=== PATIENT | female | born 1950 | race Caucasian/White ===

== ENCOUNTER → 2017-07-17 10:36 | Outpatient (CLI) | payer MEDICARE, OTHER, SELFPAY ==
[2017-07-17 12:32] LABS: Hematocrit 40.3 % (37-47); Hemoglobin 13.3 g/dl (12.0-15.0); Mean Corpuscular Hgb 28.3 pg (27.0-32.0); Mean Corpuscular Volume 85.7 fL (81-99); Mean Platelet Vol. 10.8 fl (6.2-12.0); Platelet Count 258 K/mm3 (150-450); RBC Distribution Width CV 14.6 % (11.6-14.6); RBC Distribution Width SD 44.7 fl (35.1-43.9); White Blood Count 7.2 K/mm3 (4.4-11.0)
[2017-07-17 12:33] LABS: Scan Indicated on CBC? Y/N NO
[2017-07-17 13:22] LABS: ALB/GLOB Ratio 1.1 RATIO (0.9-2.4); AST(SGOT) 23 U/L (15-37); Alanine Aminotransfer ALT/SGPT 37 U/L (13-56); Albumin, Serum 3.7 g/dL (3.2-5.0); Alkaline Phosphatase 104 U/L (45-117); Anion Gap 9 (5-15); BUN 13 mg/dL (7-18); Calcium,Total 8.6 mg/dL (8.5-10.1); Chloride 103 mmol/L (98-107); Cholesterol 263 mg/dL (200); Creatinine, Serum 0.72 mg/dL (0.55-1.02); EST Glomerular Filtration Rate 86 mL/min (>60); Est Glom Filt Rate - Afr Amer 104 mL/min (>60); Globulin 3.5 g/dL (2.2-4.2); Glucose 87 mg/dL (74-106); High Density Lipoprotein 52 mg/dL; Potassium 3.2 mmol/L (3.5-5.1); Protein, Total 7.2 g/dL (6.4-8.2); Sodium Level 138 mmol/L (136-145); Triglycerides 228 mg/dL; Very Low Density Lipoprotein 46 mg/dL (5-40)
== END ==
PROVIDERS: Family Provider Family Medicine; PCP Family Medicine; Visit Provider Family Medicine
DX: R60.0 Localized edema (principal); I10 Essential (primary) hypertension
CPT/HCPCS: 36415; 80053; 80061; 84443; 85027

== ENCOUNTER → 2017-11-26 15:26 | Outpatient (CLI) | payer MEDICARE, OTHER, SELFPAY ==
--- NOTE | 2017-11-26 15:29 | RAD_ITS ---
STUDY: X-RAY CHEST REASON FOR EXAM: Female, 67 years old. Chest pain TECHNIQUE: Frontal and lateral views of the chest COMPARISON: 10/10/2016 FINDINGS: The lungs are clear. There are no pleural effusions. There is no pneumothorax. The heart is normal in size. The visualized osseous structures are within normal limits. RAD/Chest PA and Lateral IMPRESSION: No acute thoracic pathology. Electronically Signed: Varun Moyer, at 17:49 EDT Tel , Service support ,
== END ==
PROVIDERS: Family Provider Family Medicine; PCP Family Medicine; Visit Provider Family Medicine
DX: R07.81 Pleurodynia (principal)
CPT/HCPCS: 71046

== ENCOUNTER 2017-12-31 11:45 | Inpatient (IN) | payer MEDICARE, OTHER, SELFPAY ==
[2017-12-31 11:47] VITALS: BP 137/87; PULSE 104; RESP 17; TEMP 37.4; O2SAT 94; BMI 32.8
--- NOTE | 2017-12-31 12:00 | US_ITS ---
STUDY: ABDOMINAL ULTRASOUND - RIGHT UPPER QUADRANT REASON FOR VISIT: Female, 67 years old. Abdominal pain, right upper quadrant. TECHNIQUE: Ultrasound evaluation of the right upper quadrant was performed with real-time and static magana-scale imaging. TECHNICAL QUALITY: Adequate. COMPARISON: 10/29/2015. FINDINGS: Liver: The liver measures 18.0 cm. Increased echogenicity of the liver parenchyma due to fatty infiltration. The bile ducts are within normal limits. There is hepatic color flow. The direction of portal flow is hepatopetal. There is no demonstrated mass lesion. Gallbladder: Normal distended gallbladder. The gallbladder wall measures 4 mm. There is a positive sonographic Nick's sign. There is no pericholecystic fluid. There are no gallstones. Common Bile Duct (C.B.D.): The common bile duct measures 7-8 mm. Pancreas: Normal size of the head, body and tail of the pancreas. There is normal echogenicity of the pancreas. There is no demonstrated pancreatic mass or cyst. Mild pancreatic ductal dilatation measuring 3 mm in diameter. Right Kidney: Normal size of the right kidney. The right kidney measures 10.2 x 4.9 x 4.4 cm. Normal renal cortex. The right cortex measures 1.5 cm. There is no demonstrated renal mass or cyst. There is no right hydronephrosis. US/Gallbladder IMPRESSION: 1. Abnormal thickening of the gallbladder wall with positive sonographic Nick's sign is but negative for gallstones, sludge or pericholecystic edema. This is worrisome for acalculous cholecystitis. Hepatobiliary scintigram with CCK will help clarify if desired. 2. Mild pancreatic ductal dilatation. 3. Mild hepatic steatosis was present previously. Electronically Signed: Dionisio Vigil MD at 13:57 EDT , Service support ,
[2017-12-31] MEDS: 0.9% Normal Saline 1,000 ML 125 ML IV ×2 (12:23→19:00)
[2017-12-31] MEDS: Ondansetron 4 MG/2 ML Vial IV (12:24)
[2017-12-31] MEDS: HYDROmorphone 1 MG/ML Syringe IV ×4 (12:24→22:55)
[2017-12-31 12:44] LABS: Absolute Lymphocyte Count 2.41 X10^3/ul (0.83-4.51); Basophil# 0.07 X10^3/uL; Basophil% 0.9 % (0-1); Eosinophil# 0.29 X10^3/uL; Eosinophils% 3.9 % (0-5); Hematocrit 41.7 % (37-47); Hemoglobin 14.2 g/dl (12.0-15.0); Lymphocyte # 2.41 X10^3/ul (4.0); Lymphocyte % 32.5 % (19-41); Mean Corp Hgb Conc 34.1 g/gl (32-36); Mean Corpuscular Hgb 28.5 pg (27.0-32.0); Mean Corpuscular Volume 83.6 fL (81-99); Mean Platelet Vol. 10.7 fl (6.2-12.0); Monocyte# 0.62 X10^3/uL; Monocyte% 8.4 % (0-10); Neutrophil # 3.99 X10^3/uL (2.7-7.7); Neutrophil % 53.9 % (47-70); Platelet Count 269 K/mm3 (150-450); RBC Distribution Width CV 14.3 % (11.6-14.6); RBC Distribution Width SD 43.3 fl (35.1-43.9); Red Blood Count 4.99 M/mm3 (4.2-5.4); White Blood Count 7.4 K/mm3 (4.4-11.0)
[2017-12-31 12:53] LABS: POSITIVE COUNT NO; POSITIVE DIFFERENTIAL NO; POSITIVE MORPHOLOGY NO
[2017-12-31 12:56] LABS: ALB/GLOB Ratio 1.1 RATIO (0.9-2.4); AST(SGOT) 22 U/L (15-37); Alanine Aminotransfer ALT/SGPT 31 U/L (13-56); Alkaline Phosphatase 106 U/L (45-117); Anion Gap 7 (5-15); BUN 16 mg/dL (7-18); BUN/Creat Ratio 19.2 RATIO (10-20); Calcium,Total 9.3 mg/dL (8.5-10.1); Chloride 107 mmol/L (98-107); Creatinine, Serum 0.83 mg/dL (0.55-1.02); EST Glomerular Filtration Rate 73 mL/min (>60); Est Glom Filt Rate - Afr Amer 88 mL/min (>60); Globulin 3.6 g/dL (2.2-4.2); Glucose 99 mg/dL (74-106); Lipase 200 U/L (73-393); Potassium 3.6 mmol/L (3.5-5.1); Protein, Total 7.6 g/dL (6.4-8.2); Sodium Level 140 mmol/L (136-145)
[2017-12-31 13:36] LABS: D-Dimer Quantitative (DVT/PE) 0.69 FEU/ug/m (0.27-0.49)
[2017-12-31 13:51] VITALS: RESP 14
--- NOTE | 2017-12-31 14:11 | CT_ITS ---
STUDY: CTA CHEST REASON FOR EXAM: Female, 67 years old. Chest pain. Abdominal pain. RADIATION DOSAGE (If Supplied By Facility): CTDIvol = ( 17.01 ) mGy, DLP = ( 1541.38 ) mGycm TECHNIQUE: The examination was performed with the intravenous administration of 100ML ml of Isovue 370 contrast material. Post-processing of the angiographic images was performed, with multiplanar reformation and 3D reconstruction. Individualized dose optimization techniques were used for this CT. COMPARISON: None. FINDINGS: Normal enhancement of the main pulmonary artery and right and left pulmonary arteries. Normal enhancement of the bilateral peripheral pulmonary arteries. There is no demonstrated pulmonary embolism. Normal thoracic aorta and visualized great vessels. There is no demonstrated aortic dissection. There are calcifications of the coronary arteries. There are visualized mediastinal lymph nodes, which are within normal size limits, and with normal morphology. Normal hilar regions. Normal visualized trachea and bronchi. Hyperinflation. Bullous changes in the upper lobes worse on the right side. Normal pleura. Normal chest wall structures. There are degenerative changes of thoracic spine. Diffuse fatty infiltration of the liver. CT/CTA Chest W/WO Contrast IMPRESSION: Emphysematous changes seen in the upper lobes with bullous changes in the right upper lobe. There is no evidence of pulmonary embolism. Electronically Signed: Binh Almaguer MD at 15:38 EDT Tel [phone], Service support ,
--- NOTE | 2017-12-31 14:12 | CT_ITS ---
STUDY: CT ABDOMEN AND PELVIS WITH CONTRAST REASON FOR EXAM: Female, 67 years old. Chest pain and abdominal pain. RADIATION DOSAGE (If Supplied By Facility): CTDIvol = ( 17.5 ) mGy, DLP = ( 1045 ) mGycm TECHNIQUE: Transaxial images were obtained from the dome of the diaphragm to the symphysis pubis without oral contrast. 100ML ml of Isovue 370 contrast was administered. Sagittal and coronal images were reconstructed. Individualized dose optimization techniques were used for this CT. COMPARISON: Comparison is made with prior study dated October 20, 2015. FINDINGS: The visualized lung bases are unremarkable. The visualized portions of the heart are within normal limits. There is decreased attenuation of the liver consistent with steatosis. Mild hepatomegaly. Mild degree of thickened gallbladder wall although the gallbladder is not adequately distended at the time of the examination. Normal spleen. Normal pancreas. Normal bilateral adrenal glands. Normal right kidney. Normal left kidney. There is a small hiatal hernia. Normal small intestine. There are multiple colonic diverticula consistent with diverticulosis. The appendix is visualized and appears normal. There is scattered atherosclerotic calcification of the abdominal aorta, without a demonstrated aneurysm. Normal inferior vena cava. Normal retroperitoneum. Normal urinary bladder. There is a small umbilical hernia containing fat. Mild disc space narrowing and disc herniation at the L5-S1 level. CT/Abdomen/Pelvis W IV Cont ONLY IMPRESSION: No acute abnormality is seen. Fatty infiltration of the liver and mild hepatomegaly. Electronically Signed: Binh Almaguer MD at 15:35 EDT Tel [phone], Service support ,
--- NOTE | 2017-12-31 15:40 | NURSING ---
DR VELASQUEZ PAGED
[2017-12-31 15:48] LABS: Bacteria 0 SEEN /hpf (None Seen); Mucous, Urine 0 SEEN /hpf (<or=2+); Red Blood Cells-Urine 0 SEEN /hpf (0-5)
--- NOTE | 2017-12-31 15:48 | ED.VISSUMM ---
- ER Visit Summary Date of Service: 12/31/17 Chief Complaint: [Abdominal pain] History of Present Illness: The patient is a 67 F [presents the emergency department complaint of abdominal pain for last 3 days. Patient rates her pain an 8 out of 10. Patient states that it is right upper quadrant radiating to her back. The pain is worse with movement and teething. Patient describes the pain as sharp. Patient denies blood in her stool or black tarry stool. There has been no hematemesis. Food does not seem to affect the pain.] Physical Examination: [HEENT-PERRLA, EOMI. Cranial nerves II through XII grossly intact. TMs clear. Mucous membranes moist. No adenopathy. Cardiovascular-regular rate and rhythm without murmur or ectopy Lungs-clear to auscultation, chest wall stable without crepitus or subcu emphysema Abdomen-normoactive bowel sounds, soft. Patient has tenderness over the right upper quadrant with guarding and a positive Nick sign. There is no rebound, rigidity, or perineal signs. Extremities-intact ?4, normal range of motion, normal pulses, atraumatic] Test Results: [CBC with differential is normal. Chemistries were normal. LFTs were normal. Lipase was 200. Urinalysis pending. Ultrasound gallbladder showed a thickened gallbladder wall measuring 4 mm without evidence of gallstones or sludge or pericholecystic fluid. There was concern for acalculous cholecystitis.] Patient also had a CT scan of the abdomen and pelvis that did not show any acute findings. Patient also had an elevated d-dimer on presentation of 0.69 therefore CTA of the chest was obtained to rule out PE this was negative for pulmonary embolism. Emergency Department Course and Treatment: [Patient was medicated with Dilaudid and Zofran. Patient's pain returned and had to be remedicated with Dilaudid and Zofran. I discussed case with Dr. Patrice Armstrong who will evaluate patient in consultation who also asked to admit patient to medicine.] Treatment Plan: [Admit for further workup and evaluation of her abdominal pain] Disposition: [Admit Impression: [Intractable abdominal pain-rule out acute acalculous cholecystitis] This note was generated with [employer] software. It may contain incorrect words, spelling, and punctuation that were not noted in review of the chart prior to signing ED Disposition - Plan for ED Patient: Chief Complaint: Other, Pain/Inj Referrals: Gerardo Catherine MD [Primary Care Provider] -
--- NOTE | 2017-12-31 15:51 | ED.DCSUM_ITS ---
- ER Visit Summary Date of Service: 12/31/17 Chief Complaint: [Abdominal pain] History of Present Illness: The patient is a 67 F [presents the emergency department complaint of abdominal pain for last 3 days. Patient rates her pain an 8 out of 10. Patient states that it is right upper quadrant radiating to her back. The pain is worse with movement and teething. Patient describes the pain as sharp. Patient denies blood in her stool or black tarry stool. There has been no hematemesis. Food does not seem to affect the pain.] Physical Examination: [HEENT-PERRLA, EOMI. Cranial nerves II through XII grossly intact. TMs clear. Mucous membranes moist. No adenopathy. Cardiovascular-regular rate and rhythm without murmur or ectopy Lungs-clear to auscultation, chest wall stable without crepitus or subcu emphysema Abdomen-normoactive bowel sounds, soft. Patient has tenderness over the right upper quadrant with guarding and a positive Nick sign. There is no rebound, rigidity, or perineal signs. Extremities-intact ?4, normal range of motion, normal pulses, atraumatic] Test Results: [CBC with differential is normal. Chemistries were normal. LFTs were normal. Lipase was 200. Urinalysis pending. Ultrasound gallbladder showed a thickened gallbladder wall measuring 4 mm without evidence of gallstones or sludge or pericholecystic fluid. There was concern for acalculous cholecystitis.] Patient also had a CT scan of the abdomen and pelvis that did not show any acute findings. Patient also had an elevated d- dimer on presentation of 0.69 therefore CTA of the chest was obtained to rule out PE this was negative for pulmonary embolism. Emergency Department Course and Treatment: [Patient was medicated with Dilaudid and Zofran. Patient's pain returned and had to be remedicated with Dilaudid and Zofran. I discussed case with Dr. Patrice Armstrong who will evaluate patient in consultation who also asked to admit patient to medicine.] Treatment Plan: [Admit for further workup and evaluation of her abdominal pain] Disposition: [Admit Impression: [Intractable abdominal pain-rule out acute acalculous cholecystitis] This note was generated with [employer] software. It may contain incorrect words, spelling, and punctuation that were not noted in review of the chart prior to signing ED Disposition - Plan for ED Patient: Chief Complaint: Other, Pain/Inj Referrals: Gerardo Catherine MD [Primary Care Provider] -
[2017-12-31 15:54] LABS: Color, Urine Yellow (Yellow); Glucose, Dipstick Normal (Normal); Ketone-Dipstick Negative (Negative); Leukocyte Esterase-Dipstick 25 /ul (Negative); Nitrite-Dipstick Negative (Negative); Occult Blood-Urine Negative /ul (Negative); Protein-Dipstick Negative (Negative); Specific Gravity, Urine 1.015 (1.002-1.030); Urine Bilirubin Dipstick Negative (Negative); Urine Clarity Sl. Cloudy (Clear); Urine Urobilinogen Normal (Normal)
[2017-12-31 16:06] VITALS: BP 115/68; PULSE 76; RESP 18; O2SAT 95
--- NOTE | 2017-12-31 16:11 | NURSING ---
DR VELASQUEZ HERE FOR PATIENT
--- NOTE | 2017-12-31 16:24 | PCM.CONS.GEN ---
Problem List (1) RUQ abdominal pain Status: Acute (2) Acute cholecystitis without calculus Status: Acute Reason for Consult Date of Consultation: 12/31/17 History of Present Illness: The patient is a 67 F presents the emergency department complaint of abdominal pain for last 3 days. Patient rates her pain an 8 out of 10. Patient states that it is right upper quadrant radiating to her back. The pain is worse with movement and teething. Patient describes the pain as sharp. Patient denies blood in her stool or black tarry stool. There has been no hematemesis. Food does not seem to affect the pain. Patient has been worked up for right upper quadrant abdominal pain approximately 2 years ago all imaging was negative at that time and no surgical consultation was obtained. This pain has been progressively getting worse over the last several months and over the last 3 days is been nearly unbearable. Patient has no prior history of peptic ulcer disease. Past Medical History Allergies levofloxacin [From Levaquin] Adverse Reaction (Verified 12/31/17 11:47) Other Home Medications: Ambulatory Orders Medication Instructions Recorded Amlodipine [Norvasc] 10 mg PO QHS 09/28/14 Citalopram [Celexa] 40 mg PO DAILY 09/28/14 Potassium Chloride [K-Dur] 20 meq PO TID 09/28/14 buPROPion SR [Wellbutrin SR (150mg 150 mg PO DAILY 09/28/14 tablets)] Escitalopram Oxalate [Lexapro] 20 mg PO DAILY 12/31/17 Lisinopril [Lisinopril] 20 mg PO DAILY 12/31/17 Omeprazole [Omeprazole] 40 mg PO DAILY 12/31/17 Triamterene/Hydrochlorothiazid 1 each PO DAILY 12/31/17 [Triamterene-Hctz 37.5-25 mg Tb] Surgical History: appendectomy - Patient has had tubal ligation. Patient is also had an exploratory laparotomy for abdominal pain and was noted to have a ruptured appendix many years ago. Smoking Status: Former smoker - *Family History Maternal History Items: No pertinent history Review of Systems Constitutional: Denies: Chills, Fever, Weight Change Eyes: Denies: Blurred vision, Pain, Redness, Vision Change HEENT: Denies: Dysphasia, Ear Pain, Eye Pain, Head Aches, Hearing Changes, Sore Throat Cardiovascular: Denies: Chest Pain, Chest Pressure, Chest Tightness, Palpitations Respiratory: Denies: Cough, Hemoptysis, Shortness of breath at rest, Shortness of breath upon exertion, Wheezing Gastrointestinal: Reports: Abdominal Pain. Denies: Nausea, Vomiting Genitourinary: Denies: Dysuria, Frequency, Hematuria, Urgency Musculoskeletal: Reports: - - Patient is noticing pain in the right back area radiating from the right upper quadrant area Skin: Denies: Lesions, Rash, Wounds Neurological: Denies: Change in Speech, Confusion, Numbness, Tingling, Seizures Patient Problems: Active and Suspected Problems RUQ abdominal pain (Acute) Acute cholecystitis without calculus (Acute) - Physical Exam General: Alert, Oriented x3 HEENT: Atraumatic, PERRLA, EOMI, Normocephalic Lungs: Clear to auscultation Cardiovascular: Regular rate, Regular Rhythm, No murmurs Abdomen: Tender - Patient has significant tenderness in the right upper quadrant with palpation. She has voluntary guarding throughout her abdomen. Her abdomen is obese. Hypoactive bowel sounds. Vital Signs Temp Pulse Resp BP Pulse Ox 99.3 F H 76 18 115/68 95 12/31/17 11:47 12/31/17 16:06 12/31/17 16:06 12/31/17 16:06 12/31/17 16:06 Oxygen Delivery Method Room Air Weight: 184 lb 15.485 oz Body Mass Index (BMI) 32.8 Laboratory Tests Past 24 Hrs 12/31/17 12/31/17 12/31/17 12:31 12:31 12:31 WBC 7.4 RBC 4.99 Hgb 14.2 Hct 41.7 MCV 83.6 MCH 28.5 MCHC 34.1 RDW 14.3 RDW Differential 43.3 Plt Count 269 MPV 10.7 Immature Gran % (Auto) 0.400 Neut % (Auto) 53.9 Lymph % (Auto) 32.5 Emmet % (Auto) 8.4 Eos % (Auto) 3.9 Baso % (Auto) 0.9 Absolute Neuts (auto) 4.0 Absolute Lymphs (auto) 2.41 Total Counted Not Reportable D-Dimer Quant (PE/DVT) 0.69 H* Sodium 140 Potassium 3.6 Chloride 107 Carbon Dioxide 26.0 Anion Gap 7 BUN 16 Creatinine 0.83 Estim Creat Clear Calc 55.90 Est GFR (MDRD) Af Amer 88 Est GFR (MDRD) Non-Af 73 BUN/Creatinine Ratio 19.2 Glucose 99 Calcium 9.3 Total Bilirubin 0.50 AST 22 ALT 31 Alkaline Phosphatase 106 Total Protein 7.6 Albumin 4.0 Globulin 3.6 Albumin/Globulin Ratio 1.1 Lipase 200 Urine Color Urine Clarity Urine pH Ur Specific [employer] Urine Protein Urine Glucose (UA) Urine Ketones Urine Occult Blood Urine Nitrite Urine Bilirubin Urine Urobilinogen Ur Leukocyte Esterase Urine RBC Urine WBC Ur Squamous Epith Cells Urine Bacteria Urine Mucus 12/31/17 15:42 WBC RBC Hgb Hct MCV MCH MCHC RDW RDW Differential Plt Count MPV Immature Gran % (Auto) Neut % (Auto) Lymph % (Auto) Emmet % (Auto) Eos % (Auto) Baso % (Auto) Absolute Neuts (auto) Absolute Lymphs (auto) Total Counted D-Dimer Quant (PE/DVT) Sodium Potassium Chloride Carbon Dioxide Anion Gap BUN Creatinine Estim Creat Clear Calc Est GFR (MDRD) Af Amer Est GFR (MDRD) Non-Af BUN/Creatinine Ratio Glucose Calcium Total Bilirubin AST ALT Alkaline Phosphatase Total Protein Albumin Globulin Albumin/Globulin Ratio Lipase Urine Color Yellow Urine Clarity Sl. Cloudy Urine pH 6.0 Ur Specific [employer] 1.015 Urine Protein Negative Urine Glucose (UA) Normal Urine Ketones Negative Urine Occult Blood Negative Urine Nitrite Negative Urine Bilirubin Negative Urine Urobilinogen Normal Ur Leukocyte Esterase 25 H Urine RBC Pending Urine WBC Pending Ur Squamous Epith Cells Pending Urine Bacteria Pending Urine Mucus Pending Assessment/Plan All Active Problems RUQ abdominal pain (Acute) Acute cholecystitis without calculus (Acute) I think her presentation as well as imaging is very worrisome for acute cholecystitis without cholelithiasis. I believe that she would benefit from an attempted laparoscopic cholecystectomy. I have instructed her given the midline incision and previous surgeries that this may be technically difficult secondary to possibly having significant adhesions. I have counseled her that she may end up having an open cholecystectomy. We have reviewed the pertinent risks majority being bleeding and infection possible need for a drainage tube. In addition to blood clots heart attacks pneumonias and strokes as well as injury to underlying structures. The patient understood these risks all of her questions asked were answered and she is willing to proceed. Medicine is going to see this patient and get her worked up for surgery sometime tomorrow.
--- NOTE | 2017-12-31 16:25 | NURSING ---
ACUTE CHOLECYSTITIS [facility] 212
[2017-12-31 16:26] LABS: Squamous Epithelial Cells - UA 0-5 SEEN /hpf (5-10); White Blood Cells 0-5 SEEN /hpf (0-5)
--- NOTE | 2017-12-31 16:26 | CM.ED ---
Social Work Note Into complete initial assessment as pt is to be admitted. Introduced self and role at [facility]. Pt reports to live with her spouse in a one-story home with 3 CEASAR and handrails. Denies access issues and reports to be independent with ADL's. Denies having DME. Confirms that her PCP is Dr. Ronak Catherine and denies seeing any specialists. [facility] Pt does not have advanced directives, but requests to be given the documents. Pt being transported to unit and will pass along to SW on assigned unit. Plan: Home with no anticipated needs. Rosa M Reilly, ADOPTION COUNSELOR, LIQUID NATURAL GAS PLANT OPERATOR
[2017-12-31 17:00] VITALS: BMI 32.8
[2017-12-31 17:02] VITALS: BMI 32.8
[2017-12-31 17:04] VITALS: BMI 33.3
[2017-12-31 17:12] VITALS: BP 135/61; PULSE 70; RESP 16; TEMP 37; O2SAT 95
[2017-12-31] MEDS: Lactated Ringers 1,000 ML 100 ML IV (17:31)
--- NOTE | 2017-12-31 17:58 | PCM.HP.STD ---
Problem List (1) Acute cholecystitis without calculus Status: Acute (2) HTN (hypertension) Status: Chronic (3) Depression Status: Chronic History of Present Illness Date of Admission: 12/31/17 Chief Complaint: RUQ pain The patient is a 67 year old F with a hx of htn, depression, smoking, gerd, who presents to the ER with RUQ pain. This is described as a sharp stabbing pain that has progressively worsened for 3 weeks. She denies associated nausea or vomiting. It is worse with bending over and taking a deep breath. She has had some associated chills and sweats at home. It is not associated with eating. In the ER she underwent an abdominal US with findings suggesting acute cholecystitis. Dr. Armstrong plans to take her to the OR tomorrow. She states that she has no personal or family hx of issues with sedation including malignant htn. She does have poor functional status, she cannot walk up one flight of stairs without becoming SOB, and cannot carry a bag of groceries without SOB. She had a positive stress 8-[address] Nathan but a follow up cath was negative. She has findings of bullous emphysema on CTA of her chest, however has no diagnosis of COPD and uses no inhalers. She smoked for about 20 years but quit in 1988. [] Past Medical History Past Medical History (Chronic Problems): Chronic Problems Depression (Chronic) HTN (hypertension) (Chronic) Allergies levofloxacin [From Levaquin] Adverse Reaction (Verified 12/31/17 17:07) MUSCLE WEAKNESS IN ARMS Home Medications: Ambulatory Orders Medication Instructions Recorded Amlodipine [Norvasc] 10 mg PO QHS 09/28/14 Potassium Chloride [K-Dur] 20 meq PO TID 09/28/14 Escitalopram Oxalate [Lexapro] 20 mg PO DAILY 12/31/17 Lisinopril [Lisinopril] 20 mg PO DAILY 12/31/17 Omeprazole [Omeprazole] 40 mg PO DAILY 12/31/17 Triamterene/Hydrochlorothiazid 1 each PO DAILY 12/31/17 [Triamterene-Hctz 37.5-25 mg Tb] buPROPion XL [Wellbutrin Xl] 300 mg PO DAILY 12/31/17 Surgical History: appendectomy - Patient has had tubal ligation. 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 Denies: Fever, Weight Change, Fatigue HEENT: Denies: Head Aches, Sinus Congestion, Sinus Drainage Cardiovascular: Denies: Chest Pain, Palpitations Respiratory: Reports: Shortness of breath upon exertion. Denies: Cough, Shortness of breath at rest, Sputum production Gastrointestinal: Reports: Abdominal Pain. Denies: Nausea, Vomiting Genitourinary: Denies: Dysuria Musculoskeletal: Denies: Joint Pain, Joint Tenderness Skin: Denies: Rash, Wounds Neurological: Denies: Numbness, Tingling, Focal weakness Psychiatric: Reports: Anxiety, Depression. Denies: Homicidal Ideations, Suicidal Ideations Hematologic/ Lymphatic: Denies: Easy Bruising, Easy Bleeding VTE Information - Inpt Only VTE Present on Admission: No VTE Mechan Device Prophylaxis: None VTE Pharm Prophylaxis ordered?: Yes Patient Problems: Active and Suspected Problems RUQ abdominal pain (Acute) Acute cholecystitis without calculus (Acute) - Physical Exam General: Alert, Oriented x3, Cooperative HEENT: Atraumatic, PERRLA, EOMI, Normocephalic Neck: Supple, No JVD, Negative Carotid Bruits Lungs: Clear to auscultation, Normal air movement Cardiovascular: Regular rate, No murmurs Abdomen: Bowel Sounds Present, Soft, Non Tender Extremities: No edema, Capillary Refill Less than 3 Seconds Skin: No rashes, No breakdown Musculoskeletal: No Tenderness to Palpation of Joints or Extremities Neurological: Cranial nerves II-XII grossly intact Psych/Mental Status: Normal Affect, Appropriate, Alert and oriented to time, place, person, mood and affect Vital Signs Temp Pulse Resp BP Pulse Ox 98.6 F 70 16 135/61 H 95 12/31/17 17:12 12/31/17 17:12 12/31/17 17:12 12/31/17 17:12 12/31/17 17:12 Oxygen Delivery Method Room Air Weight: 187 lb 13.341 oz Body Mass Index (BMI) 33.3 Assessment/Plan All Active Problems RUQ abdominal pain (Acute) Acute cholecystitis without calculus (Acute) 1. Acute cholecstitis - pt to go to OR tomorrow with Dr. Armstrong. Unasyn for now. IV pepcid. No signs of sepsis. + GB US. CT with fatty liver changes mild hepatomegaly. CMP is wnl. 2. COPD - CTA shows bullous emphysema. prn aerosols ordered. 3. HTN - stable. continue home meds 4. Anx/Dep - stable 5. GERD - iv pepcid. on ppi at home. DVT ppx: scd's This patient was seen by Jimbo Trent PA-C under the supervision of Doctor You.
[2017-12-31 21:41] VITALS: BP 119/63; PULSE 62; RESP 18; TEMP 36.6; O2SAT 94
--- NOTE | 2017-12-31 23:20 | NURSING ---
FINAL INSPECTOR AND TESTER came to this RN and stated pt was having a panic attack and he was unable to calm her down. This RN went to check on pt and pt up in room crying. States used to have panic attacks before at home. Emotional support provided. Pt denied the need for meds at this time, stated just wants to take a walk. Was up in halls independently & now up in chair in room. will continue to monitor.
[2018-01-01] VITALS (15 sets, daily range): BP systolic 106–146; BP diastolic 64–79; PULSE 64–92; RESP 16–18; TEMP 36.2–37; O2SAT 87–98; BMI 32.9; BMI 32.8
[2018-01-01 05:13] LABS: Absolute Lymphocyte Count 1.86 X10^3/ul (0.83-4.51); Basophil# 0.05 X10^3/uL; Basophil% 0.7 % (0-1); Eosinophil# 0.21 X10^3/uL; Eosinophils% 2.7 % (0-5); Hematocrit 37.5 % (37-47); Hemoglobin 12.5 g/dl (12.0-15.0); Lymphocyte # 1.86 X10^3/ul (4.0); Lymphocyte % 24.3 % (19-41); Mean Corp Hgb Conc 33.3 g/gl (32-36); Mean Corpuscular Hgb 28.6 pg (27.0-32.0); Mean Corpuscular Volume 85.8 fL (81-99); Mean Platelet Vol. 10.4 fl (6.2-12.0); Monocyte% 6.5 % (0-10); Neutrophil # 5.02 X10^3/uL (2.7-7.7); Neutrophil % 65.5 % (47-70); Platelet Count 209 K/mm3 (150-450); RBC Distribution Width CV 14.6 % (11.6-14.6); RBC Distribution Width SD 44.8 fl (35.1-43.9); Red Blood Count 4.37 M/mm3 (4.2-5.4); White Blood Count 7.7 K/mm3 (4.4-11.0)
[2018-01-01 05:15] LABS: POSITIVE COUNT NO; POSITIVE DIFFERENTIAL NO; POSITIVE MORPHOLOGY NO
[2018-01-01] MEDS: Lactated Ringers 1,000 ML 100 ML IV ×2 (06:04→21:25)
[2018-01-01] MEDS: 0.9% NaCl Peripheral Flush Adult/Peds IV ×7 (06:04→18:33)
--- NOTE | 2018-01-01 06:21 | NURSING ---
Report called to Lauryn in A/C. Will have INTERN PRODUCT MARKETING MANAGER take pt down.
--- NOTE | 2018-01-01 07:30 | GALL_PTH ---
PATIENT: ISHMAEL ZHU LOC: MS2 U#:[id number] AGE/SX: 67/F ROOM: [facility] RE12/31/[address]: Dr. Roe You DO : 1950 BED: 1 DIS: 01/02/2018 SPEC #: [id number] RECD: 01/01/18 09:14 STATUS: BENJI REQ #: [id number] LALA: 01/01/18 07:[address]: Patrice Armstrong DEPT: SURGICAL PATHOLOGY RECD BY: Luis Iglesias ENTERED: 01/01/18 11:55 SP TYPE: GALLBLADDE OTHR DR: MD Dr. Patrice Erickson MD Dr. Mark Tereletsky, DO Tissues: Gallbladder, NOS Procedures: Surgery Specimen Level III Comments: @ Ordering doctor for SUIII edited from to @ by JEANNE at 01/01/18 1441 @ Submitting doctor edited from to DR.DPEABO Lamar by JEANNE at 01/01/18 1441 HEADER OPERATION: Laparoscopic cholecystectomy PRE-OP DIAGNOSIS: Acute cholecystitis without calculus TISSUE SUBMITTED: Gallbladder MICROSCOPIC DIAGNOSIS Gallbladder: Chronic cholecystitis. No stone are identified in the container or in the gallbladder. NIDIA:[email or web address] 01/02/18 MICROSCOPIC DESCRIPTION Slides are reviewed. GROSS DESCRIPTION Received is one container labeled with the patient's name and designated gallbladder. The specimen consists of a gallbladder measuring 8 cm in length and up to 4 cm in diameter. The external surface is pink-hopson, smooth and glistening for the most part. Focally it is granular, hemorrhagic and contains cautery artifact. The gallbladder contains green-yellow mucoid bile. No stones are identified in the container or in the gallbladder. The mucosa is bile-stained and without any mass lesions. The gallbladder wall measures up to 0.3 cm in thickness. Haulage Boss sections from the gallbladder and the cystic duct are submitted in one cassette. / NIDIA:darion 01/01/18 TC:3 CPT: 55487
--- NOTE | 2018-01-01 07:42 | PCA ---
pt off floor
[2018-01-01] MEDS: Bupivacaine Mpf 0.5% 30 ML VIAL (08:01)
--- NOTE | 2018-01-01 08:01 | PCM.OPRPT ---
Problem List (1) RUQ abdominal pain Status: Acute (2) Acute cholecystitis without calculus Status: Acute Report of Operation Date of Procedure: 01/01/18 Pre-Operative Diagnosis: Acute acalculous cholecystitis. Right upper quadrant abdominal pain Post-Operative Diagnosis: Same Surgery/Procedure Performed:: Laparoscopic cholecystectomy Type of Anesthesia:: General Anesthesiologist: Maurilio Waters Specimen's removed: Gallbladder Estimated Blood Loss (mL): < 25 cc Description of Procedure: Patient was brought in the operating room placed in the supine position. Under excellent general trach intubation the abdomen was sterilely prepped and draped in usual fashion. Local was injected in the right upper quadrant. Incision was made. Visiport was used to gain access to the intra-abdominal cavity without injury to underlying structures. The abdomen was insufflated to 15 torr. The patient was placed in the head up and rotated to the left position. A subxiphoid #5 trocar was placed and inferior to this another #5 trocar was placed both of these under direct visualization without injury to underlying structures. Moderate amount of adhesions were taken down from the umbilical area. A 10/12 trocar was placed under direct visualization without injury to underlying structures. Fundus of the gallbladder was grasped and retracted in a cephalad direction. Significant amount of adhesions were taken down off of the gallbladder itself with use of electrocautery. Fundus of the gallbladder was then retracted in cephalad direction more superiorly I then dissected the cystic duct and cystic artery and posterior area towards the liver completely free. I placed 2 hemoclips proximally and distally on the artery and 2 hemoclips proximally distally on the duct I ligated them both. I deliver the gallbladder from the gallbladder bed with the use of electrocautery. I had excellent hemostasis. I had no spillage of bile. Specimen was brought through the umbilical area in a specimen bag. I reinflated the abdomen and inspected my liver bed I have excellent hemostasis. I removed all the trochars under direct visualization I had good hemostasis. I closed the fascia the umbilical port with 2 [id number] sutures of 0 Vicryl. Skin incisions were closed with subcu stitches of 4-0 Monocryl. Steri-Strips are applied. Sterile dressings were applied. The patient tolerated the procedure well. - Admit VTE Documentation VTE Present on Admission: No VTE Mechan Device Prophylaxis: SCD's VTE Pharm Prophylaxis ordered?: No Reason prophylaxis not ordered:: Treatment Not Indicated
--- NOTE | 2018-01-01 09:39 | PCA ---
pt off floor
[2018-01-01] MEDS: Ondansetron 4 MG/2 ML Vial IV (10:36)
--- NOTE | 2018-01-01 10:58 | PN_ITS ---
Patient Problems: Active and Suspected Problems RUQ abdominal pain (Acute) Acute cholecystitis without calculus (Acute) Subjective: Patient continues to have significant diffuse abdominal pain at rest. Still nauseous. No vomiting. - Physical Exam General: Alert, Oriented x3, Cooperative HEENT: Atraumatic, PERRLA, EOMI, Normocephalic Neck: Supple, No JVD, Negative Carotid Bruits Lungs: Clear to auscultation, Normal air movement Cardiovascular: Regular rate, No murmurs Abdomen: Bowel Sounds Not Present, Tender Extremities: No edema, Capillary Refill Less than 3 Seconds Skin: No rashes, No breakdown Musculoskeletal: No Tenderness to Palpation of Joints or Extremities Neurological: Cranial nerves II-XII grossly intact Psych/Mental Status: Normal Affect, Appropriate, Alert and oriented to time, place, person, mood and affect Vital Signs Temp Pulse Resp BP Pulse Ox 98.1 F 79 18 106/68 93 01/01/18 10:24 01/01/18 10:24 01/01/18 10:24 01/01/18 10:24 01/01/18 10:24 Oxygen Flow Rate (L/min) 3 Oxygen Delivery Method Room Air Weight: 185 lb 14.4 oz Body Mass Index (BMI) 32.9 Intake and Output for Last 24 Hours 12/30/17 12/31/17 01/01/18 23:59 23:59 23:59 Intake Total 480 / 480 2897 / 2897 Balance 480 / 480 2897 / 2897 Laboratory Tests Past 24 Hrs 01/01/18 05:04 WBC 7.7 RBC 4.37 Hgb 12.5 Hct 37.5 MCV 85.8 MCH 28.6 MCHC 33.3 RDW 14.6 RDW Differential 44.8 H Plt Count 209 MPV 10.4 Immature Gran % (Auto) 0.300 Neut % (Auto) 65.5 Lymph % (Auto) 24.3 Toombs % (Auto) 6.5 Eos % (Auto) 2.7 Baso % (Auto) 0.7 Absolute Neuts (auto) 5.0 Absolute Lymphs (auto) 1.86 Total Counted Not Reportable Medical Necessity - Tobacco Use Smoking Status: Former smoker Tobacco Use: Cigarettes Assessment/Plan All Active Problems RUQ abdominal pain (Acute) Acute cholecystitis without calculus (Acute) 1. Acute cholecystitis - POD#0 s/p lap shannen. Significant pain and nausea. Will monitor overnight. 2. COPD - CTA shows bullous emphysema. prn aerosols ordered. 3. HTN - stable. continue home meds 4. Anx/Dep - stable 5. GERD - PPI DVT ppx: scd's This patient was seen by Jimbo Trent PA-C under the supervision of Doctor You.
[2018-01-01] MEDS: HYDROmorphone 1 MG/ML Syringe IV ×2 (13:35→18:33)
--- NOTE | 2018-01-01 13:40 | NURSING ---
Addie GARCIA MADE AWARE OF PT NAUSEA/DRY HEEVES, ZOFRAN INEFFECTIVE. NEW ORDERS RECEIVED.
[2018-01-01] MEDS: proMETHazine 25 MG/ML Syringe 12.5 MG IV ×2 (13:44→18:33)
[2018-01-02 02:25] VITALS: BP 134/76; PULSE 86; RESP 18; TEMP 36.9; O2SAT 96
[2018-01-02] MEDS: HYDROmorphone 1 MG/ML Syringe IV (05:34)
--- NOTE | 2018-01-02 06:53 | PCM.PN.SRG ---
Patient Problems: Active and Suspected Problems RUQ abdominal pain (Acute) Acute cholecystitis without calculus (Acute) Subjective: Patient evaluated resting comfortably in bed. She denies nausea, vomiting, fever. She denies abdominal pain/discomfort. She noted flatus. She is tolerating clear liquids well. - Physical Exam General: Alert, Oriented x3, Cooperative Abdomen: Non Tender, Hypoactive Bowel Sounds, Distended, - - Incisions- c/d/i. No erythema or infection noted Vital Signs Temp Pulse Resp BP Pulse Ox 98.4 F 86 18 134/76 H 96 01/02/18 02:25 01/02/18 02:25 01/02/18 02:25 01/02/18 02:25 01/02/18 02:25 Oxygen Flow Rate (L/min) 3 Oxygen Delivery Method Nasal Cannula Weight: 185 lb 14.406 oz Body Mass Index (BMI) 32.9 Intake and Output for Last 24 Hours 12/31/17 01/01/18 01/02/18 23:59 23:59 23:59 Intake Total 480 / 480 4187 / 4187 936 / 936 Output Total 300 / 300 2700 / 2700 Balance 480 / 480 3887 / 3887 -1764 / -1764 Medical Necessity - Tobacco Use Smoking Status: Former smoker Tobacco Use: Cigarettes Assessment/Plan All Active Problems RUQ abdominal pain (Acute) Acute cholecystitis without calculus (Acute) I am following this patient in conjunction with Dr. Armstrong Impression: S/p laparoscopic cholecystectomy Ready for discharge Code Visit Inpatient E&M: 52857 Subs Hosp L1 - Post-op/No charge
--- NOTE | 2018-01-02 06:57 | DCINST_ITS ---
Discharge Diet: Light diet - advance as tolerated Discharge Activity: Return to Normal Activity, May Not Drive - for 2-3 days or while taking narcotic pain medicataions., - - Do not drive, work heavy equipment or sign legal documents for 24 hours. May shower in (days): 1 - with the bandage in place. Additional Activity Instructions:: Pain medication may cause nausea. You should typically eat light foods as you take your pain medications. Pain medication may also cause constipation. If this is a problem for you, please discuss with your doctor. Call your doctor if your incision/area has: Continuous Slow Oozing, Sudden Increased Bleeding, Increased Pain/ Swelling, Increased Redness, Foul Smelling Discharge, Fever of 101 or Higher Call your doctor if you observe: Fever of 101 or Higher Suture Line Care: Avoid Pulling/Pushing, Avoid Pinching/Bending Cleanse incision/area with: Soap & Water Additional Dressing/Incision Instructions:: Leave operative bandaids on for 2 days. When you remove dressing, leave Steri-Strips on until your follow-up appointment, or until the Steri-Strips fall off on their own. Allergies/Adverse Reactions: Allergies levofloxacin [From Levaquin] Adverse Reaction (Verified 12/31/17 17:07) MUSCLE WEAKNESS IN ARMS Medications to take at Discharge Amlodipine [Norvasc] 10 mg PO QHS 09/28/14 Potassium Chloride [K-Dur] 20 meq PO TID 09/28/14 Escitalopram Oxalate [Lexapro] 20 mg PO DAILY 12/31/17 Lisinopril 20 mg PO DAILY 12/31/17 Omeprazole 40 mg PO DAILY 12/31/17 Triamterene/Hydrochlorothiazid [Triamterene-Hctz 37.5-25 mg Tb] 1 each PO DAILY 12/31/17 buPROPion XL [Wellbutrin Xl] 300 mg PO DAILY 12/31/17 Oxycodone HCl/Acetaminophen [Percocet 5/325] 1 - 2 tab PO Q4H PRN PRN 4 Days # 30 tab 01/01/18 The following prescriptions were given: Oxycodone HCl/Acetaminophen [Percocet 5/325] 1 - 2 tab PO Q4H PRN PRN 4 Days # 30 tab PRN Reason: Pain Primary Care Physician: Gerardo Catherine MD [Primary Care Provider] - Test Results: Test results from this visit will be discussed in further detail at your follow- up appointment, if applicable. Please Follow Up With: Debra Mcgrath PA-C - [phone] When: 10 days Proposed Discharge Date: 01/02/18
[2018-01-02 08:00] VITALS: RESP 18
[2018-01-02 08:02] VITALS: BP 146/83; PULSE 75; RESP 18; TEMP 36.8; O2SAT 96
[2018-01-02 09:15] LABS: Absolute Lymphocyte Count 2.24 X10^3/ul (0.83-4.51); Absolute Neutrophil Count 4.6 X10^3/uL (2.0-7.7); Basophil# 0.03 X10^3/uL; Basophil% 0.4 % (0-1); Eosinophil# 0.12 X10^3/uL; Eosinophils% 1.6 % (0-5); Hematocrit 37.1 % (37-47); Hemoglobin 11.9 g/dl (12.0-15.0); Lymphocyte # 2.24 X10^3/ul (4.0); Lymphocyte % 29.9 % (19-41); Mean Corp Hgb Conc 32.1 g/gl (32-36); Mean Corpuscular Hgb 27.8 pg (27.0-32.0); Mean Corpuscular Volume 86.7 fL (81-99); Mean Platelet Vol. 10.1 fl (6.2-12.0); Monocyte% 6.7 % (0-10); Neutrophil % 61.3 % (47-70); Platelet Count 210 K/mm3 (150-450); RBC Distribution Width CV 14.7 % (11.6-14.6); RBC Distribution Width SD 46.5 fl (35.1-43.9); Red Blood Count 4.28 M/mm3 (4.2-5.4); White Blood Count 7.5 K/mm3 (4.4-11.0)
[2018-01-02 09:20] LABS: POSITIVE COUNT NO; POSITIVE DIFFERENTIAL NO; POSITIVE MORPHOLOGY NO
[2018-01-02 09:33] LABS: ALB/GLOB Ratio 0.9 RATIO (0.9-2.4); AST(SGOT) 61 U/L (15-37); Alanine Aminotransfer ALT/SGPT 80 U/L (13-56); Albumin, Serum 3.1 g/dL (3.2-5.0); Alkaline Phosphatase 111 U/L (45-117); Anion Gap 5 (5-15); BUN 4 mg/dL (7-18); Chloride 104 mmol/L (98-107); Creatinine, Serum 0.79 mg/dL (0.55-1.02); EST Glomerular Filtration Rate 77 mL/min (>60); Est Glom Filt Rate - Afr Amer 93 mL/min (>60); Estimated Creatinine Clearance 58.73 ml/min; Globulin 3.3 g/dL (2.2-4.2); Glucose 108 mg/dL (74-106); Protein, Total 6.4 g/dL (6.4-8.2); Sodium Level 141 mmol/L (136-145)
[2018-01-02] MEDS: 0.9% NaCl Peripheral Flush Adult/Peds IV (09:46)
[2018-01-02] MEDS: oxyCODONE 5 MG Tablet PO (11:38)
[2018-01-02] MEDS: Acetaminophen 325 MG Tablet PO (11:38)
--- NOTE | 2018-01-02 11:51 | DCINST_ITS ---
- Discharge Diagnoses Current Active Problems: Current Active and Chronic Problems RUQ abdominal pain (Acute) Acute cholecystitis without calculus (Acute) Depression (Chronic) HTN (hypertension) (Chronic) You will use the following diet at home:: Cardiac Your food should be the consistency of: Regular Your liquids should be the consistency of: Regular/Thin Discharge Activity: Return to Normal Activity, May Not Drive - for 2-3 days or while taking narcotic pain medicataions., - - Do not drive, work heavy equipment or sign legal documents for 24 hours. May shower in (days): 1 - with the bandage in place. Additional Activity Instructions:: Pain medication may cause nausea. You should typically eat light foods as you take your pain medications. Pain medication may also cause constipation. If this is a problem for you, please discuss with your doctor. Call your doctor if your incision/area has: Continuous Slow Oozing, Sudden Increased Bleeding, Increased Pain/ Swelling, Increased Redness, Foul Smelling Discharge, Fever of 101 or Higher Call your doctor if you observe: Fever of 101 or Higher Suture Line Care: Avoid Pulling/Pushing, Avoid Pinching/Bending Cleanse incision/area with: Soap & Water Additional Dressing/Incision Instructions:: Leave operative bandaids on for 2 days. When you remove dressing, leave Steri-Strips on until your follow-up appointment, or until the Steri-Strips fall off on their own. Allergies/Adverse Reactions: Allergies levofloxacin [From Levaquin] Adverse Reaction (Verified 12/31/17 17:07) MUSCLE WEAKNESS IN ARMS Medications to take at Discharge Amlodipine [Norvasc] 10 mg PO QHS 09/28/14 Potassium Chloride [K-Dur] 20 meq PO TID 09/28/14 Escitalopram Oxalate [Lexapro] 20 mg PO DAILY 12/31/17 Lisinopril 20 mg PO DAILY 12/31/17 Omeprazole 40 mg PO DAILY 12/31/17 Triamterene/Hydrochlorothiazid [Triamterene-Hctz 37.5-25 mg Tb] 1 each PO DAILY 12/31/17 buPROPion XL [Wellbutrin Xl] 300 mg PO DAILY 12/31/17 Oxycodone HCl/Acetaminophen [Percocet 5/325] 1 - 2 tab PO Q4H PRN PRN 4 Days # 30 tab 01/01/18 The following prescriptions were given: Oxycodone HCl/Acetaminophen [Percocet 5/325] 1 - 2 tab PO Q4H PRN PRN 4 Days # 30 tab PRN Reason: Pain Primary Care Physician: Gerardo Catherine MD [Primary Care Provider] - Please follow up with your Primary Care Physician in: 1-2 weeks Test Results: Test results from this visit will be discussed in further detail at your follow- up appointment, if applicable. Please Follow Up With: Debra Mcgrath PA-C - [phone] When: 10 days Proposed Discharge Date: 01/02/18
[2018-01-02 12:17] VITALS: O2SAT 92; O2SAT 94
[2018-01-02 13:06] VITALS: BP 128/66; PULSE 70; RESP 18; TEMP 37.1; O2SAT 96
--- NOTE | 2018-01-02 13:57 | PCM.DC.SUM ---
Discharge Date and Diagnosis Date of Admission: 12/31/17 Date of Discharge: 01/02/18 - Primary Discharge Diagnosis Acute acalculus choecystitis s/p lap shannen HTN Depression Nicotine abuse GERD - Secondary Discharge Diagnosis Chronic Problems Depression (Chronic) HTN (hypertension) (Chronic) Hospital Course and Treatment Imaging Results: US/Gallbladder IMPRESSION: 1. Abnormal thickening of the gallbladder wall with positive sonographic Nick's sign is but negative for gallstones, sludge or pericholecystic edema. This is worrisome for acalculous cholecystitis. Hepatobiliary scintigram with CCK will help clarify if desired. 2. Mild pancreatic ductal dilatation. 3. Mild hepatic steatosis was present previously. CT/CTA Chest W/WO Contrast IMPRESSION: Emphysematous changes seen in the upper lobes with bullous changes in the right upper lobe. There is no evidence of pulmonary embolism. CT/Abdomen/Pelvis W IV Cont ONLY IMPRESSION: No acute abnormality is seen. Fatty infiltration of the liver and mild hepatomegaly. Consults: Patti - Gen Surgery Operations: cholecystecomy Procedures: None Summary of Care Provided: Physical exam on day of discharge: General: Resting comfortably NAD Psych: A/Ox3 normal affect HEENT: PEARRLA AT NC Neck: Supple NT CV: RRR no m/t/r/g/h Resp: CTA Abd: [id number] Soft, mild tenderness right upper quadrant, no guarding or rigidity Ext: DP2+= no edema Skin: W/D normal turgor Lymph/Heme: No active bleeding or adenopathy Neuro: CN2-12 intact Hospital course: The patient is a 67 year old F with a hx of nicotine abuse, GERD, htn, deperssion who presented to the ER with 8/10 RUQ pain for 3 days radiating into her back. US showed cholecystitis. D dimer was elevated and CTA was checked - negative for PE although it did show bullous emphysema RUL. Lab work was otherwise unremarkable. CT abdomen was negative. Gen surgery was consulted and she was arranged to have lap shannen the following morning. The procedure went well without complications. She continued to have nausea and abdominal pain the rest of the day so was decided that she would stay in the hospital overnight for better symptom control. The next morning her pain was minimal, she was tolerating full diet. She was discharged home in stable condition. She will need to follow-up with Dr. Armstrong as directed and with her PCP in 1-2 weeks. This patient was seen by Jimbo Trent PA-C under the supervision of Doctor Kenyatta. [] Discharge Diet: Light diet - advance as tolerated Discharge Activity: Return to Normal Activity, May Not Drive - for 2-3 days or while taking narcotic pain medicataions., - - Do not drive, work heavy equipment or sign legal documents for 24 hours. May shower in (days): 1 - with the bandage in place. Additional Activity Instructions:: Pain medication may cause nausea. You should typically eat light foods as you take your pain medications. Pain medication may also cause constipation. If this is a problem for you, please discuss with your doctor. Call your doctor if your incision/area has: Continuous Slow Oozing, Sudden Increased Bleeding, Increased Pain/ Swelling, Increased Redness, Foul Smelling Discharge, Fever of 101 or Higher Call your doctor if you observe: Fever of 101 or Higher Suture Line Care: Avoid Pulling/Pushing, Avoid Pinching/Bending Cleanse incision/area with: Soap & Water Additional Dressing/Incision Instructions:: Leave operative bandaids on for 2 days. When you remove dressing, leave Steri-Strips on until your follow-up appointment, or until the Steri-Strips fall off on their own. Home Medications: Medications to take at Discharge Amlodipine [Norvasc] 10 mg PO QHS 09/28/14 Potassium Chloride [K-Dur] 20 meq PO TID 09/28/14 Escitalopram Oxalate [Lexapro] 20 mg PO DAILY 12/31/17 Lisinopril 20 mg PO DAILY 12/31/17 Omeprazole 40 mg PO DAILY 12/31/17 Triamterene/Hydrochlorothiazid [Triamterene-Hctz 37.5-25 mg Tb] 1 each PO DAILY 12/31/17 buPROPion XL [Wellbutrin Xl] 300 mg PO DAILY 12/31/17 Oxycodone HCl/Acetaminophen [Percocet 5/325] 1 - 2 tab PO Q4H PRN PRN 4 Days #30 tab 01/01/18 Following Prescrptions Were Given to Patient: Oxycodone HCl/Acetaminophen [Percocet 5/325] 1 - 2 tab PO Q4H PRN PRN 4 Days #30 tab PRN Reason: Pain Primary Care Physician: Gerardo Catherine MD [Primary Care Provider] - Please follow up with your Primary Care Physician in: 1-2 weeks Please Follow Up With: Debra Mcgrath PA-C - [phone] When: 10 days Disposition: Home Minutes spent on discharge:: 35 Patient Condition:: Stable Medical Necessity - Tobacco Use Smoking Status: Former smoker Tobacco Use: Cigarettes Meaningful Use Info Meaningful Use Diagnoses (Choose all that apply): None applicable
--- NOTE | 2018-01-02 14:03 | DS.PCM_ITS ---
Discharge Date and Diagnosis Date of Admission: 12/31/17 Date of Discharge: 01/02/18 - Primary Discharge Diagnosis Acute acalculus choecystitis s/p lap shannen HTN Depression Nicotine abuse GERD - Secondary Discharge Diagnosis Chronic Problems Depression (Chronic) HTN (hypertension) (Chronic) Hospital Course and Treatment Imaging Results: US/Gallbladder IMPRESSION: 1. Abnormal thickening of the gallbladder wall with positive sonographic Nick's sign is but negative for gallstones, sludge or pericholecystic edema. This is worrisome for acalculous cholecystitis. Hepatobiliary scintigram with CCK will help clarify if desired. 2. Mild pancreatic ductal dilatation. 3. Mild hepatic steatosis was present previously. CT/CTA Chest W/WO Contrast IMPRESSION: Emphysematous changes seen in the upper lobes with bullous changes in the right upper lobe. There is no evidence of pulmonary embolism. CT/Abdomen/Pelvis W IV Cont ONLY IMPRESSION: No acute abnormality is seen. Fatty infiltration of the liver and mild hepatomegaly. Consults: Patti - Gen Surgery Operations: cholecystecomy Procedures: None Summary of Care Provided: Physical exam on day of discharge: General: Resting comfortably NAD Psych: A/Ox3 normal affect HEENT: PEARRLA AT NC Neck: Supple NT CV: RRR no m/t/r/g/h Resp: CTA Abd: NABSX4 Soft, mild tenderness right upper quadrant, no guarding or rigidity Ext: DP2+= no edema Skin: W/D normal turgor Lymph/Heme: No active bleeding or adenopathy Neuro: CN2-12 intact Hospital course: The patient is a 67 year old F with a hx of nicotine abuse, GERD, htn, deperssion who presented to the ER with 8/10 RUQ pain for 3 days radiating into her back. US showed cholecystitis. D dimer was elevated and CTA was checked - negative for PE although it did show bullous emphysema RUL. Lab work was otherwise unremarkable. CT abdomen was negative. Gen surgery was consulted and she was arranged to have lap shannen the following morning. The procedure went well without complications. She continued to have nausea and abdominal pain the rest of the day so was decided that she would stay in the hospital overnight for better symptom control. The next morning her pain was minimal, she was tolerating full diet. She was discharged home in stable condition. She will need to follow-up with Dr. Armstrong as directed and with her PCP in 1-2 weeks. This patient was seen by Jimbo Trent PA-C under the supervision of Doctor Kenyatta. [] Discharge Diet: Light diet - advance as tolerated Discharge Activity: Return to Normal Activity, May Not Drive - for 2-3 days or while taking narcotic pain medicataions., - - Do not drive, work heavy equipment or sign legal documents for 24 hours. May shower in (days): 1 - with the bandage in place. Additional Activity Instructions:: Pain medication may cause nausea. You should typically eat light foods as you take your pain medications. Pain medication may also cause constipation. If this is a problem for you, please discuss with your doctor. Call your doctor if your incision/area has: Continuous Slow Oozing, Sudden Increased Bleeding, Increased Pain/ Swelling, Increased Redness, Foul Smelling Discharge, Fever of 101 or Higher Call your doctor if you observe: Fever of 101 or Higher Suture Line Care: Avoid Pulling/Pushing, Avoid Pinching/Bending Cleanse incision/area with: Soap & Water Additional Dressing/Incision Instructions:: Leave operative bandaids on for 2 days. When you remove dressing, leave Steri-Strips on until your follow-up appointment, or until the Steri-Strips fall off on their own. Home Medications: Medications to take at Discharge Amlodipine [Norvasc] 10 mg PO QHS 09/28/14 Potassium Chloride [K-Dur] 20 meq PO TID 09/28/14 Escitalopram Oxalate [Lexapro] 20 mg PO DAILY 12/31/17 Lisinopril 20 mg PO DAILY 12/31/17 Omeprazole 40 mg PO DAILY 12/31/17 Triamterene/Hydrochlorothiazid [Triamterene-Hctz 37.5-25 mg Tb] 1 each PO DAILY 12/31/17 buPROPion XL [Wellbutrin Xl] 300 mg PO DAILY 12/31/17 Oxycodone HCl/Acetaminophen [Percocet 5/325] 1 - 2 tab PO Q4H PRN PRN 4 Days # 30 tab 01/01/18 Following Prescrptions Were Given to Patient: Oxycodone HCl/Acetaminophen [Percocet 5/325] 1 - 2 tab PO Q4H PRN PRN 4 Days # 30 tab PRN Reason: Pain Primary Care Physician: Gerardo Catherine MD [Primary Care Provider] - Please follow up with your Primary Care Physician in: 1-2 weeks Please Follow Up With: Debra Mcgrath PA-C - [phone] When: 10 days Disposition: Home Minutes spent on discharge:: 35 Patient Condition:: Stable Medical Necessity - Tobacco Use Smoking Status: Former smoker Tobacco Use: Cigarettes Meaningful Use Info Meaningful Use Diagnoses (Choose all that apply): None applicable
== END 2018-01-02 13:05 | disposition home or self-care (01) | DRG 419 ==
LOC: ED 12:22 → MS2 16:26
PROVIDERS: Surgery; Admitting Provider Internal Medicine; Emergency Provider Emergency Medicine; Family Provider Family Medicine; PCP Family Medicine; Visit Provider Internal Medicine
PROC: 0FT44ZZ Resection of Gallbladder, Percutaneous Endoscopic Approach (ICD-10-PCS; principal; 2018-01-01 07:10)
DX: K81.0 Acute cholecystitis (principal); J44.9 Chronic obstructive pulmonary disease, unspecified; I10 Essential (primary) hypertension; E78.00 Pure hypercholesterolemia, unspecified; K21.9 Gastro-esophageal reflux disease without esophagitis; F32.9 Major depressive disorder, single episode, unspecified; F41.9 Anxiety disorder, unspecified; Z79.899 Other long term (current) drug therapy; Z78.0 Asymptomatic menopausal state; Z85.828 Personal history of other malignant neoplasm of skin; Z98.51 Tubal ligation status; Z87.891 Personal history of nicotine dependence
CPT/HCPCS: 36415; 71275; 74177; 76705; 80053; 81001; 83690; 85025; 85379; 88304; 93005; 97802; 99282; J7030; J7120; Q9967; A4216; J0295; J2405; J3490

== ENCOUNTER → 2018-06-20 11:52 | Outpatient (CLI) | payer MEDICARE, OTHER, SELFPAY ==
[2018-01-01 06:11] VITALS: BMI 32.9
[2018-06-20 14:26] LABS: ALB/GLOB Ratio 1.4 RATIO (0.9-2.4); AST(SGOT) 27 U/L (15-37); Alanine Aminotransfer ALT/SGPT 34 U/L (13-56); Alkaline Phosphatase 115 U/L (45-117); Anion Gap 10 (5-15); BUN 14 mg/dL (7-18); Calcium,Total 8.6 mg/dL (8.5-10.1); Chloride 108 mmol/L (98-107); Cholesterol 215 mg/dL (200); Creatinine, Serum 0.67 mg/dL (0.55-1.02); EST Glomerular Filtration Rate 94 mL/min (>60); Est Glom Filt Rate - Afr Amer 114 mL/min (>60); Globulin 2.9 g/dL (2.2-4.2); Glucose 93 mg/dL (74-106); High Density Lipoprotein 56 mg/dL; Potassium 3.8 mmol/L (3.5-5.1); Protein, Total 6.9 g/dL (6.4-8.2); Sodium Level 142 mmol/L (136-145); Triglycerides 148 mg/dL; Very Low Density Lipoprotein 30 mg/dL (5-40)
--- OUTSIDE RECORDS SUMMARY | 2018-08-25 03:34 | XMS RPT_ITS ---
:1950 Author Organization OHIP Support Name Relationship Address Phone R Unavailable Unavailable Unavailable MARKO, DAKSHA Unavailable [address] + [place] [address] PAT CATAN Unavailable [address] + [place] [address] MARKO, DAKSHA Unavailable [address] + [place] [address] PAT CATAN Unavailable [address] + [place] [address] MARKO, DAKSHA Unavailable [address] + [place] [address] PAT CATAN Unavailable [address] + [place] [address] MARKO, DAKSHA Unavailable [address] + [place] [address] PAT CATAN Unavailable [address] + [place] [address] MARKO, DAKSHA Unavailable [address] + [place] [address] PAT CATAN Unavailable [address] + [place] [address] MARKO, DAKSHA Unavailable [address] + [place] [address] PAT CATAN Unavailable [address] + [place] [address] MARKO, DAKSHA Unavailable [address] + [place] [address] PAT CATAN Unavailable [address] + [place] [address] MARKO, DAKSHA Unavailable [address] + [place] [address] PAT CATAN Unavailable [address] + [place] [address] MARKO, DAKSHA Unavailable [address] + [place] [address] PAT CATAN Unavailable [address] + [place] [address] MARKO, DAKSHA Unavailable [address] [phone] [place] [address] PAT CATAN Unavailable [address] + [place] [address] MARKO, DAKSHA Unavailable [address] [phone] [place] [address] Care Team Providers Name Role Phone Ronak Catherine Attending Unavailable [facility] Care Unavailable Ronak Catherine Attending Unavailable [facility] Primary Care Unavailable Danilo Ernst Attending Unavailable Danilo Ernst Referring Unavailable [facility] Unavailable [facility] Care Unavailable Kenyatta, Roe Admitting Unavailable Kenyatta, Roe Attending Unavailable Patrice Armstrong Consulting Unavailable Tereletsky, Roe Admitting Unavailable [facility] Care Unavailable Jayden Armstrongel Consulting Unavailable Roe You Attending Unavailable Tereletsky, Roe Consulting Unavailable Tereletsky, Roe Admitting Unavailable Jimbo Trent Attending Unavailable [facility] Care Unavailable Somerset, Patrice Consulting Unavailable Tereletsky, Roe Consulting Unavailable Tereletsky, Roe Admitting Unavailable Debra Mcgrath PA-C Attending Unavailable [facility] Care Unavailable Somerset, Patrice Consulting Unavailable Tereletsky, Roe Consulting Unavailable Tereletsky, Roe Admitting Unavailable Jimbo Trent Attending Unavailable [facility] Care Unavailable Patti, Patrice Consulting Unavailable Tereletsky, Roe Consulting Unavailable Debra Mcgrath PA-C Attending Unavailable [facility] Referring Unavailable Patrice Armstrong Attending Unavailable Jimbo Garcia Attending Unavailable Tereletsky, Roe Referring Unavailable PROBLEMS PROBLEMS DATE TYPE CONDITION / CODE ATTENDING STATUS SOURCE 02/12/2018 Unknown I10 - Essential Radha, Jimbo Active [place] (primary) Community hypertension / Hospital I10(ICD-10) Repository 01/10/2018 Unknown K80.00 - Calculus Jimbo Trent Active [place] of gallbladder with Community acute cholecystitis Hospital without obstruction Repository / K80.00(ICD-10) 01/18/2018 Unknown R10.11 - Right Patrice Armstrong Active [place] upper quadrant pain Community / R10.11(ICD-10) Hospital Repository 01/18/2018 Unknown K81.0 - Acute Patrice Armstrong Active [place] cholecystitis / Community K81.0(ICD-10) Hospital Repository 11/26/2017 Unknown R07.81 - Danilo Ernst Active [place] Pleurodynia / Community R07.81(ICD-10) Hospital Repository PROCEDURES PROCEDURES No Procedure Records FoundRESULTS RESULTS COMPREHENSIVE METABOLIC Collected: 06/20/2018 Status: F Source: [place] PROFIL 11:54 AM [facility] HOSPITAL REPOSITORY Order Comment: Order Date: 01/15/18 Order Info: 0786-1 - CMP Order Info: [id number] - LIPID TYPE CODE TESTS RESULT OUT OF RANGE REFERENCE UNITS LAB L501.0100 74-106 mg/dL Normal GLU 93 Result Comment: Please note revised GLUCOSE reference range effective 2017. LAB L501.1000 7-18 mg/dL Normal BUN 14 LAB L501.1100 0.55-1.02 mg/dL Normal CREAT,SERUM 0.67 Result Comment: The validity of the calculated GFR AND GFRAA in patients over 70 years has not been determined. Clinical correlation is essential. LAB L501.1110 >60 mL/min Normal EST GFR 94 Result Comment: Non- GFR Calc LAB L501.1115 >60 mL/min Normal EST GFR - AA 114 Result Comment: GFR Calc LAB L501.1300 10-20 RATIO High BUN/CRE 21.0 LAB L501.1500 6.4-8.2 g/dL T Normal PROT 6.9 LAB L501.1800 3.2-5.0 g/dL Normal ALB 4.0 LAB L501.1950 2.2-4.2 g/dL Normal GLOB 2.9 LAB L501.2000 0.9-2.4 RATIO Normal A/G 1.4 LAB L501.2200 8.5-10.1 mg/dL CA Normal 8.6 LAB L501.4100 15-37 U/L Normal AST 27 LAB L501.4305 45-117 U/L Normal ALK P 115 LAB L501.4405 13-56 U/L Normal ALT 34 LAB L501.4600 0.20-1.00 mg/dL T Normal BILI 0.50 LAB L501.5300 136-145 mmol/L NA Normal 142 LAB L501.5600 3.5-5.1 mmol/L K Normal 3.8 LAB L501.5900 98-107 mmol/L High CL 108 LAB L501.6100 21.0-32.0 mmol/L Normal CO2 24.0 LAB L501.6200 5-15 Normal GAP 10 Performed By: #### L500.4050, L500.4100 #### [facility] [address] [place], [address] LIPID PROFILE Collected: 06/20/2018 Status: F Source: [place] 11:54 AM [facility] Order Comment: Order Date: 01/15/18 Order Info: [id number] - CMP Order Info: [id number] - LIPID TYPE CODE TESTS RESULT OUT OF RANGE REFERENCE UNITS LAB L501.4900 200 mg/dL High CHOL 215 Result Comment: <200 mg/dL Desirable 200-240 mg/dL Borderline >240 mg/dL High Risk LAB L501.5000 mg/dL Normal TRIG 148 Result Comment: The drugs N-Acetylcysteine and Metamizole may falsely depress this assay. Serum Triglycerides Reference Interval Normal <150 mg/dL Borderline high 150 - 199 mg/dL High 200 - 499 mg/dL Very High > or = 500 mg/dL LAB L501.6400 mg/dL Normal HDL 56 Result Comment: The drugs N-Acetylcysteine and Metamizole may falsely depress this assay. Reference Range HDL <40 mg/dL Low HDL Cholesterol HDL >or= 60 mg/dL High HDL Cholesterol LAB L501.6500 0-130 mg/dL Normal LDL 129 LAB L501.6600 5-40 mg/dL Normal VLDL 30 Performed By: #### L500.4050, L500.4100 #### [facility] [address] [place], [address] 12 LEAD ELECTROCARDIOGRAM Observed: 01/14/2018 Status: F Source: [place] 3:59 PM [facility] RE[facility] Cardiovascular Services [address] [place] [address] 12 Lead EKG 01/01/18 0539 MR#: [id number] Acct: [id number] Name: GAIL ZHU Rep #: [id number] : 1950 67 From: Jimbo Garcia MD Attending Dr: Roe You DO Status: DIS IN Ordering Dr: Jimbo Trent Date: 12/31/17 Location: [facility] Sex: F C Admitted: 12/31/17 Test Reason : AM EKG Blood Pressure : / mmHG Vent. Rate : 063 BPM Atrial Rate : 063 BPM P-R Int : 148 ms QRS Dur : 078 ms QT Int : 470 ms P-R-T Axes : 062 072 065 degrees QTc Int : 480 ms Normal sinus rhythm Normal ECG When compared with ECG of 16-MAY-2012 13:30, No significant change was found Confirmed by RADHA KELLEY, JIMBO ([id number]), editor managing newspaper SMITHA ORDAZ ([id number]) on 01/14/2018 3:58:51 PM Referred By: KENYATTA Confirmed By:JIMBO GARCIA MD 01/14/18 1558 Date Jimbo Garcia MD CC: CRIS Trent; Ronak Catherine MD; Roe You DO Signed SURGERY VISIT REPORT Observed: 01/10/2018 Status: F Source: [place] 3:19 PM [facility] RE[facility] [address] [place] [address] [address] [place] [address] OFFICE VISIT Date of Service: 01/10/18 MR#: [id number] Acct: [id number] Name: GAIL ZHU Rep #: [id number] : 1950 Provider: Debra Mcgrath PA-C Age/Sex: 68/F Location: [facility] Status: Signed Intake Intake Visit Reasons: PO Gallbladder 01/02 Chief Complaint: Acute Cholecystitis Locomotive Observer Required: No Is patient in pain?: No Allergies levofloxacin [From Levaquin] Adverse Reaction (Verified 01/10/18 10:30) MUSCLE WEAKNESS IN ARMS Medications Amlodipine [Norvasc] 10 mg PO QHS 09/28/14 [History Confirmed 01/10/18] Potassium Chloride [K-Dur] 20 meq PO TID 09/28/14 [History Confirmed 01/10/18] Escitalopram Oxalate [Lexapro] 20 mg PO DAILY 12/31/17 [History Confirmed 01/10/18] Lisinopril 20 mg PO DAILY 12/31/17 [History Confirmed 01/10/18] Omeprazole 40 mg PO DAILY 12/31/17 [History Confirmed 01/10/18] Triamterene/Hydrochlorothiazid [Triamterene-Hctz 37.5-25 mg Tb] 1 ea PO DAILY 12/31/17 [History Confirmed 01/10/18] buPROPion XL [Wellbutrin Xl] 300 mg PO DAILY 12/31/17 [History Confirmed 01/10/18] Oxycodone HCl/Acetaminophen [Percocet 5/325] 1 - 2 tab PO Q4H PRN PRN 4 Days #30 tab 01/01/18 [Rx Confirmed 01/10/18] promethazine 12.5 mg tablet 12.5 mg PO Q6H PRN #10 tab 01/10/18 [Rx Confirmed 01/10/18] Subjective Details: Patient is a 68 y/o female I am following for acute cholecystitis. Dr. Armstrong performed a laparoscopic cholecystectomy on 01/01/18. Patient tolerated the procedure well. Patient notes nausea after eating. She notes diarrhea 5-6 times per day. She denies abdominal pain/discomfort. She notes she overall feels better. She would like to get rid of nausea and diarrhea. She follows up with her PCP tomorrow for cough and hoarseness. Pathology demonstrates chronic cholecystitis. Objective Details: Abdomen- soft, non-tender, positive bowel sounds. Incisions c/d/i. No erythema or infection noted. Assessment AND Plan Problems 1. Status post laparoscopic cholecystectomy Z90.49 01/19 2. Acute cholecystitis without calculus K81.0 Plan - Prescription for Phenergan and cholestyramine was given - Follow-up in 1 month Medications New: Coding Level of Care Code Global Post Op Diagnoses Status post laparoscopic cholecystectomy Z90.49 Acute cholecystitis without calculus K81.0 01/10/18 1519 <Electronically signed by Debra Mcgrath PA-C> Date Debra Strange Signature: Date (if applicable) CC: Ronak Catherine MD DISCHARGE SUMMARY Observed: 01/03/2018 Status: F Source: [place] 9:20 AM [facility] RE[facility] Medical Records Department [address] [place] [address] Discharge Summary 01/02/18 1357 MR#: [id number] Acct: [id number] Name: GAIL ZHU Rep #: [id number] : 1950 67 From: Jimbo LYNCH PCP: Ronak Catherine MD Status: DIS IN Y Location: [facility] WS473-1 ADDENDUM by Roe You DO on 01/03/18 at 0920 Code Visit Inpatient E AND M: [id number] Disch Hosp 01/03/18 0920 <Electronically signed by Roe You DO> Date Roe You DO cc: CRIS Trent; Ronak Catherine MD; Roe You DO * Signed Discharge Date and Diagnosis Date of Admission: 12/31/17 Date of Discharge: 01/02/18 - Primary Discharge Diagnosis Acute acalculus choecystitis s/p lap shannen HTN Depression Nicotine abuse GERD - Secondary Discharge Diagnosis Chronic Problems Depression (Chronic) HTN (hypertension) (Chronic) Hospital Course and Treatment Imaging Results: US/Gallbladder IMPRESSION: 1. Abnormal thickening of the gallbladder wall with positive sonographic Nick's sign is but negative for gallstones, sludge or pericholecystic edema. This is worrisome for acalculous cholecystitis. Hepatobiliary scintigram with CCK will help clarify if desired. 2. Mild pancreatic ductal dilatation. 3. Mild hepatic steatosis was present previously. CT/CTA Chest W/WO Contrast IMPRESSION: Emphysematous changes seen in the upper lobes with bullous changes in the right upper lobe. There is no evidence of pulmonary embolism. CT/Abdomen/Pelvis W IV Cont ONLY IMPRESSION: No acute abnormality is seen. Fatty infiltration of the liver and mild hepatomegaly. Consults: Patti - Gen Surgery Operations: cholecystecomy Procedures: None Summary of Care Provided: Physical exam on day of discharge: General: Resting comfortably NAD Psych: A/Ox3 normal affect HEENT: PEARRLA AT NC Neck: Supple NT CV: RRR no m/t/r/g/h Resp: CTA Abd: NABSX4 Soft, mild tenderness right upper quadrant, no guarding or rigidity Ext: DP2+= no edema Skin: W/D normal turgor Lymph/Heme: No active bleeding or adenopathy Neuro: CN2-12 intact Hospital course: The patient is a 67 year old F with a hx of nicotine abuse, GERD, htn, deperssion who presented to the ER with 8/10 RUQ pain for 3 days radiating into her back. US showed cholecystitis. D dimer was elevated and CTA was checked - negative for PE although it did show bullous emphysema RUL. Lab work was otherwise unremarkable. CT abdomen was negative. Gen surgery was consulted and she was arranged to have lap shannen the following morning. The procedure went well without complications. She continued to have nausea and abdominal pain the rest of the day so was decided that she would stay in the hospital overnight for better symptom control. The next morning her pain was minimal, she was tolerating full diet. She was discharged home in stable condition. She will need to follow-up with Dr. Armstrong as directed and with her PCP in 1-2 weeks. This patient was seen by Jimbo Trent PA-C under the supervision of Doctor You. [] Discharge Diet: Light diet - advance as tolerated Discharge Activity: Return to Normal Activity, May Not Drive - for 2-3 days or while taking narcotic pain medicataions., - - Do not drive, work heavy equipment or sign legal documents for 24 hours. May shower in (days): 1 - with the bandage in place. Additional Activity Instructions:: Pain medication may cause nausea. You should typically eat light foods as you take your pain medications. Pain medication may also cause constipation. If this is a problem for you, please discuss with your doctor. Call your doctor if your incision/area has: Continuous Slow Oozing, Sudden Increased Bleeding, Increased Pain/ Swelling, Increased Redness, Foul Smelling Discharge, Fever of 101 or Higher Call your doctor if you observe: Fever of 101 or Higher Suture Line Care: Avoid Pulling/Pushing, Avoid Pinching/Bending Cleanse incision/area with: Soap AND Water Additional Dressing/Incision Instructions:: Leave operative bandaids on for 2 days. When you remove dressing, leave Steri-Strips on until your follow-up appointment, or until the Steri-Strips fall off on their own. Home Medications: Medications to take at Discharge Amlodipine [Norvasc] 10 mg PO QHS 09/28/14 Potassium Chloride [K-Dur] 20 meq PO TID 09/28/14 Escitalopram Oxalate [Lexapro] 20 mg PO DAILY 12/31/17 Lisinopril 20 mg PO DAILY 12/31/17 Omeprazole 40 mg PO DAILY 12/31/17 Triamterene/Hydrochlorothiazid [Triamterene-Hctz 37.5-25 mg Tb] 1 each PO DAILY 12/31/17 buPROPion XL [Wellbutrin Xl] 300 mg PO DAILY 12/31/17 Oxycodone HCl/Acetaminophen [Percocet 5/325] 1 - 2 tab PO Q4H PRN PRN 4 Days #30 tab 01/01/18 Following Prescrptions Were Given to Patient: Oxycodone HCl/Acetaminophen [Percocet 5/325] 1 - 2 tab PO Q4H PRN PRN 4 Days #30 tab PRN Reason: Pain Primary Care Physician: Gerardo Catherine MD [Primary Care Provider] - Please follow up with your Primary Care Physician in: 1-2 weeks Please Follow Up With: Debra Mcgrath PA-C - [phone] When: 10 days Disposition: Home Minutes spent on discharge:: 35 Patient Condition:: Stable Medical Necessity - Tobacco Use Smoking Status: Former smoker Tobacco Use: Cigarettes Meaningful Use Info Meaningful Use Diagnoses (Choose all that apply): None applicable 01/02/18 0203 <Electronically signed by Jimbo LYNCH> Date Jimbo LYNCH 01/02/182027<Electronically signed by Roe You DO> Cosigner Signature (if applicable): Date Roe You DO CC: CRIS Trent; Ronak Catherine MD; Roe You DO Signed CONSULTATION Observed: 01/02/2018 Status: F Source: [place] 11:59 AM [facility] Medical Records Department [address] [place] [address] Consultation 12/31/17 1624 MR#: [id number] Acct: [id number] Name: GAIL ZHU Rep #: [id number] : 1950 67 From: Patrice Armstrong MD PCP: Ronak Catherine MD Status: ADM IN Y Location: [facility] TM594-6 Problem List (1) RUQ abdominal pain Status: Acute (2) Acute cholecystitis without calculus Status: Acute Reason for Consult Date of Consultation: 12/31/17 History of Present Illness: The patient is a 67 F presents the emergency department complaint of abdominal pain for last 3 days. Patient rates her pain an 8 out of 10. Patient states that it is right upper quadrant radiating to her back. The pain is worse with movement and teething. Patient describes the pain as sharp. Patient denies blood in her stool or black tarry stool. There has been no hematemesis. Food does not seem to affect the pain. Patient has been worked up for right upper quadrant abdominal pain approximately 2 years ago all imaging was negative at that time and no surgical consultation was obtained. This pain has been progressively getting worse over the last several months and over the last 3 days is been nearly unbearable. Patient has no prior history of peptic ulcer disease. Past Medical History Allergies levofloxacin [From Levaquin] Adverse Reaction (Verified 12/31/17 11:47) Other Home Medications: Ambulatory Orders Medication Instructions Recorded Amlodipine [Norvasc] 10 mg PO QHS 09/28/14 Citalopram [Celexa] 40 mg PO DAILY 09/28/14 Surgical History: appendectomy - Patient has had tubal ligation. Patient is also had an exploratory laparotomy for abdominal pain and was noted to have a ruptured appendix many years ago. Smoking Status: Former smoker - *Family History Maternal History Items: No pertinent history Review of Systems Constitutional: Denies: Chills, Fever, Weight Change Eyes: Denies: Blurred vision, Pain, Redness, Vision Change HEENT: Denies: Dysphasia, Ear Pain, Eye Pain, Head Aches, Hearing Changes, Sore Throat Cardiovascular: Denies: Chest Pain, Chest Pressure, Chest Tightness, Palpitations Respiratory: Denies: Cough, Hemoptysis, Shortness of breath at rest, Shortness of breath upon exertion, Wheezing Gastrointestinal: Reports: Abdominal Pain. Denies: Nausea, Vomiting Genitourinary: Denies: Dysuria, Frequency, Hematuria, Urgency Musculoskeletal: Reports: - - Patient is noticing pain in the right back area radiating from the right upper quadrant area Skin: Denies: Lesions, Rash, Wounds Neurological: Denies: Change in Speech, Confusion, Numbness, Tingling, Seizures Patient Problems: Active and Suspected Problems RUQ abdominal pain (Acute) Acute cholecystitis without calculus (Acute) - Physical Exam General: Alert, Oriented x3 HEENT: Atraumatic, PERRLA, EOMI, Normocephalic Lungs: Clear to auscultation Cardiovascular: Regular rate, Regular Rhythm, No murmurs Abdomen: Tender - Patient has significant tenderness in the right upper quadrant with palpation. She has voluntary guarding throughout her abdomen. Her abdomen is obese. Hypoactive bowel sounds. Vital Signs Temp Pulse Resp BP Pulse Ox 99.3 F H 76 18 115/68 95 12/31/17 11:47 12/31/17 16:06 12/31/17 16:06 12/31/17 16:06 12/31/17 16:06 Oxygen Delivery Method Room Air Weight: 184 lb 15.485 oz Body Mass Index (BMI) 32.8 Laboratory Tests Past 24 Hrs WBC 7.4 RBC 4.99 Hgb 14.2 Hct 41.7 MCV 83.6 MCH 28.5 WBC RBC Hgb Hct MCV MCH MCHC RDW RDW Differential Plt Count MPV Assessment/Plan All Active Problems RUQ abdominal pain (Acute) Acute cholecystitis without calculus (Acute) I think her presentation as well as imaging is very worrisome for acute cholecystitis without cholelithiasis. I believe that she would benefit from an attempted laparoscopic cholecystectomy. I have instructed her given the midline incision and previous surgeries that this may be technically difficult secondary to possibly having significant adhesions. I have counseled her that she may end up having an open cholecystectomy. We have reviewed the pertinent risks majority being bleeding and infection possible need for a drainage tube. In addition to blood clots heart attacks pneumonias and strokes as well as injury to underlying structures. The patient understood these risks all of her questions asked were answered and she is willing to proceed. Medicine is going to see this patient and get her worked up for surgery sometime tomorrow. 01/02/18 1159 <Electronically signed by Patrice Armstrong MD> Date Patrice Armstrong MD [facility] Signature (if applicable): Date CC: Ronak Catherine MD; Patrice Armstrong MD Signed DISCHARGE INSTRUCTION Observed: 01/02/2018 Status: F Source: [place] 11:51 AM [facility] Medical Records Department [address] [place] [address] Instructions for Home/Discharge Instructions 01/02/18 1150 MR#: [id number] Acct: [id number] Name: GAIL ZHU Rep #: [id number] : 1950 67 From: Jimbo LYNCH PCP: Ronak Catherine MD Status: ADM IN - Discharge Diagnoses Current Active Problems: Current Active and Chronic Problems RUQ abdominal pain (Acute) Acute cholecystitis without calculus (Acute) Depression (Chronic) HTN (hypertension) (Chronic) You will use the following diet at home:: Cardiac Your food should be the consistency of: Regular Your liquids should be the consistency of: Regular/Thin Discharge Activity: Return to Normal Activity, May Not Drive - for 2-3 days or while taking narcotic pain medicataions., - - Do not drive, work heavy equipment or sign legal documents for 24 hours. May shower in (days): 1 - with the bandage in place. Additional Activity Instructions:: Pain medication may cause nausea. You should typically eat light foods as you take your pain medications. Pain medication may also cause constipation. If this is a problem for you, please discuss with your doctor. Call your doctor if your incision/area has: Continuous Slow Oozing, Sudden Increased Bleeding, Increased Pain/ Swelling, Increased Redness, Foul Smelling Discharge, Fever of 101 or Higher Call your doctor if you observe: Fever of 101 or Higher Suture Line Care: Avoid Pulling/Pushing, Avoid Pinching/Bending Cleanse incision/area with: Soap AND Water Additional Dressing/Incision Instructions:: Leave operative bandaids on for 2 days. When you remove dressing, leave Steri-Strips on until your follow-up appointment, or until the Steri-Strips fall off on their own. Allergies/Adverse Reactions: Allergies levofloxacin [From Levaquin] Adverse Reaction (Verified 12/31/17 17:07) MUSCLE WEAKNESS IN ARMS Medications to take at Discharge Amlodipine [Norvasc] 10 mg PO QHS 09/28/14 Potassium Chloride [K-Dur] 20 meq PO TID 09/28/14 Escitalopram Oxalate [Lexapro] 20 mg PO DAILY 12/31/17 Lisinopril 20 mg PO DAILY 12/31/17 Omeprazole 40 mg PO DAILY 12/31/17 Triamterene/Hydrochlorothiazid [Triamterene-Hctz 37.5-25 mg Tb] 1 each PO DAILY 12/31/17 buPROPion XL [Wellbutrin Xl] 300 mg PO DAILY 12/31/17 Oxycodone HCl/Acetaminophen [Percocet 5/325] 1 - 2 tab PO Q4H PRN PRN 4 Days #30 tab 01/01/18 The following prescriptions were given: Oxycodone HCl/Acetaminophen [Percocet 5/325] 1 - 2 tab PO Q4H PRN PRN 4 Days #30 tab PRN Reason: Pain Primary Care Physician: Gerardo Catherine MD [Primary Care Provider] - Please follow up with your Primary Care Physician in: 1-2 weeks Test Results: Test results from this visit will be discussed in further detail at your follow-up appointment, if applicable. Please Follow Up With: Debra Mcgrath PA-C - [phone] When: 10 days Proposed Discharge Date: 01/02/18 01/02/18 1151 <Electronically signed by Jimbo LYNCH> Date Jimbo LYNCH CC: Ronak Catherine MD; Patrice Armstrong MD CBC W/DIFF, AUTOMATED Collected: 01/02/2018 Status: F Source: [place] 8:55 AM [facility] TYPE CODE TESTS RESULT OUT OF RANGE REFERENCE UNITS LAB L100.1000 4.4-11.0 K/mm3 Normal WBC 7.5 LAB L100.1200 4.2-5.4 M/mm3 Normal RBC 4.28 LAB L100.1300 12.0-15.0 g/dl Low HGB 11.9 LAB L100.1400 37-47 % Normal HCT 37.1 LAB L100.1500 81-99 fL Normal MCV 86.7 LAB L100.1600 27.0-32.0 pg Normal MCH 27.8 LAB L100.1700 32-36 g/gl Normal MCHC 32.1 LAB L100.1810 11.6-14.6 % High RDW CV 14.7 LAB L100.1820 35.1-43.9 fl High RDW SD 46.5 LAB L100.1900 150-450 K/mm3 Normal PLT 210 LAB L100.2000 6.2-12.0 fl Normal MPV 10.1 LAB L100.2100 47-70 % Normal NEUT% 61.3 LAB L100.2200 19-41 % Normal LY% 29.9 LAB L100.2300 0-10 % Normal MONO% 6.7 LAB L100.2400 0-5 % Normal EO% 1.6 LAB L100.2500 0-1 % Normal BASO% 0.4 LAB L100.2550 0.0-0.9 % Normal IM GRAN % 0.100 Result Comment: IG% - Immature Granulocytes (promyelocytes, myelocytes and metamyelocytes) > 1% indicates that a LEFT SHIFT is Present. LAB L100.2620 2.0-7.7 X10 3/uL Normal Absolute Neut 4.6 LAB L100.2720 0.83-4.51 X10 3/ul Normal Absolute Lymph 2.24 Performed By: #### L100.0100 #### [facility] [place], [address] COMPREHENSIVE METABOLIC Collected: 01/02/2018 Status: F Source: [facility] 8:55 AM [facility] TYPE CODE TESTS RESULT OUT OF RANGE REFERENCE UNITS LAB L501.0100 74-106 mg/dL High GLU 108 Result Comment: Fasting Glucose result from 100 to 125 mg/dL suggests IMPAIRED HOMEOSTASIS per A.D.A. criteria. Please note revised GLUCOSE reference range effective 2017. LAB L501.1000 7-18 mg/dL Low BUN 4 LAB L501.1100 0.55-1.02 mg/dL Normal CREAT,SERUM 0.79 Result Comment: The validity of the calculated GFR AND GFRAA in patients over 70 years has not been determined. Clinical correlation is essential. LAB L501.1110 >60 mL/min Normal EST GFR 77 Result Comment: Non- GFR Calc LAB L501.1115 >60 mL/min Normal EST GFR - AA 93 Result Comment: GFR Calc LAB L501.1255 ml/min Normal Estimated CRCL 58.73 LAB L501.1300 10-20 RATIO Low BUN/CRE 5.0 LAB L501.1500 6.4-8. g/dL Normal 2 T PROT 6.4 LAB L501.1800 3.2-5. g/dL Low 0 ALB 3.1 LAB L501.1950 2.2-4. g/dL Normal 2 GLOB 3.3 LAB L501.2000 0.9-2. RATIO Normal 4 A/G 0.9 LAB L501.2200 8.5-10 mg/dL Low .1 CA 8.0 LAB L501.4100 15-37 U/L High AST 61 LAB L501.4305 45-117 U/L Normal ALK P 111 LAB L501.4405 13-56 U/L High ALT 80 LAB L501.4600 0.20-1 mg/dL Normal .00 T BILI 0.40 LAB L501.5300 136-14 mmol/L Normal 5 NA 141 LAB L501.5600 3.5-5. mmol/L Low 1 K 3.0 LAB L501.5900 98-107 mmol/L Normal CL 104 LAB L501.6100 21.0-3 mmol/L Normal 2.0 CO2 32.0 LAB L501.6200 5-15 Normal GAP 5 Performed By: #### L500.4050 #### [facility] [address] [place], [address] DISCHARGE INSTRUCTION Observed: 01/02/2018 Status: F Source: [place] 6:57 AM [facility] Medical Records Department [address] [place] [address] Instructions for Home/Discharge Instructions 01/02/18 0656 MR#: [id number] Acct: [id number] Name: GAIL ZHU Rep #: [id number] : 1950 67 From: Debra Mcgrath PA-C PCP: Ronak Catherine MD Status: ADM IN Discharge Diet: Light diet - advance as tolerated Discharge Activity: Return to Normal Activity, May Not Drive - for 2-3 days or while taking narcotic pain medicataions., - - Do not drive, work heavy equipment or sign legal documents for 24 hours. May shower in (days): 1 - with the bandage in place. Additional Activity Instructions:: Pain medication may cause nausea. You should typically eat light foods as you take your pain medications. Pain medication may also cause constipation. If this is a problem for you, please discuss with your doctor. Call your doctor if your incision/area has: Continuous Slow Oozing, Sudden Increased Bleeding, Increased Pain/ Swelling, Increased Redness, Foul Smelling Discharge, Fever of 101 or Higher Call your doctor if you observe: Fever of 101 or Higher Suture Line Care: Avoid Pulling/Pushing, Avoid Pinching/Bending Cleanse incision/area with: Soap AND Water Additional Dressing/Incision Instructions:: Leave operative bandaids on for 2 days. When you remove dressing, leave Steri-Strips on until your follow-up appointment, or until the Steri-Strips fall off on their own. Allergies/Adverse Reactions: Allergies levofloxacin [From Levaquin] Adverse Reaction (Verified 12/31/17 17:07) MUSCLE WEAKNESS IN ARMS Medications to take at Discharge Amlodipine [Norvasc] 10 mg PO QHS 09/28/14 Potassium Chloride [K-Dur] 20 meq PO TID 09/28/14 Escitalopram Oxalate [Lexapro] 20 mg PO DAILY 12/31/17 Lisinopril 20 mg PO DAILY 12/31/17 Omeprazole 40 mg PO DAILY 12/31/17 Triamterene/Hydrochlorothiazid [Triamterene-Hctz 37.5-25 mg Tb] 1 each PO DAILY 12/31/17 buPROPion XL [Wellbutrin Xl] 300 mg PO DAILY 12/31/17 Oxycodone HCl/Acetaminophen [Percocet 5/325] 1 - 2 tab PO Q4H PRN PRN 4 Days #30 tab 01/01/18 The following prescriptions were given: Oxycodone HCl/Acetaminophen [Percocet 5/325] 1 - 2 tab PO Q4H PRN PRN 4 Days #30 tab PRN Reason: Pain Primary Care Physician: Gerardo Catherine MD [Primary Care Provider] - Test Results: Test results from this visit will be discussed in further detail at your follow-up appointment, if applicable. Please Follow Up With: Debra Mcgrath PA-C - [phone] When: 10 days Proposed Discharge Date: 01/02/18 01/02/18 0657 <Electronically signed by Debra Mcgrath PA-C> Date Debra Mcgrath PA-C CC: Ronak Catherine MD; Patrice Armstrong MD OPERATIVE REPORT Observed: 01/01/2018 Status: F Source: [place] 8:04 AM [facility] Medical Records Department [address] [place] [address] Operative Report 01/01/18 0801 MR#: [id number] Acct: [id number] Name: GAIL ZHU Rep #: [id number] : 1950 67 From: Patrice Armstrong MD PCP: Ronak Catherine MD Status: ADM IN Y Location: [facility] AU891-3 Problem List (1) RUQ abdominal pain Status: Acute (2) Acute cholecystitis without calculus Status: Acute Report of Operation Date of Procedure: 01/01/18 Pre-Operative Diagnosis: Acute acalculous cholecystitis. Right upper quadrant abdominal pain Post-Operative Diagnosis: Same Surgery/Procedure Performed:: Laparoscopic cholecystectomy Type of Anesthesia:: General Anesthesiologist: Maurilio Waters Specimen's removed: Gallbladder Estimated Blood Loss (mL): < 25 cc Description of Procedure: Patient was brought in the operating room placed in the supine position. Under excellent general trach intubation the abdomen was sterilely prepped and draped in usual fashion. Local was injected in the right upper quadrant. Incision was made. Visiport was used to gain access to the intra-abdominal cavity without injury to underlying structures. The abdomen was insufflated to 15 torr. The patient was placed in the head up and rotated to the left position. A subxiphoid #5 trocar was placed and inferior to this another #5 trocar was placed both of these under direct visualization without injury to underlying structures. Moderate amount of adhesions were taken down from the umbilical area. A 10/12 trocar was placed under direct visualization without injury to underlying structures. Fundus of the gallbladder was grasped and retracted in a cephalad direction. Significant amount of adhesions were taken down off of the gallbladder itself with use of electrocautery. Fundus of the gallbladder was then retracted in cephalad direction more superiorly I then dissected the cystic duct and cystic artery and posterior area towards the liver completely free. I placed 2 hemoclips proximally and distally on the artery and 2 hemoclips proximally distally on the duct I ligated them both. I deliver the gallbladder from the gallbladder bed with the use of electrocautery. I had excellent hemostasis. I had no spillage of bile. Specimen was brought through the umbilical area in a specimen bag. I reinflated the abdomen and inspected my liver bed I have excellent hemostasis. I removed all the trochars under direct visualization I had good hemostasis. I closed the fascia the umbilical port with 2 yxxoca-[id number]-uduhh sutures of 0 Vicryl. Skin incisions were closed with subcu stitches of 4-0 Monocryl. Steri-Strips are applied. Sterile dressings were applied. The patient tolerated the procedure well. - Admit VTE Documentation VTE Present on Admission: No VTE Mechan Device Prophylaxis: SCD's VTE Pharm Prophylaxis ordered?: No Reason prophylaxis not ordered:: Treatment Not Indicated 01/01/18803 <Electronically signed by Patrice Armstrong MD> Date Patrice Armstrong MD CC: Ronak Catherine MD; Patrice Armstrong MD Signed GALLBLADDER Observed: 01/01/2018 Status: F Source: [place] 7:30 AM [facility] Patient: GAIL ZHU : 1950 (67/F) Acct Num: [id number] Phys: Roe You DO Unit Num: [id number] Loc: MS2 LD327-1 Specimen: [id number] Received: 01/01/18913 Spec Type: GALLBLADDE TISSUES TISSUES: Gallbladder, NOS GROSS DESCRIPTION Received is one container labeled with the patient's name and designated gallbladder. The specimen consists of a gallbladder measuring 8 cm in length and up to 4 cm in diameter. The external surface is pink- hopson, smooth and glistening for the most part. Focally it is granular, hemorrhagic and contains cautery artifact. The gallbladder contains green-yellow mucoid bile. No stones are identified in the container or in the gallbladder. The mucosa is bile- stained and without any mass lesions. The gallbladder wall measures up to 0.3 cm in thickness. Radio Antenna Installer sections from the gallbladder and the cystic duct are submitted in one cassette. / NIDIA:darion 01/01/18 TC:3 CPT: 21207 HEADER OPERATION: Laparoscopic cholecystectomy PRE-OP DIAGNOSIS: Acute cholecystitis without calculus TISSUE SUBMITTED: Gallbladder MICROSCOPIC DESCRIPTION Slides are reviewed. MICROSCOPIC DIAGNOSIS Gallbladder: Chronic cholecystitis. No stone are identified in the container or in the gallbladder. NIDIA:darion 01/02/18 Signed Danial Gorman 01/02/18 <signature on file> Performed By: #### PGALL #### [facility] [address] [place], [address] CBC W/DIFF, AUTOMATED Collected: 01/01/2018 Status: F Source: [place] 5:04 AM [facility] Order Comment: FOR SURGERY. TYPE CODE TESTS RESULT OUT OF RANGE REFERENCE UNITS LAB L100.1000 4.4-11.0 K/mm3 Normal WBC 7.7 LAB L100.1200 4.2-5.4 M/mm3 Normal RBC 4.37 LAB L100.1300 12.0-15.0 g/dl Normal HGB 12.5 LAB L100.1400 37-47 % Normal HCT 37.5 LAB L100.1500 81-99 fL Normal MCV 85.8 LAB L100.1600 27.0-32.0 pg Normal MCH 28.6 LAB L100.1700 32-36 g/gl Normal MCHC 33.3 LAB L100.1810 11.6-14.6 % Normal RDW CV 14.6 LAB L100.1820 35.1-43.9 fl High RDW SD 44.8 LAB L100.1900 150-450 K/mm3 Normal PLT 209 LAB L100.2000 6.2-12.0 fl Normal MPV 10.4 LAB L100.2100 47-70 % Normal NEUT% 65.5 LAB L100.2200 19-41 % Normal LY% 24.3 LAB L100.2300 0-10 % Normal MONO% 6.5 LAB L100.2400 0-5 % Normal EO% 2.7 LAB L100.2500 0-1 % Normal BASO% 0.7 LAB L100.2550 0.0-0.9 % Normal IM GRAN % 0.300 Result Comment: IG% - Immature Granulocytes (promyelocytes, myelocytes and metamyelocytes) > 1% indicates that a LEFT SHIFT is Present. LAB L100.2620 2.0-7.7 X10 3/uL Normal Absolute Neut 5.0 LAB L100.2720 0.83-4.51 X10 3/ul Normal Absolute Lymph 1.86 Performed By: #### L100.0100 #### [facility] [address] [place], [address] HISTORY AND PHYSICAL Observed: 12/31/2017 Status: F Source: [place] EXAM 8:24 PM [facility] Medical Records Department [address] [place] [address] History and Physical 12/31/17 1758 MR#: [id number] Acct: [id number] Name: GAIL ZHU Rep #: [id number] : 1950 67 From: Jimbo LYNCH PCP: Ronak Catherine MD Status: ADM IN Y Location: [place] [address]-1 ADDENDUM by Roe You DO on 12/31/17 at 2023 Code Visit Patient was seen and examined independently of Jimbo Trent today, she presented to the emergency room with right upper quadrant abdominal pain 3 days, she rated the pain as an 8 out of 10 in intensity. She also stated that it radiated to her right back area. Workup in the emergency room included a CBC which was unremarkable, her chemistry panel was unremarkable, lipase was 200, urinalysis was unremarkable, d-dimer was elevated at 0.69, and patient underwent imaging studies that included a CT of her chest which showed no evidence of pulmonary emboli, a CT of the abdomen and pelvis which showed fatty infiltration of the liver and mild hepatomegaly, and a gallbladder ultrasound which revealed abnormal thickening of the gallbladder wall with positive sonographic Nick sign but negative for gallstone sludge or pericholecystic edema. This indicated possible acalculous cholecystitis. On examination, patient was alert but complaining of right upper quadrant abdominal pain on mild palpation and at rest, bowel sounds were present in all 4 quadrants, lungs are clear, heart rate and rhythm was regular. Patient was given IV pain medications and fluids, general surgery was contacted and requested hospitalist admit the patient under the hospital service. Patient was admitted to [facility] to for acute cholecystitis, she will be seen in consultation by general surgery. I have reviewed Jimbo Trent's history and physical and medical plan of care and endorse both Inpatient E AND M: 39772 Init Hosp L3 12/31/172023 <Electronically signed by Roe You DO> Date Roe You DO cc: CRIS Trent; Ronak Catherine MD; Roe You DO * Signed Problem List (1) Acute cholecystitis without calculus Status: Acute (2) HTN (hypertension) Status: Chronic (3) Depression Status: Chronic History of Present Illness Date of Admission: 12/31/17 Chief Complaint: RUQ pain The patient is a 67 year old F with a hx of htn, depression, smoking, gerd, who presents to the ER with RUQ pain. This is described as a sharp stabbing pain that has progressively worsened for 3 weeks. She denies associated nausea or vomiting. It is worse with bending over and taking a deep breath. She has had some associated chills and sweats at home. It is not associated with eating. In the ER she underwent an abdominal US with findings suggesting acute cholecystitis. Dr. Armstrong plans to take her to the OR tomorrow. She states that she has no personal or family hx of issues with sedation including malignant htn. She does have poor functional status, she cannot walk up one flight of stairs without becoming SOB, and cannot carry a bag of groceries without SOB. She had a positive stress 8-[address] Nathan but a follow up cath was negative. She has findings of bullous emphysema on CTA of her chest, however has no diagnosis of COPD and uses no inhalers. She smoked for about 20 years but quit in 1988. [] Past Medical History Past Medical History (Chronic Problems): Chronic Problems Depression (Chronic) HTN (hypertension) (Chronic) Allergies levofloxacin [From Levaquin] Adverse Reaction (Verified 12/31/17 17:07) MUSCLE WEAKNESS IN ARMS Home Medications: Ambulatory Orders Medication Instructions Recorded Amlodipine [Norvasc] 10 mg PO QHS 09/28/14 Surgical History: appendectomy - Patient has had tubal ligation. Patient is also had an exploratory laparotomy for abdominal pain and was noted to have a ruptured appendix many years ago., - - laparotomy Psychiatric History: Anxiety, Depression DELINQUENT ACCOUNT CLERK History: No pertinent DELINQUENT ACCOUNT CLERK history Lives: With Family Smoking Status: Former smoker Tobacco Use: Cigarettes Alcohol: None Drugs: None - *Family History Maternal History Items: Cancer - colon, Heart Disease Paternal History Items: Diabetes, Heart Disease Sibling History Items: Heart Disease Review of Systems Constitutional: Reports: Chills. Denies: Fever, Weight Change, Fatigue HEENT: Denies: Head Aches, Sinus Congestion, Sinus Drainage Cardiovascular: Denies: Chest Pain, Palpitations Respiratory: Reports: Shortness of breath upon exertion. Denies: Cough, Shortness of breath at rest, Sputum production Gastrointestinal: Reports: Abdominal Pain. Denies: Nausea, Vomiting Genitourinary: Denies: Dysuria Musculoskeletal: Denies: Joint Pain, Joint Tenderness Skin: Denies: Rash, Wounds Neurological: Denies: Numbness, Tingling, Focal weakness Psychiatric: Reports: Anxiety, Depression. Denies: Homicidal Ideations, Suicidal Ideations Hematologic/ Lymphatic: Denies: Easy Bruising, Easy Bleeding VTE Information - Inpt Only VTE Present on Admission: No VTE Mechan Device Prophylaxis: None VTE Pharm Prophylaxis ordered?: Yes Patient Problems: Active and Suspected Problems RUQ abdominal pain (Acute) Acute cholecystitis without calculus (Acute) - Physical Exam General: Alert, Oriented x3, Cooperative HEENT: Atraumatic, PERRLA, EOMI, Normocephalic Neck: Supple, No JVD, Negative Carotid Bruits Lungs: Clear to auscultation, Normal air movement Cardiovascular: Regular rate, No murmurs Abdomen: Bowel Sounds Present, Soft, Non Tender Extremities: No edema, Capillary Refill Less than 3 Seconds Skin: No rashes, No breakdown Musculoskeletal: No Tenderness to Palpation of Joints or Extremities Neurological: Cranial nerves II-XII grossly intact Psych/Mental Status: Normal Affect, Appropriate, Alert and oriented to time, place, person, mood and affect Vital Signs Temp Pulse Resp BP Pulse Ox 98.6 F 70 16 135/61 H 95 12/31/17 17:12 12/31/17 17:12 12/31/17 17:12 12/31/17 17:12 12/31/17 17:12 Oxygen Delivery Method Room Air Weight: 187 lb 13.341 oz Body Mass Index (BMI) 33.3 Assessment/Plan All Active Problems RUQ abdominal pain (Acute) Acute cholecystitis without calculus (Acute) 1. Acute cholecstitis - pt to go to OR tomorrow with Dr. Armstrong. Unasyn for now. IV pepcid. No signs of sepsis. + GB US. CT with fatty liver changes mild hepatomegaly. CMP is wnl. 2. COPD - CTA shows bullous emphysema. prn aerosols ordered. 3. HTN - stable. continue home meds 4. Anx/Dep - stable 5. GERD - iv pepcid. on ppi at home. DVT ppx: scd's This patient was seen by Jimbo Trent PA-C under the supervision of Doctor Kenyatta. 12/31/171818 <Electronically signed by Jimbo LYNCH> Date Jimbo LYNCH 12/31/172019<Electronically signed by Roe You DO> Cosigner Signature: Date (if applicable) Roe You DO CC: CRIS Trent; Ronak Catherine MD; Roe You DO Signed EMERGENCY DEPARTMENT Observed: 12/31/2017 Status: F Source: [place] SUMMARY 3:51 PM [facility] Medical Records Department [address] [place] [address] Emergency Department Summary 12/31/17 1548 MR#: [id number] Acct: [id number] Name: GAIL ZHU Rep #: [id number] : 1950 67 From: Rickey Bell DO PCP: Ronak Catherine MD Status: REG ER - ER Visit Summary Date of Service: 12/31/17 Chief Complaint: [Abdominal pain] History of Present Illness: The patient is a 67 F [presents the emergency department complaint of abdominal pain for last 3 days. Patient rates her pain an 8 out of 10. Patient states that it is right upper quadrant radiating to her back. The pain is worse with movement and teething. Patient describes the pain as sharp. Patient denies blood in her stool or black tarry stool. There has been no hematemesis. Food does not seem to affect the pain.] Physical Examination: [HEENT-PERRLA, EOMI. Cranial nerves II through XII grossly intact. TMs clear. Mucous membranes moist. No adenopathy. Cardiovascular-regular rate and rhythm without murmur or ectopy Lungs-clear to auscultation, chest wall stable without crepitus or subcu emphysema Abdomen-normoactive bowel sounds, soft. Patient has tenderness over the right upper quadrant with guarding and a positive Nick sign. There is no rebound, rigidity, or perineal signs. Extremities-intact 4, normal range of motion, normal pulses, atraumatic] Test Results: [CBC with differential is normal. Chemistries were normal. LFTs were normal. Lipase was 200. Urinalysis pending. Ultrasound gallbladder showed a thickened gallbladder wall measuring 4 mm without evidence of gallstones or sludge or pericholecystic fluid. There was concern for acalculous cholecystitis.] Patient also had a CT scan of the abdomen and pelvis that did not show any acute findings. Patient also had an elevated d-dimer on presentation of 0.69 therefore CTA of the chest was obtained to rule out PE this was negative for pulmonary embolism. Emergency Department Course and Treatment: [Patient was medicated with Dilaudid and Zofran. Patient's pain returned and had to be remedicated with Dilaudid and Zofran. I discussed case with Dr. Patrice Armstrong who will evaluate patient in consultation who also asked to admit patient to medicine.] Treatment Plan: [Admit for further workup and evaluation of her abdominal pain] Disposition: [Admit Impression: [Intractable abdominal pain-rule out acute acalculous cholecystitis] This note was generated with [employer] dictation software. It may contain incorrect words, spelling, and punctuation that were not noted in review of the chart prior to signing ED Disposition - Plan for ED Patient: Chief Complaint: Other, Pain/Inj Referrals: Gerardo Catherine MD [Primary Care Provider] - What to do if you have Problems For any increased pain, shortness of breath, bleeding, nausea or vomiting, chest pain, or any unexpected problems, contact your Primary Care Provider. Call [facility] ([phone]) or report to the closest Emergency Room. Call 911 if necessary. 12/31/17 2197 <Electronically signed by Rickey Bell DO> Date Remus Ungur DO Sharleneigner Signature (If Indicated): Date CC: Ronak Catherine MD URINALYSIS, COMPLETE Collected: 12/31/2017 Status: F Source: [place] 3:42 PM [facility] Order Comment: Order Date: 12/31/17 How was Urine Obtained? CLEAN CATCH TYPE CODE TESTS RESULT OUT OF RANGE REFERENCE UNITS LAB L400.3000 Yellow COLOR Normal Yellow LAB L400.3050 Clear Normal CLARITY Sl. Cloudy LAB L400.3200 Normal mg/dl Normal GLUCOSE, UR Normal LAB L400.3300 Negative mg/dL Normal BILIRUBIN URINE Negative LAB L400.3400 Negative mg/dl Normal KETONE UR Negative LAB L400.3465 1.002-1.030 Normal SP.GR. DIPSTX 1.015 LAB L400.3550 5.0 - 8.0 pH UR Normal 6.0 LAB L400.3600 Negative mg/dl PROT Normal DIPSTX Negative LAB L400.3700 Normal mg/dl Normal UROBILI Normal LAB L400.3750 Negative Normal NITRITE UR Negative LAB L400.3780 Negative /ul Normal OCCULT BLOOD-UR Negative LAB L400.3800 Negative /ul High LEUK 25 ESTERASE LAB L400.4050 0-5 /hpf WBC Normal 0-5 SEEN LAB L400.4100 0-5 /hpf 0 Normal RBC-UA SEEN LAB L400.4150 5-10 /hpf SQUAM Normal EPI 0-5 SEEN LAB L400.4300 None Seen /hpf 0 Normal BACTERIA SEEN LAB L400.4350 <or=2+ /hpf 0 Normal MUCUS, URINE SEEN Performed By: #### L400.0001 #### [facility] [address] [place], [place], [address] ABDOMEN/PELVIS W IV CONT Observed: 12/31/2017 Status: F Source: [place] ONLY 2:12 PM [facility] Imaging Services [address] [place] [address] Abdomen/Pelvis W IV Cont ONLY MR#: [id number] Acct: [id number] Name: GAIL ZHU Rep #: [id number] : 1950 F 67 From: Binh Almaguer MD PCP: Ronak Catherine MD Status: REG Study: Abdomen/Pelvis W IV Cont ONLY Date of Exam: 12/31/17 Exam# [id number] Ordering Dr: Rickey Bell DO STUDY: CT ABDOMEN AND PELVIS WITH CONTRAST REASON FOR EXAM: Female, 67 years old. Chest pain and abdominal pain. RADIATION DOSAGE (If Supplied By Facility): CTDIvol = ( 17.5 ) mGy, DLP = ( 1045 ) mGycm TECHNIQUE: Transaxial images were obtained from the dome of the diaphragm to the symphysis pubis without oral contrast. 100ML ml of Isovue 370 contrast was administered. Sagittal and coronal images were reconstructed. Individualized dose optimization techniques were used for this CT. COMPARISON: Comparison is made with prior study dated October 20, 2015. FINDINGS: The visualized lung bases are unremarkable. The visualized portions of the heart are within normal limits. There is decreased attenuation of the liver consistent with steatosis. Mild hepatomegaly. Mild degree of thickened gallbladder wall although the gallbladder is not adequately distended at the time of the examination. Normal spleen. Normal pancreas. Normal bilateral adrenal glands. Normal right kidney. Normal left kidney. There is a small hiatal hernia. Normal small intestine. There are multiple colonic diverticula consistent with diverticulosis. The appendix is visualized and appears normal. There is scattered atherosclerotic calcification of the abdominal aorta, without a demonstrated aneurysm. Normal inferior vena cava. Normal retroperitoneum. Normal urinary bladder. There is a small umbilical hernia containing fat. Mild disc space narrowing and disc herniation at the L5-S1 level. CT/Abdomen/Pelvis W IV Cont ONLY IMPRESSION: No acute abnormality is seen. Fatty infiltration of the liver and mild hepatomegaly. Electronically Signed: Binh Almaguer MD at 15:35 EDT Tel [phone], Service support , CC: Ronak Catherine MD; Rickey Bell DO Dirt Supervisor: Signed CTA CHEST W/WO Observed: 12/31/2017 Status: F Source: MIKE CONTRAST 2:12 PM [facility] Imaging Services [address] [place] [address] CTA Chest W/WO Contrast MR#: [id number] Acct: [id number] Name: GAIL ZHU Rep #: [id number] : 1950 F 67 From: Binh Almaguer MD PCP: Ronak Catherine MD Status: REG ER Study: CTA Chest W/WO Contrast Date of Exam: 12/31/17 Exam# [id number] Ordering Dr: Rickey Bell DO STUDY: CTA CHEST REASON FOR EXAM: Female, 67 years old. Chest pain. Abdominal pain. RADIATION DOSAGE (If Supplied By Facility): CTDIvol = ( 17.01 ) mGy, DLP = ( 1541.38 ) mGycm TECHNIQUE: The examination was performed with the intravenous administration of 100ML ml of Isovue 370 contrast material. Post-processing of the angiographic images was performed, with multiplanar reformation and 3D reconstruction. Individualized dose optimization techniques were used for this CT. COMPARISON: None. FINDINGS: Normal enhancement of the main pulmonary artery and right and left pulmonary arteries. Normal enhancement of the bilateral peripheral pulmonary arteries. There is no demonstrated pulmonary embolism. Normal thoracic aorta and visualized great vessels. There is no demonstrated aortic dissection. There are calcifications of the coronary arteries. There are visualized mediastinal lymph nodes, which are within normal size limits, and with normal morphology. Normal hilar regions. Normal visualized trachea and bronchi. Hyperinflation. Bullous changes in the upper lobes worse on the right side. Normal pleura. Normal chest wall structures. There are degenerative changes of thoracic spine. Diffuse fatty infiltration of the liver. CT/CTA Chest W/WO Contrast IMPRESSION: Emphysematous changes seen in the upper lobes with bullous changes in the right upper lobe. There is no evidence of pulmonary embolism. Electronically Signed: Binh Almaguer MD at 15:38 EDT Tel [phone], Service support , CC: Ronak Catherine MD; Rickey Bell DO Dirt Supervisor: Signed CBC W/DIFF, AUTOMATED Collected: 12/31/2017 Status: F Source: MIKE 12:31 PM [facility] TYPE CODE TESTS RESULT OUT OF RANGE REFERENCE UNITS LAB L100.1000 4.4-11.0 K/mm3 Normal WBC 7.4 LAB L100.1200 4.2-5.4 M/mm3 Normal RBC 4.99 LAB L100.1300 12.0-15.0 g/dl Normal HGB 14.2 LAB L100.1400 37-47 % Normal HCT 41.7 LAB L100.1500 81-99 fL Normal MCV 83.6 LAB L100.1600 27.0-32.0 pg Normal MCH 28.5 LAB L100.1700 32-36 g/gl Normal MCHC 34.1 LAB L100.1810 11.6-14.6 % Normal RDW CV 14.3 LAB L100.1820 35.1-43.9 fl Normal RDW SD 43.3 LAB L100.1900 150-450 K/mm3 Normal PLT 269 LAB L100.2000 6.2-12.0 fl Normal MPV 10.7 LAB L100.2100 47-70 % Normal NEUT% 53.9 LAB L100.2200 19-41 % Normal LY% 32.5 LAB L100.2300 0-10 % Normal MONO% 8.4 LAB L100.2400 0-5 % Normal EO% 3.9 LAB L100.2500 0-1 % Normal BASO% 0.9 LAB L100.2550 0.0-0.9 % Normal IM GRAN % 0.400 Result Comment: IG% - Immature Granulocytes (promyelocytes, myelocytes and metamyelocytes) > 1% indicates that a LEFT SHIFT is Present. LAB L100.2620 2.0-7.7 X10 3/uL Normal Absolute Neut 4.0 LAB L100.2720 0.83-4.51 X10 3/ul Normal Absolute Lymph 2.41 Performed By: #### L100.0100 #### [facility] [address] [place], [address] COMPREHENSIVE METABOLIC Collected: 12/31/2017 Status: F Source: MIKE [facility] 12:31 PM [facility] TYPE CODE TESTS RESULT OUT OF RANGE REFERENCE UNITS LAB L501.0100 74-106 mg/dL Normal GLU 99 Result Comment: Please note revised GLUCOSE reference range effective 2017. LAB L501.1000 7-18 mg/dL Normal BUN 16 LAB L501.1100 0.55-1.02 mg/dL Normal CREAT,SERUM 0.83 Result Comment: The validity of the calculated GFR AND GFRAA in patients over 70 years has not been determined. Clinical correlation is essential. LAB L501.1110 >60 mL/min Normal EST GFR 73 Result Comment: Non- GFR Calc LAB L501.1115 >60 mL/min Normal EST GFR - AA 88 Result Comment: GFR Calc LAB L501.1255 ml/min Normal Estimated CRCL 55.90 LAB L501.1300 10-20 RATIO Normal BUN/CRE 19.2 LAB L501.1500 6.4-8. g/dL Normal 2 T PROT 7.6 LAB L501.1800 3.2-5. g/dL Normal 0 ALB 4.0 LAB L501.1950 2.2-4. g/dL Normal 2 GLOB 3.6 LAB L501.2000 0.9-2. RATIO Normal 4 A/G 1.1 LAB L501.2200 8.5-10 mg/dL Normal .1 CA 9.3 LAB L501.4100 15-37 U/L Normal AST 22 LAB L501.4305 45-117 U/L Normal ALK P 106 LAB L501.4405 13-56 U/L Normal ALT 31 LAB L501.4600 0.20-1 mg/dL Normal .00 T BILI 0.50 LAB L501.5300 136-14 mmol/L Normal 5 NA 140 LAB L501.5600 3.5-5. mmol/L Normal 1 K 3.6 LAB L501.5900 98-107 mmol/L Normal CL 107 LAB L501.6100 21.0-3 mmol/L Normal 2.0 CO2 26.0 LAB L501.6200 5-15 Normal GAP 7 Performed By: #### L500.4050, L501.2450 #### [facility] [address] [place], [address] LIPASE Collected: 12/31/2017 Status: F Source: [place] 12:31 PM [facility] TYPE CODE TESTS RESULT OUT OF RANGE REFERENCE UNITS LAB L501.2450 73-393 U/L Normal LIPASE 200 Performed By: #### L500.4050, L501.2450 #### [facility] [address] [place], [address] D-DIMER QUANTITATIVE Collected: 12/31/2017 Status: F Source: [place] (DVT/PE) 12:31 PM [facility] TYPE CODE TESTS RESULT OUT OF RANGE REFERENCE UNITS LAB L300.8000 0.27-0.49 FEU/ug/m High alert D-DIMER 0.69 QUANT Result Comment: D-Dimer ELEVATED (>0.49): Additional studies and clinical assessments are indicated to conclude diagnosis of: Deep Vein Thrombosis (DVT) or Pulmonary Embolism (PE) CRITICAL VALUE VERIFIED. CALLED TO CECILIO ALFARO 12/31/17 Marta Craig. RESULTS READ BACK BY SAME . Performed By: #### L300.8000 #### [facility] [address] [place], [address] GALLBLADDER Observed: 12/31/2017 Status: F Source: [place] 12:02 PM [facility] Imaging Services [address] [place] [address] Gallbladder MR#: [id number] Acct: [id number] Name: GAIL ZHU Rep #: [id number] : 1950 F 67 From: Dionisio Vigil MD PCP: Ronak Catherine MD Status: REG ER Study: Gallbladder Date of Exam: 12/31/17 Exam# [id number] Ordering Dr: Rickey Bell DO STUDY: ABDOMINAL ULTRASOUND - RIGHT UPPER QUADRANT REASON FOR VISIT: Female, 67 years old. Abdominal pain, right upper quadrant. TECHNIQUE: Ultrasound evaluation of the right upper quadrant was performed with real-time and static magana-scale imaging. TECHNICAL QUALITY: Adequate. COMPARISON: 10/29/2015. FINDINGS: Liver: The liver measures 18.0 cm. Increased echogenicity of the liver parenchyma due to fatty infiltration. The bile ducts are within normal limits. There is hepatic color flow. The direction of portal flow is hepatopetal. There is no demonstrated mass lesion. Gallbladder: Normal distended gallbladder. The gallbladder wall measures 4 mm. There is a positive sonographic Nick's sign. There is no pericholecystic fluid. There are no gallstones. Common Bile Duct (C.B.D.): The common bile duct measures 7-8 mm. Pancreas: Normal size of the head, body and tail of the pancreas. There is normal echogenicity of the pancreas. There is no demonstrated pancreatic mass or cyst. Mild pancreatic ductal dilatation measuring 3 mm in diameter. Right Kidney: Normal size of the right kidney. The right kidney measures 10.2 x 4.9 x 4.4 cm. Normal renal cortex. The right cortex measures 1.5 cm. There is no demonstrated renal mass or cyst. There is no right hydronephrosis. US/Gallbladder IMPRESSION: 1. Abnormal thickening of the gallbladder wall with positive sonographic Nick's sign is but negative for gallstones, sludge or pericholecystic edema. This is worrisome for acalculous cholecystitis. Hepatobiliary scintigram with CCK will help clarify if desired. 2. Mild pancreatic ductal dilatation. 3. Mild hepatic steatosis was present previously. Electronically Signed: Dionisio Vigil MD at 13:57 EDT , Service support , CC: Ronak Catherine MD; Rickey Bell DO Dirt Supervisor: Signed CHEST PA AND LATERAL Observed: 11/26/2017 Status: F Source: MIKE 3:29 PM [facility] [place] [address] Chest PA and Lateral MR#: [id number] Acct: [id number] Name: GAIL ZHU Rep #: [id number] : 1950 F 67 From: Varun Moyer MD PCP: Ronak Catherine MD Status: REG CLI Study: Chest PA and Lateral Date of Exam: 11/26/17 Exam# [id number] Ordering Dr: Danilo Ernst MD STUDY: X-RAY CHEST REASON FOR EXAM: Female, 67 years old. Chest pain TECHNIQUE: Frontal and lateral views of the chest COMPARISON: 10/10/2016 FINDINGS: The lungs are clear. There are no pleural effusions. There is no pneumothorax. The heart is normal in size. The visualized osseous structures are within normal limits. RAD/Chest PA and Lateral IMPRESSION: No acute thoracic pathology. Electronically Signed: Varun Moyer, at 17:49 EDT Tel , Service support , CC: Ronak Catherine MD; Danilo Ernst MD Dirt Supervisor: Signed CBC-COMPLETE BLOOD CNT Collected: 07/17/2017 Status: F Source: MIKE NO DIFF 10:40 AM [facility] Order Comment: Order Date: 07/17/17 Order Info: [id number] - CBC TYPE CODE TESTS RESULT OUT OF RANGE REFERENCE UNITS LAB L100.1000 4.4-11.0 K/mm3 Normal WBC 7.2 LAB L100.1200 4.2-5.4 M/mm3 Normal RBC 4.70 LAB L100.1300 12.0-15.0 g/dl Normal HGB 13.3 LAB L100.1400 37-47 % Normal HCT 40.3 LAB L100.1500 81-99 fL Normal MCV 85.7 LAB L100.1600 27.0-32.0 pg Normal MCH 28.3 LAB L100.1700 32-36 g/gl Normal MCHC 33.0 LAB L100.1810 11.6-14.6 % Normal RDW CV 14.6 LAB L100.1820 35.1-43.9 fl High RDW SD 44.7 LAB L100.1900 150-450 K/mm3 Normal PLT 258 LAB L100.2000 6.2-12.0 fl Normal MPV 10.8 Performed By: #### L100.0500, L500.4050, L500.4100, L501.9520 #### [facility] [address] [place], [address] COMPREHENSIVE METABOLIC Collected: 07/17/2017 Status: F Source: [facility] 10:40 AM [facility] Order Comment: Order Date: 07/17/17 Order Info: [id number] - CMP Order Info: [id number] - LIPID Order Info: 3016-3 - TSH TYPE CODE TESTS RESULT OUT OF RANGE REFERENCE UNITS LAB L501.0100 74-106 mg/dL Normal GLU 87 Result Comment: Please note revised GLUCOSE reference range effective 2017. LAB L501.1000 7-18 mg/dL Normal BUN 13 LAB L501.1100 0.55-1.02 mg/dL Normal CREAT,SERUM 0.72 Result Comment: The validity of the calculated GFR AND GFRAA in patients over 70 years has not been determined. Clinical correlation is essential. LAB L501.1110 >60 mL/min Normal EST GFR 86 Result Comment: Non- GFR Calc LAB L501.1115 >60 mL/min Normal EST GFR - AA 104 Result Comment: GFR Calc LAB L501.1300 10-20 RATIO Normal BUN/CRE 18.0 LAB L501.1500 6.4-8.2 g/dL T Normal PROT 7.2 LAB L501.1800 3.2-5.0 g/dL Normal ALB 3.7 LAB L501.1950 2.2-4.2 g/dL Normal GLOB 3.5 LAB L501.2000 0.9-2.4 RATIO Normal A/G 1.1 LAB L501.2200 8.5-10.1 mg/dL CA Normal 8.6 LAB L501.4100 15-37 U/L Normal AST 23 LAB L501.4305 45-117 U/L Normal ALK P 104 LAB L501.4405 13-56 U/L Normal ALT 37 Result Comment: Please note revised ALT reference range effective 2017. LAB L501.4600 0.20-1.00 mg/dL Normal T BILI 0.60 LAB L501.5300 136-145 mmol/L Normal NA 138 LAB L501.5600 3.5-5.1 mmol/L Low K 3.2 LAB L501.5900 98-107 mmol/L Normal CL 103 LAB L501.6100 21.0-32.0 mmol/L Normal CO2 26.0 LAB L501.6200 5-15 Normal GAP 9 Performed By: #### L100.0500, L500.4050, L500.4100, L501.9520 #### [facility] [address] [place], [address] LIPID PROFILE Collected: 07/17/2017 Status: F Source: [place] 10:40 AM [facility] Order Comment: Order Date: 07/17/17 Order Info: [id number] - CMP Order Info: [id number] - LIPID Order Info: 3016-3 - TSH TYPE CODE TESTS RESULT OUT OF RANGE REFERENCE UNITS LAB L501.4900 200 mg/dL High CHOL 263 Result Comment: <200 mg/dL Desirable 200-240 mg/dL Borderline >240 mg/dL High Risk LAB L501.5000 mg/dL High TRIG 228 Result Comment: The drugs N-Acetylcysteine and Metamizole may falsely depress this assay. Serum Triglycerides Reference Interval Normal <150 mg/dL Borderline high 150 - 199 mg/dL High 200 - 499 mg/dL Very High > or = 500 mg/dL LAB L501.6400 mg/dL Normal HDL 52 Result Comment: The drugs N-Acetylcysteine and Metamizole may falsely depress this assay. Reference Range HDL <40 mg/dL Low HDL Cholesterol HDL >or= 60 mg/dL High HDL Cholesterol LAB L501.6500 0-130 mg/dL High LDL 165 LAB L501.6600 5-40 mg/dL High VLDL 46 Performed By: #### L100.0500, L500.4050, L500.4100, L501.9520 #### [facility] [address] [place], [address] THYROID STIM HORMONE Collected: 07/17/2017 Status: F Source: MIKE (TSH) 10:40 AM [facility] Order Comment: Order Date: 07/17/17 Order Info: [id number] - CMP Order Info: [id number] - LIPID Order Info: 3016-3 - TSH TYPE CODE TESTS RESULT OUT OF RANGE REFERENCE UNITS LAB L501.9520 0.358-3.74 uIU/mL Normal TSH 1.50 Performed By: #### L100.0500, L500.4050, L500.4100, L501.9520 #### [facility] [address] [place], [address] ALLERGIES ALLERGIES DATE TYPE / CODE NAME / CODE REACTION SEVERITY SOURCE 01/10/2018 Drug levofloxacin/ MUSCLE WEAKNESS Unknown [facility] Allergy/4160 [id number](RX IN [facility] 05735(SNOMED NORM) Repository CT) 10/01/2014 Drug No Known Unknown [facility] Allergy/4160 Allergies/F00 Hospital 00507(SNOMED 3185573(RXNOR Repository CT) M) ENCOUNTERS ENCOUNTERS ADMIT/DISCHARGE ACCOUNT ADMITTING ENCOUNTER LOCATION SOURCE NUMBER CLASS 06/20/2018 [id number] Ambulatory Mike [place] 6 [facility] ing:MFPLAB Repository 01/10/2018/ [id number] Ambulatory BMSBuilding:B [place] 8 7 [place].W[facility] Repository 01/01/2018/ [id number] Ambulatory BMSBuilding:W [place] 8 7 [facility] Repository 12/31/2017/ [id number] Kenyatta, Inpatient [place] 8 1 [place] Encounter [facility] ing:WB4Acbo: Repository FH321Hpr: 1 12/31/2017 [id number] Kenyatta, Ambulatory BMSBuilding:B [place] 9 [place] MS.WIP [facility] Repository 12/31/2017 [id number] Tereletsky, Ambulatory BMSBuilding:B Mike 3 [place] MS.[facility] Repository 12/31/2017 [id number] Tereletsky, Ambulatory BMSBuilding:B [place] 7 [place] MS.CF.[facility] Repository 12/31/2017 [id number] Tereletsky, Ambulatory BMSBuilding:B [place] 2 [place] MS.[facility] Repository 12/31/2017/ [id number] Ambulatory BMSBuilding:B [place] 8 5 MS.CF.[facility] Repository 11/26/2017 [id number] Ambulatory Mike [place] 3 [facility] ing:MTRAD Repository 07/17/2017 [id number] Ambulatory Mike [place] 7 [facility] ing:MFPLAB Repository PAYERS PAYERS ENCOUNTER GUARANTOR PAYER SUBSCRIBER SOURCE 06/20/2018 GAIL D Primary GAIL D [place] [id number] Insurance:MEDICARE ROBISONDOB: [facility] A BPolicy Number: [id number] [id number] Repository 63566Pxp: (330) Date:2018-06-20 [phone] () 06/20/2018 Secondary GAIL D Mike Insurance:HUMANA ROBISONDOB: [facility] [id number] Hospital Number: Repository [id number] Date:9465-32-92[address] [address]XQ: 06/20/2018 Tertiary NOT GIVENUNK [place] Insurance:SELF PAY [facility] Hospital Number: Effective Repository Date:2018-06-20 01/10/2018 GAIL D Primary GAIL D [place] [id number] Insurance:MEDICARE ROBISONDOB: [facility] A olicy Number: [id number] [id number] Repository [address]Vnx: (330) Date:2018-01-10 [phone] () 01/10/2018 Secondary GAIL D [place] Insurance:HUMANA ROBISONDOB: [facility] [id number] Hospital Number: Repository [id number] Date:0739-90-51SU [address] [place] [address]BE: 01/10/2018 Tertiary NOT GIVENUNK [place] Insurance:SELF PAY [facility] Hospital Number: Effective Repository Date:2018-01-10 01/01/2018 GAIL D Primary GAIL D [place] [id number] Insurance:MEDICARE ROBISONDOB: [facility] PART A BPolicy Number: [id number], [place] [id number] Repository [address]Mtk: (847) Date:2017-12-31 [phone] () 01/01/2018 Secondary GAIL D [place] Insurance:HUMANA ROBISONDOB: [facility] [id number] Hospital Number: Repository [id number] Date:9066-13-82ST [address] [place] [address]ED: 01/01/2018 Tertiary NOT GIVENUNK [place] Insurance:SELF PAY [facility] Hospital Number: Effective Repository Date:2018-01-01 12/31/2017 Gail D Primary Gail D Mike [id number] Insurance:MEDICARE RobisonDOB: [facility] PART A BPolicy Number: [id number] [id number] Repository [address]Kue: (327) Date:2017-12-31 [phone] () 12/31/2017 Secondary Gail D [place] Insurance:HUMANA RobisonDOB: [facility] [id number] Hospital Number: Repository [id number] Date:4295-40-02ZI [address] [place] [address]IL: 12/31/2017 Tertiary NOT GIVENUNK Mike Insurance:SELF PAY [facility] Hospital Number: Effective Repository Date:2017-12-31 12/31/2017 GAIL D Primary GAIL D Mike [id number] Insurance:MEDICARE ROBISONDOB: [facility] PART A BPolicy Number: [id number] [place] [id number] Repository [address]Fbq: (330) Date:2017-12-31 [phone] () 12/31/2017 Secondary GAIL D [place] Insurance:HUMANA ROBISONDOB: [facility] COMMERCIALPoly [id number] Hospital Number: Repository [id number] Date:0029-81-04BJ [address] [place] [address]VJ: 12/31/2017 Tertiary NOT GIVENUNK [place] Insurance:SELF PAY [facility] Hospital Number: Effective Repository Date:2017-12-31 12/31/2017 GAIL D Primary GAIL D [place] [id number] Insurance:MEDICARE ROBISONDOB: [facility] PART A BPolicy Number: [id number] [place], [place] [id number] Repository [address]Wjp: (330) Date:2017-12-31 [phone] () 12/31/2017 Secondary GAIL D Mike Insurance:HUMANA ROBISONDOB: [facility] [id number] Hospital Number: Repository [id number] Date:8486-55-69ZZ [address] [place] [address]RL: 12/31/2017 Tertiary NOT GIVENUNK Mike Insurance:SELF PAY [facility] Hospital Number: Effective Repository Date:2017-12-31 12/31/2017 Gail D Primary Gail D [place] [id number] Insurance:MEDICARE RobisonDOB: [facility] PART A BPolicy Number: [id number], [place] [id number] Repository 82016Tys: (330) Date:2017-12-31 [phone] () 12/31/2017 Secondary Gail D [place] Insurance:HUMANA RobisonDOB: [facility] [id number] Hospital Number: Repository [id number] Date:4765-93-91EV [address] [place] [address]TW: 12/31/2017 Tertiary NOT GIVENUNK Mike Insurance:SELF PAY [facility] Hospital Number: Effective Repository Date:2017-12-31 12/31/2017 GAIL D Primary GAIL D Mike [id number] Insurance:MEDICARE ROBISONDOB: [facility] PART A BPolicy Number: [id number] [place], [place] [id number] Repository [address]Vzl: 330) Date:2017-12-31 [phone] () 12/31/2017 Secondary GAIL D [place] Insurance:HUMANA ROBISONDOB: [facility] [id number] Hospital Number: Repository [id number] Date:0539-39-59YY [address] [place] [address]JA: 12/31/2017 Tertiary NOT GIVENUNK Mike Insurance:SELF PAY [facility] Hospital Number: Effective Repository Date:2017-12-31 12/31/2017 GAIL D Primary GAIL D Mike [id number] Insurance:MEDICARE ROBISONDOB: [facility] PART A BPolicy Number: [id number] Lake, [place] [id number] Repository [address]Iov: 330) Date:2017-12-31 [phone] () 12/31/2017 Secondary GAIL D Mike Insurance:HUMANA ROBISONDOB: [facility] [id number] Hospital Number: Repository [id number] Date:6571-24-36YM [address] [address]AO: 12/31/2017 Tertiary NOT GIVENUNK Mike Insurance:SELF PAY [facility] Hospital Number: Effective Repository Date:2017-12-31 11/26/2017 Gail D Primary Gail D [place] [id number] Insurance:MEDICARE RobisonDOB: [facility] PART A olicy Number: [id number], [place] [id number] Repository [address]Edv: 330) Date:2017-11-26 [phone] () 11/26/2017 Secondary Gail D [place] Insurance:HUMANA RobisonDOB: [facility] [id number] Hospital Number: Repository [id number] Date:3088-08-40XY [address] [place] [address]RC: 11/26/2017 Tertiary NOT GIVENUNK [place] Insurance:SELF PAY [facility] Hospital Number: Effective Repository Date:2017-11-26 07/17/2017 Gail D Primary Gail D [place] [id number] Insurance:MEDICARE RobisonDOB: [facility] PART A BPolicy Number: [id number], [place] [id number] Repository [address]Bdw: Date:2017-07-17 ~33 0-2 (HP) 07/17/2017 Secondary Gail D [place] Insurance:HUMANA RobisonDOB: [facility] COMMERCIAL[employer] [id number] Hospital Number: Repository [id number] Date:7515-07-82DA [address] [address]SE: 07/17/2017 Tertiary NOT GIVENUNK Mike Insurance:SELF PAY [facility] Hospital Number: Effective Repository Date:2017-07-17
== END ==
PROVIDERS: Family Provider Family Medicine; PCP Family Medicine; Visit Provider Family Medicine
DX: K81.0 Acute cholecystitis (principal); E78.2 Mixed hyperlipidemia
CPT/HCPCS: 36415; 80053; 80061

== ENCOUNTER → 2018-08-08 10:18 | Outpatient (CLI) | payer MEDICARE, OTHER, SELFPAY ==
--- NOTE | 2018-08-08 10:23 | BI_ITS ---
MAMMOGRAPHY - BILATERAL SCREENING REASON FOR EXAM: Female, 68 years old. Routine annual screening examination. PERTINENT HISTORY: Non-contributory. TECHNIQUE: Digital bilateral breast nena (3D mammographic acquisition) in the CC and MLO projections. 2-D mediolateral oblique (MLO) and craniocaudad (CC) views of both breasts were obtained. CAD: Full Field Digital Mammography with Computer Added Detection was performed. COMPARISON: Comparison is made with prior examination dated February 15, 2015. FINDINGS: Breast Composition: There are scattered areas of fibroglandular density. There is a 3.5 mm well-defined nodule in the upper lateral portion of the right breast. Correlation with ultrasound is recommended. Stable appearance of the bilateral axillary lymph nodes. No other significant abnormalities are identified. There has been no significant change since the prior study. BI/SCREENING MAMM (CAD), BILAT IMPRESSION: New 3.5 mm well-defined nodular density in the upper lateral portion of the right breast. Correlation with ultrasound is recommended. ASSESSMENT CATEGORY: BIRADS Category 0: Incomplete. Need additional imaging evaluation. A letter regarding these results will be sent to the patient by the facility within 30 days. Approximately 10% of breast cancers are not detected by mammography. A normal mammogram should not delay biopsy of a clinically suspicious abnormality. [id number] Electronically Signed: Binh Almaguer, at 12:36 EST , Service support ,
--- NOTE | 2018-08-08 10:25 | BD_ITS ---
STUDY: DUAL ENERGY X-RAY ABSORPTIOMETRY / DXA REASON FOR EXAM: Female, 68 years old. The patient is postmenopausal. Loss of height. TECHNIQUE: Bone Mineral Density (BMD) measurements of lumbar spine and bilateral hips were obtained. COMPARISON: None. FINDINGS: Lumbar Spine (L1-L4): g/cm2 (1.135) / T-score (-0.4) / Z-score (1.2) Findings are suggestive of normal bone density with a low fracture risk. Left Femur Total: g/cm2 (0.923) / T-score (-0.7) / Z-score (0.6) Left Femoral Neck: g/cm2 (0.713) / T-score (-2.3) / Z-score (-0.8) Right Femur Total: g/cm2 (0.975) / T-score (-0.3) / Z-score (1.0) Right Femoral Neck: g/cm2 (0.720) / T-score (-2.3) / Z-score (0.8) BD/Dexa Bone Density Study IMPRESSION: The patient is considered osteopenic as outlined below according to World Jj Organization (WHO) criteria with a moderate fracture risk. Reference Information: The T-score is the number of standard deviations above or below the standard which is normal for young adults at their peak bone mineral density. The World Health Organization (WHO) interprets the T-scores as follows: Above -1 Normal bone density Between -1 and -2.5 Osteopenia Equal to / or below -2.5 Osteoporosis As a practical clinical guideline, osteopenia may be graded as follows: Mild -1 through -1.5 Moderate -1.6 through -2.0 Severe -2.1 through -2.4 The Z-score is the number of standard deviations above or below age-matched controls. A Z-score of less than -1.5 would be considered abnormal. References: 1. NIH Osteoporosis and Related Bone Diseases http://www.osteo.org 2. International Society for Clinical Densitometry http://www.iscd.org 3. National Osteoporosis Foundation http://www.nof.org Electronically Signed: Binh Almaguer, at 9:21 EST , Service support ,
== END ==
PROVIDERS: Family Provider Family Medicine; PCP Family Medicine; Visit Provider Family Medicine
DX: Z12.31 Encounter for screening mammogram for malignant neoplasm of breast (principal); Z78.0 Asymptomatic menopausal state; M85.80 Other specified disorders of bone density and structure, unspecified site
CPT/HCPCS: 77063; 77067; 77080

== ENCOUNTER → 2018-08-09 09:09 | Outpatient (CLI) | payer MEDICARE, OTHER, SELFPAY ==
--- NOTE | 2018-08-09 09:11 | US_ITS ---
STUDY: ULTRASOUND BREAST - RIGHT REASON FOR EXAM: Female, 68 years old. Abnormal screening mammogram. TECHNIQUE: Axial and longitudinal images of the RIGHT breast were performed with a high resolution ultrasound transducer. COMPARISON: Comparison is made with prior mammogram dated August 08, 2018. FINDINGS: RIGHT Breast: There is a 4 mm x 3 mm x 2 mm cyst at the 9:00 position of the breast at 6 cm from the nipple. There is also evidence of a 2 mm x 3 mm x 2 mm cyst at the 11:00 position of the breast at 4 cm from the nipple. There is also evidence of a dilated subareolar ducts. US/Breast Limited Unilateral IMPRESSION: 2 small cysts are seen at the 9:00 and 11:00 position of the breast. ASSESSMENT CATEGORY: BIRADS Category 2: Benign. A letter regarding these results will be sent to the patient by the facility within 30 days. Electronically Signed: Binh Almaguer, at 14:40 EST , Service support ,
== END ==
PROVIDERS: Family Provider Family Medicine; PCP Family Medicine; Visit Provider Family Medicine
DX: R92.8 Other abnormal and inconclusive findings on diagnostic imaging of breast (principal)
CPT/HCPCS: 76642

== ENCOUNTER 2018-08-29 16:48 | Emergency (ER) | payer MEDICARE, OTHER, SELFPAY ==
[2018-08-29 16:49] VITALS: BP 168/81; PULSE 98; RESP 16; TEMP 37.3; O2SAT 99; BMI 36.6
[2018-08-29 17:07] VITALS: BP 149/86; PULSE 75; RESP 21; O2SAT 97; O2SAT 98
--- NOTE | 2018-08-29 17:09 | RAD_ITS ---
STUDY: X-RAY CHEST REASON FOR EXAM: Female, 68 years old. Shortness of breath and history of COPD TECHNIQUE: PA and lateral views of the chest. COMPARISON: 11/26/2017 FINDINGS: The lungs are clear and expanded. There is no demonstrated pleural abnormality. Normal size heart. Normal mediastinum and [place]. Normal visualized pulmonary arteries. Normal visualized aortic arch and descending thoracic aorta. Normal visualized thoracic spine. Normal visualized ribs, clavicles, and shoulders. There is no demonstrated abnormality of the visualized soft tissue structures of the upper abdomen. RAD/Chest PA and Lateral IMPRESSION: Normal x-ray examination of the chest. Electronically Signed: Nikolay Hernandez DO at 19:19 EDT Tel , Service support ,
--- NOTE | 2018-08-29 17:09 | EKG12_ITS ---
Test Reason : SOB Blood Pressure : / mmHG Vent. Rate : 071 BPM Atrial Rate : 071 BPM P-R Int : 142 ms QRS Dur : 078 ms QT Int : 420 ms P-R-T Axes : 013 015 040 degrees QTc Int : 456 ms Normal sinus rhythm Inferior-posterior infarct , age undetermined , cannot be excluded Abnormal ECG Confirmed by DUONG KELLEY, BRENT ([id number]), editor house organ SANDRA LOPEZ ([id number]) on 09/02/2018 2:02:34 PM Referred By: ERIC Confirmed By:BRENT WATTERS MD
--- NOTE | 2018-08-29 17:16 | ED.VISSUMM ---
- ER Visit Summary Date of Service: 08/29/18 Chief Complaint: Shortness of breath History of Present Illness: The patient is a 68 F history of COPD but not on home O2. Patient states for 2 weeks she has been short of breath both with exertion and supine. Remittent wheezing. Chronic cough of yellowish sputum no change. No fever. No hemoptysis. No chest pain. No history of DVT or PE. No recent hospitalization. No leg pain or swelling. States she has been using her inhalers with limited relief. Physical Examination: Older female no acute distress. Vital signs are stable. Afebrile. HEENT exam unremarkable. Neck nontender no JVD. No lymphadenopathy. Heart regular rate and rhythm no murmur. Lungs clear to auscultation bilaterally prolonged expiratory phase. Coarse breath sounds. Abdomen soft and nontender normal bowel sounds no peritoneal signs. Extremities moves all 4. Calves nontender without significant edema. Neurologically she is awake and alert with no focal motor deficits. Test Results: Chest x-ray 2 view shows no acute abnormality. Chronic changes. Normal cardiac silhouette. No infiltrate read by myself. EKG sinus rhythm rate of 71 with no acute signs of ME or ischemia. CBC normal white count 8. Hemoglobin 13. Chemistries normal normal creatinine and gap. Troponin normal. Emergency Department Course and Treatment: Patient with 2-week history of dyspnea both with exertion and some time. Treated with DuoNeb and albuterol aerosols. IV Solu-Medrol. Treatment Plan: Repeat exam the patient is doing well at 1833. Feels much better. She has much better air movement. Again no wheezing. She is comfortable being discharged home. She be placed on prednisone 40 mg a day for 1 week. Use her inhaler. Follow-up with primary care physician. Disposition: Discharge Impression: Acute dyspnea secondary to exacerbation of COPD This note was generated with [employer] dictation software. It may contain incorrect words, spelling, and punctuation that were not noted in review of the chart prior to signing ED Disposition - Plan for ED Patient: Referrals: Gerardo Catherine MD [Primary Care Provider] -
[2018-08-29 17:22] VITALS: PULSE 84; RESP 12
[2018-08-29] MEDS: Ipratropium/Albuterol Sulfate 3 ML AMPUL.NEB INHALATION (17:22)
[2018-08-29] MEDS: MethylPREDNISolone 125 MG/2 ML Vial IV (17:22)
[2018-08-29] MEDS: Albuterol 2.5 MG/3 ML VIAL.NEB. INHALATION ×2 (17:22)
[2018-08-29 17:41] LABS: Absolute Lymphocyte Count 3.04 X10^3/ul (0.83-4.51); Absolute Neutrophil Count 4.5 X10^3/uL (2.0-7.7); Basophil# 0.04 X10^3/uL; Basophil% 0.5 % (0-1); Eosinophils% 3.5 % (0-5); Hemoglobin 13.5 g/dl (12.0-15.0); Lymphocyte # 3.04 X10^3/ul (4.0); Lymphocyte % 35.9 % (19-41); Mean Corp Hgb Conc 32.9 g/gl (32-36); Mean Corpuscular Hgb 28.1 pg (27.0-32.0); Mean Corpuscular Volume 85.4 fL (81-99); Mean Platelet Vol. 10.5 fl (6.2-12.0); Monocyte# 0.59 X10^3/uL; Neutrophil # 4.46 X10^3/uL (2.7-7.7); Neutrophil % 52.7 % (47-70); Platelet Count 225 K/mm3 (150-450); RBC Distribution Width CV 14.6 % (11.6-14.6); RBC Distribution Width SD 45.7 fl (35.1-43.9); White Blood Count 8.5 K/mm3 (4.4-11.0)
[2018-08-29 17:45] LABS: POSITIVE COUNT NO; POSITIVE DIFFERENTIAL NO; POSITIVE MORPHOLOGY NO
[2018-08-29 18:04] LABS: Anion Gap 6 (5-15); BUN 14 mg/dL (7-18); BUN/Creat Ratio 18.5 RATIO (10-20); Calcium,Total 8.7 mg/dL (8.5-10.1); Chloride 109 mmol/L (98-107); Creatinine, Serum 0.76 mg/dL (0.55-1.02); EST Glomerular Filtration Rate 81 mL/min (>60); Est Glom Filt Rate - Afr Amer 98 mL/min (>60); Estimated Creatinine Clearance 43.77 ml/min; Glucose 136 mg/dL (74-106); Potassium 3.7 mmol/L (3.5-5.1); Sodium Level 140 mmol/L (136-145)
--- NOTE | 2018-08-29 18:41 | ED.DEP ---
ED Disposition - Plan for ED Patient: Disposition: Home or Assisted Living Instructions: ED COPD Flare Prescriptions: predniSONE tablet 40 mg PO DAILY 7 Days tab Referrals: Gerardo Catherine MD [Primary Care Provider] - 3-5 Days if not improving Additional Instructions: Prednisone 40 mg a day for the next 7 days. Use her inhaler as needed. Return to the ER feeling worse or follow-up with your doctor if not improving.
[2018-08-29 18:58] VITALS: BP 144/78; PULSE 95; RESP 20; TEMP 36.9; O2SAT 97
== END 2018-08-29 18:59 | disposition home or self-care (01) ==
PROVIDERS: Emergency Provider Emergency Medicine; Family Provider Family Medicine; PCP Family Medicine
DX: J44.1 Chronic obstructive pulmonary disease with (acute) exacerbation (principal); R19.7 Diarrhea, unspecified; Z99.81 Dependence on supplemental oxygen; Z79.899 Other long term (current) drug therapy
CPT/HCPCS: 71046; 80048; 84484; 85025; 93005; 94640; 96374; 99284; A4216

== ENCOUNTER → 2018-12-17 09:37 | Outpatient (CLI) | payer MEDICARE, OTHER, SELFPAY ==
[2018-12-17 13:17] LABS: ALB/GLOB Ratio 1.3 RATIO (0.9-2.4); AST(SGOT) 34 U/L (15-37); Alanine Aminotransfer ALT/SGPT 43 U/L (13-56); Albumin, Serum 3.8 g/dL (3.2-5.0); Alkaline Phosphatase 132 U/L (45-117); Anion Gap 12 (5-15); BUN 17 mg/dL (7-18); BUN/Creat Ratio 20.1 RATIO (10-20); Calcium,Total 8.6 mg/dL (8.5-10.1); Chloride 106 mmol/L (98-107); Cholesterol 177 mg/dL (200); Creatinine, Serum 0.84 mg/dL (0.55-1.02); EST Glomerular Filtration Rate 72 mL/min (>60); Est Glom Filt Rate - Afr Amer 87 mL/min (>60); Globulin 2.9 g/dL (2.2-4.2); Glucose 107 mg/dL (74-106); High Density Lipoprotein 60 mg/dL; Protein, Total 6.7 g/dL (6.4-8.2); Sodium Level 141 mmol/L (136-145); Thyroid Stim Hormone (TSH) 2.95 uIU/mL (0.358-3.74); Triglycerides 151 mg/dL; Very Low Density Lipoprotein 30 mg/dL (5-40)
== END ==
PROVIDERS: Family Provider Family Medicine; PCP Family Medicine; Referring Provider Family Medicine; Visit Provider Family Medicine
DX: I10 Essential (primary) hypertension (principal); R63.5 Abnormal weight gain
CPT/HCPCS: 36415; 80053; 80061; 82533; 84443

== ENCOUNTER → 2019-08-11 07:02 | Outpatient (CLI) | payer MEDICARE, OTHER, SELFPAY ==
--- NOTE | 2019-08-11 07:06 | BI_ITS ---
MAMMOGRAPHY - BILATERAL SCREENING REASON FOR EXAM: Female, 69 years old. Routine annual screening examination. PERTINENT HISTORY: Non-contributory. TECHNIQUE: Digital bilateral breast casear (3D mammographic acquisition) in the CC and MLO projections. 2-D mediolateral oblique (MLO) and craniocaudad (CC) views of both breasts were obtained. CAD: Full Field Digital Mammography with Computer Added Detection was performed. COMPARISON: Comparison is made with prior study dated August 08, 2018 and February 15, 2015. FINDINGS: Breast Composition: There are scattered areas of fibroglandular density. There are no dominant masses or suspicious calcifications. Stable 3.5 mm well-defined nodule in the upper lateral anterior portion of the right breast. This was demonstrated to be a small cyst on prior sonogram. No other significant abnormalities are identified. There has been no significant change since the prior study. BI/SCREEN MAMM (CAD) W/CAESAR BILAT IMPRESSION: Stable bilateral screening mammogram. Yearly follow-up mammogram recommended. (A) ASSESSMENT CATEGORY: BIRADS Category 2: Benign. A letter regarding these results will be sent to the patient by the facility within 30 days. Approximately 10% of breast cancers are not detected by mammography. A normal mammogram should not delay biopsy of a clinically suspicious abnormality. [id number] Electronically Signed: Binh Almaguer, at 8:53 EDT , Service support ,
== END ==
PROVIDERS: PCP Family Medicine; Referring Provider Family Medicine; Visit Provider Family Medicine
DX: Z12.31 Encounter for screening mammogram for malignant neoplasm of breast (principal)
CPT/HCPCS: 77063; 77067

== ENCOUNTER → 2019-12-23 09:37 | Outpatient (CLI) | payer MEDICARE, OTHER, SELFPAY ==
[2019-12-23 12:37] LABS: ALB/GLOB Ratio 1.1 RATIO (0.9-2.4); AST(SGOT) 40 U/L (15-37); Alanine Aminotransfer ALT/SGPT 50 U/L (13-56); Albumin, Serum 3.6 g/dL (3.2-5.0); Alkaline Phosphatase 116 U/L (45-117); Anion Gap 6 (5-15); BUN 11 mg/dL (7-18); BUN/Creat Ratio 13.7 RATIO (10-20); Calcium,Total 8.3 mg/dL (8.5-10.1); Chloride 108 mmol/L (98-107); Cholesterol 235 mg/dL (200); EST Glomerular Filtration Rate 76 mL/min (>60); Est Glom Filt Rate - Afr Amer 91 mL/min (>60); Globulin 3.2 g/dL (2.2-4.2); Glucose 113 mg/dL (74-106); High Density Lipoprotein 46 mg/dL; Potassium 3.2 mmol/L (3.5-5.1); Protein, Total 6.8 g/dL (6.4-8.2); Sodium Level 139 mmol/L (136-145); Triglycerides 255 mg/dL; Very Low Density Lipoprotein 51 mg/dL (5-40)
[2019-12-23 13:09] LABS: Hepatitis C Antibody Non-Reactive (Nonreactive)
== END ==
PROVIDERS: PCP Family Medicine; Referring Provider Family Medicine; Visit Provider Family Medicine
DX: I10 Essential (primary) hypertension (principal); E78.2 Mixed hyperlipidemia; Z11.59 Encounter for screening for other viral diseases
CPT/HCPCS: 36415; 80053; 80061; 86803

== ENCOUNTER → 2020-01-01 | Outpatient (CLI) | payer MEDICARE, OTHER, SELFPAY ==
--- NOTE | 2020-01-01 | LES_PTH ---
PATIENT: ISHMAEL ZHU LOC: [facility] U#:[id number] AGE/SX: 69/F ROOM: RE01/01/[address]: Dr. Ronak Catherine MD : 1950 BED: DIS: 01/01/2020 SPEC #: [id number] RECD: 01/01/20 18:11 STATUS: BENJI TIGIST #: [id number] LALA: 01/01/20 00:[address]: Ronak Catherine DEPT: SURGICAL PATHOLOGY RECD BY: Jason Garcia Tissues: Skin of arm Procedures: Surgery Specimen Level IV HEADER OPERATION: Excision PRE-OP DIAGNOSIS: BCC TISSUE SUBMITTED: Left arm lesion MICROSCOPIC DIAGNOSIS Left arm lesion, excisional biopsy: Consistent with keratoacanthoma, completely excised. Mild actinic keratosis. Negative for malignancy. SJ:darion 01/05/20 COMMENT Case has been reviewed in consultation with Dr. De who concurs with the above diagnosis. IDC:AM MICROSCOPIC DESCRIPTION Slides are reviewed. GROSS DESCRIPTION Received in fixative is one container labeled with the patient's name and designated left arm. The specimen consists of a discoid fragment of hopson skin measuring 0.8 mm in diameter and 0.3 mm in thickness. The specimen is inked, bisected and totally submitted in one cassette. / ERASMO:darion 01/02/20 TC:5 CPT: 39557
== END | disposition home or self-care (01) ==
LOC: LABSPEC 01-02 06:23
PROVIDERS: PCP Family Medicine; Referring Provider Family Medicine; Visit Provider Family Medicine
DX: L57.0 Actinic keratosis (principal)
CPT/HCPCS: 88305

== ENCOUNTER → 2021-01-24 10:36 | Outpatient (CLI) | payer MEDICARE, OTHER, SELFPAY ==
--- NOTE | 2021-01-24 10:40 | RAD_ITS ---
STUDY: X-RAY - CERVICAL SPINE REASON FOR EXAM: Female, 71 years old. HEADACHE TECHNIQUE: 7 view(s) of the cervical spine were obtained. COMPARISON: 10/24/2016. FINDINGS: There are degenerative changes of the anterior atlantoaxial articulation. Normal odontoid process. Normal cervical lordosis. There is diffuse demineralization of the cervical spine. There is multilevel endplate spondylosis with narrowing of disc space consistent with disc degenerative disease. There is multilevel bilateral apophyseal hypertrophy. There is multi-level osseous foraminal stenosis. This is seen from C3-C4 to C5-C6. There is mild anterolisthesis of C4 on C5 (3 mm) and C5 on C6 (1.5 mm). This is improved on extension and slightly accentuated on flexion. The soft tissue structures are unremarkable. RAD/Cerv Spine Obl/Flex/Ext Comp IMPRESSION: Multilevel degenerative disease as described with anterolisthesis of C4 on C5 and C5 on C6 described. Slight accentuation upon flexion with improvement on extension. No acute fracture. Electronically Signed: Margie Damon MD at 2:07 EDT , Service support ,
[2021-01-24 13:18] LABS: Anion Gap 8 (5-15); BUN 13 mg/dL (7-18); BUN/Creat Ratio 14.8 RATIO (10-20); Calcium,Total 9.1 mg/dL (8.5-10.1); Chloride 104 mmol/L (98-107); Creatinine, Serum 0.88 mg/dL (0.55-1.02); EST Glomerular Filtration Rate 68 mL/min (>60); Est Glom Filt Rate - Afr Amer 82 mL/min (>60); Glucose 112 mg/dL (74-106); Potassium 3.3 mmol/L (3.5-5.1); Sodium Level 138 mmol/L (136-145)
== END ==
PROVIDERS: PCP Family Medicine; Referring Provider Family Medicine; Visit Provider Family Medicine
DX: R51.9 Headache, unspecified (principal); I10 Essential (primary) hypertension
CPT/HCPCS: 36415; 72052; 80048

== ENCOUNTER 2021-05-28 14:34 | Inpatient (IN) | payer MEDICARE, OTHER, SELFPAY ==
[2021-05-28] VITALS (9 sets, daily range): BP systolic 96–158; BP diastolic 63–90; PULSE 71–109; RESP 19–23; TEMP 36–37.9; O2SAT 4–94; BMI 34.7; BMI 34.0
--- NOTE | 2021-05-28 14:37 | RAD_ITS ---
STUDY: X-RAY CHEST REASON FOR EXAM: Female, 71 years old. SOB,COVID TECHNIQUE: Single frontal view of the chest. COMPARISON: 08/29/2018 FINDINGS: There are new bilateral ill-defined opacities most pronounced within the mid and lower lungs. Normal size heart. Normal mediastinum and [place]. Normal visualized pulmonary arteries. Normal visualized aortic arch and descending thoracic aorta. Normal visualized thoracic spine. Normal visualized ribs, clavicles, and shoulders. There is no demonstrated abnormality of the visualized soft tissue structures of the upper abdomen. RAD/Chest 1 View IMPRESSION: Multifocal pneumonia. Electronically Signed: Lazara Carpenter MD at 15:03 EST Tel , Service support ,
--- NOTE | 2021-05-28 15:14 | EKG12_ITS ---
Test Reason : SOB Blood Pressure : / mmHG Vent. Rate : 085 BPM Atrial Rate : 085 BPM P-R Int : 148 ms QRS Dur : 082 ms QT Int : 390 ms P-R-T Axes : 042 018 039 degrees QTc Int : 464 ms Normal sinus rhythm Inferior infarct , age undetermined Abnormal ECG Confirmed by VERONICA KELLEY, MICHAEL ([id number]), news videotape editor SANDRA LOPEZ ([id number]) on 05/31/2021 9:47:10 AM Referred By: CELIA Confirmed By:MICHAEL MARTIN MD
--- NOTE | 2021-05-28 15:18 | EDS_ITS ---
HPI History of Present Illness Chief Complaint: Shortness of Breath Informant: patient Narrative Narrative: Patient is a 71-year-old male with history of asthma and hypertension as well as recent diagnosis of COVID-19 infection presenting with nausea and worsening shortness of breath. Patient started having symptoms 5 days ago and had a positive test on Sunday, 3 days ago at urgent care. Patient does not wear oxygen normally. States she has really been able to eat or drink within the past 2 days because she has been so nauseous. She is had loose bowel movements. She is coughing up magana/green mucus. She denies any chest pain. Denies any leg swelling. She denies any ear pain or sore throat. No other complaints at this time. Patient did not previously receive her Covid vaccine. She does not receive monoclonal antibody infusion. PFSH PFS Home Medications amlodipine 10 mg PO QHS 09/28/14 [History Last Taken 12/29/17] bupropion HCl 300 mg PO DAILY 12/31/17 [History Last Taken 12/29/17] escitalopram oxalate 20 mg PO DAILY 12/31/17 [History Last Taken 12/29/17] lisinopril 20 mg PO DAILY 12/31/17 [History Last Taken 12/29/17] Allergy/AdvReac Type Severity Reaction Status Date / Time levofloxacin [From Levaquin] AdvReac MUSCLE Verified 08/29/18 16:50 WEAKNESS IN ARMS Social History Smoking Status: Former smoker ROS [facility] ED Constitutional Constitutional ED: Reports chills and fever(s) Eyes Eyes: Denies change in vision ENT ENT ED: Denies ear pain, rhinorrhea or sore throat Cardiovascular Cardiovascular: Denies chest pain or palpitations Respiratory/Chest Respiratory/Chest: Reports cough, dyspnea, dyspnea on exertion and sputum Gastrointestinal Gastrointestinal: Reports diarrhea, nausea and vomiting; Denies abdominal pain Genitourinary Genitourinary ED: Denies dysuria or hematuria Musculoskeletal Musculoskeletal: Reports myalgias; Denies arthralgias Integumentary Denies rash Neurologic Neurologic: Reports weakness; Denies headache(s) or paresthesias Psychiatric Psychiatric: Denies anxiety or depression EXAM Physical Exam Const Vital Signs: 05/28/21 14:35 05/28/21 15:13 05/28/21 15:40 Temperature 98.6 F 96.8 F L 98.0 F Temperature Source Temporal Temporal Temporal Pulse Rate 109 H 95 87 Respiratory Rate 19 H 20 H 19 H Respiratory Effort Respiratory Depth Blood Pressure 158/90 H 122/73 H 96/64 Blood Pressure Mean 112 89 74 Pulse Ox 93 92 94 Oxygen Delivery Method Room Air Nasal Cannula Nasal Cannula Oxygen Flow Rate (L/min) 3 3 05/28/21 15:42 05/28/21 17:00 05/28/21 17:11 Temperature 98 F Temperature Source Temporal Pulse Rate 81 Respiratory Rate 23 H Respiratory Effort Short of Breath Labored Respiratory Depth Shallow Blood Pressure 126/63 H Blood Pressure Mean 84 Pulse Ox 93 Oxygen Delivery Method Nasal Cannula Nasal Cannula Oxygen Flow Rate (L/min) 3 3 Positive well nourished and well developed General Appearance ED: well developed HEENT Reports TM's clear and moist mucous membranes atraumatic Tympanic Membrane ED: Yes TM's clear Eyes PERRL and EOMs intact bilaterally Neck no lymphadenopathy, supple and no meningeal signs Resp Resp Narrative: Crackles at the bases Auscultation: diminished lung sounds Cardio regular rate, regular rhythm and no murmurs GI non-tender and non-distended Auscultation: normoactive bowel sounds Palpation: soft Back/Spine normal to inspection Extremity normal to inspection General Extremety ED: Negative for edema or tenderness General Extremity: Negative for edema Neuro oriented x3 Sensorium / Orientation: alert Motor Exam: general weakness Psych mental status grossly normal Skin Lesions: no lesions Rashes: no rashes MDM MDM MDM Narrative Medical decision making narrative: Patient is evaluated for worsening shortness of breath and generalized malaise associated with COVID-19 infection. Patient appears nontoxic but is hypoxic at 86% on room air. She is placed on 3 L and 90%. She is then titrated up to 4 L. She states she has not been eating and drinking well secondary not feeling well. She is given a dose of Decadron she is requiring submental oxygen. Lab work is largely unremarkable except for an elevated CRP, mildly elevated CK and leukopenia. Chest x-ray is consistent with a multifocal pneumonia. Given an elevated D-dimer and hypoxia CTA is ordered. No PE or dissection appreciated however patient does have patchy groundglass densities in infiltrates bilaterally. Patient be admitted for further respiratory management. She is agreeable to this plan of care. She is given IV Toradol, Zofran and fluids as well for her symptoms. Lab Data Attestation: I reviewed the patient's lab results. Labs: Laboratory Results - last 24 hr 05/28/21 05/28/21 05/28/21 15:27 15:27 15:27 WBC RBC Hgb Hct MCV MCH MCHC RDW Std Deviation RDW Coeff of Chari Plt Count MPV Immature Gran % (Auto) Neut % (Auto) Lymph % (Auto) [place] % (Auto) Eos % (Auto) Baso % (Auto) Absolute Neuts (auto) Absolute Lymphs (auto) Nucleated RBC % Fibrinogen 658 H D-Dimer Quant (PE/DVT) 0.87 H* Sodium 137 Potassium 3.3 L Chloride 105 Carbon Dioxide 22.0 Anion Gap 10 BUN 8 Creatinine 0.72 Estim Creat Clear Calc 41.99 Est GFR (MDRD) Af Amer 103 Est GFR (MDRD) Non-Af 85 BUN/Creatinine Ratio 11.0 Glucose 97 Lactic Acid Calcium 8.3 L Total Bilirubin 0.40 AST 135 H ALT 74 H Alkaline Phosphatase 111 Total Creatine Kinase 380 H Troponin I High Sens 9 C-React Prot Ext Range 92.30 H Total Protein 6.9 Albumin 3.2 Globulin 3.7 Albumin/Globulin Ratio 0.9 Procalcitonin 0.20 H 05/28/21 05/28/21 15:27 15:27 WBC 4.0 L RBC 4.98 Hgb 14.1 Hct 42.6 MCV 85.5 MCH 28.3 MCHC 33.1 RDW Std Deviation 42.3 RDW Coeff of Chari 13.5 Plt Count 119 L MPV 10.8 Immature Gran % (Auto) 0.700 Neut % (Auto) 77.0 H Lymph % (Auto) 17.9 L [place] % (Auto) 4.2 Eos % (Auto) 0.0 Baso % (Auto) 0.2 Absolute Neuts (auto) 3.1 Absolute Lymphs (auto) 0.72 L Nucleated RBC % 0 Fibrinogen D-Dimer Quant (PE/DVT) Sodium Potassium Chloride Carbon Dioxide Anion Gap BUN Creatinine Estim Creat Clear Calc Est GFR (MDRD) Af Amer Est GFR (MDRD) Non-Af BUN/Creatinine Ratio Glucose Lactic Acid 1.2 Calcium Total Bilirubin AST ALT Alkaline Phosphatase Total Creatine Kinase Troponin I High Sens C-React Prot Ext Range Total Protein Albumin Globulin Albumin/Globulin Ratio Procalcitonin Radiography Chest X-Ray - ED: 1 View, Read by ED Physician, Read by Radiologist, Right Infiltrate and Left Infiltrate Diagnostic Testing: Clinical Impression(s) from Imaging Studies Chest X-Ray 05/28/21 14:37 IMPRESSION: Multifocal pneumonia. Electronically Signed: Lazara Carpenter MD at 15:03 EST Tel , Service support , Chest CTA 05/28/21 16:20 IMPRESSION: No demonstrated pulmonary embolism or arterial dissection. Patchy groundglass densities and infiltrates bilaterally. Bilateral peripheral blebs. Mild mediastinal adenopathy. Left adrenal nodule. Fatty liver. Electronically Signed: Michelet Catherine DO at 18:01 EST Tel [phone], Service support , Rhythm Strip Rhythm Strip: Sinus Rhythm Rate: 85 Ectopy: None EKG Initial EKG: Attestation: I personally reviewed and interpreted this EKG as follows: Interpretation: Sinus Rhythm Comments: Normal sinus rhythm at a rate of 85 Normal intervals Normal axis Normal ST segments Discharge Plan Triage Chief Complaint: Shortness of Breath ED Provider: Kiersten Hameed Dx/Rx/DC Orders Clinical Impression: Hypoxia, Pneumonia due to COVID-19 virus Primary Care Provider: Gerardo Catherine Disposition Disposition: Acute Care [facility]
[2021-05-28] MEDS: 0.9% Normal Saline 1,000 ML 125 ML IV (15:31)
[2021-05-28] MEDS: Ondansetron 4 MG/2 ML Vial IV (15:31)
[2021-05-28 15:52] LABS: Absolute Lymphocyte Count 0.72 X10^3/uL (0.83-4.51); Absolute Neutrophil Count 3.1 X10^3/uL (2.0-7.7); Basophil# 0.01 X10^3/uL; Basophil% 0.2 % (0-1); Hematocrit 42.6 % (37-47); Hemoglobin 14.1 g/dL (12.0-15.0); Lymphocyte # 0.72 X10^3/ul (0.83-4.51); Lymphocyte % 17.9 % (19-41); Mean Corp Hgb Conc 33.1 g/dL (32-36); Mean Corpuscular Hgb 28.3 pg (27.0-32.0); Mean Corpuscular Volume 85.5 fL (81-99); Mean Platelet Vol. 10.8 fl (6.2-12.0); Monocyte# 0.17 X10^3/uL; Monocyte% 4.2 % (0-10); NRBC Flagged by Analyzer 0 % (0-5); Platelet Count 119 K/mm3 (150-450); RBC Distribution Width CV 13.5 % (11.6-14.6); RBC Distribution Width SD 42.3 fl (35.1-43.9); Red Blood Count 4.98 M/mm3 (4.2-5.4)
[2021-05-28 16:11] LABS: Fibrinogen 658 mg/dl (203-444)
[2021-05-28 16:13] LABS: ALB/GLOB Ratio 0.9 RATIO (0.9-2.4); AST(SGOT) 135 U/L (15-37); Alanine Aminotransfer ALT/SGPT 74 U/L (13-56); Albumin, Serum 3.2 g/dL (3.2-5.0); Alkaline Phosphatase 111 U/L (45-117); Anion Gap 10 (5-15); BUN 8 mg/dL (7-18); CPK Total, Creatine Kinase 380 U/L (26-192); Calcium,Total 8.3 mg/dL (8.5-10.1); Chloride 105 mmol/L (98-107); Creatinine, Serum 0.72 mg/dL (0.55-1.02); EST Glomerular Filtration Rate 85 mL/min (>60); Est Glom Filt Rate - Afr Amer 103 mL/min (>60); Estimated Creatinine Clearance 41.99 ml/min; Globulin 3.7 g/dL (2.2-4.2); Glucose 97 mg/dL (74-106); Potassium 3.3 mmol/L (3.5-5.1); Protein, Total 6.9 g/dL (6.4-8.2); Sodium Level 137 mmol/L (136-145); Troponin-I HS 9 pg/mL (3.0-54.0)
[2021-05-28 16:15] LABS: D-Dimer Quantitative (DVT/PE) 0.87 FEU/ug/m (0.27-0.49)
[2021-05-28 16:20] LABS: Lactic Acid 1.2 mmol/L (0.4-1.9)
--- NOTE | 2021-05-28 16:20 | CT_ITS ---
STUDY: CTA CHEST REASON FOR EXAM: Female, 71 years old. Hypoxia, elevated dimer RADIATION DOSAGE (If Supplied By Facility): CTDIvol = ( 12.38 ) mGy, DLP = ( 489.21 ) mGycm TECHNIQUE: The examination was performed with the intravenous administration of IV 100mL Isovue-370. Post-processing of the angiographic images was performed, with multiplanar reformation and 3D reconstruction. Individualized dose optimization techniques were used for this CT. COMPARISON: None. FINDINGS: Normal enhancement of the main pulmonary artery and right and left pulmonary arteries. Normal enhancement of the bilateral peripheral pulmonary arteries. There is no demonstrated pulmonary embolism. Normal thoracic aorta and visualized great vessels. There is no demonstrated aortic dissection. Normal heart and pericardium. Mild mediastinal adenopathy.. Normal hilar regions. Normal visualized trachea and bronchi. The lungs are well expanded. Patchy groundglass densities and infiltrates bilaterally. Bilateral peripheral blebs. Normal pleura. Normal chest wall structures. Normal osseous structures. 13 mm hypoattenuated left adrenal nodule. Fatty liver. CT/CTA Chest W/WO Contrast IMPRESSION: No demonstrated pulmonary embolism or arterial dissection. Patchy groundglass densities and infiltrates bilaterally. Bilateral peripheral blebs. Mild mediastinal adenopathy. Left adrenal nodule. Fatty liver. Electronically Signed: Michelet Catherine DO at 18:01 EST Tel [phone], Service support ,
[2021-05-28] MEDS: dexAMETHasone 4 MG Tablet 6 MG PO (18:11)
[2021-05-28] MEDS: Ketorolac 15 MG/ML Vial IV (18:11)
--- NOTE | 2021-05-28 18:38 | PCM.HP.STD ---
HPI - General General Date of Admission: 05/28/21 HPI Narrative ISHMAEL ZHU, is a 71 F who presents with shortness of breath. Patient became ill on the and then started becoming short of breath on the . Patient was having dyspnea on exertion presented to the emergency room. Patient was put on oxygen and then was dropped down into the 80s on 3 L. Patient was time to be ambulated on 6 L and with dropped down to the high 80s. Patient is unvaccinated for COVID-19 and was checked as outpatient and verified here. Patient received dexamethasone in the emergency room. Patient despite not being vaccinated is agreeable to receiving dexamethasone, remdesivir and possibly by baricitinib if that becomes necessary. FORMERLY [facility], [facility] Medical History (Updated 05/28/21 @ 18:[address] Robert Michelle DO) COPD (chronic obstructive pulmonary disease) Depression HTN (hypertension) Home Medications amlodipine 10 mg PO QHS 09/28/14 [History Last Taken 12/29/17] bupropion HCl 300 mg PO DAILY 12/31/17 [History Last Taken 12/29/17] escitalopram oxalate 20 mg PO DAILY 12/31/17 [History Last Taken 12/29/17] lisinopril 20 mg PO DAILY 12/31/17 [History Last Taken 12/29/17] Allergy/AdvReac Type Severity Reaction Status Date / Time levofloxacin [From Levaquin] AdvReac MUSCLE Verified 08/29/18 16:50 WEAKNESS IN ARMS Social History Smoking Status: Former smoker ROS ROS Narrative All review of systems were negative except as mentioned above in the history of present illness and the other review of systems. Vital Signs Vital Signs Vital Signs: 05/28/21 14:35 05/28/21 15:13 05/28/21 15:40 Temperature 37.0 C 36.0 C L 36.7 C Temperature Source Temporal Temporal Temporal Pulse Rate 109 H 95 87 Respiratory Rate 19 H 20 H 19 H Respiratory Effort Respiratory Depth Blood Pressure 158/90 H 122/73 H 96/64 Blood Pressure Mean 112 89 74 Pulse Ox 93 92 94 Oxygen Delivery Method Room Air Nasal Cannula Nasal Cannula Oxygen Flow Rate (L/min) 3 3 05/28/21 15:42 05/28/21 17:00 05/28/21 17:11 Temperature 36.6 C Temperature Source Temporal Pulse Rate 81 Respiratory Rate 23 H Respiratory Effort Short of Breath Labored Respiratory Depth Shallow Blood Pressure 126/63 H Blood Pressure Mean 84 Pulse Ox 93 Oxygen Delivery Method Nasal Cannula Nasal Cannula Oxygen Flow Rate (L/min) 3 3 Weight Weight: 86.183 kg Body Mass Index (BMI) 34.7 Physical Exam Narrative Patient walking bedside in place patient became very dyspneic 6 L. Const alert General Appearance: cooperative HEENT normocephalic Resp normal respiratory effort and no retractions Cardio regular rate, regular rhythm, S1 normal heart sound and S2 normal heart sound GI normal to inspection, nondistended, normoactive bowel sounds, soft to palpation, non-tender and non-distended Extremity normal to inspection Psych Psych Narrative: flat affect Results Lab / Micro Data Attestation: I reviewed the patient's lab results. Result Diagrams: 05/28/21 15:27 05/28/21 15:27 Labs: Laboratory Results - last 24 hr 05/28/21 15:27: Fibrinogen 658 H, D-Dimer Quant (PE/DVT) 0.87 H* 05/28/21 15:27: Sodium 137, Potassium 3.3 L, Chloride 105, Carbon Dioxide 22.0, Anion Gap 10, BUN 8, Creatinine 0.72, Estim Creat Clear Calc 41.99, Est GFR (MDRD) Af Amer 103, Est GFR (MDRD) Non-Af 85, BUN/Creatinine Ratio 11.0, Glucose 97, Calcium 8.3 L, Total Bilirubin 0.40, AST 135 H, ALT 74 H, Alkaline Phosphatase 111, Total Creatine Kinase 380 H, Troponin I High Sens 9, C-React Prot Ext Range 92.30 H, Total Protein 6.9, Albumin 3.2, Globulin 3.7, Albumin/Globulin Ratio 0.9 05/28/21 15:27: Procalcitonin 0.20 H 05/28/21 15:27: WBC 4.0 L, RBC 4.98, Hgb 14.1, Hct 42.6, MCV 85.5, MCH 28.3, MCHC 33.1, RDW Std Deviation 42.3, RDW Coeff of Chari 13.5, Plt Count 119 L, MPV 10.8, Immature Gran % (Auto) 0.700, Neut % (Auto) 77.0 H, Lymph % (Auto) 17.9 L, [place] % (Auto) 4.2, Eos % (Auto) 0.0, Baso % (Auto) 0.2, Absolute Neuts (auto) 3.1, Absolute Lymphs (auto) 0.72 L, Nucleated RBC % 0 05/28/21 15:27: Lactic Acid 1.2 Micro: Microbiology 05/28/21 15:46 Nasal Secretion SARS-CoV-2 Antigen (Rapid) - Final Rhythm Strip Rhythm Strip: Sinus Rhythm Rate: 85 Ectopy: None Radiology Impression Chest X-Ray 05/28/21 14:37 IMPRESSION: Multifocal pneumonia. Electronically Signed: Lazara Carpenter MD at 15:03 EST Tel , Service support , Chest CTA 05/28/21 16:20 IMPRESSION: No demonstrated pulmonary embolism or arterial dissection. Patchy groundglass densities and infiltrates bilaterally. Bilateral peripheral blebs. Mild mediastinal adenopathy. Left adrenal nodule. Fatty liver. Electronically Signed: Michelet Catherine DO at 18:01 EST Tel [phone], Service support , Assessment & Plan Assessment/Plan (1) Pneumonia due to COVID-19 virus: (2) Acute respiratory failure with hypoxia: PLAN: 1. Acute hypoxic respiratory failure Secondary to COVID-19 pneumonia Check other reversible causes such as bacterial pneumonia Discussed with the patient and verified that she would want to be intubated became necessary CTA of the chest was negative for pulmonary emboli 2. Acute COVID-19 pneumonia Onset was May 23, quarantine through June Patient is agreeable to dexamethasone and remdesivir at this time. No indication for baricitinib but she is open to that if that becomes necessary I did explain to her that her being unvaccinated that she is presenting relatively soon hospital and I am concerned that she may continue to get worse I strongly advised the patient to be compliant with using incentive spirometer and chest physiotherapy. 3. COPD Complicating matters Patient has chronic blebs on her right lateral side that is unchanged from 2018 No evidence of pneumothorax on her CAT scan 4. VTE prophylaxis enoxaparin 5. CODE STATUS: Verified with the patient she wants to be full CODE STATUS. Family member was at bedside and had the opportunity to ask questions but did not Charges/Coding Visit Charges Inpatient E&M: 05478 Init Hosp L3
--- NOTE | 2021-05-28 19:32 | PCS.PANDOC ---
PANDEMIC DOCUMENTATION INITIATED: Date: 01/17/2021 Time: 190
[2021-05-28] MEDS: Acetaminophen 325 MG Tablet 650 MG PO (20:56)
[2021-05-28] MEDS: amLODIPine 10 MG Tablet PO (20:57)
[2021-05-29] VITALS (24 sets, daily range): BP systolic 97–128; BP diastolic 42–76; PULSE 55–85; RESP 18–26; TEMP 36.6–37.2; O2SAT 85–99
[2021-05-29] MEDS: 0.9% Saline Lock 10 ML Syringe IV ×4 (01:53→22:24)
[2021-05-29 06:01] LABS: Absolute Lymphocyte Count 0.74 X10^3/uL (0.83-4.51); Absolute Neutrophil Count 1.9 X10^3/uL (2.0-7.7); Basophil# 0.02 X10^3/uL; Basophil% 0.7 % (0-1); Hematocrit 40.3 % (37-47); Hemoglobin 13.4 g/dL (12.0-15.0); Lymphocyte # 0.74 X10^3/ul (0.83-4.51); Lymphocyte % 25.7 % (19-41); Mean Corp Hgb Conc 33.3 g/dL (32-36); Mean Corpuscular Hgb 28.2 pg (27.0-32.0); Mean Corpuscular Volume 84.7 fL (81-99); Monocyte# 0.24 X10^3/uL; Monocyte% 8.3 % (0-10); NRBC Flagged by Analyzer 0 % (0-5); Neutrophil # 1.86 X10^3/uL (2.7-7.7); Neutrophil % 64.6 % (47-70); Platelet Count 108 K/mm3 (150-450); RBC Distribution Width CV 13.7 % (11.6-14.6); RBC Distribution Width SD 42.8 fl (35.1-43.9); Red Blood Count 4.76 M/mm3 (4.2-5.4); White Blood Count 2.9 K/mm3 (4.4-11.0)
[2021-05-29 06:33] LABS: ALB/GLOB Ratio 0.7 RATIO (0.9-2.4); AST(SGOT) 120 U/L (15-37); Alanine Aminotransfer ALT/SGPT 68 U/L (13-56); Albumin, Serum 2.7 g/dL (3.2-5.0); Alkaline Phosphatase 104 U/L (45-117); Anion Gap 6 (5-15); BUN 9 mg/dL (7-18); Calcium,Total 8.1 mg/dL (8.5-10.1); Chloride 110 mmol/L (98-107); Creatinine, Serum 0.69 mg/dL (0.55-1.02); EST Glomerular Filtration Rate 89 mL/min (>60); Est Glom Filt Rate - Afr Amer 108 mL/min (>60); Estimated Creatinine Clearance 41.99 ml/min; Globulin 3.7 g/dL (2.2-4.2); Glucose 145 mg/dL (74-106); Potassium 3.7 mmol/L (3.5-5.1); Protein, Total 6.4 g/dL (6.4-8.2); Sodium Level 141 mmol/L (136-145)
[2021-05-29] MEDS: dexAMETHasone 2 MG TABLET 6 MG PO (08:50)
[2021-05-29] MEDS: Lisinopril 20 MG Tablet PO (08:51)
[2021-05-29] MEDS: Enoxaparin 40 MG/0.4 ML Syringe SC (08:51)
[2021-05-29] MEDS: buPROPion (XL) 300 MG TABLET.XL PO (08:51)
[2021-05-29] MEDS: Escitalopram Oxalate 20 MG Tablet PO (08:51)
[2021-05-29] MEDS: Acetaminophen 325 MG Tablet 650 MG PO (10:21)
--- NOTE | 2021-05-29 11:11 | PCM.PN.HOSP ---
Subjective Subjective Increased oxygen requirements now up to 12l/m. Had nausea. Objective Data Objective Data Vital Signs: Vital Signs Temp Pulse Resp BP Pulse Ox 36.8 C 81 26 H 100/58 L 94 05/29/21 10:25 05/29/21 10:25 05/29/21 10:25 05/29/21 10:25 05/29/21 10:39 Oxygen Flow Rate (L/min) 60 Oxygen Delivery Method Airvo Weight: 84.277 kg Body Mass Index (BMI) 34.0 Intake & Output: Intake and Output for Last 24 Hours 05/27/21 05/28/21 05/29/21 23:59 23:59 23:59 Intake Total 779.17 / 779.17 578.75 / 578.75 Balance 779.17 / 779.17 578.75 / 578.75 Lab / Micro Data Result Diagrams: 05/29/21 05:44 05/29/21 05:44 Labs: Laboratory Results - last 24 hr 05/28/21 15:27: Fibrinogen 658 H, D-Dimer Quant (PE/DVT) 0.87 H* 05/28/21 15:27: Sodium 137, Potassium 3.3 L, Chloride 105, Carbon Dioxide 22.0, Anion Gap 10, BUN 8, Creatinine 0.72, Estim Creat Clear Calc 41.99, Est GFR (MDRD) Af Amer 103, Est GFR (MDRD) Non-Af 85, BUN/Creatinine Ratio 11.0, Glucose 97, Calcium 8.3 L, Total Bilirubin 0.40, AST 135 H, ALT 74 H, Alkaline Phosphatase 111, Total Creatine Kinase 380 H, Troponin I High Sens 9, C-React Prot Ext Range 92.30 H, Total Protein 6.9, Albumin 3.2, Globulin 3.7, Albumin/Globulin Ratio 0.9 05/28/21 15:27: Procalcitonin 0.20 H 05/28/21 15:27: WBC 4.0 L, RBC 4.98, Hgb 14.1, Hct 42.6, MCV 85.5, MCH 28.3, MCHC 33.1, RDW Std Deviation 42.3, RDW Coeff of Chari 13.5, Plt Count 119 L, MPV 10.8, Immature Gran % (Auto) 0.700, Neut % (Auto) 77.0 H, Lymph % (Auto) 17.9 L, [place] % (Auto) 4.2, Eos % (Auto) 0.0, Baso % (Auto) 0.2, Absolute Neuts (auto) 3.1, Absolute Lymphs (auto) 0.72 L, Nucleated RBC % 0 05/28/21 15:27: Lactic Acid 1.2 05/29/21 05:44: WBC 2.9 L, RBC 4.76, Hgb 13.4, Hct 40.3, MCV 84.7, MCH 28.2, MCHC 33.3, RDW Std Deviation 42.8, RDW Coeff of Chari 13.7, Plt Count 108 L, MPV 11.0, Immature Gran % (Auto) 0.700, Neut % (Auto) 64.6, Lymph % (Auto) 25.7, [place] % (Auto) 8.3, Eos % (Auto) 0.0, Baso % (Auto) 0.7, Absolute Neuts (auto) 1.9 L, Absolute Lymphs (auto) 0.74 L, Nucleated RBC % 0 05/29/21 05:44: Sodium 141, Potassium 3.7, Chloride 110 H, Carbon Dioxide 25.0, Anion Gap 6, BUN 9, Creatinine 0.69, Estim Creat Clear Calc 41.99, Est GFR (MDRD) Af Amer 108, Est GFR (MDRD) Non-Af 89, BUN/Creatinine Ratio 13.0, Glucose 145 H, Calcium 8.1 L, Total Bilirubin 0.30, AST 120 H, ALT 68 H, Alkaline Phosphatase 104, Total Protein 6.4, Albumin 2.7 L, Globulin 3.7, Albumin/Globulin Ratio 0.7 L Micro: Microbiology 05/29/21 02:00 Urine, Clean Catch Streptococcus pneumoniae Antigen (M - Final 05/29/21 02:00 Urine, Clean Catch Legionella Antigen - Final 05/28/21 20:00 Mucosa - Nasopharyngeal Respiratory Panel (PCR) - Final 05/28/21 15:46 Nasal Secretion SARS-CoV-2 Antigen (Rapid) - Final Radiography Diagnostic Testing: Radiology Impression Chest X-Ray 05/28/21 14:37 IMPRESSION: Multifocal pneumonia. Electronically Signed: Lazara Carpenter MD at 15:03 EST Tel , Service support , Chest CTA 05/28/21 16:20 IMPRESSION: No demonstrated pulmonary embolism or arterial dissection. Patchy groundglass densities and infiltrates bilaterally. Bilateral peripheral blebs. Mild mediastinal adenopathy. Left adrenal nodule. Fatty liver. Electronically Signed: Michelet Catherine, DO at 18:01 EST Tel [phone], Service support , Rhythm Strip Rhythm Strip: Sinus Rhythm Rate: 85 Ectopy: None Physical Exam Const alert and no apparent distress Constitutional Narrative: laying on right side. no respiratory distress. Resp normal respiratory effort, no retractions, no use of accessory muscles and clear to auscultation bilaterally Cardio regular rate, regular rhythm, S1 normal heart sound and S2 normal heart sound GI normal to inspection, nondistended, normoactive bowel sounds, soft to palpation, non-tender and non-distended Extremity normal to inspection and no clubbing, cyanosis or edema Assessment & Plan Assessment/Plan (1) Pneumonia due to COVID-19 virus: (2) Acute respiratory failure with hypoxia: PLAN: 1. Acute hypoxic respiratory failure Worse today, now on Airvo Secondary to COVID-19 pneumonia Check other reversible causes such as bacterial pneumonia, thus far negative Discussed with the patient and verified that she would want to be intubated became necessary CTA of the chest was negative for pulmonary emboli 2. Acute COVID-19 pneumonia Onset was May 23, quarantine through June Patient is agreeable to dexamethasone and remdesivir at this time. Will consult ID for evaluation if pt would be a candidate for baricitinib I did explain to her that her being unvaccinated that she is presenting relatively soon hospital and I am concerned that she may continue to get worse I strongly advised the patient to be compliant with using incentive spirometer and chest physiotherapy, which she has been thus far. 3. COPD Complicating matters Patient has chronic blebs on her right lateral side that is unchanged from 2018 No evidence of pneumothorax on her CAT scan 4. VTE prophylaxis enoxaparin 5. CODE STATUS: Verified with the patient she wants to be full CODE STATUS. Charges/Coding Visit Charges Inpatient E&M: 66168 Subs Hosp L2
[2021-05-29] MEDS: Ondansetron 4 MG/2 ML Vial IV ×2 (11:30→22:28)
[2021-05-30] VITALS (42 sets, daily range): BP systolic 53–151; BP diastolic 43–84; PULSE 57–77; RESP 12–30; TEMP 36.4–37.7; O2SAT 83–984
[2021-05-30] MEDS: 0.9% Saline Lock 10 ML Syringe IV ×5 (05:27→20:18)
[2021-05-30] MEDS: Acetaminophen 325 MG Tablet 650 MG PO (05:31)
[2021-05-30] MEDS: Ondansetron 4 MG/2 ML Vial IV ×2 (06:04→12:23)
[2021-05-30 06:55] LABS: Absolute Lymphocyte Count 1.21 X10^3/uL (0.83-4.51); Absolute Neutrophil Count 4.3 X10^3/uL (2.0-7.7); Basophil# 0.02 X10^3/uL; Basophil% 0.3 % (0-1); Hematocrit 39.8 % (37-47); Lymphocyte # 1.21 X10^3/ul (0.83-4.51); Lymphocyte % 19.7 % (19-41); Mean Corp Hgb Conc 32.7 g/dL (32-36); Mean Corpuscular Hgb 27.6 pg (27.0-32.0); Mean Corpuscular Volume 84.5 fL (81-99); Mean Platelet Vol. 10.7 fl (6.2-12.0); Monocyte# 0.52 X10^3/uL; Monocyte% 8.5 % (0-10); NRBC Flagged by Analyzer 0 % (0-5); Neutrophil # 4.34 X10^3/uL (2.7-7.7); Neutrophil % 70.8 % (47-70); Platelet Count 166 K/mm3 (150-450); RBC Distribution Width CV 13.6 % (11.6-14.6); RBC Distribution Width SD 42.5 fl (35.1-43.9); Red Blood Count 4.71 M/mm3 (4.2-5.4); White Blood Count 6.1 K/mm3 (4.4-11.0)
[2021-05-30 07:14] LABS: ALB/GLOB Ratio 0.6 RATIO (0.9-2.4); AST(SGOT) 101 U/L (15-37); Alanine Aminotransfer ALT/SGPT 59 U/L (13-56); Albumin, Serum 2.4 g/dL (3.2-5.0); Alkaline Phosphatase 97 U/L (45-117); Anion Gap 8 (5-15); BUN 14 mg/dL (7-18); Calcium,Total 8.1 mg/dL (8.5-10.1); Chloride 109 mmol/L (98-107); Creatinine, Serum 0.56 mg/dL (0.55-1.02); EST Glomerular Filtration Rate 114 mL/min (>60); Est Glom Filt Rate - Afr Amer 138 mL/min (>60); Estimated Creatinine Clearance 41.99 ml/min; Globulin 3.9 g/dL (2.2-4.2); Glucose 120 mg/dL (74-106); Potassium 3.7 mmol/L (3.5-5.1); Protein, Total 6.3 g/dL (6.4-8.2); Sodium Level 138 mmol/L (136-145)
[2021-05-30] MEDS: proCHLORPERazine 10 MG/2 ML Vial 5 MG IV (09:53)
[2021-05-30] MEDS: Enoxaparin 40 MG/0.4 ML Syringe SC ×2 (09:53→20:18)
[2021-05-30] MEDS: buPROPion (XL) 300 MG TABLET.XL PO (09:53)
[2021-05-30] MEDS: Escitalopram Oxalate 20 MG Tablet PO (09:54)
[2021-05-30] MEDS: dexAMETHasone 2 MG TABLET 6 MG PO (09:54)
--- NOTE | 2021-05-30 10:37 | CASEMGMT ---
CECILIO BLANCO Assessment: Face to Face with pt for initial transition planning/care coordination assessment. CECILIO BLANCO introduced self and role at [facility], pt voices understanding and consents to assessment. Pt is A/O x4 and answers all questions appropriately at this time. Pt lying in bed with O2 on in no distress. Care providers, pharmacy, and demographics verified/updated. Admitting Dx: COVID 19 PCP: Dorene Specialists:Pt denies. [facility]erred [facility]acy: [facility] Insurance: [facility], [place] Prescription Benefit: yes LW/HPOA: Pt denies having a LW/DPOA and denies need for info regarding AD. LNOK: [facility] [place], ; Pierre Shelby, dtr Living Arrangements: Pt lives with and dtr in a single story house with 4 steps to enter with a rail. Pt reports she was I in ADL's and denies concerns at home. Transportation: Pt drives self and denies concerns with transportation. DME/HHC/SNF: Pt denies having any DME in the home, prior HHC or SNF stays. Pt was first tested for COVID at [facility]. She states she is not aware of any of her family also having COVID. She is able to quarantine from them by using separate bedrooms and bathrooms. Provided pt with a local in network list of DME companies should pt need O2 upon dc, she denies preference. Pt states no concerns with going home at time of dc. Pt states no further concerns/needs. CM to follow. Advised pt to ask CM if any further question/concerns/needs arise, voices understanding. Pt Goal: Home Plan: Home
--- NOTE | 2021-05-30 11:20 | CPS ---
Tried BIPAP on pt but pt was not able to tolerate it. Pt panicked and pushed mask away saying i can't take it, i can't breathe with it, Airvo maxed was put back on. R.T. informed RN who will call Dr Medina.
--- NOTE | 2021-05-30 11:30 | NURSING ---
house servant updated on patient's status
--- NOTE | 2021-05-30 11:36 | PCM.PN.HOSP ---
Subjective Subjective Patient is a 71-year-old lady vaccinated against COVID-19 who presented with progressive shortness of breath. Patient symptoms started on 05/23/2021 Objective Data Objective Data Vital Signs: Vital Signs Temp Pulse Resp BP Pulse Ox 98.9 F 65 30 H 107/57 L 90 05/30/21 10:05 05/30/21 10:05 05/30/21 11:14 05/30/21 10:05 05/30/21 10:05 Oxygen Flow Rate (L/min) 60 Oxygen Delivery Method Airvo Weight: 84.277 kg Body Mass Index (BMI) 34.0 Intake & Output: Intake and Output for Last 24 Hours 05/28/21 05/29/21 05/30/21 23:59 23:59 23:59 Intake Total 779.17 / 779.17 1178.75 / 1178.75 350 / 350 Output Total 200 / 200 Balance 779.17 / 779.17 978.75 / 978.75 350 / 350 Lab / Micro Data Result Diagrams: 05/30/21 06:24 05/30/21 06:24 Labs: Laboratory Results - last 24 hr 05/30/21 06:24: WBC 6.1, RBC 4.71, Hgb 13.0, Hct 39.8, MCV 84.5, MCH 27.6, MCHC 32.7, RDW Std Deviation 42.5, RDW Coeff of Chari 13.6, Plt Count 166, MPV 10.7, Immature Gran % (Auto) 0.700, Neut % (Auto) 70.8 H, Lymph % (Auto) 19.7, [place] % (Auto) 8.5, Eos % (Auto) 0.0, Baso % (Auto) 0.3, Absolute Neuts (auto) 4.3, Absolute Lymphs (auto) 1.21, Nucleated RBC % 0 05/30/21 06:24: Sodium 138, Potassium 3.7, Chloride 109 H, Carbon Dioxide 21.0, Anion Gap 8, BUN 14, Creatinine 0.56, Estim Creat Clear Calc 41.99, Est GFR (MDRD) Af Amer 138, Est GFR (MDRD) Non-Af 114, BUN/Creatinine Ratio 25.0 H, Glucose 120 H, Calcium 8.1 L, Total Bilirubin 0.30, AST 101 H, ALT 59 H, Alkaline Phosphatase 97, Total Protein 6.3 L, Albumin 2.4 L, Globulin 3.9, Albumin/Globulin Ratio 0.6 L Micro: Microbiology 05/28/21 15:46 Nasal Secretion SARS-CoV-2 Antigen (Rapid) - Final SARS-CoV-2 (COVID 19) 05/29/21 02:00 Urine, Clean Catch Streptococcus pneumoniae Antigen (M - Final 05/29/21 02:00 Urine, Clean Catch Legionella Antigen - Final 05/28/21 20:00 Mucosa - Nasopharyngeal Respiratory Panel (PCR) - Final Rhythm Strip Rhythm Strip: Sinus Rhythm Rate: 85 Ectopy: None Physical Exam Narrative GENERAL: Dyspneic at rest HEENT: Atraumatic; EYES; Anicteric, Normal Conjunctiva NECK; supple, normal thyroid, RESPIRATORY: Diminished to auscultation CARDIOVASCULAR: Regular S1 S2, GI: soft, normoactive bowel sounds, : No Renal angle tenderness; EXTREMITIES: No edema, no clubbing, MUSCULOSKELETAL: no muscle waisting NEURO: Awake; no lateralizing signs. SKIN: No Rash PSYCH; Flat affect Assessment & Plan Assessment/Plan (1) Pneumonia due to COVID-19 virus: (2) Acute respiratory failure with hypoxia: PLAN: Patient is a 71-year-old lady vaccinated against COVID-19 who presented with progressive shortness of breath. Patient symptoms started on 05/23/2021 1. Acute hypoxic respiratory failure ?Secondary to COVID-19. Patient admitted to regular nursing floor managed on supplemental oxygen initially however respiratory status continued to worsen was placed on BiPAP did not tolerated subsequently placed on nonrebreather and Airvo with consultation placed to pulmonary medicine and patient transferred to the intensive care unit 2. Acute COVID-19 pneumonia ?Symptoms started on 05/23/2021. Started on dexamethasone and remdesivir. With patient rapidly deteriorating respiratory status patient may be a candidate for baricitinib however decision to initiate this will be deferred to ID 3. COPD ?Complicating patient care aerosol treatment in addition to systemic steroid 4. Hypertension - Blood pressure controlled, home medications continued with dose adjustment as needed 5. Depression with anxiety ?Patient is on bupropion as well as escitalopram did continue 6. DVT prophylaxis ?Lovenox Charges/Coding Visit Charges Inpatient E&M: 51554 Subs Hosp L3
[2021-05-30] MEDS: Midazolam 2 MG/2 ML Syringe 4 MG IV (12:34)
--- NOTE | 2021-05-30 12:34 | NURSING ---
1234 4 mg versed given 1236 20 mg etomidate given 1237 100 succs given 1238 pt intubated 23 cm at lip, + color change with bilateral breath sounds
[2021-05-30] MEDS: Etomidate 20 MG/10 ML Vial IV (12:36)
[2021-05-30] MEDS: Succinylcholine Chloride 200 MG/10 ML Vial 100 MG IV (12:37)
[2021-05-30] MEDS: Propofol 10MG/Ml 1,000 MG/100 ML Bottle 10.1 MG CONT INF (12:38)
--- NOTE | 2021-05-30 12:49 | RAD_ITS ---
INDICATION: Intubation -- ETT/OG placement EXAMINATION/TECHNIQUE: X-RAY - XR Chest 1 View COMPARISON: 05/28/2021. FINDINGS: LINES/DEVICES: Endotracheal tube visualized with tip 2 cm above the penelope. Gastric tube is visualized with tip in the stomach. EKG leads are seen superimposing the chest. LUNGS: Prominence of the bronchovascular and interstitial lung markings is visualized bilaterally, scattered areas of patchy airspace opacification visualized in bilateral lung thomas demonstrate slight prominence in comparison to the prior study, linear streaky opacities visualized most prominent in the lower lung thomas, no evidence of focal consolidation is seen. No evidence of pleural effusion, no evidence of pneumothorax is seen. MEDIASTINUM AND CARDIOVASCULAR STRUCTURES: The cardiomediastinal silhouette is unremarkable. BONES AND SOFT TISSUES: The bones are unremarkable for the patient''s age. RAD/Chest 1 View (Portable) IMPRESSION: Endotracheal tube visualized with tip 2 cm above the penelope. Gastric tube visualized with tip in the stomach. Prominence of the bronchovascular and interstitial lung markings with scattered areas of patchy airspace opacification visualized in bilateral lung thomas, findings correlate with Covid 19 disease. Electronically Signed: Wing Robles MD at 13:40 EST Tel , Service support ,
--- NOTE | 2021-05-30 12:52 | CON.PCM.ID_ITS ---
Assessment & Plan Assessment/Plan (1) Hypoxia: (2) Pneumonia due to COVID-19 virus: PLAN: Sx started 05/23. Unvaccinated. Isolate until 06/12/21. H/o copd, much worse O2. On dex, remdesivir. Recommend vaccine once out of iso. CRP high. Reviewed EUA and risks/benefits, we agree to start baricitinib. Will follow, thank you, d/w nursing HPI Consult Data Date of Consult: 05/30/21 HPI Narrative HPI Narrative: ISHMAEL ZHU, is a 71 F who presented 05/28 with 5 days of fatigue, fever, chills, cough, sputum, not feeling well. Some diarrhea. Unvaccinated. Came to ED, admitted on dex and remdesivir, now moved to icu with worsening O2. Full ROS performed and neg except as noted above. [facility] Medical History COPD (chronic obstructive pulmonary disease) Depression Former smoker HTN (hypertension) Home Medications amlodipine 10 mg PO DAILY 09/28/14 [History Last Taken 05/26/21] bupropion HCl 300 mg PO DAILY 12/31/17 [History Last Taken 05/26/21] escitalopram oxalate 20 mg PO DAILY 12/31/17 [History Last Taken 05/26/21] lisinopril 20 mg PO DAILY 12/31/17 [History Last Taken 05/26/21] albuterol sulfate 1 puff INHALATION Q6H PRN PRN 05/28/21 [History Last Taken Unknown] budesonide-formoterol [Symbicort] 1 puff INHALATION Q6H PRN PRN 05/28/21 [History Last Taken Unknown] potassium chloride 40 meq PO DAILY 05/28/21 [History Last Taken 05/26/21] Allergy/AdvReac Type Severity Reaction Status Date / Time levofloxacin [From Levaquin] AdvReac MUSCLE Verified 08/29/18 16:50 WEAKNESS IN ARMS Social History Smoking Status: Former smoker Physical Exam Const alert Constitutional Narrative: ill appearing General Appearance: cooperative Exam Limitations: no limitations HEENT normocephalic and head/scalp atraumatic Eyes PERRL and EOMs intact bilaterally Neck supple and No nodes Resp Auscultation: diminished lung sounds Cardio regular rate and regular rhythm GI normal to inspection, nondistended, normoactive bowel sounds Extremity no clubbing, cyanosis or edema Skin no rashes or lesions noted Neuro CN's II-XII intact bilaterally Lab / Micro Data Result Diagrams: 05/30/21 06:24 05/30/21 06:24 Labs: Laboratory Results - last 24 hr 05/30/21 06:24: WBC 6.1, RBC 4.71, Hgb 13.0, Hct 39.8, MCV 84.5, MCH 27.6, MCHC 32.7, RDW Std Deviation 42.5, RDW Coeff of Chari 13.6, Plt Count 166, MPV 10.7, Immature Gran % (Auto) 0.700, Neut % (Auto) 70.8 H, Lymph % (Auto) 19.7, [place] % (Auto) 8.5, Eos % (Auto) 0.0, Baso % (Auto) 0.3, Absolute Neuts (auto) 4.3, Absolute Lymphs (auto) 1.21, Nucleated RBC % 0 05/30/21 06:24: Sodium 138, Potassium 3.7, Chloride 109 H, Carbon Dioxide 21.0, Anion Gap 8, BUN 14, Creatinine 0.56, Estim Creat Clear Calc 41.99, Est GFR (MDRD) Af Amer 138, Est GFR (MDRD) Non-Af 114, BUN/Creatinine Ratio 25.0 H, Glucose 120 H, Calcium 8.1 L, Total Bilirubin 0.30, AST 101 H, ALT 59 H, Alkaline Phosphatase 97, Total Protein 6.3 L, Albumin 2.4 L, Globulin 3.9, Albumin/Globulin Ratio 0.6 L Micro: Microbiology 05/28/21 15:46 Nasal Secretion SARS-CoV-2 Antigen (Rapid) - Final SARS-CoV-2 (COVID 19) Rhythm Strip Rhythm Strip: Sinus Rhythm Rate: 85 Ectopy: None
--- NOTE | 2021-05-30 12:53 | EX.PCM.CONCC ---
Assessment & Plan Assessment/Plan (1) Acute respiratory failure with hypoxia: (2) Pneumonia due to COVID-19 virus: PLAN: RECOMMENDATIONS: 1. Continue patient on assist control mode of mechanical ventilation and wean FiO2 for saturations greater than 90%. 2. Continue remdesivir and Decadron as ordered. 3. Continue Lovenox as ordered. 4. Start empiric antimicrobials. 5. Continue appropriate GI prophylaxis. IMPRESSIONS: 1. Acute hypoxemic respiratory failure secondary to COVID-19 pneumonia The patient was initially admitted to the hospital on May 28 after presenting with worsening dyspnea. Symptom onset was sometime around May 23. The patient is unvaccinated. She was initially admitted and placed on remdesivir and Decadron. Unfortunately, she continued to decompensate from a respiratory perspective and ultimately required transfer and subsequent intubation on May 30. CTA chest was negative for PE. Therefore, it is reasonable to continue Lovenox as ordered. Given clinical decompensation, will place the patient empirically on antimicrobials and obtain sputum for culture. 2. Questionable history of COPD/hypertension/depression/anxiety Complicates care, management, recovery and prognosis. Nutrition consultation will be obtained for tube feed recommendations. Hold antihypertensives for now. TIME: 41 minutes of critical care time, independent of procedures, was spent addressing the patient's acute hypoxemic respiratory failure secondary to COVID-19 pneumonia, review of all data and collaboration with the care team. HPI Consult Data Date of Consult: 05/31/21 HPI Narrative Reason for Consultation: Acute hypoxemic respiratory failure secondary to COVID-19 pneumonia HPI Narrative: The patient is a 71-year-old female, with a history as outlined below, who presented to the emergency department on May 28 with worsening dyspnea and nausea. Symptom onset was sometime around May 23. The patient is unvaccinated. She denied any sick contact exposure. On presentation to the emergency department, the patient was noted to be afebrile and hemodynamically stable. D-dimer was only mildly elevated at 0.87. Chemistry profile was notable for a potassium of 3.3. Lactate was within normal limits. AST and ALT were increased to 135 and 74, respectively. CRP was elevated at 92. Rapid coronavirus antigen testing was positive. CTA chest showed no evidence for pulmonary embolism but did confirm bilateral groundglass opacities. The patient was initially admitted to the medical surgical floor, where she was placed on remdesivir, Decadron and Lovenox. Over the course of the last 48 hours, the patient's oxygenation status has worsened. At the time of my interaction with her, she was saturating in the low 80s on maximum heated high flow support with a nonrebreather in place. The patient refused to utilize BiPAP therapy. She did confirm a full CODE STATUS and was amenable to intubation. Therefore, the patient was transferred to the medical intensive care unit and was subsequently intubated. Intubation Indication: Respiratory failure Consent was obtained from: Patient The patient was placed in the appropriate sniffing position. Preoxygenated sedation via [id number] was provided for a minimum of 3 minutes. The patient had continuous cardiac as well as pulse oximetry monitoring during the procedure. Procedure sedation was provided by the administration of 4 mg of Versed, 20 mg of etomidate and 100 mg of succinylcholine. Direct laryngoscopy was then performed using a number 3 MAC blade, which revealed a grade 1 view. A 7.5 mm endotracheal tube was visualized advancing between the cords to the level of 23 cm at the lip. The stylette was then removed and discarded. Tube placement was confirmed by fogging in the tube along with equal and bilateral breath sounds. Colorimetric change was visualized on the CO2 meter. The cuff was then inflated and the tube secured using a commercially available device. A good pulse oximetry waveform was seen on the monitor throughout the procedure. A portable chest x-ray has been ordered to confirm appropriate placement. The patient tolerated the procedure well. [facility] Medical History COPD (chronic obstructive pulmonary disease) Depression Former smoker HTN (hypertension) Home Medications amlodipine 10 mg PO DAILY 09/28/14 [History Last Taken 05/26/21] bupropion HCl 300 mg PO DAILY 12/31/17 [History Last Taken 05/26/21] escitalopram oxalate 20 mg PO DAILY 12/31/17 [History Last Taken 05/26/21] lisinopril 20 mg PO DAILY 12/31/17 [History Last Taken 05/26/21] albuterol sulfate 1 puff INHALATION Q6H PRN PRN 05/28/21 [History Last Taken Unknown] budesonide-formoterol [Symbicort] 1 puff INHALATION Q6H PRN PRN 05/28/21 [History Last Taken Unknown] potassium chloride 40 meq PO DAILY 05/28/21 [History Last Taken 05/26/21] Allergy/AdvReac Type Severity Reaction Status Date / Time levofloxacin [From Levaquin] AdvReac MUSCLE Verified 08/29/18 16:50 WEAKNESS IN ARMS Social History Smoking Status: Former smoker ROS Review of Systems ROS Unobtainable: due to endotracheal tube Physical Exam Const General Appearance: ill appearing, intubated and patient mechanically ventilated Nutritional Appearance: obese HEENT normocephalic and head/scalp atraumatic Mouth: endotracheal tube in place and OG tube in place Eyes PERRL, EOMs intact bilaterally and conjunctivae normal Neck supple General: trachea midline Chest inspection of chest normal Resp Effort and Inspection: tachypneic Auscultation: diminished lung sounds Cardio regular rate and regular rhythm GI normal to inspection, nondistended, normoactive bowel sounds Extremity no clubbing, cyanosis or edema Skin no rashes or lesions noted Neuro Sensorium / Orientation: sedated on vent Psych Mood & Affect: flat affect Lab / Micro Data Result Diagrams: 05/31/21 03:00 05/31/21 03:00 Labs: Laboratory Results - last 24 hr 05/30/21 06:24: WBC 6.1, RBC 4.71, Hgb 13.0, Hct 39.8, MCV 84.5, MCH 27.6, MCHC 32.7, RDW Std Deviation 42.5, RDW Coeff of Chari 13.6, Plt Count 166, MPV 10.7, Immature Gran % (Auto) 0.700, Neut % (Auto) 70.8 H, Lymph % (Auto) 19.7, [place] % (Auto) 8.5, Eos % (Auto) 0.0, Baso % (Auto) 0.3, Absolute Neuts (auto) 4.3, Absolute Lymphs (auto) 1.21, Nucleated RBC % 0 05/30/21 06:24: Sodium 138, Potassium 3.7, Chloride 109 H, Carbon Dioxide 21.0, Anion Gap 8, BUN 14, Creatinine 0.56, Estim Creat Clear Calc 41.99, Est GFR (MDRD) Af Amer 138, Est GFR (MDRD) Non-Af 114, BUN/Creatinine Ratio 25.0 H, Glucose 120 H, Calcium 8.1 L, Total Bilirubin 0.30, AST 101 H, ALT 59 H, Alkaline Phosphatase 97, Total Protein 6.3 L, Albumin 2.4 L, Globulin 3.9, Albumin/Globulin Ratio 0.6 L Micro: Microbiology 05/28/21 15:46 Nasal Secretion SARS-CoV-2 Antigen (Rapid) - Final SARS-CoV-2 (COVID 19) Rhythm Strip Rhythm Strip: Sinus Rhythm Rate: 85 Ectopy: None Charges/Coding Procedures Hospitalists Procedures: 89520 Critial Care 1st Hr
[2021-05-30 14:35] LABS: Allen Test Positive; Base Excess 1 mmol/L (-2 to +2); Bicarbonate 27.4 mmol/L (22-26); Blood Gas Specimen Type ART; FI02 100; Mode AC; O2 Delivery Device Adult Vent; PEEP 14; PO2 54 mmHG (75-100); RR 16; SITE L Radial; SO2 84 % (95-99); Total Carbon Dioxide 29 mmol/L; Vt 400; pCO2 55.7 mmHg (35-45)
[2021-05-30 14:45] LABS: CPK Total, Creatine Kinase 475 U/L (26-192); Triglycerides 155 mg/dL
[2021-05-30] MEDS: Propofol 10MG/Ml 1,000 MG/100 ML Bottle 17.7 MG CONT INF (18:45)
[2021-05-30] MEDS: Chlorhexidine 15 ML PO (20:22)
[2021-05-30] MEDS: Propofol 10MG/Ml 1,000 MG/100 ML Bottle 15.2 MG CONT INF (20:50)
[2021-05-30] MEDS: TITRATION PARAMETER CHANGE 1 EACH IV (21:00)
--- NOTE | 2021-05-30 21:07 | PCM.RX.CS ---
Consult Pharmacy has been consulted to manage selected antiobiotic: Vancomycin Type of Consult: New start Labs: Sodium 138 mmol/L (136-145) 05/30/21 06:24 Potassium 3.7 mmol/L (3.5-5.1) 05/30/21 06:24 Chloride 109 mmol/L (98-107) H 05/30/21 06:24 Carbon Dioxide 21.0 mmol/L (21.0-32.0) 05/30/21 06:24 Anion Gap 8 (5-15) 05/30/21 06:24 BUN 14 mg/dL (7-18) 05/30/21 06:24 Creatinine 0.56 mg/dL (0.55-1.02) 05/30/21 06:24 Est GFR (MDRD) Af Amer 138 mL/min (>60) 05/30/21 06:24 Est GFR (MDRD) Non-Af 114 mL/min (>60) 05/30/21 06:24 BUN/Creatinine Ratio 25.0 RATIO (10-20) H 05/30/21 06:24 Glucose 120 mg/dL (74-106) H 05/30/21 06:24 Microbiology: Microbiology 05/30/21 12:38 Sputum, Induced/Lukens Gram Stain - Final 05/28/21 15:39 Blood Culture (Wb) - Anticubital Right Blood Culture - Preliminary No growth in 48 hours. 05/28/21 15:29 Blood Culture (Wb) - Anticubital Left Blood Culture - Preliminary No growth in 48 hours. 05/28/21 15:46 Nasal Secretion SARS-CoV-2 Antigen (Rapid) - Final SARS-CoV-2 (COVID 19) 05/29/21 02:00 Urine, Clean Catch Streptococcus pneumoniae Antigen (M - Final 05/29/21 02:00 Urine, Clean Catch Legionella Antigen - Final 05/28/21 20:00 Mucosa - Nasopharyngeal Respiratory Panel (PCR) - Final Goal Trough: 15-20 mcg/mL Pharmacy Plan for Drug Dosing: NEW START IV VANCOMYCIN Consulting Physician: Brijesh Indication: Goal Trough: 15-20 SrCr: 0.56 CrCl: 42 mls/min Comments: pt received a loading dose of 2000mg x1 on 05/30/21 at 1649 Vancomcyin Dose: based on pts weight and renal function, recommend an initial dose of 1000mg q12h. starting 05/31/21 at 0500 Pending Level: 06/01/21 at 0430 Pharmacy Service will continue to monitor and adjust dosing as required. Follow-Up Labs: Trough Vancomycin - 06/01/21 at 0430
[2021-05-31] VITALS (54 sets, daily range): BP systolic 75–127; BP diastolic 52–74; PULSE 58–73; RESP 18; TEMP 37.2–37.4; O2SAT 92–95
[2021-05-31] MEDS: Propofol 10MG/Ml 1,000 MG/100 ML Bottle 17.7 MG CONT INF (01:57)
[2021-05-31 03:14] LABS: Absolute Lymphocyte Count 1.57 X10^3/uL (0.83-4.51); Absolute Neutrophil Count 9.1 X10^3/uL (2.0-7.7); Basophil# 0.02 X10^3/uL; Basophil% 0.2 % (0-1); Hematocrit 41.1 % (37-47); Hemoglobin 13.2 g/dL (12.0-15.0); Lymphocyte # 1.57 X10^3/ul (0.83-4.51); Lymphocyte % 12.8 % (19-41); Mean Corp Hgb Conc 32.1 g/dL (32-36); Mean Corpuscular Hgb 28.1 pg (27.0-32.0); Mean Corpuscular Volume 87.6 fL (81-99); Mean Platelet Vol. 10.6 fl (6.2-12.0); Monocyte# 1.46 X10^3/uL; Monocyte% 11.9 % (0-10); NRBC Flagged by Analyzer 0 % (0-5); Neutrophil % 74.4 % (47-70); Platelet Count 266 K/mm3 (150-450); RBC Distribution Width CV 14.5 % (11.6-14.6); Red Blood Count 4.69 M/mm3 (4.2-5.4); White Blood Count 12.2 K/mm3 (4.4-11.0)
[2021-05-31 03:32] LABS: ALB/GLOB Ratio 0.7 RATIO (0.9-2.4); AST(SGOT) 128 U/L (15-37); Alanine Aminotransfer ALT/SGPT 65 U/L (13-56); Albumin, Serum 2.4 g/dL (3.2-5.0); Alkaline Phosphatase 116 U/L (45-117); Anion Gap 7 (5-15); BUN 23 mg/dL (7-18); BUN/Creat Ratio 22.1 RATIO (10-20); Calcium,Total 7.2 mg/dL (8.5-10.1); Chloride 109 mmol/L (98-107); Creatinine, Serum 1.04 mg/dL (0.55-1.02); EST Glomerular Filtration Rate 56 mL/min (>60); Est Glom Filt Rate - Afr Amer 68 mL/min (>60); Estimated Creatinine Clearance 40.38 ml/min; Globulin 3.3 g/dL (2.2-4.2); Glucose 164 mg/dL (74-106); Potassium 3.8 mmol/L (3.5-5.1); Protein, Total 5.7 g/dL (6.4-8.2); Sodium Level 141 mmol/L (136-145)
[2021-05-31] MEDS: Vancomycin IV 1,000 MG/200 ML BAG 200 MG IV (04:16)
[2021-05-31] MEDS: Propofol 10MG/Ml 1,000 MG/100 ML Bottle 10.1 MG CONT INF (05:38)
--- NOTE | 2021-05-31 05:39 | PCM.PN.INT ---
Assessment & Plan Assessment/Plan (1) Acute respiratory failure with hypoxia: (2) Pneumonia due to COVID-19 virus: PLAN: RECOMMENDATIONS: 1. Continue patient on assist control mode of mechanical ventilation and wean FiO2 for saturations greater than 90%. 2. Continue remdesivir, baricitinib and Decadron as ordered. 3. Continue Lovenox as ordered. 4. Continue empiric antimicrobials. 5. Continue appropriate GI prophylaxis. 6. Hold on initiating tube feeds until tomorrow when paralytic is discontinued. 7. Continue cis atracurium for an additional 24 hours. 8. Wean Levophed to maintain a mean arterial pressure at or above 65 mmHg. IMPRESSIONS: 1. Acute hypoxemic respiratory failure secondary to COVID-19 pneumonia The patient was initially admitted to the hospital on May 28 after presenting with worsening dyspnea. Symptom onset was sometime around May 23. The patient is unvaccinated. The patient's hospital course was complicated by worsening respiratory status, ultimately requiring transfer to the ICU and subsequent intubation on May 30. The patient will be continued on remdesivir, Decadron and baricitinib as ordered. In addition, given her clinical decompensation, will continue empiric antimicrobials pending culture work-up. The patient will be continued on cis atracurium for at least 24 additional hours. CTA chest was negative for PE. Therefore, it is reasonable to continue Lovenox as ordered. 2. Distributive shock Likely secondary to underlying sepsis coupled with the hemodynamic effects of sedative medication use. Plan to continue vasopressor support to maintain a mean arterial pressure at or above 65 mmHg. 3. Acute kidney injury Likely secondary to ATN in the setting of #1. Continue to monitor urine output for now. No current indication for renal replacement therapy. 4. Questionable history of COPD/hypertension/depression/anxiety Complicates care, management, recovery and prognosis. Nutrition consultation will be obtained for tube feed recommendations. Hold antihypertensives for now. TIME: 36 minutes of critical care time, independent of procedures, was spent addressing the patient's acute hypoxemic respiratory failure secondary to COVID-19 pneumonia, distributive shock, acute kidney injury, review of all data and collaboration with the care team. Subjective Subjective The patient was seen and examined at the bedside this morning. Events from the last 24 hours have been reviewed. Today is vent day #2. The patient is currently afebrile. The patient is hemodynamically stable, but is requiring Levophed at 10 mcg/min. She is heavily sedated on propofol and fentanyl. The patient is pharmacologically paralyzed on cis atracurium. She remains on broad-spectrum antimicrobials, along with Decadron, Lovenox, baricitinib and remdesivir. She is currently documented to be overall net +4.2 L for the hospitalization. Creatinine has increased from yesterday to 1.04. AST and ALT are increased at 128 and 65, respectively. Objective Data Objective Data The patient's most recent lab work, culture data and imaging studies have all been personally reviewed. Rapid coronavirus antigen testing was positive on May 28. Strep and urine Legionella antigens were negative. Sputum culture is currently pending. Vital Signs: Vital Signs Temp Pulse Resp BP Pulse Ox 99.3 F H 67 18 109/70 94 05/31/21 04:00 05/31/21 05:02 05/31/21 05:02 05/31/21 05:00 05/31/21 05:02 Oxygen Flow Rate (L/min) 60 Oxygen Delivery Method Mechanical Ventilator Weight: 84.277 kg Body Mass Index (BMI) 34.0 Intake & Output: Intake and Output for Last 24 Hours 05/29/21 05/30/21 05/31/21 23:59 23:59 23:59 Intake Total 1178.75 / 1178.75 2213.78 / 2244.53 667.65 / 667.65 Output Total 200 / 200 275 / 275 175 / 175 Balance 978.75 / 978.75 1938.78 / 1969.53 492.65 / 492.65 Lab / Micro Data Result Diagrams: 05/31/21 03:00 05/31/21 03:00 Labs: Laboratory Results - last 24 hr 05/30/21 06:24: WBC 6.1, RBC 4.71, Hgb 13.0, Hct 39.8, MCV 84.5, MCH 27.6, MCHC 32.7, RDW Std Deviation 42.5, RDW Coeff of Chari 13.6, Plt Count 166, MPV 10.7, Immature Gran % (Auto) 0.700, Neut % (Auto) 70.8 H, Lymph % (Auto) 19.7, [place] % (Auto) 8.5, Eos % (Auto) 0.0, Baso % (Auto) 0.3, Absolute Neuts (auto) 4.3, Absolute Lymphs (auto) 1.21, Nucleated RBC % 0 05/30/21 06:24: Sodium 138, Potassium 3.7, Chloride 109 H, Carbon Dioxide 21.0, Anion Gap 8, BUN 14, Creatinine 0.56, Estim Creat Clear Calc 41.99, Est GFR (MDRD) Af Amer 138, Est GFR (MDRD) Non-Af 114, BUN/Creatinine Ratio 25.0 H, Glucose 120 H, Calcium 8.1 L, Total Bilirubin 0.30, AST 101 H, ALT 59 H, Alkaline Phosphatase 97, Total Protein 6.3 L, Albumin 2.4 L, Globulin 3.9, Albumin/Globulin Ratio 0.6 L 05/30/21 06:24: Total Creatine Kinase Cancelled, Triglycerides Cancelled 05/30/21 14:15: Total Creatine Kinase 475 H, Triglycerides 155 05/31/21 03:00: WBC 12.2 H, RBC 4.69, Hgb 13.2, Hct 41.1, MCV 87.6, MCH 28.1, MCHC 32.1, RDW Std Deviation 47.0 H, RDW Coeff of Chari 14.5, Plt Count 266, MPV 10.6, Immature Gran % (Auto) 0.700, Neut % (Auto) 74.4 H, Lymph % (Auto) 12.8 L, [place] % (Auto) 11.9 H, Eos % (Auto) 0.0, Baso % (Auto) 0.2, Absolute Neuts (auto) 9.1 H, Absolute Lymphs (auto) 1.57, Nucleated RBC % 0 05/31/21 03:00: Sodium 141, Potassium 3.8, Chloride 109 H, Carbon Dioxide 25.0, Anion Gap 7, BUN 23 H, Creatinine 1.04 H, Estim Creat Clear Calc 40.38, Est GFR (MDRD) Af Amer 68, Est GFR (MDRD) Non-Af 56 L, BUN/Creatinine Ratio 22.1 H, Glucose 164 H, Calcium 7.2 L, Total Bilirubin 0.60, AST 128 H, ALT 65 H, Alkaline Phosphatase 116, Total Protein 5.7 L, Albumin 2.4 L, Globulin 3.3, Albumin/Globulin Ratio 0.7 L Micro: Microbiology 05/30/21 12:38 Sputum, Induced/Lukens Gram Stain - Final 05/28/21 15:39 Blood Culture (Wb) - Anticubital Right Blood Culture - Preliminary No growth in 48 hours. 05/28/21 15:29 Blood Culture (Wb) - Anticubital Left Blood Culture - Preliminary No growth in 48 hours. 05/28/21 15:46 Nasal Secretion SARS-CoV-2 Antigen (Rapid) - Final SARS-CoV-2 (COVID 19) 05/29/21 02:00 Urine, Clean Catch Streptococcus pneumoniae Antigen (M - Final 05/29/21 02:00 Urine, Clean Catch Legionella Antigen - Final 05/28/21 20:00 Mucosa - Nasopharyngeal Respiratory Panel (PCR) - Final ABG Data ABG results: ABG 05/30/21 14:28 Specimen Type ART Sample Site L Radial pH 7.30 L Bicarbonate Actual 27.4 H Total CO2 29 Base Excess 1 O2 Saturation 84 L O2 % 100 ABG pCO2 55.7 H ABG pO2 54 L [place] Test Positive Respiration Rate 16 O2 Delivery Device Adult Vent Vent Mode AC Tidal Volume 400 POC PEEP 14 Radiography Diagnostic Testing: Radiology Impression Chest X-Ray 05/30/21 12:49 IMPRESSION: Endotracheal tube visualized with tip 2 cm above the penelope. Gastric tube visualized with tip in the stomach. Prominence of the bronchovascular and interstitial lung markings with scattered areas of patchy airspace opacification visualized in bilateral lung thomas, findings correlate with Covid 19 disease. Electronically Signed: Wing Robles MD at 13:40 EST Tel , Service support , Rhythm Strip Rhythm Strip: Sinus Rhythm Rate: 85 Ectopy: None Physical Exam Const General Appearance: ill appearing and intubated Nutritional Appearance: obese HEENT normocephalic and head/scalp atraumatic Mouth: endotracheal tube in place and OG tube in place Eyes PERRL, EOMs intact bilaterally and conjunctivae normal Neck supple General: trachea midline Chest inspection of chest normal Resp Auscultation: diminished lung sounds; Negative for rales, rhonchi or wheezes Cardio regular rate and regular rhythm GI normal to inspection, nondistended, normoactive bowel sounds Extremity no clubbing, cyanosis or edema Skin no rashes or lesions noted Neuro Sensorium / Orientation: sedated on vent Charges/Coding Procedures Hospitalists Procedures: 35117 Critial Care 1st Hr
[2021-05-31] MEDS: TITRATION PARAMETER CHANGE 1 EACH IV ×3 (06:08→14:36)
--- NOTE | 2021-05-31 07:13 | PN.HOSP_ITS ---
Subjective Subjective Patient was transferred to the intensive care unit a day prior. Had to be intubated and paralyzed in view of worsening respiratory status Objective Data Objective Data Vital Signs: Vital Signs Temp Pulse Resp BP Pulse Ox 99.3 F H 63 18 88/62 L 93 05/31/21 07:00 05/31/21 07:00 05/31/21 07:00 05/31/21 07:00 05/31/21 07:00 Oxygen Flow Rate (L/min) 60 Oxygen Delivery Method Mechanical Ventilator Weight: 91.4 kg Body Mass Index (BMI) 34.0 Intake & Output: Intake and Output for Last 24 Hours 05/29/21 05/30/21 05/31/21 23:59 23:59 23:59 Intake Total 1178.75 / 1178.75 2213.78 / 2244.53 889.55 / 889.55 Output Total 200 / 200 275 / 275 315 / 315 Balance 978.75 / 978.75 1938.78 / 1969.53 574.55 / 574.55 Lab / Micro Data Result Diagrams: 05/31/21 03:00 05/31/21 03:00 Labs: Laboratory Results - last 24 hr 05/30/21 06:24: Sodium 138, Potassium 3.7, Chloride 109 H, Carbon Dioxide 21.0, Anion Gap 8, BUN 14, Creatinine 0.56, Estim Creat Clear Calc 41.99, Est GFR (MDRD) Af Amer 138, Est GFR (MDRD) Non-Af 114, BUN/Creatinine Ratio 25.0 H, Glucose 120 H, Calcium 8.1 L, Total Bilirubin 0.30, AST 101 H, ALT 59 H, Alkaline Phosphatase 97, Total Protein 6.3 L, Albumin 2.4 L, Globulin 3.9, Albumin/Globulin Ratio 0.6 L 05/30/21 06:24: Total Creatine Kinase Cancelled, Triglycerides Cancelled 05/30/21 14:15: Total Creatine Kinase 475 H, Triglycerides 155 05/31/21 03:00: WBC 12.2 H, RBC 4.69, Hgb 13.2, Hct 41.1, MCV 87.6, MCH 28.1, MCHC 32.1, RDW Std Deviation 47.0 H, RDW Coeff of Chari 14.5, Plt Count 266, MPV 10.6, Immature Gran % (Auto) 0.700, Neut % (Auto) 74.4 H, Lymph % (Auto) 12.8 L, [place] % (Auto) 11.9 H, Eos % (Auto) 0.0, Baso % (Auto) 0.2, Absolute Neuts (auto) 9.1 H, Absolute Lymphs (auto) 1.57, Nucleated RBC % 0 05/31/21 03:00: Sodium 141, Potassium 3.8, Chloride 109 H, Carbon Dioxide 25.0, Anion Gap 7, BUN 23 H, Creatinine 1.04 H, Estim Creat Clear Calc 40.38, Est GFR (MDRD) Af Amer 68, Est GFR (MDRD) Non-Af 56 L, BUN/Creatinine Ratio 22.1 H, Glucose 164 H, Calcium 7.2 L, Total Bilirubin 0.60, AST 128 H, ALT 65 H, Al kaline Phosphatase 116, Total Protein 5.7 L, Albumin 2.4 L, Globulin 3.3, Albumin/Globulin Ratio 0.7 L Micro: Microbiology 05/30/21 12:38 Sputum, Induced/Lukens Gram Stain - Final 05/28/21 15:39 Blood Culture (Wb) - Anticubital Right Blood Culture - Preliminary No growth in 48 hours. 05/28/21 15:29 Blood Culture (Wb) - Anticubital Left Blood Culture - Preliminary No growth in 48 hours. 05/28/21 15:46 Nasal Secretion SARS-CoV-2 Antigen (Rapid) - Final SARS-CoV-2 (COVID 19) 05/29/21 02:00 Urine, Clean Catch Streptococcus pneumoniae Antigen (M - Final 05/29/21 02:00 Urine, Clean Catch Legionella Antigen - Final 05/28/21 20:00 Mucosa - Nasopharyngeal Respiratory Panel (PCR) - Final ABG Data ABG results: ABG 05/30/21 14:28 Specimen Type ART Sample Site L Radial pH 7.30 L Bicarbonate Actual 27.4 H Total CO2 29 Base Excess 1 O2 Saturation 84 L O2 % 100 ABG pCO2 55.7 H ABG pO2 54 L [place] Test Positive Respiration Rate 16 O2 Delivery Device Adult Vent Vent Mode AC Tidal Volume 400 POC PEEP 14 Radiography Diagnostic Testing: Radiology Impression Chest X-Ray 05/30/21 12:49 IMPRESSION: Endotracheal tube visualized with tip 2 cm above the penelope. Gastric tube visualized with tip in the stomach. Prominence of the bronchovascular and interstitial lung markings with scattered areas of patchy airspace opacification visualized in bilateral lung thomas, findings correlate with Covid 19 disease. Electronically Signed: Wing Robles MD at 13:40 EST Tel , Service support , Rhythm Strip Rhythm Strip: Sinus Rhythm Rate: 85 Ectopy: None Physical Exam Narrative GENERAL: Sedated on the vent HEENT: Atraumatic; EYES; Anicteric, Normal Conjunctiva NECK; supple, normal thyroid, RESPIRATORY: Diminished to auscultation CARDIOVASCULAR: Regular S1 S2, GI: soft, normoactive bowel sounds, : No Renal angle tenderness; EXTREMITIES: No edema, no clubbing, MUSCULOSKELETAL: no muscle waisting NEURO: Sedated on the vent SKIN: No Rash Assessment & Plan Assessment/Plan (1) Pneumonia due to COVID-19 virus: (2) Acute respiratory failure with hypoxia: PLAN: Patient is a 71-year-old lady vaccinated against COVID-19 who presented with progressive shortness of breath. Patient symptoms started on 05/23/2021 1. Acute hypoxic respiratory failure ?Secondary to COVID-19. Patient admitted to regular nursing floor managed on supplemental oxygen initially however respiratory status continued to worsen was placed on BiPAP did not tolerated subsequently placed on nonrebreather and Airvo with consultation placed to pulmonary medicine and patient transferred to the intensive care unit -05/31/2021; Patient was transferred to the intensive care unit a day prior. Had to be intubated and paralyzed in view of worsening respiratory status 2. Acute COVID-19 pneumonia ?Symptoms started on 05/23/2021. Started on dexamethasone and remdesivir. With patient rapidly deteriorating respiratory status patient may be a candidate for baricitinib however decision to initiate this will be deferred to ID 3. Superimposed bacterial pneumonia ?Respiratory culture obtained following patient's intubation so far growing gram-negative organisms. Patient is on cefepime 4. COPD ?Complicating patient care aerosol treatment in addition to systemic steroid 5. Hypertension - Blood pressure controlled, home medications continued with dose adjustment as needed -05/31/2021; patient blood pressure did drop following her intubation and had to be started on norepinephrine 6. Depression with anxiety ?Patient is on bupropion as well as escitalopram 7. DVT prophylaxis ?Lovenox Charges/Coding Visit Charges Inpatient E&M: 88008 Subs Hosp L3
[2021-05-31] MEDS: Chlorhexidine 15 ML PO ×2 (08:11→22:38)
[2021-05-31] MEDS: CHLORHEXIDINE GLUC 2% CLOTH 1 EACH TOWELETTE TOPICAL (08:12)
[2021-05-31] MEDS: Enoxaparin 40 MG/0.4 ML Syringe SC ×2 (08:12→22:36)
[2021-05-31] MEDS: Escitalopram Oxalate 20 MG Tablet PO (09:11)
[2021-05-31] MEDS: dexAMETHasone 2 MG TABLET 6 MG PO (09:11)
[2021-05-31] MEDS: Propofol 10MG/Ml 1,000 MG/100 ML Bottle 11 MG CONT INF ×2 (14:07→18:17)
--- NOTE | 2021-05-31 15:22 | PCM.RX.CS ---
Consult Pharmacy has been consulted to manage selected antiobiotic: Vancomycin Type of Consult: Follow-up Suspected Infection: Pneumonia Labs: Sodium 141 mmol/L (136-145) 05/31/21 03:00 Potassium 3.8 mmol/L (3.5-5.1) 05/31/21 03:00 Chloride 109 mmol/L (98-107) H 05/31/21 03:00 Carbon Dioxide 25.0 mmol/L (21.0-32.0) 05/31/21 03:00 Anion Gap 7 (5-15) 05/31/21 03:00 BUN 23 mg/dL (7-18) H 05/31/21 03:00 Creatinine 1.04 mg/dL (0.55-1.02) H 05/31/21 03:00 Est GFR (MDRD) Af Amer 68 mL/min (>60) 05/31/21 03:00 Est GFR (MDRD) Non-Af 56 mL/min (>60) L 05/31/21 03:00 BUN/Creatinine Ratio 22.1 RATIO (10-20) H 05/31/21 03:00 Glucose 164 mg/dL (74-106) H 05/31/21 03:00 Microbiology: Microbiology 05/30/21 12:38 Sputum, Induced/Lukens Gram Stain - Final 05/30/21 12:38 Sputum, Induced/Lukens Respiratory Culture - Preliminary Gram negative organism 05/28/21 15:39 Blood Culture (Wb) - Anticubital Right Blood Culture - Preliminary No growth in 48 hours. 05/28/21 15:29 Blood Culture (Wb) - Anticubital Left Blood Culture - Preliminary No growth in 48 hours. 05/28/21 15:46 Nasal Secretion SARS-CoV-2 Antigen (Rapid) - Final SARS-CoV-2 (COVID 19) 05/29/21 02:00 Urine, Clean Catch Streptococcus pneumoniae Antigen (M - Final 05/29/21 02:00 Urine, Clean Catch Legionella Antigen - Final 05/28/21 20:00 Mucosa - Nasopharyngeal Respiratory Panel (PCR) - Final Goal Trough: 15-20 mcg/mL Pharmacy Plan for Drug Dosing: recommend changing from 1000mg q12h to 1250mg q24h starting 06/01/21 at 0500 due to pts increasing SrCr Pharmacy Service will continue to monitor and adjust dosing as required. Follow-Up Labs: Trough Vancomycin - 06/01/21 at 0430
[2021-06-01] VITALS (53 sets, daily range): BP systolic 74–144; BP diastolic 53–76; PULSE 55–87; RESP 16–18; TEMP 37.1–37.6; O2SAT 58–95
[2021-06-01] MEDS: Propofol 10MG/Ml 1,000 MG/100 ML Bottle 11 MG CONT INF ×2 (02:49→06:55)
[2021-06-01 04:45] LABS: Absolute Lymphocyte Count 1.71 X10^3/uL (0.83-4.51); Absolute Neutrophil Count 8.8 X10^3/uL (2.0-7.7); Basophil# 0.03 X10^3/uL; Basophil% 0.3 % (0-1); Hematocrit 38.8 % (37-47); Hemoglobin 12.5 g/dL (12.0-15.0); Lymphocyte # 1.71 X10^3/ul (0.83-4.51); Lymphocyte % 14.3 % (19-41); Mean Corp Hgb Conc 32.2 g/dL (32-36); Mean Corpuscular Hgb 28.1 pg (27.0-32.0); Mean Corpuscular Volume 87.2 fL (81-99); Mean Platelet Vol. 10.7 fl (6.2-12.0); Monocyte# 1.28 X10^3/uL; Monocyte% 10.7 % (0-10); NRBC Flagged by Analyzer 0 % (0-5); Neutrophil # 8.82 X10^3/uL (2.7-7.7); Neutrophil % 73.5 % (47-70); Platelet Count 263 K/mm3 (150-450); RBC Distribution Width CV 14.5 % (11.6-14.6); RBC Distribution Width SD 46.5 fl (35.1-43.9); Red Blood Count 4.45 M/mm3 (4.2-5.4)
[2021-06-01 05:25] LABS: ALB/GLOB Ratio 0.6 RATIO (0.9-2.4); AST(SGOT) 88 U/L (15-37); Alanine Aminotransfer ALT/SGPT 66 U/L (13-56); Alkaline Phosphatase 116 U/L (45-117); Anion Gap 8 (5-15); BUN 23 mg/dL (7-18); BUN/Creat Ratio 23.5 RATIO (10-20); Chloride 112 mmol/L (98-107); Creatinine, Serum 0.98 mg/dL (0.55-1.02); EST Glomerular Filtration Rate 60 mL/min (>60); Est Glom Filt Rate - Afr Amer 72 mL/min (>60); Estimated Creatinine Clearance 42.85 ml/min; Globulin 3.3 g/dL (2.2-4.2); Glucose 125 mg/dL (74-106); Potassium 3.6 mmol/L (3.5-5.1); Protein, Total 5.3 g/dL (6.4-8.2); Sodium Level 145 mmol/L (136-145)
--- NOTE | 2021-06-01 05:35 | PN.CC_ITS ---
Assessment & Plan Assessment/Plan (1) Acute respiratory failure with hypoxia: (2) Pneumonia due to COVID-19 virus: PLAN: RECOMMENDATIONS: 1. Continue patient on assist control mode of mechanical ventilation and wean FiO2 for saturations greater than 90%. 2. Continue remdesivir, baricitinib and Decadron as ordered. 3. Continue Lovenox as ordered. 4. Continue empiric antimicrobials. Okay to discontinue vancomycin. 5. Continue appropriate GI prophylaxis. 6. Okay to start tube feeds today once paralytic is discontinued. 7. Discontinue cis atracurium today. 8. Wean Levophed to maintain a mean arterial pressure at or above 65 mmHg. IMPRESSIONS: 1. Acute hypoxemic respiratory failure secondary to COVID-19 pneumonia The patient was initially admitted to the hospital on May 28 after presenting with worsening dyspnea. Symptom onset was sometime around May 23. The patient is unvaccinated. The patient's hospital course was complicated by worsening respiratory status, ultimately requiring transfer to the ICU and subsequent intubation on May 30. The patient will be continued on remdesivir, Decadron and baricitinib as ordered. In addition, given her clinical decompensation, will continue empiric antimicrobials pending culture work-up. Okay to discontinue paralytic today. CTA chest was negative for PE. Therefore, it is reasonable to continue Lovenox as ordered. Tube feeds can be initiated today from my perspective. 2. Distributive shock Likely secondary to underlying sepsis coupled with the hemodynamic effects of sedative medication use. Plan to continue vasopressor support to maintain a mean arterial pressure at or above 65 mmHg. 3. Acute kidney injury Resolved. Likely secondary to ATN in the setting of #1. Continue to monitor urine output for now. No current indication for renal replacement therapy. 4. Questionable history of COPD/hypertension/depression/anxiety Complicates care, management, recovery and prognosis. Nutrition consultation will be obtained for tube feed recommendations. Hold antihypertensives for now. TIME: 34 minutes of critical care time, independent of procedures, was spent addressing the patient's acute hypoxemic respiratory failure secondary to COVID- 19 pneumonia, distributive shock, acute kidney injury, review of all data and collaboration with the care team. Subjective Subjective The patient was seen and examined at the bedside this morning. Events from the last 24 hours have been reviewed. Today is vent day #3. The patient is currently afebrile. The patient is hemodynamically stable, but is requiring Levophed at 6 mcg/min. She is heavily sedated on propofol and fentanyl and remains pharmacologically paralyzed on cis atracurium. She remains on broad- spectrum antimicrobials, along with Decadron, Lovenox, baricitinib and remdesivir. She is currently documented to be overall net +5.7 L for the hospitalization. Creatinine is stable. Objective Data Objective Data The patient's most recent lab work, culture data and imaging studies have all been personally reviewed. Rapid coronavirus antigen testing was positive on May 28. Strep and urine Legionella antigens were negative. Sputum culture is currently pending. Vital Signs: Vital Signs Temp Pulse Resp BP Pulse Ox 99.1 F 64 18 144/73 H 93 06/01/21 03:00 06/01/21 03:35 06/01/21 03:35 06/01/21 03:30 06/01/21 03:35 Oxygen Flow Rate (L/min) 60 Oxygen Delivery Method Mechanical Ventilator Weight: 92.5 kg Body Mass Index (BMI) 34.0 Intake & Output: Intake and Output for Last 24 Hours 05/30/21 05/31/21 06/01/21 23:59 23:59 23:59 Intake Total 2213.78 / 2244.53 2442.54 / 2509.04 674.10 / 674.10 Output Total 275 / 275 1055 / 1055 Balance 1938.78 / 1969.53 1387.54 / 1454.04 674.10 / 674.10 Lab / Micro Data Attestation: I reviewed the patient's lab results. Result Diagrams: 06/01/21 04:30 06/01/21 04:30 Labs: Laboratory Results - last 24 hr 06/01/21 04:30: WBC 12.0 H, RBC 4.45, Hgb 12.5, Hct 38.8, MCV 87.2, MCH 28.1, MCHC 32.2, RDW Std Deviation 46.5 H, RDW Coeff of Chari 14.5, Plt Count 263, MPV 10.7, Immature Gran % (Auto) 1.200 H, Neut % (Auto) 73.5 H, Lymph % (Auto) 14.3 L, [place] % (Auto) 10.7 H, Eos % (Auto) 0.0, Baso % (Auto) 0.3, Absolute Neuts (auto) 8.8 H, Absolute Lymphs (auto) 1.71, Nucleated RBC % 0 06/01/21 04:30: Sodium 145, Potassium 3.6, Chloride 112 H, Carbon Dioxide 25.0, Anion Gap 8, BUN 23 H, Creatinine 0.98, Estim Creat Clear Calc 42.85, Est GFR (MDRD) Af Amer 72, Est GFR (MDRD) Non-Af 60, BUN/Creatinine Ratio 23.5 H, Glucos e 125 H, Calcium 7.0 L, Total Bilirubin 0.40, AST 88 H, ALT 66 H, Alkaline Phosphatase 116, Total Protein 5.3 L, Albumin 2.0 L, Globulin 3.3, Albumin/Globulin Ratio 0.6 L 06/01/21 04:30: Vancomycin Trough 10.0 Micro: Microbiology 05/30/21 12:38 Sputum, Induced/Lukens Gram Stain - Final 05/30/21 12:38 Sputum, Induced/Lukens Respiratory Culture - Preliminary Gram negative organism 05/28/21 15:39 Blood Culture (Wb) - Anticubital Right Blood Culture - Preliminary No growth in 48 hours. 05/28/21 15:29 Blood Culture (Wb) - Anticubital Left Blood Culture - Preliminary No growth in 48 hours. 05/28/21 15:46 Nasal Secretion SARS-CoV-2 Antigen (Rapid) - Final SARS-CoV-2 (COVID 19) 05/29/21 02:00 Urine, Clean Catch Streptococcus pneumoniae Antigen (M - Final 05/29/21 02:00 Urine, Clean Catch Legionella Antigen - Final 05/28/21 20:00 Mucosa - Nasopharyngeal Respiratory Panel (PCR) - Final Rhythm Strip Rhythm Strip: Sinus Rhythm Rate: 85 Ectopy: None Physical Exam Const no apparent distress General Appearance: intubated Nutritional Appearance: obese HEENT normocephalic and head/scalp atraumatic Mouth: endotracheal tube in place and OG tube in place Eyes PERRL, EOMs intact bilaterally and conjunctivae normal Neck supple General: trachea midline Chest inspection of chest normal Resp Auscultation: diminished lung sounds; Negative for rales, rhonchi or wheezes Cardio regular rate and regular rhythm GI normal to inspection, nondistended, normoactive bowel sounds Extremity no clubbing, cyanosis or edema Skin no rashes or lesions noted Neuro Sensorium / Orientation: sedated on vent Charges/Coding Procedures Hospitalists Procedures: 27986 Critial Care 1st Hr
--- NOTE | 2021-06-01 05:53 | PCM.RX.CS ---
Consult Pharmacy has been consulted to manage selected antiobiotic: Vancomycin Type of Consult: Follow-up Suspected Infection: Pneumonia Prior Doses of Antibiotics Received/Current Regimen: Medications Vancomycin HCl (Vancomycin) 1,000 mg in 200 mls @ 200 mls/hr IV Q12H ALVARO Vancomycin HCl 1,250 mg/ (Sodium Chloride) 275 mls @ 167 mls/hr IV Q24H ALVARO Stop: 06/01/21 07:00 Last Admin: 06/01/21 05:42 Dose: 167 mls/hr Documented by: Labs: Sodium 145 mmol/L (136-145) 06/01/21 04:30 Potassium 3.6 mmol/L (3.5-5.1) 06/01/21 04:30 Chloride 112 mmol/L (98-107) H 06/01/21 04:30 Carbon Dioxide 25.0 mmol/L (21.0-32.0) 06/01/21 04:30 Anion Gap 8 (5-15) 06/01/21 04:30 BUN 23 mg/dL (7-18) H 06/01/21 04:30 Creatinine 0.98 mg/dL (0.55-1.02) 06/01/21 04:30 Est GFR (MDRD) Af Amer 72 mL/min (>60) 06/01/21 04:30 Est GFR (MDRD) Non-Af 60 mL/min (>60) 06/01/21 04:30 BUN/Creatinine Ratio 23.5 RATIO (10-20) H 06/01/21 04:30 Glucose 125 mg/dL (74-106) H 06/01/21 04:30 Vancomycin Trough 10.0 ug/mL (5.0-15.0) 06/01/21 04:30 Microbiology: Microbiology 05/30/21 12:38 Sputum, Induced/Lukens Gram Stain - Final 05/30/21 12:38 Sputum, Induced/Lukens Respiratory Culture - Preliminary Gram negative organism 05/28/21 15:39 Blood Culture (Wb) - Anticubital Right Blood Culture - Preliminary No growth in 48 hours. 05/28/21 15:29 Blood Culture (Wb) - Anticubital Left Blood Culture - Preliminary No growth in 48 hours. 05/28/21 15:46 Nasal Secretion SARS-CoV-2 Antigen (Rapid) - Final SARS-CoV-2 (COVID 19) 05/29/21 02:00 Urine, Clean Catch Streptococcus pneumoniae Antigen (M - Final 05/29/21 02:00 Urine, Clean Catch Legionella Antigen - Final 05/28/21 20:00 Mucosa - Nasopharyngeal Respiratory Panel (PCR) - Final Weight used for dosin.5 kg Estimated Creatinine Clearance: 57 Goal Trough: 15-20 mcg/mL Pharmacy Plan for Drug Dosing: Vancomycin trough level was low at 10.0 drawn 24h post dose. Weight continued to rise, and SCr decreased moderately. Will restart initial dosing of 1000mg q12h and re-draw a trough prior to 4th dose. Pharmacy Service will continue to monitor and adjust dosing as required. Follow-Up Labs: Trough Vancomycin Labs to be done on [date and time ordered]: 06/03/21 @0500
--- NOTE | 2021-06-01 07:36 | PN.HOSP_ITS ---
Subjective Subjective The patient is on AC mode of mechanical ventilator. On tube feed. Sedated. Objective Data Objective Data Vital Signs: Vital Signs Temp Pulse Resp BP Pulse Ox 99.1 F 60 18 110/71 88 06/01/21 07:00 06/01/21 07:08 06/01/21 07:08 06/01/21 07:00 06/01/21 07:08 Oxygen Flow Rate (L/min) 60 Oxygen Delivery Method Mechanical Ventilator Weight: 203 lb 14.841 oz Body Mass Index (BMI) 34.0 Intake & Output: Intake and Output for Last 24 Hours 05/30/21 05/31/21 06/01/21 23:59 23:59 23:59 Intake Total 2213.78 / 2244.53 2442.54 / 2509.04 782.76 / 782.76 Output Total 275 / 275 1055 / 1055 50 / 50 Balance 1938.78 / 1969.53 1387.54 / 1454.04 732.76 / 732.76 Lab / Micro Data Result Diagrams: 06/01/21 04:30 06/01/21 04:30 Labs: Laboratory Results - last 24 hr 06/01/21 04:30: WBC 12.0 H, RBC 4.45, Hgb 12.5, Hct 38.8, MCV 87.2, MCH 28.1, MCHC 32.2, RDW Std Deviation 46.5 H, RDW Coeff of Chari 14.5, Plt Count 263, MPV 10.7, Immature Gran % (Auto) 1.200 H, Neut % (Auto) 73.5 H, Lymph % (Auto) 14.3 L, [place] % (Auto) 10.7 H, Eos % (Auto) 0.0, Baso % (Auto) 0.3, Absolute Neuts (auto) 8.8 H, Absolute Lymphs (auto) 1.71, Nucleated RBC % 0 06/01/21 04:30: Sodium 145, Potassium 3.6, Chloride 112 H, Carbon Dioxide 25.0, Anion Gap 8, BUN 23 H, Creatinine 0.98, Estim Creat Clear Calc 42.85, Est GFR (MDRD) Af Amer 72, Est GFR (MDRD) Non-Af 60, BUN/Creatinine Ratio 23.5 H, Glucose 125 H, Calcium 7.0 L, Total Bilirubin 0.40, AST 88 H, ALT 66 H, Alkaline Phosphatase 116, Total Protein 5.3 L, Albumin 2.0 L, Globulin 3.3, Albumin/Globulin Ratio 0.6 L 06/01/21 04:30: Vancomycin Trough 10.0 Micro: Microbiology 05/30/21 12:38 Sputum, Induced/Lukens Gram Stain - Final 05/30/21 12:38 Sputum, Induced/Lukens Respiratory Culture - Preliminary Gram negative organism 05/28/21 15:39 Blood Culture (Wb) - Anticubital Right Blood Culture - Preliminary No growth in 48 hours. 05/28/21 15:29 Blood Culture (Wb) - Anticubital Left Blood Culture - Preliminary No growth in 48 hours. 05/28/21 15:46 Nasal Secretion SARS-CoV-2 Antigen (Rapid) - Final SARS-CoV-2 (COVID 19) 05/29/21 02:00 Urine, Clean Catch Streptococcus pneumoniae Antigen (M - Final 05/29/21 02:00 Urine, Clean Catch Legionella Antigen - Final 05/28/21 20:00 Mucosa - Nasopharyngeal Respiratory Panel (PCR) - Final Rhythm Strip Rhythm Strip: Sinus Rhythm Rate: 85 Ectopy: None Physical Exam Narrative General: Sedated, on ventilator. HEENT: Atraumatic, Normocephalic Oral: ET and OG tube. Neck: Supple, No JVD, Negative Carotid Bruits Lungs: Air entry diminished in bilateral lung bases. On ventilator. Cardiovascular: Sinus rhythm, Normal S1, Normal S2, No murmurs Abdomen: Bowel Sounds sluggish, Soft, Non Tender, Non-Distended : Wyatt catheter, urine clear no renal angle tenderness. No suprapubic tenderness. Extremities: No edema, Capillary Refill Less than 3 Seconds Skin: No rashes, No breakdown Musculoskeletal: No Tenderness to Palpation of Joints or Extremities Neurological: Sedated Psych/Mental Status: Sedated Assessment & Plan Assessment/Plan (1) Pneumonia due to COVID-19 virus: (2) Acute respiratory failure with hypoxia: PLAN: Patient is a 71-year-old lady vaccinated against COVID-19 who presented with progressive shortness of breath. Patient symptoms started on 05/23/2021 1. Acute hypoxic respiratory failure due to bilateral COVID-19 pneumonia: Cheryle mcgrath is on baricitinib, Decadron and remdesivir. Patient was admitted to regular nursing floor managed on supplemental oxygen initially however respiratory status continued to worsen was placed on BiPAP did not tolerated subsequently placed on nonrebreather and Airvo with then subsequently transferred to ICU. Seen by advertising sales consultant. 2. Acute COVID-19 pneumonia complicated with bacterial superi nfection/pneumonia, probably due to Haemophilus species and distributive shock. ?Symptoms started on 05/23/2021. On vasopressor support. Sputum culture shows gram-negative organisms 3+ suspicion of Haemophilus species 3. COPD ?Complicating patient care aerosol treatment in addition to systemic steroid 4. Hypertension - Blood pressure controlled, home medications continued with dose adjustment as needed 5. Depression with anxiety ?Patient is on bupropion as well as escitalopram did continue 6. CELI: Resolved. Probably secondary to ATN. Patient has Wyatt catheter. Total urine output 515 mL.. DVT prophylaxis ?Lovenox Active Medications Acetaminophen (Acetaminophen 325 Mg Tablet) 650 mg PO Q6H PRN PRN PRN Reason: Pain Score 1-10/Temp > 100.7 F Last Admin: 05/30/21 05:31 Dose: 650 mg Documented by: Baricitinib (Baricitinib 2 Mg Tablet) 4 mg GT DAILY [facility] Stop: 06/12/21 10:01 Last Admin: 06/01/21 08:54 Dose: 4 mg Documented by: Chlorhexidine Gluconate (Chlorhexidine 15 Ml) 15 ml PO BID [facility] Last Admin: 06/01/21 08:58 Dose: 15 ml Documented by: Chlorhexidine Gluconate (Chlorhexidine Gluc 2% Cloth 1 Each Towelette) 1 each TOPICAL DAILY [facility] Last Admin: 05/31/21 08:12 Dose: 1 each Documented by: Dexamethasone (Dexamethasone 2 Mg Tablet) 6 mg PO DAILY [facility] Last Admin: 06/01/21 08:54 Dose: 6 mg Documented by: Enoxaparin Sodium (Enoxaparin 40 Mg/0.4 Ml Syringe) 40 mg SC BID [facility] Last Admin: 06/01/21 08:55 Dose: 40 mg Documented by: Escitalopram Oxalate (Escitalopram Oxalate 20 Mg Tablet) 20 mg PO DAILY [facility] Last Admin: 06/01/21 08:57 Dose: 20 mg Documented by: Remdesivir 100 mg/ Sodium (Chloride) 250 mls @ 125 mls/hr IV 2200 [facility]; Protocol Stop: 06/01/21 23:59 Last Infusion: 06/01/21 02:49 Dose: Infused Documented by: Sodium Chloride () 250 mls @ 15 mls/hr IV .[id number] PRN PRN Reason: Saline Flush Sodium Chloride () 250 mls @ 15 mls/hr IV .[id number] PRN PRN Reason: Additional IVPB Infusion Last Infusion: 06/01/21 07:07 Dose: Infused Documented by: Pantoprazole Sodium 40 mg/ (Sodium Chloride) 110 mls @ 330 mls/hr IV Q12 [facility]VARO Last Infusion: 06/01/21 11:34 Dose: Infused Documented by: Propofol (Diprivan) 1,000 mg in 100 mls @ 5.484 mls/hr CONT INF .Q12H ALVARO; Protocol Last Titration: 06/01/21 12:00 Dose: 30 mcg/kg/min, 16.5 mls/hr Documented by: Fentanyl Citrate 1,000 mcg/ (Sodium Chloride) 100 mls @ 20 mls/hr CONT INF .Q5H ALVARO; Protocol Last Titration: 06/01/21 12:00 Dose: 150 mcg/hr, 15 mls/hr Documented by: Cefepime HCl 1 gm/ Sodium (Chloride) 50 mls @ 100 mls/hr IV Q8 ALVARO Last Infusion: 06/01/21 08:40 Dose: Infused Documented by: Norepinephrine Bitartrate 8 mg (/ Sodium Chloride) 250 mls @ 9.375 mls/hr CONT INF .[id number] [facility]O; Protocol Last Titration: 06/01/21 12:00 Dose: 5 mcg/min, 9.4 mls/hr Documented by: Enteral Nutritional Formula (Vital Af 1.2 Garrett Liquid) 1,000 mls @ 60 mls/hr GT .[id number] ALVARO Ondansetron HCl (Ondansetron 4 Mg/2 Ml Vial) 4 mg IV Q6H PRN PRN PRN Reason: NAUSEA Last Admin: 05/30/21 12:23 Dose: 4 mg Documented by: Polyethylene Glycol (Polyethylene Glycol 3350 17 Gm Packet) 17 gm PO DAILY [facility] Prochlorperazine Edisylate (Prochlorperazine 10 Mg/2 Ml Vial) 5 mg IV Q6H PRN PRN PRN Reason: NAUSEA/VOMITING Last Admin: 05/30/21 09:53 Dose: 5 mg Documented by: Senna/Docusate Sodium (Senna/Docusate Sodium 1 Tablet) 2 tablet PO BID [facility] Sodium Chloride (0.9% Saline Lock 10 Ml Syringe) 10 - 40 ml IV UD PRN PRN Reason: SALINE FLUSH Last Admin: 05/30/21 20:18 Dose: 10 ml Documented by: Charges/Coding Visit Charges Inpatient E&M: 82295 Subs Hosp L3
[2021-06-01] MEDS: dexAMETHasone 2 MG TABLET 6 MG PO (08:54)
[2021-06-01] MEDS: Furosemide 40 MG/4 ML Vial IV (08:54)
[2021-06-01] MEDS: Enoxaparin 40 MG/0.4 ML Syringe SC ×2 (08:55→21:36)
[2021-06-01] MEDS: Escitalopram Oxalate 20 MG Tablet PO (08:57)
[2021-06-01] MEDS: Chlorhexidine 15 ML PO ×2 (08:58→21:36)
[2021-06-01] MEDS: Vital AF 1.2 Cal Liquid 1,000 ML 60 ML GT (13:02)
[2021-06-01] MEDS: CHLORHEXIDINE GLUC 2% CLOTH 1 EACH TOWELETTE TOPICAL (13:03)
[2021-06-01] MEDS: Polyethylene Glycol 3350 17 GM PACKET PO (13:03)
[2021-06-01] MEDS: Senna/Docusate Sodium 1 Tablet 2 TABLET PO ×2 (13:03→21:36)
[2021-06-01] MEDS: Propofol 10MG/Ml 1,000 MG/100 ML Bottle 19.2 MG CONT INF ×3 (13:06→20:44)
--- NOTE | 2021-06-01 17:59 | EKG12_ITS ---
Test Reason : ARRYTHMIA Blood Pressure : / mmHG Vent. Rate : 056 BPM Atrial Rate : 056 BPM P-R Int : 114 ms QRS Dur : 076 ms QT Int : 494 ms P-R-T Axes : 013 050 155 degrees QTc Int : 476 ms Sinus bradycardia Inferior infarct , age undetermined T wave abnormality, consider anterolateral ischemia Abnormal ECG Confirmed by DUONG KELLEY, BRENT ([id number]), health editor SANDRA LOPEZ ([id number]) on 06/16/2021 8:27:24 AM Referred By: HEDY Confirmed By:BRENT WATTERS MD
[2021-06-02] VITALS (33 sets, daily range): BP systolic 77–118; BP diastolic 53–67; PULSE 55–90; RESP 17–20; TEMP 37.4–37.7; O2SAT 92–97
[2021-06-02] MEDS: Propofol 10MG/Ml 1,000 MG/100 ML Bottle 19.2 MG CONT INF (02:00)
[2021-06-02 04:39] LABS: Mean Corp Hgb Conc 32.4 g/dL (32-36); Mean Corpuscular Hgb 28.4 pg (27.0-32.0); Mean Corpuscular Volume 87.7 fL (81-99); Mean Platelet Vol. 10.3 fl (6.2-12.0); POSITIVE COUNT YES; POSITIVE MORPHOLOGY YES; Platelet Count 263 K/mm3 (150-450); RBC Distribution Width CV 14.7 % (11.6-14.6); RBC Distribution Width SD 47.8 fl (35.1-43.9); Red Blood Count 4.22 M/mm3 (4.2-5.4); White Blood Count 8.6 K/mm3 (4.4-11.0)
[2021-06-02 04:43] LABS: Differential Indicated MANUAL DIFF
[2021-06-02 04:52] LABS: ALB/GLOB Ratio 0.5 RATIO (0.9-2.4); AST(SGOT) 63 U/L (15-37); Alanine Aminotransfer ALT/SGPT 54 U/L (13-56); Alkaline Phosphatase 110 U/L (45-117); Anion Gap 6 (5-15); BUN 30 mg/dL (7-18); BUN/Creat Ratio 27.8 RATIO (10-20); Calcium,Total 7.5 mg/dL (8.5-10.1); Chloride 112 mmol/L (98-107); Creatinine, Serum 1.08 mg/dL (0.55-1.02); EST Glomerular Filtration Rate 53 mL/min (>60); Est Glom Filt Rate - Afr Amer 65 mL/min (>60); Estimated Creatinine Clearance 38.88 ml/min; Globulin 3.7 g/dL (2.2-4.2); Glucose 157 mg/dL (74-106); Protein, Total 5.7 g/dL (6.4-8.2); Sodium Level 145 mmol/L (136-145)
[2021-06-02] MEDS: TITRATION PARAMETER CHANGE 1 EACH IV (05:08)
[2021-06-02 05:11] LABS: Absolute Lymphocyte Count 1.71 X10^3/uL (0.83-4.51); Neutrophil-Band 13 % (0-5); Neutrophil-Segmented 57 % (47-70); Total Cells Counted 100 (MANUAL DIFF)
[2021-06-02 05:12] LABS: Lymphocyte 20 % (19-41); Metamyelocyte 1 % (0-1); Monocyte 9 % (0-10)
[2021-06-02 05:14] LABS: Anisocytosis 1+; Platelet Estimate ADEQUATE (ADEQ); Red Cell Morphology NORM C+C NORMAL (NORM C&C)
[2021-06-02] MEDS: Propofol 10MG/Ml 1,000 MG/100 ML Bottle 19.4 MG CONT INF ×5 (05:45→22:45)
--- NOTE | 2021-06-02 06:10 | PN.CC_ITS ---
Assessment & Plan Assessment/Plan (1) Acute respiratory failure with hypoxia: (2) Pneumonia due to COVID-19 virus: PLAN: RECOMMENDATIONS: 1. Continue patient on assist control mode of mechanical ventilation and wean FiO2 for saturations greater than 90%. 2. Continue baricitinib and Decadron as ordered. 3. Continue Lovenox as ordered. 4. Continue antimicrobials to complete 7-day treatment course. 5. Continue appropriate GI prophylaxis. 6. Continue tube feeds as tolerated. 7. Wean Levophed to maintain a mean arterial pressure at or above 65 mmHg. IMPRESSIONS: 1. Acute hypoxemic respiratory failure secondary to COVID-19 pneumonia The patient was initially admitted to the hospital on May 28 after presenting with worsening dyspnea. Symptom onset was sometime around May 23. The patient is unvaccinated. The patient's hospital course was complicated by worsening respiratory status, ultimately requiring transfer to the ICU and subsequent intubation on May 30. The patient will be continued on decadron and baricitinib as ordered. She has completed her treatment course of remdesivir. In addition, the patient sputum culture was positive for Haemophilus influenza. Therefore, the patient will be continued on antimicrobials to complete 7 days of therapy. CTA chest was negative for PE. Accordingly, it is reasonable to continue Lovenox as ordered. Continue tube feeds as tolerated. 2. Distributive shock Likely secondary to underlying sepsis coupled with the hemodynamic effects of sedative medication use. Plan to continue vasopressor support to maintain a mean arterial pressure at or above 65 mmHg. 3. Acute kidney injury Resolved. Likely secondary to ATN in the setting of #1. Continue to monitor urine output for now. No current indication for renal replacement therapy. 4. Questionable history of COPD/hypertension/depression/anxiety Complicates care, management, recovery and prognosis. Nutrition consultation will be obtained for tube feed recommendations. Hold antihypertensives for now. TIME: 32 minutes of critical care time, independent of procedures, was spent addressing the patient's acute hypoxemic respiratory failure secondary to COVID- 19 pneumonia, distributive shock, acute kidney injury, review of all data and collaboration with the care team. Subjective Subjective The patient was seen and examined at the bedside this morning. Events from the last 24 hours have been reviewed. Today is vent day #4. The patient remains on assist control mode of mechanical ventilation with an FiO2 requirement of 65% and PEEP of 14. However, she readily desaturates with coughing. She is currently sedated on propofol and fentanyl. She has been tolerant of tube feeds. The patient remains hemodynamically stable on Levophed at 3 mcg/min. The patient is currently documented to be overall net +6.4 L for the hospitalization. She remains on broad-spectrum antimicrobials, along with Decadron, Lovenox, and baricitinib. She has completed remdesivir. Creatinine is stable at 1.08. Objective Data Objective Data The patient's most recent lab work, culture data and imaging studies have all been personally reviewed. Rapid coronavirus antigen testing was positive on May 28. Strep and urine Legionella antigens were negative. Sputum culture was positive for Haemophilus influenza. Vital Signs: Vital Signs Temp Pulse Resp BP Pulse Ox 99.8 F H 67 19 H 104/60 93 06/02/21 04:00 06/02/21 05:00 06/02/21 05:00 06/02/21 05:00 06/02/21 05:00 Oxygen Flow Rate (L/min) 60 Oxygen Delivery Method Mechanical Ventilator Weight: 92.4 kg Body Mass Index (BMI) 34.0 Intake & Output: Intake and Output for Last 24 Hours 05/31/21 06/01/21 06/02/21 23:59 23:59 23:59 Intake Total 2442.54 / 2509.04 2436.22 / 2626.02 752.23 / 752.23 Output Total 1055 / 1055 1450 / 1600 400 / 400 Balance 1387.54 / 1454.04 986.22 / 1026.02 352.23 / 352.23 Lab / Micro Data Attestation: I reviewed the patient's lab results. Result Diagrams: 06/02/21 04:15 06/02/21 04:15 Labs: Laboratory Results - last 24 hr 06/02/21 04:15: WBC 8.6, RBC 4.22, Hgb 12.0, Hct 37.0, MCV 87.7, MCH 28.4, MCHC 32.4, RDW Std Deviation 47.8 H, RDW Coeff of Chari 14.7 H, Plt Count 263, MPV 10.3, Neut % (Auto) Not Reportable, Absolute Neuts (auto) 6.0, Absolute Lymphs (auto) 1.71, Total Counted 100, Neutrophils % (Manual) 57, Band Neutrophils % 13 H, Lymphocytes % (Manual) 20, Monocytes % (Manual) 9, Metamyelocytes % 1, Diff Path Review May foll, Platelet Estimate ADEQUATE, RBC Morphology NORM C+C, Anisocytosis 1+ 06/02/21 04:15: Sodium 145, Potassium 4.0, Chloride 112 H, Carbon Dioxide 27.0, Anion Gap 6, BUN 30 H, Creatinine 1.08 H, Estim Creat Clear Calc 38.88, Est GFR (MDRD) Af Amer 65, Est GFR (MDRD) Non-Af 53 L, BUN/Creatinine Ratio 27.8 H, Glucose 157 H, Calcium 7.5 L, Total Bilirubin 0.50, AST 63 H, ALT 54, Alkaline Phosphatase 110, Total Protein 5.7 L, Albumin 2.0 L, Globulin 3.7, Albumin/Globulin Ratio 0.5 L Micro: Microbiology 05/30/21 12:38 Sputum, Induced/Lukens Gram Stain - Final 05/30/21 12:38 Sputum, Induced/Lukens Respiratory Culture - Final Haemophilus influenzae 05/28/21 15:39 Blood Culture (Wb) - Anticubital Right Blood Culture - Preliminary No growth in 48 hours. 05/28/21 15:29 Blood Culture (Wb) - Anticubital Left Blood Culture - Preliminary No growth in 48 hours. 05/28/21 15:46 Nasal Secretion SARS-CoV-2 Antigen (Rapid) - Final SARS-CoV-2 (COVID 19) 05/29/21 02:00 Urine, Clean Catch Streptococcus pneumoniae Antigen (M - Final 05/29/21 02:00 Urine, Clean Catch Legionella Antigen - Final 05/28/21 20:00 Mucosa - Nasopharyngeal Respiratory Panel (PCR) - Final Rhythm Strip Rhythm Strip: Sinus Rhythm Rate: 85 Ectopy: None Physical Exam Const no apparent distress General Appearance: intubated Nutritional Appearance: obese HEENT normocephalic and head/scalp atraumatic Mouth: endotracheal tube in place and OG tube in place Eyes PERRL, EOMs intact bilaterally and conjunctivae normal Neck supple General: trachea midline Chest inspection of chest normal Resp Auscultation: diminished lung sounds; Negative for rales, rhonchi or wheezes Cardio regular rate and regular rhythm GI normal to inspection, nondistended, normoactive bowel sounds Extremity no clubbing, cyanosis or edema Skin no rashes or lesions noted Neuro Sensorium / Orientation: sedated on vent Charges/Coding Procedures Hospitalists Procedures: [id number] Critial Care 1st Hr
[2021-06-02] MEDS: Enoxaparin 40 MG/0.4 ML Syringe SC ×2 (08:03→21:39)
[2021-06-02] MEDS: Senna/Docusate Sodium 1 Tablet 2 TABLET PO ×2 (08:04→21:39)
[2021-06-02] MEDS: Furosemide 40 MG/4 ML Vial IV (08:04)
[2021-06-02] MEDS: Polyethylene Glycol 3350 17 GM PACKET PO (08:04)
[2021-06-02] MEDS: dexAMETHasone 2 MG TABLET 6 MG PO (08:04)
[2021-06-02] MEDS: Escitalopram Oxalate 20 MG Tablet PO (08:05)
[2021-06-02] MEDS: Chlorhexidine 15 ML PO ×2 (08:05→21:39)
[2021-06-02 13:46] LABS: Pathologist Review Reviewed
--- NOTE | 2021-06-02 14:51 | PN.HOSP_ITS ---
Subjective Subjective Patient sedated on propofol and fentanyl drip. On ventilator AC mode. Objective Data Objective Data Vital Signs: Vital Signs Temp Pulse Resp BP Pulse Ox 99.7 F H 67 18 102/58 L 94 06/02/21 12:00 06/02/21 13:35 06/02/21 13:35 06/02/21 12:00 06/02/21 13:35 Oxygen Flow Rate (L/min) 60 Oxygen Delivery Method Mechanical Ventilator Weight: 203 lb 11.314 oz Body Mass Index (BMI) 34.0 Intake & Output: Intake and Output for Last 24 Hours 05/31/21 06/01/21 06/02/21 23:59 23:59 23:59 Intake Total 2442.54 / 2509.04 2436.22 / 2626.02 2308.73 / 2308.73 Output Total 1055 / 1055 1450 / 1600 1525 / 1525 Balance 1387.54 / 1454.04 986.22 / 1026.02 783.73 / 783.73 Lab / Micro Data Result Diagrams: 06/02/21 04:15 06/02/21 04:15 Labs: Laboratory Results - last 24 hr 06/02/21 04:15: WBC 8.6, RBC 4.22, Hgb 12.0, Hct 37.0, MCV 87.7, MCH 28.4, MCHC 32.4, RDW Std Deviation 47.8 H, RDW Coeff of Chari 14.7 H, Plt Count 263, MPV 10.3, Neut % (Auto) Not Reportable, Absolute Neuts (auto) 6.0, Absolute Lymphs (auto) 1.71, Total Counted 100, Neutrophils % (Manual) 57, Band Neutrophils % 13 H, Lymphocytes % (Manual) 20, Monocytes % (Manual) 9, Metamyelocytes % 1, Diff Path Review Reviewed, Platelet Estimate ADEQUATE, RBC Morphology NORM C+C, Anisocytosis 1+ 06/02/21 04:15: Sodium 145, Potassium 4.0, Chloride 112 H, Carbon Dioxide 27.0, Anion Gap 6, BUN 30 H, Creatinine 1.08 H, Estim Creat Clear Calc 38.88, Est GFR (MDRD) Af Amer 65, Est GFR (MDRD) Non-Af 53 L, BUN/Creatinine Ratio 27.8 H, Glucose 157 H, Calcium 7.5 L, Total Bilirubin 0.50, AST 63 H, ALT 54, Alkaline Phosphatase 110, Total Protein 5.7 L, Albumin 2.0 L, Globulin 3.7, Albumin/Globulin Ratio 0.5 L Micro: Microbiology 05/30/21 12:38 Sputum, Induced/Lukens Gram Stain - Final 05/30/21 12:38 Sputum, Induced/Lukens Respiratory Culture - Final Haemophilus influenzae 05/28/21 15:39 Blood Culture (Wb) - Anticubital Right Blood Culture - Preliminary No growth in 48 hours. 05/28/21 15:29 Blood Culture (Wb) - Anticubital Left Blood Culture - Preliminary No growth in 48 hours. 05/28/21 15:46 Nasal Secretion SARS-CoV-2 Antigen (Rapid) - Final SARS-CoV-2 (COVID 19) 05/29/21 02:00 Urine, Clean Catch Streptococcus pneumoniae Antigen (M - Final 05/29/21 02:00 Urine, Clean Catch Legionella Antigen - Final 05/28/21 20:00 Mucosa - Nasopharyngeal Respiratory Panel (PCR) - Final Rhythm Strip Rhythm Strip: Sinus Rhythm Rate: 85 Ectopy: None Physical Exam Narrative General: Sedated, on ventilator. HEENT: Atraumatic, Normocephalic Oral: ET and OG tube. Neck: Supple, No JVD, Negative Carotid Bruits Lungs: Air entry diminished in bilateral lung bases. On ventilator. Cardiovascular: Sinus rhythm, Normal S1, Normal S2, No murmurs Abdomen: Bowel Sounds sluggish, Soft, Non Tender, Non-Distended : Wyatt catheter, urine clear no renal angle tenderness. No suprapubic tenderness. Extremities: No edema, Capillary Refill Less than 3 Seconds Skin: No rashes, No breakdown Musculoskeletal: No Tenderness to Palpation of Joints or Extremities Neurological: Sedated Psych/Mental Status: Sedated Assessment & Plan Assessment/Plan (1) Pneumonia due to COVID-19 virus: (2) Acute respiratory failure with hypoxia: PLAN: Patient is a 71-year-old lady vaccinated against COVID-19 who presented with progressive shortness of breath. Patient symptoms started on 05/23/2021 1. Acute hypoxic respiratory failure due to bilateral COVID-19 pneumonia: Patient is on baricitinib, Decadron and remdesivir. Patient was admitted to regular nursing floor managed on supplemental oxygen initially however respiratory status continued to worsen was placed on BiPAP did not tolerated subsequently placed on nonrebreather and Airvo with then subsequently transferred to ICU. Seen by court interpreter. 05/16: Patient on 65% FiO2, PEEP 14, AC mode. On Levophed 3 mics per minute 2. Acute COVID-19 pneumonia complicated with bacterial superinfection/pneumonia, probably due to Haemophilus species and distributive shock. ?Symptoms started on 05/23/2021. On vasopressor support. Sputum culture shows gram-negative organisms 3+ suspicion of Haemophilus species 06/02: On Levophed 3 mics per minute. Continue antimicrobial. 3. COPD ?Complicating patient care aerosol treatment in addition to systemic steroid 4. Hypertension - Blood pressure controlled, home medications continued with dose adjustment as needed 5. Depression with anxiety ?Patient is on bupropion as well as escitalopram did continue 6. CELI: Resolved. Probably secondary to ATN. Patient has Wyatt catheter. Total urine output 515 mL.. DVT prophylaxis ?Lovenox Active Medications Acetaminophen (Acetaminophen 325 Mg Tablet) 650 mg PO Q6H PRN PRN PRN Reason: Pain Score 1-10/Temp > 100.7 F Last Admin: 05/30/21 05:31 Dose: 650 mg Documented by: Baricitinib (Baricitinib 2 Mg Tablet) 4 mg GT DAILY [facility] Stop: 06/12/21 10:01 Last Admin: 06/02/21 08:05 Dose: 4 mg Documented by: Chlorhexidine Gluconate (Chlorhexidine 15 Ml) 15 ml PO BID [facility] Last Admin: 06/02/21 08:05 Dose: 15 ml Documented by: Chlorhexidine Gluconate (Chlorhexidine Gluc 2% Cloth 1 Each Towelette) 1 each TOPICAL DAILY [facility] Last Admin: 06/01/21 13:03 Dose: 1 each Documented by: Dexamethasone (Dexamethasone 2 Mg Tablet) 6 mg PO DAILY [facility] Last Admin: 06/02/21 08:04 Dose: 6 mg Documented by: Enoxaparin Sodium (Enoxaparin 40 Mg/0.4 Ml Syringe) 40 mg SC BID [facility] Last Admin: 06/02/21 08:03 Dose: 40 mg Documented by: Escitalopram Oxalate (Escitalopram Oxalate 20 Mg Tablet) 20 mg PO DAILY [facility] Last Admin: 06/02/21 08:05 Dose: 20 mg Documented by: Furosemide (Furosemide 40 Mg/4 Ml Vial) 40 mg IV DAILY [facility] Last Admin: 06/02/21 08:04 Dose: 40 mg Documented by: Sodium Chloride () 250 mls @ 15 mls/hr IV .[id number] PRN PRN Reason: Saline Flush Sodium Chloride () 250 mls @ 15 mls/hr IV .[id number] PRN PRN Reason: Additional IVPB Infusion Last Infusion: 06/01/21 07:07 Dose: Infused Documented by: Pantoprazole Sodium 40 mg/ (Sodium Chloride) 110 mls @ 330 mls/hr IV Q12 [facility] Last Infusion: 06/02/21 10:21 Dose: Infused Documented by: Propofol (Diprivan) 1,000 mg in 100 mls @ 5.544 mls/hr CONT INF .Q12H [facility]; Protocol Last Titration: 06/02/21 14:00 Dose: 35 mcg/kg/min, 19.4 mls/hr Documented by: Fentanyl Citrate 1,000 mcg/ (Sodium Chloride) 100 mls @ 20 mls/hr CONT INF .Q5H [facility]; Protocol Last Admin: 06/02/21 14:45 Dose: 150 mcg/hr, 15 mls/hr Documented by: Cefepime HCl 1 gm/ Sodium (Chloride) 50 mls @ 100 mls/hr IV Q8 [facility] Last Infusion: 06/02/21 13:49 Dose: Infused Documented by: Norepinephrine Bitartrate 8 mg (/ Sodium Chloride) 250 mls @ 9.375 mls/hr CONT INF .[id number] [facility]; Protocol Last Titration: 06/02/21 12:00 Dose: 3 mcg/min, 5.6 mls/hr Documented by: Enteral Nutritional Formula (Vital Af 1.2 Garrett Liquid) 1,000 mls @ 60 mls/hr GT .[id number] [facility] Last Admin: 06/02/21 02:33 Dose: Not Given Documented by: Ondansetron HCl (Ondansetron 4 Mg/2 Ml Vial) 4 mg IV Q6H PRN PRN PRN Reason: NAUSEA Last Admin: 05/30/21 12:23 Dose: 4 mg Documented by: Polyethylene Glycol (Polyethylene Glycol 3350 17 Gm Packet) 17 gm PO DAILY [facility] Last Admin: 06/02/21 08:04 Dose: 17 gm Documented by: Prochlorperazine Edisylate (Prochlorperazine 10 Mg/2 Ml Vial) 5 mg IV Q6H PRN PRN PRN Reason: NAUSEA/VOMITING Last Admin: 05/30/21 09:53 Dose: 5 mg Documented by: Senna/Docusate Sodium (Senna/Docusate Sodium 1 Tablet) 2 tablet PO BID [facility] Last Admin: 06/02/21 08:04 Dose: 2 tablet Documented by: Sodium Chloride (0.9% Saline Lock 10 Ml Syringe) 10 - 40 ml IV UD PRN PRN Reason: SALINE FLUSH Last Admin: 05/30/21 20:18 Dose: 10 ml Documented by: Charges/Coding Visit Charges Inpatient E&M: 99750 Subs Hosp L3
[2021-06-02] MEDS: CHLORHEXIDINE GLUC 2% CLOTH 1 EACH TOWELETTE TOPICAL ×2 (16:49→21:39)
[2021-06-02] MEDS: Vital AF 1.2 Cal Liquid 1,000 ML 60 ML GT (21:40)
[2021-06-03] VITALS (37 sets, daily range): BP systolic 106–132; BP diastolic 54–103; PULSE 57–97; RESP 15–118; TEMP 37.3–37.7; O2SAT 88–98
[2021-06-03] MEDS: Propofol 10MG/Ml 1,000 MG/100 ML Bottle 19.4 MG CONT INF ×5 (01:21→19:57)
[2021-06-03 04:08] LABS: Hemoglobin 11.6 g/dL (12.0-15.0); Mean Corp Hgb Conc 31.4 g/dL (32-36); Mean Corpuscular Hgb 27.8 pg (27.0-32.0); Mean Corpuscular Volume 88.5 fL (81-99); Mean Platelet Vol. 10.4 fl (6.2-12.0); POSITIVE COUNT YES; POSITIVE MORPHOLOGY YES; Platelet Count 290 K/mm3 (150-450); RBC Distribution Width CV 14.6 % (11.6-14.6); RBC Distribution Width SD 47.5 fl (35.1-43.9); Red Blood Count 4.18 M/mm3 (4.2-5.4); White Blood Count 10.1 K/mm3 (4.4-11.0)
[2021-06-03 04:09] LABS: Differential Indicated MANUAL DIFF
[2021-06-03 04:32] LABS: ALB/GLOB Ratio 0.6 RATIO (0.9-2.4); AST(SGOT) 42 U/L (15-37); Alanine Aminotransfer ALT/SGPT 44 U/L (13-56); Alkaline Phosphatase 97 U/L (45-117); Anion Gap 5 (5-15); BUN 37 mg/dL (7-18); BUN/Creat Ratio 35.6 RATIO (10-20); Calcium,Total 7.8 mg/dL (8.5-10.1); Chloride 112 mmol/L (98-107); Creatinine, Serum 1.04 mg/dL (0.55-1.02); EST Glomerular Filtration Rate 56 mL/min (>60); Est Glom Filt Rate - Afr Amer 68 mL/min (>60); Estimated Creatinine Clearance 40.38 ml/min; Globulin 3.6 g/dL (2.2-4.2); Glucose 155 mg/dL (74-106); Potassium 4.1 mmol/L (3.5-5.1); Protein, Total 5.6 g/dL (6.4-8.2); Sodium Level 145 mmol/L (136-145)
[2021-06-03 04:33] LABS: Absolute Lymphocyte Count 1.61 X10^3/uL (0.83-4.51); Absolute Neutrophil Count 6.8 X10^3/uL (2.0-7.7); Blast 2 % (0-0); Metamyelocyte 2 % (0-1); Myelocyte 4 % (0-0); Neutrophil-Band 10 % (0-5); Neutrophil-Segmented 58 % (47-70); Promyelocyte 1 % (0-0); Total Cells Counted 100 (MANUAL DIFF)
[2021-06-03 04:34] LABS: Atypical Lymphocyte 2+ %; Lymphocyte 16 % (19-41); Monocyte 7 % (0-10); Platelet Estimate ADEQUATE (ADEQ); Red Cell Morphology NORM C+C NORMAL (NORM C&C)
--- NOTE | 2021-06-03 06:21 | PN.CC_ITS ---
Assessment & Plan Assessment/Plan (1) Acute respiratory failure with hypoxia: (2) Pneumonia due to COVID-19 virus: PLAN: RECOMMENDATIONS: 1. Continue patient on assist control mode of mechanical ventilation and wean FiO2 for saturations greater than 90%. 2. Continue baricitinib and Decadron as ordered. 3. Continue Lovenox as ordered. 4. Continue antimicrobials to complete 7-day treatment course. 5. Continue appropriate GI prophylaxis. 6. Continue tube feeds as tolerated. 7. Wean Levophed to maintain a mean arterial pressure at or above 65 mmHg. 8. IV Lasix twice daily. IMPRESSIONS: 1. Acute hypoxemic respiratory failure secondary to COVID-19 pneumonia The patient was initially admitted to the hospital on May 28 after presenting with worsening dyspnea. Symptom onset was sometime around May 23. The patient is unvaccinated. The patient's hospital course was complicated by worsening respiratory status, ultimately requiring transfer to the ICU and subsequent intubation on May 30. The patient will be continued on decadron and baricitinib as ordered. She has completed her treatment course of remdes ivir. In addition, the patient sputum culture was positive for Haemophilus influenza. Therefore, the patient will be continued on antimicrobials to complete 7 days of therapy. CTA chest was negative for PE. Accordingly, it is reasonable to continue Lovenox as ordered. Continue tube feeds as tolerated. 2. Distributive shock Likely secondary to underlying sepsis coupled with the hemodynamic effects of sedative medication use. Plan to continue vasopressor support to maintain a mean arterial pressure at or above 65 mmHg. 3. Acute kidney injury Resolved. Likely secondary to ATN in the setting of #1. Continue to monitor urine output for now. No current indication for renal replacement therapy. 4. Questionable history of COPD/hypertension/depression/anxiety Complicates care, management, recovery and prognosis. Nutrition consultation will be obtained for tube feed recommendations. Hold antihypertensives for now. TIME: 31 minutes of critical care time, independent of procedures, was spent addressing the patient's acute hypoxemic respiratory failure secondary to COVID- 19 pneumonia, distributive shock, acute kidney injury, review of all data and collaboration with the care team. Subjective Subjective The patient was seen and examined at the bedside this morning. Events from the last 24 hours have been reviewed. Today is vent day #5. The patient remains on assist control mode of mechanical ventilation with an FiO2 requirement of 55% and PEEP of 14. She is currently sedated on propofol and fentanyl. She has been tolerant of tube feeds. The patient remains hemodynamically stable on Levophed at 2 mcg/min. The patient is currently documented to be overall net +7.5 L for the hospitalization. She remains on antimicrobials, along with Decadron, Lovenox, and baricitinib. She has completed remdesivir. Creatinine is stable at 1.04. Objective Data Objective Data The patient's most recent lab work, culture data and imaging studies have all been personally reviewed. Rapid coronavirus antigen testing was positive on May 28. Strep and urine Legionella antigens were negative. Sputum culture was positive for Haemophilus influenza. Vital Signs: Vital Signs Temp Pulse Resp BP Pulse Ox 99.8 F H 57 L 18 111/63 94 06/03/21 04:00 06/03/21 05:00 06/03/21 05:00 06/03/21 05:00 06/03/21 05:00 Oxygen Flow Rate (L/min) 60 Oxygen Delivery Method Mechanical Ventilator Weight: 93.1 kg Body Mass Index (BMI) 34.0 Intake & Output: Intake and Output for Last 24 Hours 06/01/21 06/02/21 06/03/21 23:59 23:59 23:59 Intake Total 2436.22 / 2626.02 3018.69 / 3258.69 527.65 / 527.65 Output Total 1450 / 1600 1974 / 2074 100 / 100 Balance 986.22 / 1026.02 1043.69 / 1183.69 427.65 / 427.65 Lab / Micro Data Attestation: I reviewed the patient's lab results. Result Diagrams: 06/03/21 03:55 06/03/21 03:55 Labs: Laboratory Results - last 24 hr 06/02/21 04:15: Diff Path Review Reviewed 06/03/21 03:55: WBC 10.1, RBC 4.18 L, Hgb 11.6 L, Hct 37.0, MCV 88.5, MCH 27.8, MCHC 31.4 L, RDW Std Deviation 47.5 H, RDW Coeff of Chari 14.6, Plt Count 290, MPV 10.4, Neut % (Auto) Not Reportable, Absolute Neuts (auto) 6.8, Absolute Lymphs (auto) 1.61, Total Counted 100, Neutrophils % (Manual) 58, Band Neutrophils % 10 H, Lymphocytes % (Manual) 16 L, Monocytes % (Manual) 7, Metamyelocytes % 2 H, Myelocytes % 4 H, Promyelocytes % 1 H, Blast Cells % 2 H*, Diff Path Review May foll, Atypical Lymphocytes 2+, Platelet Estimate ADEQUATE, RBC Morphology NORM C+C 06/03/21 03:55: Sodium 145, Potassium 4.1, Chloride 112 H, Carbon Dioxide 28.0, Anion Gap 5, BUN 37 H, Creatinine 1.04 H, Estim Creat Clear Calc 40.38, Est GFR (MDRD) Af Amer 68, Est GFR (MDRD) Non-Af 56 L, BUN/Creatinine Ratio 35.6 H, Glucose 155 H, Calcium 7.8 L, Total Bilirubin 0.30, AST 42 H, ALT 44, Alkaline Phosphatase 97, Total Protein 5.6 L, Albumin 2.0 L, Globulin 3.6, Albumin/Globulin Ratio 0.6 L Micro: Microbiology 05/30/21 12:38 Sputum, Induced/Lukens Gram Stain - Final 05/30/21 12:38 Sputum, Induced/Lukens Respiratory Culture - Final Haemophilus influenzae 05/28/21 15:39 Blood Culture (Wb) - Anticubital Right Blood Culture - Prelim inary No growth in 48 hours. 05/28/21 15:29 Blood Culture (Wb) - Anticubital Left Blood Culture - Preliminary No growth in 48 hours. 05/28/21 15:46 Nasal Secretion SARS-CoV-2 Antigen (Rapid) - Final SARS-CoV-2 (COVID 19) 05/29/21 02:00 Urine, Clean Catch Streptococcus pneumoniae Antigen (M - Final 05/29/21 02:00 Urine, Clean Catch Legionella Antigen - Final 05/28/21 20:00 Mucosa - Nasopharyngeal Respiratory Panel (PCR) - Final Rhythm Strip Rhythm Strip: Sinus Rhythm Rate: 85 Ectopy: None Physical Exam Const no apparent distress General Appearance: intubated Nutritional Appearance: obese HEENT normocephalic and head/scalp atraumatic Mouth: endotracheal tube in place and OG tube in place Eyes PERRL, EOMs intact bilaterally and conjunctivae normal Neck supple General: trachea midline Chest inspection of chest normal Resp Auscultation: diminished lung sounds; Negative for rales, rhonchi or wheezes Cardio regular rate and regular rhythm GI normal to inspection, nondistended, normoactive bowel sounds Extremity no clubbing, cyanosis or edema Skin no rashes or lesions noted Neuro Sensorium / Orientation: sedated on vent Charges/Coding Procedures Hospitalists Procedures: 31266 Critial Care 1st Hr
[2021-06-03] MEDS: Chlorhexidine 15 ML PO ×2 (09:40→20:39)
[2021-06-03] MEDS: dexAMETHasone 2 MG TABLET 6 MG GT (09:40)
[2021-06-03] MEDS: Enoxaparin 40 MG/0.4 ML Syringe SC ×2 (09:41→20:43)
[2021-06-03] MEDS: Furosemide 40 MG/4 ML Vial IV ×2 (09:41→20:43)
[2021-06-03] MEDS: Polyethylene Glycol 3350 17 GM PACKET GT (09:43)
[2021-06-03] MEDS: Escitalopram Oxalate 20 MG Tablet GT (09:43)
[2021-06-03] MEDS: Senna/Docusate Sodium 1 Tablet 2 TABLET GT ×2 (09:43→20:43)
[2021-06-03] MEDS: 0.9% Saline Lock 10 ML Syringe IV ×2 (09:44→20:44)
[2021-06-03] MEDS: Vital AF 1.2 Cal Liquid 1,000 ML 60 ML GT (14:11)
--- NOTE | 2021-06-03 15:02 | PCM.PN.HOSP ---
Subjective Subjective Patient on FiO2 55%, PEEP 14 on assist mode ventilator. On Levophed at 2 mics per minute. She completed remdesivir. On Decadron empirically sedated. Objective Data Objective Data Vital Signs: Vital Signs Temp Pulse Resp BP Pulse Ox 99.4 F H 60 18 109/59 L 94 06/03/21 12:00 06/03/21 13:49 06/03/21 13:49 06/03/21 13:00 06/03/21 13:49 Oxygen Flow Rate (L/min) 60 Oxygen Delivery Method Mechanical Ventilator Weight: 205 lb 4.006 oz Body Mass Index (BMI) 34.0 Intake & Output: Intake and Output for Last 24 Hours 06/01/21 06/02/21 06/03/21 23:59 23:59 23:59 Intake Total 2436.22 / 2626.02 3018.69 / 3258.69 2180.20 / 2180.20 Output Total 1450 / 1600 1975 / 2075 1750 / 1750 Balance 986.22 / 1026.02 1043.69 / 1183.69 430.20 / 430.20 Lab / Micro Data Result Diagrams: 06/03/21 03:55 06/03/21 03:55 Labs: Laboratory Results - last 24 hr 06/03/21 03:55: WBC 10.1, RBC 4.18 L, Hgb 11.6 L, Hct 37.0, MCV 88.5, MCH 27.8, MCHC 31.4 L, RDW Std Deviation 47.5 H, RDW Coeff of Chari 14.6, Plt Count 290, MPV 10.4, Neut % (Auto) Not Reportable, Absolute Neuts (auto) 6.8, Absolute Lymphs (auto) 1.61, Total Counted 100, Neutrophils % (Manual) 58, Band Neutrophils % 10 H, Lymphocytes % (Manual) 16 L, Monocytes % (Manual) 7, Metamyelocytes % 2 H, Myelocytes % 4 H, Promyelocytes % 1 H, Blast Cells % 2 H*, Diff Path Review May foll, Atypical Lymphocytes 2+, Platelet Estimate ADEQUATE, RBC Morphology NORM C+C 06/03/21 03:55: Sodium 145, Potassium 4.1, Chloride 112 H, Carbon Dioxide 28.0, Anion Gap 5, BUN 37 H, Creatinine 1.04 H, Estim Creat Clear Calc 40.38, Est GFR (MDRD) Af Amer 68, Est GFR (MDRD) Non-Af 56 L, BUN/Creatinine Ratio 35.6 H, Glucose 155 H, Calcium 7.8 L, Total Bilirubin 0.30, AST 42 H, ALT 44, Alkaline Phosphatase 97, Total Protein 5.6 L, Albumin 2.0 L, Globulin 3.6, Albumin/Globulin Ratio 0.6 L Micro: Microbiology 05/28/21 15:29 Blood Culture (Wb) - Anticubital Left Blood Culture - Final No growth in 5 days. 05/28/21 15:39 Blood Culture (Wb) - Anticubital Right Blood Culture - Final No growth in 5 days. 05/30/21 12:38 Sputum, Induced/Lukens Gram Stain - Final 05/30/21 12:38 Sputum, Induced/Lukens Respiratory Culture - Final Haemophilus influenzae 05/28/21 15:46 Nasal Secretion SARS-CoV-2 Antigen (Rapid) - Final SARS-CoV-2 (COVID 19) 05/29/21 02:00 Urine, Clean Catch Streptococcus pneumoniae Antigen (M - Final 05/29/21 02:00 Urine, Clean Catch Legionella Antigen - Final 05/28/21 20:00 Mucosa - Nasopharyngeal Respiratory Panel (PCR) - Final Rhythm Strip Rhythm Strip: Sinus Rhythm Rate: 85 Ectopy: None Physical Exam Narrative General: Sedated, on ventilator. HEENT: Atraumatic, Normocephalic Oral: ET and OG tube. On tube feed Neck: Supple, No JVD, Negative Carotid Bruits Lungs: Air entry diminished in bilateral lung bases. On ventilator. Cardiovascular: Sinus rhythm, Normal S1, Normal S2, No murmurs Abdomen: Bowel Sounds sluggish, Soft, Non Tender, Non-Distended : Wyatt catheter, urine clear no renal angle tenderness. No suprapubic tenderness. Extremities: No edema, Capillary Refill Less than 3 Seconds Skin: No rashes, No breakdown Musculoskeletal: No Tenderness to Palpation of Joints or Extremities Neurological: Sedated Psych/Mental Status: Sedated Assessment & Plan Assessment/Plan (1) Pneumonia due to COVID-19 virus: (2) Acute respiratory failure with hypoxia: PLAN: Patient is a 71-year-old lady vaccinated against COVID-19 who presented with progressive shortness of breath. Patient symptoms started on 05/23/2021 1. Acute hypoxic respiratory failure due to bilateral COVID-19 pneumonia: Patient is on baricitinib, Decadron and remdesivir. Patient was admitted to regular nursing floor managed on supplemental oxygen initially however respiratory status continued to worsen was placed on BiPAP did not tolerated subsequently placed on nonrebreather and Airvo with then subsequently transferred to ICU. Seen by set builder. 06/02: Patient on 65% FiO2, PEEP 14, AC mode. On Levophed 3 mics per minute 06/03: On assist mode ventilator, FiO2 55%, PEEP 14.She completed remdesivir. On Lasix 40 mg IV twice daily, Decadron and baricitinib. 2. Acute COVID-19 pneumonia complicated with bacterial superinfection/pneumonia, probably due to Haemophilus species and distributive shock. Symptoms started on 05/23/2021. On vasopressor support. Sputum culture shows gram-negative organisms 3+ suspicion of Haemophilus species 06/02: On Levophed 3 mics per minute. Continue antimicrobial. 06/03 on Levophed at minimal rate, 2 mcg per minute 3. COPD ?Complicating patient care aerosol treatment in addition to systemic steroid 4. Hypertension - Blood pressure controlled, home medications continued with dose adjustment as needed 5. Depression with anxiety ?Patient is on bupropion as well as escitalopram did continue 6. CELI: Resolved. Probably secondary to ATN. Patient has Wyatt catheter. Total urine output 515 mL.. DVT prophylaxis ?Lovenox 40 mg subcu twice daily Active Medications Acetaminophen (Acetaminophen 650 Mg/20 Ml Udc) 650 mg PO Q6H PRN PRN PRN Reason: Pain Score 1-10/Temp > 100.7 F Baricitinib (Baricitinib 2 Mg Tablet) 4 mg GT DAILY [facility] Stop: 06/12/21 10:01 Last Admin: 06/03/21 09:41 Dose: 4 mg Documented by: Chlorhexidine Gluconate (Chlorhexidine 15 Ml) 15 ml PO BID [facility] Last Admin: 06/03/21 09:40 Dose: 15 ml Documented by: Chlorhexidine Gluconate (Chlorhexidine Gluc 2% Cloth 1 Each Towelette) 1 each TOPICAL DAILY [facility] Last Admin: 06/02/21 21:39 Dose: 1 each Documented by: Dexamethasone (Dexamethasone 2 Mg Tablet) 6 mg GT DAILY [facility] Last Admin: 06/03/21 09:40 Dose: 6 mg Documented by: Enoxaparin Sodium (Enoxaparin 40 Mg/0.4 Ml Syringe) 40 mg SC BID [facility] Last Admin: 06/03/21 09:41 Dose: 40 mg Documented by: Escitalopram Oxalate (Escitalopram Oxalate 20 Mg Tablet) 20 mg GT DAILY [facility] Last Admin: 06/03/21 09:43 Dose: 20 mg Documented by: Furosemide (Furosemide 40 Mg/4 Ml Vial) 40 mg IV BID [facility] Last Admin: 06/03/21 09:41 Dose: 40 mg Documented by: Sodium Chloride () 250 mls @ 15 mls/hr IV .[id number] PRN PRN Reason: Saline Flush Last Admin: 06/03/21 14:42 Dose: 15 mls/hr Documented by: Sodium Chloride () 250 mls @ 15 mls/hr IV .[id number] PRN PRN Reason: Additional IVPB Infusion Last Infusion: 06/01/21 07:07 Dose: Infused Documented by: Pantoprazole Sodium 40 mg/ (Sodium Chloride) 110 mls @ 330 mls/hr IV Q12 [facility] Last Infusion: 06/03/21 10:22 Dose: Infused Documented by: Propofol (Diprivan) 1,000 mg in 100 mls @ 5.544 mls/hr CONT INF .Q12H [facility]; Protocol Last Admin: 06/03/21 15:00 Dose: 35 mcg/kg/min, 19.4 mls/hr Documented by: Fentanyl Citrate 1,000 mcg/ (Sodium Chloride) 100 mls @ 20 mls/hr CONT INF .Q5H [facility]; Protocol Last Titration: 06/03/21 15:00 Dose: 150 mcg/hr, 15 mls/hr Documented by: Cefepime HCl 1 gm/ Sodium (Chloride) 50 mls @ 100 mls/hr IV Q8 [facility] Last Infusion: 06/03/21 14:42 Dose: Infused Documented by: Norepinephrine Bitartrate 8 mg (/ Sodium Chloride) 250 mls @ 9.375 mls/hr CONT INF .[id number] [facility]; Protocol Last Titration: 06/03/21 15:00 Dose: 2 mcg/min, 3.8 mls/hr Documented by: Enteral Nutritional Formula (Vital Af 1.2 Garrett Liquid) 1,000 mls @ 60 mls/hr GT .[id number] [facility] Last Admin: 06/03/21 14:11 Dose: 60 mls/hr Documented by: Ondansetron HCl (Ondansetron 4 Mg/2 Ml Vial) 4 mg IV Q6H PRN PRN PRN Reason: NAUSEA Last Admin: 05/30/21 12:23 Dose: 4 mg Documented by: Polyethylene Glycol (Polyethylene Glycol 3350 17 Gm Packet) 17 gm GT DAILY [facility] Last Admin: 06/03/21 09:43 Dose: 17 gm Documented by: Prochlorperazine Edisylate (Prochlorperazine 10 Mg/2 Ml Vial) 5 mg IV Q6H PRN PRN PRN Reason: NAUSEA/VOMITING Last Admin: 05/30/21 09:53 Dose: 5 mg Documented by: Senna/Docusate Sodium (Senna/Docusate Sodium 1 Tablet) 2 tablet GT BID [facility] Last Admin: 06/03/21 09:43 Dose: 2 tablet Documented by: Sodium Chloride (0.9% Saline Lock 10 Ml Syringe) 10 - 40 ml IV UD PRN PRN Reason: SALINE FLUSH Last Admin: 06/03/21 09:44 Dose: 20 ml Documented by: Charges/Coding Visit Charges Inpatient E&M: 35154 Subs Hosp L3
[2021-06-03] MEDS: CHLORHEXIDINE GLUC 2% CLOTH 1 EACH TOWELETTE TOPICAL (20:39)
[2021-06-04] VITALS (38 sets, daily range): BP systolic 86–143; BP diastolic 53–81; PULSE 55–106; RESP 16–24; TEMP 37.3–37.6; O2SAT 90–98
[2021-06-04] MEDS: Propofol 10MG/Ml 1,000 MG/100 ML Bottle 22.2 MG CONT INF ×2 (00:21→06:30)
[2021-06-04 04:24] LABS: Hematocrit 36.4 % (37-47); Hemoglobin 11.4 g/dL (12.0-15.0); Mean Corp Hgb Conc 31.3 g/dL (32-36); Mean Corpuscular Hgb 27.9 pg (27.0-32.0); Mean Corpuscular Volume 89.2 fL (81-99); Mean Platelet Vol. 10.4 fl (6.2-12.0); POSITIVE COUNT YES; POSITIVE MORPHOLOGY YES; Platelet Count 279 K/mm3 (150-450); RBC Distribution Width CV 14.5 % (11.6-14.6); RBC Distribution Width SD 47.3 fl (35.1-43.9); Red Blood Count 4.08 M/mm3 (4.2-5.4); White Blood Count 11.4 K/mm3 (4.4-11.0)
[2021-06-04 04:42] LABS: ALB/GLOB Ratio 0.6 RATIO (0.9-2.4); AST(SGOT) 37 U/L (15-37); Alanine Aminotransfer ALT/SGPT 41 U/L (13-56); Albumin, Serum 2.1 g/dL (3.2-5.0); Alkaline Phosphatase 90 U/L (45-117); Anion Gap 4 (5-15); BUN 42 mg/dL (7-18); Calcium,Total 8.1 mg/dL (8.5-10.1); Chloride 109 mmol/L (98-107); Creatinine, Serum 1.05 mg/dL (0.55-1.02); EST Glomerular Filtration Rate 55 mL/min (>60); Est Glom Filt Rate - Afr Amer 67 mL/min (>60); Estimated Creatinine Clearance 39.99 ml/min; Globulin 3.5 g/dL (2.2-4.2); Glucose 137 mg/dL (74-106); Potassium 3.5 mmol/L (3.5-5.1); Protein, Total 5.6 g/dL (6.4-8.2); Sodium Level 147 mmol/L (136-145)
[2021-06-04 05:07] LABS: Differential Indicated MANUAL DIFF
[2021-06-04] MEDS: TITRATION PARAMETER CHANGE 1 EACH IV (05:35)
--- NOTE | 2021-06-04 06:12 | PN.CC_ITS ---
Assessment & Plan Assessment/Plan (1) Acute respiratory failure with hypoxia: (2) Pneumonia due to COVID-19 virus: PLAN: RECOMMENDATIONS: 1. Continue patient on assist control mode of mechanical ventilation and wean FiO2 for saturations greater than 90%. 2. Continue baricitinib and Decadron as ordered. 3. Continue Lovenox as ordered. 4. Continue antimicrobials to complete 7-day treatment course. 5. Continue appropriate GI prophylaxis. 6. Continue tube feeds as tolerated. 7. De-escalate to IV Lasix once daily. IMPRESSIONS: 1. Acute hypoxemic respiratory failure secondary to COVID-19 pneumonia The patient was initially admitted to the hospital on May 28 after presenting with worsening dyspnea. Symptom onset was sometime around May 23. The patient is unvaccinated. The patient's hospital course was complicated by worsening respiratory status, ultimately requiring transfer to the ICU and subsequent intubation on May 30. The patient will be continued on decadron and baricitinib as ordered. She has completed her treatment course of remdesivir. In addition, the patient sputum culture was positive for Haemophilus influenza. Therefore, the patient will be continued on antimicrobials to complete 7 days of therapy. CTA chest was negative for PE. Accordingly, it is reasonable to continue Lovenox as ordered. Continue tube feeds as tolerated. 2. Distributive shock Resolved. Likely secondary to underlying sepsis coupled with the hemodynamic effects of sedative medication use. Vasopressor support is currently on hold. The patient remains hemodynamically stable. 3. Acute kidney injury Resolved. Likely secondary to ATN in the setting of #1. Continue to monitor urine output for now. No current indication for renal replacement therapy. 4. Questionable history of COPD/hypertension/depression/anxiety Complicates care, management, recovery and prognosis. Continue tube feeds as tolerated. TIME: 32 minutes of critical care time, independent of procedures, was spent addressing the patient's acute hypoxemic respiratory failure secondary to COVID- 19 pneumonia, distributive shock, acute kidney injury, review of all data and collaboration with the care team. Subjective Subjective The patient was seen and examined at the bedside this morning. Events from the last 24 hours have been reviewed. Today is vent day #6. The patient remains on assist control mode of mechanical ventilation with an FiO2 requirement of 60% and PEEP of 14. She is currently sedated on propofol and fentanyl. She has been tolerant of tube feeds. The patient was able to be weaned off of Levophed and is currently hemodynamically stable. She is currently documented to be overall net +7.5 L for the hospitalization. She remains on antimicrobials, along with Decadron, Lovenox, and baricitinib. She has completed remdesivir. Sodium has increased to 147. Bicarbonate is elevated to 34. Creatinine is stable. Objective Data Objective Data The patient's most recent lab work, culture data and imaging studies have all been personally reviewed. Rapid coronavirus antigen testing was positive on May 28. Strep and urine Legionella antigens were negative. Sputum culture was positive for Haemophilus influenza. Vital Signs: Vital Signs Temp Pulse Resp BP Pulse Ox 99.5 F H 56 L 18 100/53 L 93 06/04/21 04:00 06/04/21 05:00 06/04/21 05:00 06/04/21 05:00 06/04/21 05:00 Oxygen Flow Rate (L/min) 60 Oxygen Delivery Method Mechanical Ventilator Weight: 93.5 kg Body Mass Index (BMI) 34.0 Intake & Output: Intake and Output for Last 24 Hours 06/02/21 06/03/21 06/04/21 23:59 23:59 23:59 Intake Total 3018.69 / 3258.69 3455.00 / 3694.10 508.13 / 508.13 Output Total 1974 / 2074 2350 / 3550 1200 / 1200 Balance 1043.69 / 1183.69 1105.00 / 144.10 -691.87 / -691.87 Lab / Micro Data Attestation: I reviewed the patient's lab results. Result Diagrams: 06/04/21 03:50 06/04/21 03:50 Labs: Laboratory Results - last 24 hr 06/04/21 03:50: WBC 11.4 H, RBC 4.08 L, Hgb 11.4 L, Hct 36.4 L, MCV 89.2, MCH 27.9, MCHC 31.3 L, RDW Std Deviation 47.3 H, RDW Coeff of Chari 14.5, Plt Count 279, MPV 10.4, Neut % (Auto) Not Reportable 06/04/21 03:50: Sodium 147 H, Potassium 3.5, Chloride 109 H, Carbon Dioxide 34.0 H, Anion Gap 4 L, BUN 42 H, Creatinine 1.05 H, Estim Creat Clear Calc 39.99, Est GFR (MDRD) Af Amer 67, Est GFR (MDRD) Non-Af 55 L, BUN/Creatinine Ratio 40.0 H, Glucose 137 H, Calcium 8.1 L, Total Bilirubin 0.30, AST 37, ALT 41, Alkaline Phosphatase 90, Total Protein 5.6 L, Albumin 2.1 L, Globulin 3.5, Albumin/Glob ulin Ratio 0.6 L Micro: Microbiology 05/28/21 15:29 Blood Culture (Wb) - Anticubital Left Blood Culture - Final No growth in 5 days. 05/28/21 15:39 Blood Culture (Wb) - Anticubital Right Blood Culture - Final No growth in 5 days. 05/30/21 12:38 Sputum, Induced/Lukens Gram Stain - Final 05/30/21 12:38 Sputum, Induced/Lukens Respiratory Culture - Final Haemophilus influenzae 05/28/21 15:46 Nasal Secretion SARS-CoV-2 Antigen (Rapid) - Final SARS-CoV-2 (COVID 19) 05/29/21 02:00 Urine, Clean Catch Streptococcus pneumoniae Antigen (M - Final 05/29/21 02:00 Urine, Clean Catch Legionella Antigen - Final 05/28/21 20:00 Mucosa - Nasopharyngeal Respiratory Panel (PCR) - Final Rhythm Strip Rhythm Strip: Sinus Rhythm Rate: 85 Ectopy: None Physical Exam Const no apparent distress General Appearance: intubated Nutritional Appearance: obese HEENT normocephalic and head/scalp atraumatic Mouth: endotracheal tube in place and OG tube in place Eyes PERRL, EOMs intact bilaterally and conjunctivae normal Neck supple General: trachea midline Chest inspection of chest normal Resp Auscultation: diminished lung sounds; Negative for rales, rhonchi or wheezes Cardio S1 normal heart sound and S2 normal heart sound Rate: bradycardia GI normal to inspection, nondistended, normoactive bowel sounds Extremity no clubbing, cyanosis or edema Skin no rashes or lesions noted Neuro Sensorium / Orientation: sedated on vent Charges/Coding Procedures Hospitalists Procedures: 06180 Critial Care 1st Hr
[2021-06-04 07:02] LABS: Lymphocyte 16 % (19-41); Metamyelocyte 5 % (0-1); Monocyte 2 % (0-10); Neutrophil-Band 9 % (0-5); Neutrophil-Segmented 68 % (47-70); Platelet Estimate ADEQUATE (ADEQ); Red Cell Morphology NORM C+C NORMAL (NORM C&C); Total Cells Counted 100 (MANUAL DIFF)
[2021-06-04 07:03] LABS: Absolute Lymphocyte Count 1.82 X10^3/uL (0.83-4.51); Absolute Neutrophil Count 8.8 X10^3/uL (2.0-7.7); Lymphocyte # 1.82 X10^3/ul (0.83-4.51); Neutrophil # 8.76 X10^3/uL (2.7-7.7)
--- NOTE | 2021-06-04 07:48 | PN.HOSP_ITS ---
Subjective Subjective Patient on 60% FiO2, PEEP 14. She is vent day #6. Patient is weaned off Levophed. Objective Data Objective Data Vital Signs: Vital Signs Temp Pulse Resp BP Pulse Ox 99.5 F H 56 L 18 101/56 L 94 06/04/21 04:00 06/04/21 07:31 06/04/21 07:00 06/04/21 07:00 06/04/21 07:00 Oxygen Flow Rate (L/min) 60 Oxygen Delivery Method Mechanical Ventilator Weight: 206 lb 2.115 oz Body Mass Index (BMI) 34.0 Intake & Output: Intake and Output for Last 24 Hours 06/02/21 06/03/21 06/04/21 23:59 23:59 23:59 Intake Total 3018.69 / 3258.69 3455.00 / 3694.10 868.20 / 868.20 Output Total 1974 2350 / 3550 1350 / 1350 Balance 1043.69 / 1183.69 1105.00 / 144.10 -481.80 / -481.80 Lab / Micro Data Result Diagrams: 06/04/21 03:50 06/04/21 03:50 Labs: Laboratory Results - last 24 hr 06/04/21 03:50: WBC 11.4 H, RBC 4.08 L, Hgb 11.4 L, Hct 36.4 L, MCV 89.2, MCH 27.9, MCHC 31.3 L, RDW Std Deviation 47.3 H, RDW Coeff of Chari 14.5, Plt Count 279, MPV 10.4, Neut % (Auto) Not Reportable, Absolute Neuts (auto) 8.8 H, Absolute Lymphs (auto) 1.82, Total Counted 100, Neutrophils % (Manual) 68, Band Neutrophils % 9 H, Lymphocytes % (Manual) 16 L, Monocytes % (Manual) 2, Metamyelocytes % 5 H, Diff Path Review October, Platelet Estimate ADEQUATE, RBC Morphology NORM C+C 06/04/21 03:50: Sodium 147 H, Potassium 3.5, Chloride 109 H, Carbon Dioxide 34.0 H, Anion Gap 4 L, BUN 42 H, Creatinine 1.05 H, Estim Creat Clear Calc 39.99, Est GFR (MDRD) Af Amer 67, Est GFR (MDRD) Non-Af 55 L, BUN/Creatinine Ratio 40.0 H, Glucose 137 H, Calcium 8.1 L, Total Bilirubin 0.30, AST 37, ALT 41, Alkaline Phosphatase 90, Total Protein 5.6 L, Albumin 2.1 L, Globulin 3.5, Albumin/Globulin Ratio 0.6 L Micro: Microbiology 05/28/21 15:29 Blood Culture (Wb) - Anticubital Left Blood Culture - Final No growth in 5 days. 05/28/21 15:39 Blood Culture (Wb) - Anticubital Right Blood Culture - Final No growth in 5 days. 05/30/21 12:38 Sputum, Induced/Lukens Gram Stain - Final 05/30/21 12:38 Sputum, Induced/Lukens Respiratory Culture - Final Haemophilus influenzae 05/28/21 15:46 Nasal Secretion SARS-CoV-2 Antigen (Rapid) - Final SARS-CoV-2 (COVID 19) 05/29/21 02:00 Urine, Clean Catch Streptococcus pneumoniae Antigen (M - Final 05/29/21 02:00 Urine, Clean Catch Legionella Antigen - Final 05/28/21 20:00 Mucosa - Nasopharyngeal Respiratory Panel (PCR) - Final Rhythm Strip Rhythm Strip: Sinus Rhythm Rate: 85 Ectopy: None Physical Exam Narrative General: Sedated, on ventilator. On propofol and fentanyl HEENT: Atraumatic, Normocephalic Oral: ET and OG tube. On tube feed Neck: Supple, No JVD, Negative Carotid Bruits Lungs: Air entry diminished in bilateral lung bases. On ventilator. Cardiovascular: Sinus rhythm, Normal S1, Normal S2, No murmurs Abdomen: Bowel Sounds sluggish, Soft, Non Tender, Non-Distended : Wyatt catheter, urine clear no renal angle tenderness. No suprapubic tenderness. Extremities: No edema, Capillary Refill Less than 3 Seconds Skin: No rashes, No breakdown Musculoskeletal: No Tenderness to Palpation of Joints or Extremities Neurological: Sedated Psych/Mental Status: Sedated Assessment & Plan Assessment/Plan (1) Pneumonia due to COVID-19 virus: (2) Acute respiratory failure with hypoxia: PLAN: Patient is a 71-year-old lady vaccinated against COVID-19 who presented with progressive shortness of breath. Patient symptoms started on 05/23/2021 1. Acute hypoxic respiratory failure due to bilateral COVID-19 pneumonia: Patient is on baricitinib, Decadron and remdesivir. Patient was admitted to regular nursing floor managed on supplemental oxygen initially however respiratory status continued to worsen was placed on BiPAP did not tolerated subsequently placed on nonrebreather and Airvo with then subsequently transferred to ICU. Seen by parking meter servicer. 06/02: Patient on 65% FiO2, PEEP 14, AC mode. On Levophed 3 mics per minute 06/03: On assist mode ventilator, FiO2 55%, PEEP 14.She completed remdesivir. On Lasix 40 mg IV twice daily, Decadron and baricitinib. 06/04: FiO2 60% PEEP 14. 2. Acute COVID-19 pneumonia complicated with bacterial superinfection/pneumonia , probably due to Haemophilus species and distributive shock. Symptoms started on 05/23/2021. On vasopressor support. Sputum culture shows gram-negative organisms 3+ suspicion of Haemophilus species 06/02: On Levophed 3 mics per minute. Continue antimicrobial. 06/03 on Levophed at minimal rate, 2 mcg per minute 06/04: Weaned off Levophed. Blood culture negative for more than 5 days. 3. COPD ?Complicating patient care aerosol treatment in addition to systemic steroid 4. Hypertension - Blood pressure controlled, home medications continued with dose adjustment as needed 5. Depression with anxiety ?Patient is on bupropion as well as escitalopram did continue 6. CELI: Resolved. Probably secondary to ATN. Patient has Wyatt catheter. Total urine output 515 mL.. DVT prophylaxis ?Lovenox 40 mg subcu twice daily Charges/Coding Visit Charges Inpatient E&M: 09960 Subs Hosp L3
[2021-06-04] MEDS: Vital AF 1.2 Cal Liquid 1,000 ML 60 ML GT (08:00)
[2021-06-04] MEDS: Chlorhexidine 15 ML PO ×2 (10:19→22:12)
[2021-06-04] MEDS: Escitalopram Oxalate 20 MG Tablet GT (10:20)
[2021-06-04] MEDS: dexAMETHasone 2 MG TABLET 6 MG GT (10:20)
[2021-06-04] MEDS: Furosemide 40 MG/4 ML Vial IV (10:21)
[2021-06-04] MEDS: Enoxaparin 40 MG/0.4 ML Syringe SC ×2 (10:21→22:11)
[2021-06-04] MEDS: Senna/Docusate Sodium 1 Tablet 2 TABLET GT ×2 (10:21→22:11)
[2021-06-04] MEDS: Propofol 10MG/Ml 1,000 MG/100 ML Bottle 22.4 MG CONT INF ×4 (11:00→22:12)
[2021-06-04] MEDS: Polyethylene Glycol 3350 17 GM PACKET GT (11:38)
[2021-06-04] MEDS: Menthol/Lanolin/Calamine/Znox 113 GM Tube 1 APPLIC TOPICAL ×2 (15:22→22:17)
[2021-06-05] VITALS (33 sets, daily range): BP systolic 102–145; BP diastolic 60–79; PULSE 53–100; RESP 15–28; TEMP 37.6–38.4; O2SAT 84–97
[2021-06-05] MEDS: Propofol 10MG/Ml 1,000 MG/100 ML Bottle 28.1 MG CONT INF ×3 (00:27→06:30)
[2021-06-05 04:26] LABS: Hematocrit 33.8 % (37-47); Hemoglobin 10.9 g/dL (12.0-15.0); Mean Corp Hgb Conc 32.2 g/dL (32-36); Mean Corpuscular Volume 89.9 fL (81-99); Mean Platelet Vol. 11.1 fl (6.2-12.0); POSITIVE COUNT YES; POSITIVE MORPHOLOGY YES; Platelet Count 266 K/mm3 (150-450); RBC Distribution Width CV 14.6 % (11.6-14.6); RBC Distribution Width SD 47.6 fl (35.1-43.9); Red Blood Count 3.76 M/mm3 (4.2-5.4); White Blood Count 12.5 K/mm3 (4.4-11.0)
[2021-06-05 04:28] LABS: Differential Indicated MANUAL DIFF
[2021-06-05 05:28] LABS: ALB/GLOB Ratio 0.5 RATIO (0.9-2.4); AST(SGOT) 50 U/L (15-37); Alanine Aminotransfer ALT/SGPT 43 U/L (13-56); Albumin, Serum 1.9 g/dL (3.2-5.0); Alkaline Phosphatase 81 U/L (45-117); Anion Gap 8 (5-15); BUN 42 mg/dL (7-18); BUN/Creat Ratio 50.5 RATIO (10-20); Calcium,Total 7.3 mg/dL (8.5-10.1); Chloride 106 mmol/L (98-107); Creatinine, Serum 0.83 mg/dL (0.55-1.02); EST Glomerular Filtration Rate 72 mL/min (>60); Est Glom Filt Rate - Afr Amer 87 mL/min (>60); Estimated Creatinine Clearance 50.59 ml/min; Globulin 3.5 g/dL (2.2-4.2); Glucose 101 mg/dL (74-106); Potassium 3.4 mmol/L (3.5-5.1); Protein, Total 5.4 g/dL (6.4-8.2); Sodium Level 143 mmol/L (136-145)
--- NOTE | 2021-06-05 06:09 | PCM.PN.INT ---
Assessment & Plan Assessment/Plan (1) Acute respiratory failure with hypoxia: (2) Pneumonia due to COVID-19 virus: PLAN: RECOMMENDATIONS: 1. Continue patient on assist control mode of mechanical ventilation and wean FiO2 for saturations greater than 90%. 2. Continue baricitinib and Decadron as ordered. 3. Continue Lovenox as ordered. 4. Continue antimicrobials to complete 7-day treatment course. 5. Continue appropriate GI prophylaxis. 6. Continue tube feeds as tolerated. 7. Continue diuretics as tolerated by hemodynamics and renal function. IMPRESSIONS: 1. Acute hypoxemic respiratory failure secondary to COVID-19 pneumonia The patient was initially admitted to the hospital on May 28 after presenting with worsening dyspnea. Symptom onset was sometime around May 23. The patient is unvaccinated. The patient's hospital course was complicated by worsening respiratory status, ultimately requiring transfer to the ICU and subsequent intubation on May 30. The patient will be continued on decadron and baricitinib as ordered. She has completed her treatment course of remdesivir. In addition, the patient sputum culture was positive for Haemophilus influenza. Therefore, the patient will be continued on antimicrobials to complete 7 days of therapy. CTA chest was negative for PE. Accordingly, it is reasonable to continue Lovenox as ordered. Continue tube feeds as tolerated. 2. Distributive shock Resolved. Likely secondary to underlying sepsis coupled with the hemodynamic effects of sedative medication use. Vasopressor support is currently on hold. The patient remains hemodynamically stable. 3. Acute kidney injury Resolved. Likely secondary to ATN in the setting of #1. Continue to monitor urine output for now. No current indication for renal replacement therapy. 4. Questionable history of COPD/hypertension/depression/anxiety Complicates care, management, recovery and prognosis. Continue tube feeds as tolerated. TIME: 33 minutes of critical care time, independent of procedures, was spent addressing the patient's acute hypoxemic respiratory failure secondary to COVID-19 pneumonia, distributive shock, acute kidney injury, review of all data and collaboration with the care team. Subjective Subjective The patient was seen and examined at the bedside this morning. Events from the last 24 hours have been reviewed. Today is vent day #7. She currently has a low-grade fever, but remains otherwise hemodynamically stable. The patient remains on assist control mode of mechanical ventilation with an FiO2 requirement of 55% and PEEP of 12. She is currently sedated on propofol and fentanyl. She has been tolerant of tube feeds. She is currently documented to be overall net +8.5 L for the hospitalization. She remains on antimicrobials, along with Decadron, Lovenox, baricitinib and scheduled Lasix. She has completed remdesivir. Potassium is low at 3.4. Creatinine remains within normal limits. Objective Data Objective Data The patient's most recent lab work, culture data and imaging studies have all been personally reviewed. Rapid coronavirus antigen testing was positive on May 28. Strep and urine Legionella antigens were negative. Sputum culture was positive for Haemophilus influenza. Vital Signs: Vital Signs Temp Pulse Resp BP Pulse Ox 100.0 F H 70 18 127/71 H 89 06/05/21 04:00 06/05/21 04:00 06/05/21 04:00 06/05/21 04:00 06/05/21 04:00 Oxygen Flow Rate (L/min) 60 Oxygen Delivery Method Mechanical Ventilator Weight: 93.5 kg Body Mass Index (BMI) 34.0 Intake & Output: Intake and Output for Last 24 Hours 06/03/21 06/04/21 06/05/21 23:59 23:59 23:59 Intake Total 3455.00 / 3694.10 2671.09 / 2709.67 509.26 / 509.26 Output Total 2350 / 3550 2500 / 2850 350 / 350 Balance 1105.00 / 144.10 171.09 / -140.33 159.26 / 159.26 Lab / Micro Data Attestation: I reviewed the patient's lab results. Result Diagrams: 06/05/21 04:00 06/05/21 04:00 Labs: Laboratory Results - last 24 hr 06/04/21 03:50: Absolute Neuts (auto) 8.8 H, Absolute Lymphs (auto) 1.82, Total Counted 100, Neutrophils % (Manual) 68, Band Neutrophils % 9 H, Lymphocytes % (Manual) 16 L, Monocytes % (Manual) 2, Metamyelocytes % 5 H, Diff Path Review October, Platelet Estimate ADEQUATE, RBC Morphology NORM C+C 06/05/21 04:00: WBC 12.5 H, RBC 3.76 L, Hgb 10.9 L, Hct 33.8 L, MCV 89.9, MCH 29.0, MCHC 32.2, RDW Std Deviation 47.6 H, RDW Coeff of Chari 14.6, Plt Count 266, MPV 11.1, Neut % (Auto) Not Reportable 06/05/21 04:00: Sodium 143, Potassium 3.4 L, Chloride 106, Carbon Dioxide 29.0, Anion Gap 8, BUN 42 H, Creatinine 0.83, Estim Creat Clear Calc 50.59, Est GFR (MDRD) Af Amer 87, Est GFR (MDRD) Non-Af 72, BUN/Creatinine Ratio 50.5 H, Glucose 101, Calcium 7.3 L, Total Bilirubin 0.40, AST 50 H, ALT 43, Alkaline Phosphatase 81, Total Protein 5.4 L, Albumin 1.9 L, Globulin 3.5, Albumin/Globulin Ratio 0.5 L Micro: Microbiology 05/28/21 15:29 Blood Culture (Wb) - Anticubital Left Blood Culture - Final No growth in 5 days. 05/28/21 15:39 Blood Culture (Wb) - Anticubital Right Blood Culture - Final No growth in 5 days. 05/30/21 12:38 Sputum, Induced/Lukens Gram Stain - Final 05/30/21 12:38 Sputum, Induced/Lukens Respiratory Culture - Final Haemophilus influenzae 05/28/21 15:46 Nasal Secretion SARS-CoV-2 Antigen (Rapid) - Final SARS-CoV-2 (COVID 19) 05/29/21 02:00 Urine, Clean Catch Streptococcus pneumoniae Antigen (M - Final 05/29/21 02:00 Urine, Clean Catch Legionella Antigen - Final 05/28/21 20:00 Mucosa - Nasopharyngeal Respiratory Panel (PCR) - Final Rhythm Strip Rhythm Strip: Sinus Rhythm Rate: 85 Ectopy: None Physical Exam Const no apparent distress General Appearance: intubated Nutritional Appearance: obese HEENT normocephalic and head/scalp atraumatic Mouth: endotracheal tube in place and OG tube in place Eyes PERRL, EOMs intact bilaterally and conjunctivae normal Neck supple General: trachea midline Chest inspection of chest normal Resp Auscultation: diminished lung sounds; Negative for rales, rhonchi or wheezes Cardio regular rate, regular rhythm, S1 normal heart sound and S2 normal heart sound GI normal to inspection, nondistended, normoactive bowel sounds Extremity no clubbing, cyanosis or edema Skin no rashes or lesions noted Neuro Sensorium / Orientation: sedated on vent Charges/Coding Procedures Hospitalists Procedures: [id number] Critial Care 1st Hr
[2021-06-05 07:15] LABS: Absolute Neutrophil Count 9.6 X10^3/uL (2.0-7.7); Metamyelocyte 1 % (0-1); Myelocyte 3 % (0-0); Neutrophil-Band 12 % (0-5); Neutrophil-Segmented 65 % (47-70); Promyelocyte 3 % (0-0); Total Cells Counted 100 (MANUAL DIFF)
[2021-06-05 07:16] LABS: Lymphocyte 12 % (19-41); Monocyte 4 % (0-10); Platelet Estimate ADEQUATE (ADEQ); Red Cell Morphology NORM C+C NORMAL (NORM C&C)
[2021-06-05] MEDS: Vital AF 1.2 Cal Liquid 1,000 ML 60 ML GT (07:40)
--- NOTE | 2021-06-05 07:43 | PCM.PN.HOSP ---
Subjective Subjective Patient has been intubated. Low-grade fever, T-max 100.9 Fahrenheit. On 55% FiO2 PEEP of 12. Remains sedated on propofol and fentanyl. Objective Data Objective Data Vital Signs: Vital Signs Temp Pulse Resp BP Pulse Ox 100.0 F H 70 18 127/71 H 89 06/05/21 04:00 06/05/21 04:00 06/05/21 04:00 06/05/21 04:00 06/05/21 04:00 Oxygen Flow Rate (L/min) 60 Oxygen Delivery Method Mechanical Ventilator Weight: 209 lb 10.554 oz Body Mass Index (BMI) 34.0 Intake & Output: Intake and Output for Last 24 Hours 06/03/21 06/04/21 06/05/21 23:59 23:59 23:59 Intake Total 3455.00 / 3694.10 2671.09 / 2709.67 551.41 / 551.41 Output Total 2350 / 3550 2500 / 2850 350 / 350 Balance 1105.00 / 144.10 171.09 / -140.33 201.41 / 201.41 Lab / Micro Data Result Diagrams: 06/05/21 04:00 06/05/21 04:00 Labs: Laboratory Results - last 24 hr 06/05/21 04:00: WBC 12.5 H, RBC 3.76 L, Hgb 10.9 L, Hct 33.8 L, MCV 89.9, MCH 29.0, MCHC 32.2, RDW Std Deviation 47.6 H, RDW Coeff of Chari 14.6, Plt Count 266, MPV 11.1, Neut % (Auto) Not Reportable, Absolute Neuts (auto) 9.6 H, Absolute Lymphs (auto) 1.50, Total Counted 100, Neutrophils % (Manual) 65, Band Neutrophils % 12 H, Lymphocytes % (Manual) 12 L, Monocytes % (Manual) 4, Metamyelocytes % 1, Myelocytes % 3 H, Promyelocytes % 3 H, Diff Path Review October, Platelet Estimate ADEQUATE, RBC Morphology NORM C+C 06/05/21 04:00: Sodium 143, Potassium 3.4 L, Chloride 106, Carbon Dioxide 29.0, Anion Gap 8, BUN 42 H, Creatinine 0.83, Estim Creat Clear Calc 50.59, Est GFR (MDRD) Af Amer 87, Est GFR (MDRD) Non-Af 72, BUN/Creatinine Ratio 50.5 H, Glucose 101, Calcium 7.3 L, Total Bilirubin 0.40, AST 50 H, ALT 43, Alkaline Phosphatase 81, Total Protein 5.4 L, Albumin 1.9 L, Globulin 3.5, Albumin/Globulin Ratio 0.5 L Micro: Microbiology 05/28/21 15:29 Blood Culture (Wb) - Anticubital Left Blood Culture - Final No growth in 5 days. 05/28/21 15:39 Blood Culture (Wb) - Anticubital Right Blood Culture - Final No growth in 5 days. 05/30/21 12:38 Sputum, Induced/Lukens Gram Stain - Final 05/30/21 12:38 Sputum, Induced/Lukens Respiratory Culture - Final Haemophilus influenzae 05/28/21 15:46 Nasal Secretion SARS-CoV-2 Antigen (Rapid) - Final SARS-CoV-2 (COVID 19) 05/29/21 02:00 Urine, Clean Catch Streptococcus pneumoniae Antigen (M - Final 05/29/21 02:00 Urine, Clean Catch Legionella Antigen - Final 05/28/21 20:00 Mucosa - Nasopharyngeal Respiratory Panel (PCR) - Final Rhythm Strip Rhythm Strip: Sinus Rhythm Rate: 85 Ectopy: None Physical Exam Narrative General: Sedated, on ventilator. On propofol and fentanyl HEENT: Atraumatic, Normocephalic Oral: ET and OG tube. On tube feed Neck: Supple, No JVD, Negative Carotid Bruits Lungs: Air entry diminished in bilateral lung bases. On ventilator. Cardiovascular: Sinus rhythm, Normal S1, Normal S2, No murmurs Abdomen: Bowel Sounds sluggish, Soft, Non Tender, Non-Distended : Wyatt catheter, urine clear no renal angle tenderness. No suprapubic tenderness. Extremities: No edema, Capillary Refill Less than 3 Seconds Skin: No rashes, No breakdown Musculoskeletal: No Tenderness to Palpation of Joints or Extremities Neurological: Sedated Psych/Mental Status: Sedated Assessment & Plan Assessment/Plan (1) Pneumonia due to COVID-19 virus: (2) Acute respiratory failure with hypoxia: PLAN: Patient is a 71-year-old lady vaccinated against COVID-19 who presented with progressive shortness of breath. Patient symptoms started on 05/23/2021 1. Acute hypoxic respiratory failure due to bilateral COVID-19 pneumonia: Patient is on baricitinib, Decadron and remdesivir. Patient was admitted to regular nursing floor managed on supplemental oxygen initially however respiratory status continued to worsen was placed on BiPAP did not tolerated subsequently placed on nonrebreather and Airvo with then subsequently transferred to ICU. Seen by continuous pickling line pickler. 06/02: Patient on 65% FiO2, PEEP 14, AC mode. On Levophed 3 mics per minute 06/03: On assist mode ventilator, FiO2 55%, PEEP 14.She completed remdesivir. On Lasix 40 mg IV twice daily, Decadron and baricitinib. 06/04: FiO2 60% PEEP 14. 06/05: Low-grade fever, T-max 100.9 Fahrenheit. On 55% FiO2 2. Acute COVID-19 pneumonia complicated with bacterial superinfection/pneumonia, probably due to Haemophilus species and distributive shock. Symptoms started on 05/23/2021. On vasopressor support. Sputum culture shows gram-negative organisms 3+ suspicion of Haemophilus species 06/02: On Levophed 3 mics per minute. Continue antimicrobial. 06/03 on Levophed at minimal rate, 2 mcg per minute 06/04: Weaned off Levophed. Blood culture negative for more than 5 days. 06/05: Respiratory panel negative on 05/28 3. COPD ?Complicating patient care aerosol treatment in addition to systemic steroid 4. Hypertension - Blood pressure controlled, home medications continued with dose adjustment as needed 5. Depression with anxiety ?Patient is on bupropion as well as escitalopram did continue 6. CELI: Resolved. Probably secondary to ATN. Patient has Wyatt catheter. Total urine output 515 mL.. DVT prophylaxis ?Lovenox 40 mg subcu twice daily Charges/Coding Visit Charges Inpatient E&M: 45538 Subs Hosp L3
[2021-06-05] MEDS: TITRATION PARAMETER CHANGE 1 EACH IV ×2 (08:40)
[2021-06-05] MEDS: Potassium Chloride 10mEq/100mL 10 MEQ/100 ML IV.SOLN. 100 MEQ IV BOLUS ×4 (08:51→12:55)
[2021-06-05] MEDS: Menthol/Lanolin/Calamine/Znox 113 GM Tube 1 APPLIC TOPICAL ×2 (08:52→21:25)
[2021-06-05] MEDS: Acetaminophen 650 MG/20 ML UDC PO (08:52)
[2021-06-05] MEDS: CHLORHEXIDINE GLUC 2% CLOTH 1 EACH TOWELETTE TOPICAL (08:52)
[2021-06-05] MEDS: Etomidate 20 MG/10 ML Vial IV (09:01)
[2021-06-05] MEDS: Propofol 10MG/Ml 1,000 MG/100 ML Bottle 28.5 MG CONT INF ×5 (09:32→21:02)
[2021-06-05] MEDS: dexAMETHasone 2 MG TABLET 6 MG GT (09:59)
[2021-06-05] MEDS: Enoxaparin 40 MG/0.4 ML Syringe SC ×2 (09:59→21:23)
[2021-06-05] MEDS: Escitalopram Oxalate 20 MG Tablet GT (09:59)
[2021-06-05] MEDS: Dexmedetomidine 1,000 mcg in 0.9% NS 240 mL 11.9 MCG CONT INF (10:00)
[2021-06-05] MEDS: Furosemide 40 MG/4 ML Vial IV ×2 (10:00→18:20)
[2021-06-05] MEDS: Chlorhexidine 15 ML PO ×2 (10:20→21:25)
[2021-06-05] MEDS: Dexmedetomidine 1,000 mcg in 0.9% NS 240 mL 19 MCG CONT INF (21:03)
[2021-06-05] MEDS: Senna/Docusate Sodium 1 Tablet 2 TABLET GT (21:23)
[2021-06-06] VITALS (31 sets, daily range): BP systolic 126–162; BP diastolic 67–92; PULSE 50–71; RESP 14–30; TEMP 37.5–38.8; O2SAT 80–100
[2021-06-06] MEDS: Propofol 10MG/Ml 1,000 MG/100 ML Bottle 28.5 MG CONT INF ×2 (00:51→04:12)
[2021-06-06] MEDS: CHLORHEXIDINE GLUC 2% CLOTH 1 EACH TOWELETTE TOPICAL (00:52)
[2021-06-06 04:50] LABS: Hematocrit 33.5 % (37-47); Hemoglobin 11.2 g/dL (12.0-15.0); Mean Corp Hgb Conc 33.4 g/dL (32-36); Mean Corpuscular Hgb 29.4 pg (27.0-32.0); Mean Corpuscular Volume 87.9 fL (81-99); Mean Platelet Vol. 11.7 fl (6.2-12.0); POSITIVE COUNT YES; POSITIVE MORPHOLOGY YES; Platelet Count 263 K/mm3 (150-450); RBC Distribution Width CV 14.3 % (11.6-14.6); RBC Distribution Width SD 45.6 fl (35.1-43.9); Red Blood Count 3.81 M/mm3 (4.2-5.4); White Blood Count 12.6 K/mm3 (4.4-11.0)
[2021-06-06 05:13] LABS: Differential Indicated MANUAL DIFF
[2021-06-06 05:42] LABS: ALB/GLOB Ratio 0.4 RATIO (0.9-2.4); AST(SGOT) 38 U/L (15-37); Alanine Aminotransfer ALT/SGPT 37 U/L (13-56); Albumin, Serum 1.7 g/dL (3.2-5.0); Alkaline Phosphatase 77 U/L (45-117); Anion Gap 7 (5-15); BUN 35 mg/dL (7-18); BUN/Creat Ratio 42.6 RATIO (10-20); Calcium,Total 7.6 mg/dL (8.5-10.1); Chloride 104 mmol/L (98-107); Creatinine, Serum 0.82 mg/dL (0.55-1.02); EST Glomerular Filtration Rate 73 mL/min (>60); Est Glom Filt Rate - Afr Amer 89 mL/min (>60); Estimated Creatinine Clearance 51.21 ml/min; Globulin 3.9 g/dL (2.2-4.2); Glucose 106 mg/dL (74-106); Potassium 3.8 mmol/L (3.5-5.1); Protein, Total 5.6 g/dL (6.4-8.2); Sodium Level 142 mmol/L (136-145)
[2021-06-06 07:11] LABS: Absolute Lymphocyte Count 2.14 X10^3/uL (0.83-4.51); Absolute Neutrophil Count 9.3 X10^3/uL (2.0-7.7); Atypical Lymphocyte 1+ %; Eosinophil 2 % (0-5); Lymphocyte 17 % (19-41); Metamyelocyte 3 % (0-1); Monocyte 2 % (0-10); Myelocyte 2 % (0-0); Neutrophil-Band 20 % (0-5); Neutrophil-Segmented 54 % (47-70); Total Cells Counted 100 (MANUAL DIFF)
[2021-06-06 07:12] LABS: Platelet Estimate ADEQUATE (ADEQ); Red Cell Morphology NORM C+C NORMAL (NORM C&C)
--- NOTE | 2021-06-06 07:19 | PN.CC_ITS ---
Assessment & Plan Assessment/Plan (1) Acute respiratory failure with hypoxia: (2) Pneumonia due to COVID-19 virus: PLAN: RECOMMENDATIONS: 1. Continue patient on assist control mode of mechanical ventilation and wean FiO2 for saturations greater than 90%. 2. Continue baricitinib (06/12/2021) and Decadron (06/12/2020) as ordered. 3. Continue Lovenox as ordered. 4. Continue antimicrobials to complete 7-day treatment course. 5. Continue appropriate GI prophylaxis. 6. Continue tube feeds as tolerated. Possibly add Reglan if continues to have difficulty tolerating tube feeds 7. Continue diuretics as tolerated by hemodynamics and renal function. IMPRESSIONS: 1. Acute hypoxemic respiratory failure secondary to COVID-19 pneumonia The patient was initially admitted to the hospital on May 28 after presenting with worsening dyspnea. Symptom onset was sometime around May 23. The patient is unvaccinated. The patient's hospital course was complicated by worsening respiratory status, ultimately requiring transfer to the ICU and subsequent intubation on May 30. The patient will be continued on decadron and baricitinib as ordered. She has completed her treatment course of remdesivir. In addition, the patient sputum culture was positive for Haemophilus influenza. Therefore, the patient will be continued on antimicrobials to complete 7 days of therapy. CTA chest was negative for PE. Accordingly, it is reasonable to continue Lovenox as ordered. Continue tube feeds as tolerated. 2. Distributive shock Resolved. Likely secondary to underlying sepsis coupled with the hemodynamic effects of sedative medication use. Vasopressor support is currently on hold. The patient remains hemodynamically stable. 3. Acute kidney injury Resolved. Likely secondary to ATN in the setting of #1. Continue to monitor urine output for now. No current indication for renal replacement therapy. 4. Questionable history of COPD/hypertension/depression/anxiety Complicates care, management, recovery and prognosis. Continue tube feeds as tolerated. TIME: 32 minutes of critical care time, independent of procedures, was spent addressing the patient's acute hypoxemic respiratory failure secondary to COVID- 19 pneumonia, distributive shock, acute kidney injury, review of all data and collaboration with the care team. Subjective Subjective Patient did okay overnight. Patient has had bowel movements, but nursing is reporting increased residuals causing intermittent pausing of tube feeds. Patient continues to have high FiO2 requirements. Objective Data Objective Data Vital Signs: Vital Signs Temp Pulse Resp BP Pulse Ox 37.6 C H 52 L 16 148/74 H 90 06/06/21 06:00 06/06/21 06:00 06/06/21 06:00 06/06/21 06:00 06/06/21 06:00 Oxygen Flow Rate (L/min) 60 Oxygen Delivery Method Mechanical Ventilator Weight: 93.3 kg Body Mass Index (BMI) 34.0 Intake & Output: Intake and Output for Last 24 Hours 06/04/21 06/05/21 06/06/21 23:59 23:59 23:59 Intake Total 2671.09 / 2709.67 2836.53 / 3225.03 986.39 / 986.39 Output Total 2500 / 2850 2050 / 3550 1725 / 1725 Balance 171.09 / -140.33 786.53 / -324.97 -738.61 / -738.61 Lab / Micro Data Result Diagrams: 06/06/21 04:20 06/06/21 04:20 Labs: Laboratory Results - last 24 hr 06/06/21 04:20: WBC 12.6 H, RBC 3.81 L, Hgb 11.2 L, Hct 33.5 L, MCV 87.9, MCH 29.4, MCHC 33.4, RDW Std Deviation 45.6 H, RDW Coeff of Chari 14.3, Plt Count 263, MPV 11.7, Neut % (Auto) Not Reportable, Absolute Neuts (auto) 9.3 H, Absolute Lymphs (auto) 2.14, Total Counted 100, Neutrophils % (Manual) 54, Band Neutro phils % 20 H, Lymphocytes % (Manual) 17 L, Monocytes % (Manual) 2, Eosinophils % (Manual) 2, Metamyelocytes % 3 H, Myelocytes % 2 H, Diff Path Review May foll, Atypical Lymphocytes 1+, Platelet Estimate ADEQUATE, RBC Morphology NORM C+C 06/06/21 04:20: Sodium 142, Potassium 3.8, Chloride 104, Carbon Dioxide 31.0, Anion Gap 7, BUN 35 H, Creatinine 0.82, Estim Creat Clear Calc 51.21, Est GFR (MDRD) Af Amer 89, Est GFR (MDRD) Non-Af 73, BUN/Creatinine Ratio 42.6 H, Glucose 106, Calcium 7.6 L, Total Bilirubin 0.50, AST 38 H, ALT 37, Alkaline Phosphatase 77, Total Protein 5.6 L, Albumin 1.7 L, Globulin 3.9, Albumin/Globulin Ratio 0.4 L Micro: Microbiology 05/28/21 15:29 Blood Culture (Wb) - Anticubital Left Blood Culture - Final No growth in 5 days. 05/28/21 15:39 Blood Culture (Wb) - Anticubital Right Blood Culture - Final No growth in 5 days. 05/30/21 12:38 Sputum, Induced/Lukens Gram Stain - Final 05/30/21 12:38 Sputum, Induced/Lukens Respiratory Culture - Final Haemophilus influenzae 05/28/21 15:46 Nasal Secretion SARS-CoV-2 Antigen (Rapid) - Final SARS-CoV-2 (COVID 19) 05/29/21 02:00 Urine, Clean Catch Streptococcus pneumoniae Antigen (M - Final 05/29/21 02:00 Urine, Clean Catch Legionella Antigen - Final 05/28/21 20:00 Mucosa - Nasopharyngeal Respiratory Panel (PCR) - Final Rhythm Strip Rhythm Strip: Sinus Rhythm Rate: 85 Ectopy: None Physical Exam Const no apparent distress General Appearance: intubated Nutritional Appearance: obese HEENT normocephalic and head/scalp atraumatic Mouth: endotracheal tube in place and OG tube in place Eyes PERRL, EOMs intact bilaterally and conjunctivae normal Neck supple General: trachea midline Chest inspection of chest normal Chest: symmetrical chest wall rise; Negative for crepitus Resp Auscultation: diminished lung sounds; Negative for rales, rhonchi or wheezes Cardio regular rate, regular rhythm, S1 normal heart sound and S2 normal heart sound GI normal to inspection, nondistended, normoactive bowel sounds Extremity no clubbing, cyanosis or edema Skin no rashes or lesions noted Neuro Sensorium / Orientation: sedated on vent Charges/Coding Procedures Hospitalists Procedures: 43010 Critial Care 1st Hr
--- NOTE | 2021-06-06 07:48 | PN.HOSP_ITS ---
Subjective Subjective Patient respiratory status worsened overnight. She is on 90% FiO2, PEEP 14, tidal volume 400 mL. On 3 Sedatives. Low-grade fever, T-max 101.5 Fahrenheit Fahrenheit, heart rate in 50s. Patient is tachypneic. Objective Data Objective Data Vital Signs: Vital Signs Temp Pulse Resp BP Pulse Ox 100.4 F H 54 L 24 H 148/72 H 91 06/06/21 07:00 06/06/21 07:29 06/06/21 07:29 06/06/21 07:00 06/06/21 07:29 Oxygen Flow Rate (L/min) 60 Oxygen Delivery Method Mechanical Ventilator Weight: 205 lb 11.06 oz Body Mass Index (BMI) 34.0 Intake & Output: Intake and Output for Last 24 Hours 06/04/21 06/05/21 06/06/21 23:59 23:59 23:59 Intake Total 2671.09 / 2709.67 2836.53 / 3225.03 1148.56 / 1148.56 Output Total 2500 / 2850 2050 / 3550 1725 / 1725 Balance 171.09 / -140.33 786.53 / -324.97 -576.44 / -576.44 Lab / Micro Data Result Diagrams: 06/06/21 04:20 06/06/21 04:20 Labs: Laboratory Results - last 24 hr 06/06/21 04:20: WBC 12.6 H, RBC 3.81 L, Hgb 11.2 L, Hct 33.5 L, MCV 87.9, MCH 29.4, MCHC 33.4, RDW Std Deviation 45.6 H, RDW Coeff of Chari 14.3, Plt Count 263, MPV 11.7, Neut % (Auto) Not Reportable, Absolute Neuts (auto) 9.3 H, Absolute Lymphs (auto) 2.14, Total Counted 100, Neutrophils % (Manual) 54, Band Neutrophils % 20 H, Lymphocytes % (Manual) 17 L, Monocytes % (Manual) 2, Eosinophils % (Manual) 2, Metamyelocytes % 3 H, Myelocytes % 2 H, Diff Path Review May foll, Atypical Lymphocytes 1+, Platelet Estimate ADEQUATE, RBC Morphology NORM C+C 06/06/21 04:20: Sodium 142, Potassium 3.8, Chloride 104, Carbon Dioxide 31.0, Anion Gap 7, BUN 35 H, Creatinine 0.82, Estim Creat Clear Calc 51.21, Est GFR (MDRD) Af Amer 89, Est GFR (MDRD) Non-Af 73, BUN/Creatinine Ratio 42.6 H, Glucose 106, Calcium 7.6 L, Total Bilirubin 0.50, AST 38 H, ALT 37, Alkaline Phosphatase 77, Total Protein 5.6 L, Albumin 1.7 L, Globulin 3.9, Albumin/Globulin Ratio 0.4 L Micro: Microbiology 05/28/21 15:29 Blood Culture (Wb) - Anticubital Left Blood Culture - Final No growth in 5 days. 05/28/21 15:39 Blood Culture (Wb) - Anticubital Right Blood Culture - Final No growth in 5 days. 05/30/21 12:38 Sputum, Induced/Lukens Gram Stain - Final 05/30/21 12:38 Sputum, Induced/Lukens Respiratory Culture - Final Haemophilus influenzae 05/28/21 15:46 Nasal Secretion SARS-CoV-2 Antigen (Rapid) - Final SARS-CoV-2 (COVID 19) 05/29/21 02:00 Urine, Clean Catch Streptococcus pneumoniae Antigen (M - Final 05/29/21 02:00 Urine, Clean Catch Legionella Antigen - Final 05/28/21 20:00 Mucosa - Nasopharyngeal Respiratory Panel (PCR) - Final Rhythm Strip Rhythm Strip: Sinus Rhythm Rate: 85 Ectopy: None Physical Exam Narrative General: Sedated, on ventilator. On propofol, fentanyl and Precedex drip HEENT: Atraumatic, Normocephalic Oral: ET and OG tube. On tube feed Neck: Supple, No JVD, Negative Carotid Bruits Lungs: Air entry diminished in bilateral lung bases. On ventilator. Tachypneic, labored breathing Cardiovascular: Sinus bradycardia, Normal S1, Normal S2, No murmurs Abdomen: Bowel Sounds sluggish, Soft, Non Tender, Non-Distended : Wyatt catheter, urine clear no renal angle tenderness. No suprapubic tenderness. Extremities: No edema, Capillary Refill Less than 3 Seconds Skin: No rashes, No breakdown Musculoskeletal: No Tenderness to Palpation of Joints or Extremities Neurological: Sedated Psych/Mental Status: Sedated Assessment & Plan Assessment/Plan (1) Pneumonia due to COVID-19 virus: (2) Acute respiratory failure with hypoxia: PLAN: Patient is a 71-year-old lady vaccinated against COVID-19 who presented with progressive shortness of breath. Patient symptoms started on 05/23/2021 1. Acute hypoxic respiratory failure due to bilateral COVID-19 pneumonia: Patient is on baricitinib, Decadron and remdesivir. Patient was admitted to regular nursing floor managed on supplemental oxygen initially however respiratory status continued to worsen was placed on BiPAP did not tolerated subsequently placed on nonrebreather and Airvo with then subsequently transferred to ICU. Seen by senior client advisor. 06/02: Patient on 65% FiO2, PEEP 14, AC mode. On Levophed 3 mics per minute 06/03: On assist mode ventilator, FiO2 55%, PEEP 14.She completed remdesivir. On Lasix 40 mg IV twice daily, Decadron and baricitinib. 06/04: FiO2 60% PEEP 14. 06/05: Low-grade fever, T-max 100.9 Fahrenheit. On 55% FiO2 06/06: Respiratory status worsened on high FiO2 and PEEP. 90% FiO2. Febrile. On propofol, fentanyl, Precedex and midazolam drip 2. Acute COVID-19 pneumonia complicated with bacterial superinfection/pneumonia, probably due to Haemophilus species and distributive shock. Symptoms started on 05/23/2021. On vasopressor support. Sputum culture shows gram-negative organisms 3+ suspicion of Haemophilus species 06/02: On Levophed 3 mics per minute. Continue antimicrobial. 06/03 on Levophed at minimal rate, 2 mcg per minute 06/04: Weaned off Levophed. Blood culture negative for more than 5 days. 06/05: Respiratory panel negative on 05/28 06/06: On cefepime antibiotic. 3. COPD ?Complicating patient care aerosol treatment in addition to systemic steroid 4. Hypertension - Blood pressure controlled, home medications continued with dose adjustment as needed 5. Depression with anxiety ?Patient is on bupropion as well as escitalopram did continue 6. CELI: Resolved. Probably secondary to ATN. Patient has Wyatt catheter. Total urine output 515 mL.. DVT prophylaxis ?Lovenox 40 mg subcu twice daily Poor prognosis Charges/Coding Visit Charges Inpatient E&M: 91961 Subs Hosp L3
[2021-06-06] MEDS: Chlorhexidine 15 ML PO ×2 (08:32→22:40)
[2021-06-06] MEDS: Menthol/Lanolin/Calamine/Znox 113 GM Tube 1 APPLIC TOPICAL ×2 (08:32→22:40)
[2021-06-06] MEDS: dexAMETHasone 2 MG TABLET 6 MG GT (08:34)
[2021-06-06] MEDS: Senna/Docusate Sodium 1 Tablet 2 TABLET GT ×2 (08:34→22:42)
[2021-06-06] MEDS: Enoxaparin 40 MG/0.4 ML Syringe SC ×2 (08:34→22:39)
[2021-06-06] MEDS: Furosemide 40 MG/4 ML Vial IV ×2 (08:34→16:52)
[2021-06-06] MEDS: Escitalopram Oxalate 20 MG Tablet GT (08:35)
[2021-06-06 08:43] LABS: CPK Total, Creatine Kinase 97 U/L (26-192); Triglycerides 1417 mg/dL
[2021-06-06] MEDS: Acetaminophen 650 MG/20 ML UDC PO (08:43)
[2021-06-06] MEDS: Propofol 10MG/Ml 1,000 MG/100 ML Bottle 28 MG CONT INF ×2 (08:45→12:00)
--- NOTE | 2021-06-06 09:04 | RAD_ITS ---
STUDY: X-RAY CHEST REASON FOR EXAM: Female, 71 years old. SOB TECHNIQUE: Single AP portable view of the chest. COMPARISON: Comparison is made with prior study dated 05/30/2021. FINDINGS: An endotracheal tube is in situ with the tip at 3 cm proximal to the penelope. An orogastric tube is seen with the tip below the left hemidiaphragm. Since prior examination, there has been progressive bilateral pulmonary infiltrates in the peripheral distribution. Blunting of the left costophrenic angle. Normal size heart. Normal mediastinum and [place]. Normal visualized pulmonary arteries. Normal visualized aortic arch and descending thoracic aorta. There is demineralization of the osseous structures. Normal visualized ribs, clavicles, and shoulders. There is no demonstrated abnormality of the visualized soft tissue structures of the upper abdomen. RAD/Chest 1 View (Portable) IMPRESSION: Progressive bilateral infiltrates with a new small left pleural effusion. The support tubes are in good position. Electronically Signed: Binh Almaguer MD at 9:25 EST , Service support ,
[2021-06-06] MEDS: Vital AF 1.2 Cal Liquid 1,000 ML 60 ML GT (10:41)
[2021-06-06] MEDS: Dexmedetomidine 1,000 mcg in 0.9% NS 240 mL 28 MCG CONT INF ×2 (10:50→20:31)
[2021-06-06 11:14] LABS: Triglycerides 828 mg/dL
[2021-06-06 13:37] LABS: Pathologist Review Reviewed
[2021-06-06 14:03] LABS: Pathologist Review Reviewed
[2021-06-06 14:18] LABS: Pathologist Review Reviewed
[2021-06-06 14:28] LABS: Pathologist Review Reviewed
--- NOTE | 2021-06-06 14:32 | PCM.PN.ID ---
Physical Exam Narrative On vent, on pressor Const Constitutional Narrative: ill appearing Resp Auscultation: diminished lung sounds Cardio Rate: tachycardic GI soft to palpation and non-tender Skin no rashes or lesions noted ID ID: Route of nutrition/ use of supplements: [] Nutritional Intake: [] IV Site: [] Wyatt Catheter: [] Assessment & Plan Assessment/Plan (1) Pneumonia due to COVID-19 virus: PLAN: On baricitinib, cefepime, completed dex. Sputum with h. flu. Fever today. Will follow (2) Acute respiratory failure with hypoxia:
[2021-06-06] MEDS: Propofol 10MG/Ml 1,000 MG/100 ML Bottle 19.6 MG CONT INF (16:10)
[2021-06-06] MEDS: 0.9% Saline Lock 10 ML Syringe IV (16:52)
[2021-06-06] MEDS: Metoclopramide 10 MG/2 ML Vial 5 MG IV (22:40)
[2021-06-07] VITALS (32 sets, daily range): BP systolic 104–191; BP diastolic 59–100; PULSE 53–85; RESP 16–35; TEMP 37.9–39.6; O2SAT 87–96
[2021-06-07] MEDS: Acetaminophen 650 MG/20 ML UDC PO ×3 (04:13→22:42)
[2021-06-07] MEDS: Dexmedetomidine 1,000 mcg in 0.9% NS 240 mL 35 MCG CONT INF (04:14)
[2021-06-07 04:37] LABS: Hematocrit 33.6 % (37-47); Hemoglobin 10.9 g/dL (12.0-15.0); Mean Corp Hgb Conc 32.4 g/dL (32-36); Mean Corpuscular Hgb 28.1 pg (27.0-32.0); Mean Corpuscular Volume 86.6 fL (81-99); Mean Platelet Vol. 11.9 fl (6.2-12.0); POSITIVE COUNT YES; POSITIVE MORPHOLOGY YES; Platelet Count 269 K/mm3 (150-450); RBC Distribution Width CV 14.1 % (11.6-14.6); RBC Distribution Width SD 44.6 fl (35.1-43.9); Red Blood Count 3.88 M/mm3 (4.2-5.4); White Blood Count 12.6 K/mm3 (4.4-11.0)
[2021-06-07 04:47] LABS: Differential Indicated MANUAL DIFF
[2021-06-07 04:55] LABS: Anion Gap 3 (5-15); BUN 35 mg/dL (7-18); BUN/Creat Ratio 45.8 RATIO (10-20); Chloride 106 mmol/L (98-107); Creatinine, Serum 0.76 mg/dL (0.55-1.02); EST Glomerular Filtration Rate 80 mL/min (>60); Est Glom Filt Rate - Afr Amer 96 mL/min (>60); Estimated Creatinine Clearance 41.99 ml/min; Glucose 116 mg/dL (74-106); Potassium 3.7 mmol/L (3.5-5.1); Sodium Level 144 mmol/L (136-145)
[2021-06-07 05:14] LABS: Eosinophil 2 % (0-5); Lymphocyte 7 % (19-41); Metamyelocyte 2 % (0-1); Monocyte 8 % (0-10); Myelocyte 1 % (0-0); Neutrophil-Band 7 % (0-5); Neutrophil-Segmented 73 % (47-70); Total Cells Counted 100 (MANUAL DIFF)
[2021-06-07 05:15] LABS: Platelet Estimate ADEQUATE (ADEQ); Red Cell Morphology NORM C+C NORMAL (NORM C&C)
[2021-06-07 05:16] LABS: Absolute Lymphocyte Count 0.88 X10^3/uL (0.83-4.51); Absolute Neutrophil Count 10.1 X10^3/uL (2.0-7.7); Lymphocyte # 0.88 X10^3/ul (0.83-4.51); Neutrophil # 10.08 X10^3/uL (2.7-7.7)
--- NOTE | 2021-06-07 07:12 | PCM.PN.HOSP ---
Subjective Subjective Fever, T-max 102.3 Fahrenheit. Heart rate in 50s. On 75% FiO2, PEEP 14, TV 400 mL all started on Versed due to high triglyceride. Objective Data Objective Data Vital Signs: Vital Signs Temp Pulse Resp BP Pulse Ox 102.3 F H 60 22 H 162/87 H 92 06/07/21 05:00 06/07/21 05:00 06/07/21 05:00 06/07/21 05:00 06/07/21 05:00 Oxygen Flow Rate (L/min) 60 Oxygen Delivery Method Mechanical Ventilator Weight: 164 lb 3.91 oz Body Mass Index (BMI) 34.0 Intake & Output: Intake and Output for Last 24 Hours 06/05/21 06/06/21 06/07/21 23:59 23:59 23:59 Intake Total 3086.53 / 3475.03 3615.19 / 3732.11 558.61 / 558.61 Output Total 2050 / 3550 3000 / 4250 1250 / 1250 Balance 1036.53 / -74.97 615.19 / -517.89 -691.39 / -691.39 Lab / Micro Data Result Diagrams: 06/07/21 04:04 06/07/21 04:04 Labs: Laboratory Results - last 24 hr 06/03/21 03:55: Diff Path Review Reviewed 06/04/21 03:50: Diff Path Review Reviewed 06/05/21 04:00: Diff Path Review Reviewed 06/06/21 04:20: Absolute Neuts (auto) 9.3 H, Absolute Lymphs (auto) 2.14, Total Counted 100, Neutrophils % (Manual) 54, Band Neutrophils % 20 H, Lymphocytes % (Manual) 17 L, Monocytes % (Manual) 2, Eosinophils % (Manual) 2, Metamyelocytes % 3 H, Myelocytes % 2 H, Diff Path Review Reviewed, Atypical Lymphocytes 1+, Platelet Estimate ADEQUATE, RBC Morphology NORM C+C 06/06/21 04:20: Total Creatine Kinase 97, Triglycerides 1417 H 06/06/21 10:40: Triglycerides 828 H 06/07/21 04:04: WBC 12.6 H, RBC 3.88 L, Hgb 10.9 L, Hct 33.6 L, MCV 86.6, MCH 28.1, MCHC 32.4, RDW Std Deviation 44.6 H, RDW Coeff of Chari 14.1, Plt Count 269, MPV 11.9, Neut % (Auto) Not Reportable, Absolute Neuts (auto) 10.1 H, Absolute Lymphs (auto) 0.88, Total Counted 100, Neutrophils % (Manual) 73 H, Band Neutrophils % 7 H, Lymphocytes % (Manual) 7 L, Monocytes % (Manual) 8, Eosinophils % (Manual) 2, Metamyelocytes % 2 H, Myelocytes % 1 H, Diff Path Review October, Platelet Estimate ADEQUATE, RBC Morphology NORM C+C 06/07/21 04:04: Sodium 144, Potassium 3.7, Chloride 106, Carbon Dioxide 35.0 H, Anion Gap 3 L, BUN 35 H, Creatinine 0.76, Estim Creat Clear Calc 41.99, Est GFR (MDRD) Af Amer 96, Est GFR (MDRD) Non-Af 80, BUN/Creatinine Ratio 45.8 H, Glucose 116 H, Calcium 8.0 L Micro: Microbiology 05/28/21 15:29 Blood Culture (Wb) - Anticubital Left Blood Culture - Final No growth in 5 days. 05/28/21 15:39 Blood Culture (Wb) - Anticubital Right Blood Culture - Final No growth in 5 days. 05/30/21 12:38 Sputum, Induced/Lukens Gram Stain - Final 05/30/21 12:38 Sputum, Induced/Lukens Respiratory Culture - Final Haemophilus influenzae 05/28/21 15:46 Nasal Secretion SARS-CoV-2 Antigen (Rapid) - Final SARS-CoV-2 (COVID 19) 05/29/21 02:00 Urine, Clean Catch Streptococcus pneumoniae Antigen (M - Final 05/29/21 02:00 Urine, Clean Catch Legionella Antigen - Final 05/28/21 20:00 Mucosa - Nasopharyngeal Respiratory Panel (PCR) - Final Radiography Diagnostic Testing: Radiology Impression Chest X-Ray 06/06/21 09:04 IMPRESSION: Progressive bilateral infiltrates with a new small left pleural effusion. The support tubes are in good position. Electronically Signed: Binh Almaguer MD at 9:25 EST , Service support , Rhythm Strip Rhythm Strip: Sinus Rhythm Rate: 85 Ectopy: None Physical Exam Narrative General: Sedated, on ventilator. On fentanyl, midazolam and Precedex drip HEENT: Atraumatic, Normocephalic Oral: ET and OG tube. On tube feed Neck: Supple, No JVD, Negative Carotid Bruits Lungs: Air entry diminished in bilateral lung bases. On ventilator. Tachypneic, labored breathing Cardiovascular: Sinus , Normal S1, Normal S2, No murmurs Abdomen: Bowel Sounds sluggish, Soft, Non Tender, Non-Distended : Wyatt catheter, urine clear no renal angle tenderness. No suprapubic tenderness. Extremities: No edema, Capillary Refill Less than 3 Seconds Skin: No rashes, No breakdown Musculoskeletal: No Tenderness to Palpation of Joints or Extremities Neurological: Sedated Psych/Mental Status: Sedated Assessment & Plan Assessment/Plan (1) Pneumonia due to COVID-19 virus: (2) Acute respiratory failure with hypoxia: PLAN: Patient is a 71-year-old lady vaccinated against COVID-19 who presented with progressive shortness of breath. Patient symptoms started on 05/23/2021 1. Acute hypoxic respiratory failure due to bilateral COVID-19 pneumonia: Patient is on baricitinib, Decadron and remdesivir. Patient was admitted to regular nursing floor managed on supplemental oxygen initially however respiratory status continued to worsen was placed on BiPAP did not tolerated subsequently placed on nonrebreather and Airvo with then subsequently transferred to ICU. Seen by claim specialist. 06/02: Patient on 65% FiO2, PEEP 14, AC mode. On Levophed 3 mics per minute 06/03: On assist mode ventilator, FiO2 55%, PEEP 14.She completed remdesivir. On Lasix 40 mg IV twice daily, Decadron and baricitinib. 06/04: FiO2 60% PEEP 14. 2: Low-grade fever, T-max 100.9 Fahrenheit. On 55% FiO2 06/06: Respiratory status worsened on high FiO2 and PEEP. 90% FiO2. Febrile. On propofol, fentanyl, Precedex and midazolam drip 06/07: On 90% FiO2. Propofol drip was discontinued due to hypertriglyceridemia currently on fentanyl, Precedex and midazolam drip 2. Acute COVID-19 pneumonia complicated with bacterial superinfection/pneumonia, probably due to Haemophilus species and distributive shock. Symptoms started on 05/23/2021. On vasopressor support. Sputum culture shows gram-negative organisms 3+ suspicion of Haemophilus species 06/02: On Levophed 3 mics per minute. Continue antimicrobial. 06/03 on Levophed at minimal rate, 2 mcg per minute 06/04: Weaned off Levophed. Blood culture negative for more than 5 days. 06/05: Respiratory panel negative on 05/28 06/06: On cefepime antibiotic. 06/07: Followed by ID. On baricitinib and cefepime. Completed dexamethasone Distributive shock resolved. Patient not on vasopressor since 06/04/2021. BP 139/73 3. COPD ?Complicating patient care aerosol treatment in addition to systemic steroid 4. Hypertension - Blood pressure controlled, home medications continued with dose adjustment as needed 5. Depression with anxiety ?Patient is on bupropion as well as escitalopram did continue 6. CELI: Resolved. Probably secondary to ATN. Patient has Wyatt catheter. Total urine output 515 mL.. DVT prophylaxis ?Lovenox 40 mg subcu twice daily Poor prognosis Active Medications Acetaminophen (Acetaminophen 650 Mg/20 Ml Udc) 650 mg PO Q6H PRN PRN PRN Reason: Pain Score 1-10/Temp > 100.7 F Last Admin: 06/07/21 10:22 Dose: 650 mg Documented by: Baricitinib (Baricitinib 2 Mg Tablet) 4 mg GT DAILY [facility] Stop: 06/12/21 10:01 Last Admin: 06/07/21 10:21 Dose: 4 mg Documented by: Calamine/Phenol (Menthol/Lanolin/Calamine/Znox 113 Gm Tube) 1 applic TOPICAL BID [facility]; Protocol Last Admin: 06/07/21 10:19 Dose: 1 applic Documented by: Chlorhexidine Gluconate (Chlorhexidine 15 Ml) 15 ml PO BID [facility] Last Admin: 06/07/21 10:19 Dose: 15 ml Documented by: Chlorhexidine Gluconate (Chlorhexidine Gluc 2% Cloth 1 Each Towelette) 1 each TOPICAL DAILY [facility] Last Admin: 06/07/21 10:20 Dose: 1 each Documented by: Enoxaparin Sodium (Enoxaparin 40 Mg/0.4 Ml Syringe) 40 mg SC BID [facility] Last Admin: 06/07/21 10:20 Dose: 40 mg Documented by: Escitalopram Oxalate (Escitalopram Oxalate 20 Mg Tablet) 20 mg GT DAILY [facility] Last Admin: 06/07/21 10:22 Dose: 20 mg Documented by: Furosemide (Furosemide 40 Mg/4 Ml Vial) 40 mg IV Q8 [facility] Sodium Chloride () 250 mls @ 15 mls/hr IV .[id number] PRN PRN Reason: Saline Flush Last Admin: 06/07/21 10:43 Dose: 15 mls/hr Documented by: Sodium Chloride () 250 mls @ 15 mls/hr IV .[id number] PRN PRN Reason: Additional IVPB Infusion Last Infusion: 06/01/21 07:07 Dose: Infused Documented by: Pantoprazole Sodium 40 mg/ (Sodium Chloride) 110 mls @ 330 mls/hr IV Q12 [facility]VARO Last Infusion: 06/07/21 10:44 Dose: Infused Documented by: Fentanyl Citrate 1,000 mcg/ (Sodium Chloride) 100 mls @ 20 mls/hr CONT INF .Q5H [facility]; Protocol Last Titration: 06/07/21 11:00 Dose: 200 mcg/hr, 20 mls/hr Documented by: Cefepime HCl 1 gm/ Sodium (Chloride) 50 mls @ 100 mls/hr IV Q8 [facility] Stop: 06/08/21 22:01 Last Infusion: 06/07/21 07:00 Dose: Infused Documented by: Enteral Nutritional Formula (Vital Af 1.2 Garrett Liquid) 1,000 mls @ 60 mls/hr GT .[id number] [facility] Last Admin: 06/07/21 04:11 Dose: Not Given Documented by: Dexmedetomidine HCl 1,000 mcg/ (Sodium Chloride) 250 mls @ 11.813 mls/hr CONT INF .[id number] [facility]; Protocol Last Admin: 06/07/21 12:13 Dose: 1.5 mcg/kg/hr, 35.4 mls/hr Documented by: Midazolam HCl 50 mg/ Sodium (Chloride) 100 mls @ 2 mls/hr CONT INF .Q50H [facility]; Protocol Last Titration: 06/07/21 11:48 Dose: 7 mg/hr, 14 mls/hr Documented by: Vancomycin IV-PHARMACY TO DOSE (1 each/ Sodium Chloride) 500 mls @ 250 mls/hr IV X1 PRN; Protocol PRN Reason: Rx to Dose Lorazepam (Lorazepam 2 Mg/Ml Syringe) 2 mg IV Q2H PRN PRN PRN Reason: AGITATION Last Admin: 06/07/21 10:08 Dose: 2 mg Documented by: Metoclopramide HCl (Metoclopramide 10 Mg/2 Ml Vial) 5 mg IV Q12 [facility] Last Admin: 06/07/21 10:22 Dose: 5 mg Documented by: Ondansetron HCl (Ondansetron 4 Mg/2 Ml Vial) 4 mg IV Q6H PRN PRN PRN Reason: NAUSEA Last Admin: 05/30/21 12:23 Dose: 4 mg Documented by: Polyethylene Glycol (Polyethylene Glycol 3350 17 Gm Packet) 17 gm GT DAILY [facility] Last Admin: 06/07/21 10:22 Dose: 17 gm Documented by: Prochlorperazine Edisylate (Prochlorperazine 10 Mg/2 Ml Vial) 5 mg IV Q6H PRN PRN PRN Reason: NAUSEA/VOMITING Last Admin: 05/30/21 09:53 Dose: 5 mg Documented by: Senna/Docusate Sodium (Senna/Docusate Sodium 1 Tablet) 2 tablet GT BID [facility] Last Admin: 06/07/21 10:21 Dose: 2 tablet Documented by: Sodium Chloride (0.9% Saline Lock 10 Ml Syringe) 10 - 40 ml IV UD PRN PRN Reason: SALINE FLUSH Last Admin: 06/07/21 10:22 Dose: 40 ml Documented by: Charges/Coding Visit Charges Inpatient E&M: 72721 Subs Hosp L3
--- NOTE | 2021-06-07 07:38 | PN.CC_ITS ---
Assessment & Plan Assessment/Plan (1) Pneumonia due to COVID-19 virus: (2) Acute respiratory failure with hypoxia: PLAN: RECOMMENDATIONS: 1. Continue patient on assist control mode of mechanical ventilation and wean FiO2 for saturations greater than 90%. 2. Continue baricitinib (06/12/2021) and completed Decadron 3. Continue Lovenox as ordered. 4. Continue antimicrobials to complete 7-day treatment course. 5. Continue appropriate GI prophylaxis. 6. Continue tube feeds as tolerated. Continue Reglan 7. Continue diuretics as tolerated by hemodynamics and renal function. IMPRESSIONS: 1. Acute hypoxemic respiratory failure secondary to COVID-19 pneumonia The patient was initially admitted to the hospital on May 28 after presenting with worsening dyspnea. Symptom onset was sometime around May 23. The patient is unvaccinated. The patient's hospital course was complicated by worsening respiratory status, ultimately requiring transfer to the ICU and subsequent intubation on May 30. The patient will be continued on decadron and baricitinib as ordered. She has completed her treatment course of remdesivir. In addition, the patient sputum culture was positive for Haemophilus influenza. Therefore, the patient will be continued on antimicrobials to complete 7 days of therapy. CTA chest was negative for PE. Accordingly, it is reasonable to continue Lovenox as ordered. Continue tube feeds as tolerated. Unfortunately, patient had to be transitioned from propofol to Versed secondary to hypertriglyceridemia. Patient with marginal vent synchrony at this time. We will add Ativan as needed. 2. Distributive shock Resolved. Likely secondary to underlying sepsis coupled with the hemodynamic effects of sedative medication use. Vasopressor support is curre ntly on hold. The patient remains hemodynamically stable. 3. Acute kidney injury Resolved. Likely secondary to ATN in the setting of #1. Continue to monitor urine output for now. No current indication for renal replacement therapy. 4. Questionable history of COPD/hypertension/depression/anxiety Complicates care, management, recovery and prognosis. Continue tube feeds as tolerated. Poor overall prognosis TIME: 34 minutes of critical care time, independent of procedures, was spent addres sing the patient's acute hypoxemic respiratory failure secondary to COVID-19 pneumonia, distributive shock, acute kidney injury, review of all data and collaboration with the care team. Subjective Subjective Patient did okay overnight. Patient has been taken off of propofol secondary to elevated triglycerides and placed on Versed. Patient continues to have marginal vent synchrony. Significant fever was noted overnight without hemodynamic instability. Patient is yet to have a bowel movement. Patient is not following commands. Objective Data Objective Data Vital Signs: Vital Signs Temp Pulse Resp BP Pulse Ox 39.1 C H 85 35 H 162/87 H 89 06/07/21 05:00 06/07/21 07:16 06/07/21 07:16 06/07/21 05:00 06/07/21 07:16 Oxygen Flow Rate (L/min) 60 Oxygen Delivery Method Mechanical Ventilator Weight: 74.5 kg Body Mass Index (BMI) 34.0 Intake & Output: Intake and Output for Last 24 Hours 06/05/21 06/06/21 06/07/21 23:59 23:59 23:59 Intake Total 3086.53 / 3475.03 3615.19 / 3732.11 558.61 / 558.61 Output Total 2050 / 3550 3000 / 4250 1250 / 1250 Balance 1036.53 / -74.97 615.19 / -517.89 -691.39 / -691.39 Lab / Micro Data Result Diagrams: 06/07/21 04:04 06/07/21 04:04 Labs: Laboratory Results - last 24 hr 06/03/21 03:55: Diff Path Review Reviewed 06/04/21 03:50: Diff Path Review Reviewed 06/05/21 04:00: Diff Path Review Reviewed 06/06/21 04:20: Diff Path Review Reviewed 06/06/21 04:20: Total Creatine Kinase 97, Triglycerides 1417 H 06/06/21 10:40: Triglycerides 828 H 06/07/21 04:04: WBC 12.6 H, RBC 3.88 L, Hgb 10.9 L, Hct 33.6 L, MCV 86.6, MCH 28.1, MCHC 32.4, RDW Std Deviation 44.6 H, RDW Coeff of Chari 14.1, Plt Count 269, MPV 11.9, Neut % (Auto) Not Reportable, Absolute Neuts (auto) 10.1 H, Absolute Lymphs (auto) 0.88, Total Counted 100, Neutrophils % (Manual) 73 H, Band Neutrophils % 7 H, Lymphocytes % (Manual) 7 L, Monocytes % (Manual) 8, Eosinophils % (Manual) 2, Metamyelocytes % 2 H, Myelocytes % 1 H, Diff Path Review May foll, Platelet Estimate ADEQUATE, RBC Morphology NORM C+C 06/07/21 04:04: Sodium 144, Potassium 3.7, Chloride 106, Carbon Dioxide 35.0 H, Anion Gap 3 L, BUN 35 H, Creatinine 0.76, Estim Creat Clear Calc 41.99, Est GFR (MDRD) Af Amer 96, Est GFR (MDRD) Non-Af 80, BUN/Creatinine Ratio 45.8 H, Gluc ose 116 H, Calcium 8.0 L Micro: Microbiology 05/28/21 15:29 Blood Culture (Wb) - Anticubital Left Blood Culture - Final No growth in 5 days. 05/28/21 15:39 Blood Culture (Wb) - Anticubital Right Blood Culture - Final No growth in 5 days. 05/30/21 12:38 Sputum, Induced/Lukens Gram Stain - Final 05/30/21 12:38 Sputum, Induced/Lukens Respiratory Culture - Final Haemophilus influenzae 05/28/21 15:46 Nasal Secretion SARS-CoV-2 Antigen (Rapid) - Final SARS-CoV-2 (COVID 19) 05/29/21 02:00 Urine, Clean Catch Streptococcus pneumoniae Antigen (M - Final 05/29/21 02:00 Urine, Clean Catch Legionella Antigen - Final 05/28/21 20:00 Mucosa - Nasopharyngeal Respiratory Panel (PCR) - Final Radiography Diagnostic Testing: Radiology Impression Chest X-Ray 06/06/21 09:04 IMPRESSION: Progressive bilateral infiltrates with a new small left pleural effusion. The support tubes are in good position. Electronically Signed: Binh Almaguer MD at 9:25 EST , Service support , Rhythm Strip Rhythm Strip: Sinus Rhythm Rate: 85 Ectopy: None Physical Exam Const no apparent distress Constitutional Narrative: Poor vent synchrony. General Appearance: intubated Nutritional Appearance: obese HEENT normocephalic and head/scalp atraumatic Mouth: endotracheal tube in place and OG tube in place Eyes PERRL, EOMs intact bilaterally and conjunctivae normal Neck supple General: trachea midline Chest inspection of chest normal Chest: symmetrical chest wall rise; Negative for crepitus Resp Auscultation: rhonchi throughout and diminished lung sounds; Negative for rales or wheezes Cardio regular rate, regular rhythm, S1 normal heart sound and S2 normal heart sound GI normal to inspection, nondistended, normoactive bowel sounds Extremity no clubbing, cyanosis or edema Skin no rashes or lesions noted Neuro Sensorium / Orientation: sedated on vent Charges/Coding Procedures Hospitalists Procedures: 29023 Critial Care 1st Hr
[2021-06-07] MEDS: LORazepam 2 MG/ML Syringe IV ×5 (08:02→22:42)
[2021-06-07] MEDS: Furosemide 40 MG/4 ML Vial IV ×3 (10:10→22:43)
[2021-06-07] MEDS: Menthol/Lanolin/Calamine/Znox 113 GM Tube 1 APPLIC TOPICAL ×2 (10:19→22:38)
[2021-06-07] MEDS: Chlorhexidine 15 ML PO ×2 (10:19→22:39)
[2021-06-07] MEDS: CHLORHEXIDINE GLUC 2% CLOTH 1 EACH TOWELETTE TOPICAL (10:20)
[2021-06-07] MEDS: Enoxaparin 40 MG/0.4 ML Syringe SC ×2 (10:20→22:43)
[2021-06-07] MEDS: Senna/Docusate Sodium 1 Tablet 2 TABLET GT ×2 (10:21→22:45)
[2021-06-07] MEDS: Polyethylene Glycol 3350 17 GM PACKET GT (10:22)
[2021-06-07] MEDS: Escitalopram Oxalate 20 MG Tablet GT (10:22)
[2021-06-07] MEDS: 0.9% Saline Lock 10 ML Syringe IV ×3 (10:22→19:56)
[2021-06-07] MEDS: Metoclopramide 10 MG/2 ML Vial 5 MG IV ×2 (10:22→22:41)
[2021-06-07] MEDS: Dexmedetomidine 1,000 mcg in 0.9% NS 240 mL 35.4 MCG CONT INF ×2 (12:13→20:08)
--- NOTE | 2021-06-07 13:13 | CASEMGMT ---
SOCIAL WORK Discussed case with patient's nurse, Tiffanie. Tiffanie just ended phone call with patient's updating on patient's status and on no visitor policy at this time. verbalized understanding to nurse. Patient has a daughter-Holly who resides in [place], daughter-Tiffanie who lives locally, and a granddaughter-Pierre. SW to remain available for support to family. Bear Vides, EMERGENCY RESPONSE OFFICER, ELECTROMECHANICAL EQUIPMENT TESTER
[2021-06-07 14:25] LABS: Pathologist Review Reviewed
--- NOTE | 2021-06-07 14:57 | PCM.RX.CS ---
Consult Pharmacy has been consulted to manage selected antiobiotic: Vancomycin Type of Consult: New start Labs: Sodium 144 mmol/L (136-145) 06/07/21 04:04 Potassium 3.7 mmol/L (3.5-5.1) 06/07/21 04:04 Chloride 106 mmol/L (98-107) 06/07/21 04:04 Carbon Dioxide 35.0 mmol/L (21.0-32.0) H 06/07/21 04:04 Anion Gap 3 (5-15) L 06/07/21 04:04 BUN 35 mg/dL (7-18) H 06/07/21 04:04 Creatinine 0.76 mg/dL (0.55-1.02) 06/07/21 04:04 Est GFR (MDRD) Af Amer 96 mL/min (>60) 06/07/21 04:04 Est GFR (MDRD) Non-Af 80 mL/min (>60) 06/07/21 04:04 BUN/Creatinine Ratio 45.8 RATIO (10-20) H 06/07/21 04:04 Glucose 116 mg/dL (74-106) H 06/07/21 04:04 Vancomycin Trough 10.0 ug/mL (5.0-15.0) 06/01/21 04:30 Microbiology: Microbiology 06/06/21 16:50 Sputum, Induced/Lukens Gram Stain - Final 06/06/21 16:50 Sputum, Induced/Lukens Respiratory Culture - Preliminary Staphylococcus aureus 05/28/21 15:29 Blood Culture (Wb) - Anticubital Left Blood Culture - Final No growth in 5 days. 05/28/21 15:39 Blood Culture (Wb) - Anticubital Right Blood Culture - Final No growth in 5 days. 05/30/21 12:38 Sputum, Induced/Lukens Gram Stain - Final 05/30/21 12:38 Sputum, Induced/Lukens Respiratory Culture - Final Haemophilus influenzae 05/28/21 15:46 Nasal Secretion SARS-CoV-2 Antigen (Rapid) - Final SARS-CoV-2 (COVID 19) 05/29/21 02:00 Urine, Clean Catch Streptococcus pneumoniae Antigen (M - Final 05/29/21 02:00 Urine, Clean Catch Legionella Antigen - Final 05/28/21 20:00 Mucosa - Nasopharyngeal Respiratory Panel (PCR) - Final Goal Trough: 15-20 mcg/mL Pharmacy Plan for Drug Dosing: NEW START IV VANCOMYCIN Consulting Physician: Dr. Metcalf Indication: Goal Trough: 15-20 SrCr: 0.76 CrCl: 42mls/min Comments: pt received a loading dose of 2000mg on 06/07/21 at 1432 Vancomcyin Dose: based on pts weight and renal function, recommend an initial dose of 750mg q12h starting 06/08/21 at 0200. trough before the 4th total dose Pending Level: Pharmacy Service will continue to monitor and adjust dosing as required. Follow-Up Labs: Trough Vancomycin - 06/09/21 at 0130
[2021-06-07] MEDS: Vital AF 1.2 Cal Liquid 1,000 ML 60 ML GT (15:09)
[2021-06-08] VITALS (35 sets, daily range): BP systolic 102–128; BP diastolic 55–79; PULSE 49–81; RESP 18–30; TEMP 36.2–39.6; O2SAT 88–97
[2021-06-08] MEDS: LORazepam 2 MG/ML Syringe IV ×6 (01:03→22:02)
[2021-06-08] MEDS: 0.9% Saline Lock 10 ML Syringe IV ×3 (01:04→21:23)
[2021-06-08] MEDS: CHLORHEXIDINE GLUC 2% CLOTH 1 EACH TOWELETTE TOPICAL (04:20)
[2021-06-08] MEDS: Dexmedetomidine 1,000 mcg in 0.9% NS 240 mL 35.4 MCG CONT INF ×3 (04:23→20:15)
[2021-06-08 04:38] LABS: Absolute Lymphocyte Count 0.99 X10^3/uL (0.83-4.51); Absolute Neutrophil Count 11.8 X10^3/uL (2.0-7.7); Basophil# 0.05 X10^3/uL; Basophil% 0.4 % (0-1); Eosinophil# 0.14 X10^3/uL; Hematocrit 33.3 % (37-47); Hemoglobin 10.4 g/dL (12.0-15.0); Lymphocyte # 0.99 X10^3/ul (0.83-4.51); Mean Corp Hgb Conc 31.2 g/dL (32-36); Mean Corpuscular Hgb 27.9 pg (27.0-32.0); Mean Corpuscular Volume 89.3 fL (81-99); Mean Platelet Vol. 12.2 fl (6.2-12.0); Monocyte# 0.67 X10^3/uL; Monocyte% 4.8 % (0-10); NRBC Flagged by Analyzer 0 % (0-5); Neutrophil # 11.79 X10^3/uL (2.7-7.7); Neutrophil % 83.8 % (47-70); Platelet Count 276 K/mm3 (150-450); RBC Distribution Width CV 14.3 % (11.6-14.6); RBC Distribution Width SD 46.5 fl (35.1-43.9); Red Blood Count 3.73 M/mm3 (4.2-5.4); White Blood Count 14.1 K/mm3 (4.4-11.0)
[2021-06-08 04:54] LABS: ALB/GLOB Ratio 0.3 RATIO (0.9-2.4); AST(SGOT) 26 U/L (15-37); Alanine Aminotransfer ALT/SGPT 31 U/L (13-56); Albumin, Serum 1.5 g/dL (3.2-5.0); Alkaline Phosphatase 80 U/L (45-117); Anion Gap 6 (5-15); BUN 39 mg/dL (7-18); BUN/Creat Ratio 53.2 RATIO (10-20); Calcium,Total 7.7 mg/dL (8.5-10.1); Chloride 106 mmol/L (98-107); Creatinine, Serum 0.73 mg/dL (0.55-1.02); EST Glomerular Filtration Rate 84 mL/min (>60); Est Glom Filt Rate - Afr Amer 101 mL/min (>60); Estimated Creatinine Clearance 41.99 ml/min; Globulin 4.4 g/dL (2.2-4.2); Glucose 179 mg/dL (74-106); Potassium 3.2 mmol/L (3.5-5.1); Protein, Total 5.9 g/dL (6.4-8.2); Sodium Level 145 mmol/L (136-145)
[2021-06-08] MEDS: Furosemide 40 MG/4 ML Vial IV ×3 (06:48→21:22)
[2021-06-08] MEDS: Potassium Chloride Oral Soln 20 MEQ/15 ML UDC 40 MEQ PO ×3 (06:49→21:21)
--- NOTE | 2021-06-08 07:31 | PN.CC_ITS ---
Assessment & Plan Assessment/Plan (1) Pneumonia due to COVID-19 virus: (2) Acute respiratory failure with hypoxia: PLAN: RECOMMENDATIONS: 1. Continue patient on assist control mode of mechanical ventilation and wean FiO2 for saturations greater than 90%. 2. Continue baricitinib (06/12/2021) and completed Decadron 3. Continue Lovenox as ordered. 4. Continue antimicrobials to complete 7-day treatment course. 5. Continue appropriate GI prophylaxis. 6. Continue tube feeds as tolerated. Continue Reglan 7. Continue diuretics as tolerated by hemodynamics and renal function. IMPRESSIONS: 1. Acute hypoxemic respiratory failure secondary to COVID-19/Haemophilus influenza/staph aureus pneumonias The patient was initially admitted to the hospital on May 28 after presenting with worsening dyspnea. Symptom onset was sometime around May 23. The patient is unvaccinated. The patient's hospital course was complicated by worsening respiratory status, ultimately requiring transfer to the ICU and subsequent intubation on May 30. The patient will be continued on decadron and baricitinib as ordered. She has completed her treatment course of remdesivir. In addition, the patient sputum culture was positive for Haemophilus influenza. Therefore, the patient will be continued on antimicrobials to complete 7 days of therapy. CTA chest was negative for PE. Accordingly, it is reasonable to continue Lovenox as ordered. Continue tube feeds as tolerated. Unfortunately, patient had to be transitioned from propofol to Versed secondary to hypertriglyceridemia. Patient with improved vent synchrony at this time. We will add Ativan as needed. 2. Distributive shock Resolved. Likely secondary to underlying sepsis coupled with the hemodynamic effects of sedative medication use. Vasopressor support is currently on hold. The patient remains hemodynamically stable. 3. Acute kidney injury Resolved. Likely secondary to ATN in the setting of #1. Continue to monitor urine output for now. No current indication for renal replacement therapy. 4. Questionable history of COPD/hypertension/depression/anxiety Complicates care, management, recovery and prognosis. Continue tube feeds as tolerated. Poor overall prognosis TIME: 32 minutes of critical care time, independent of procedures, was spent addressing the patient's acute hypoxemic respiratory failure secondary to COVID- 19 pneumonia, distributive shock, acute kidney injury, review of all data and collaboration with the care team. Subjective Subjective Patient did okay overnight. Patient has been tolerating tube feeds. Patient di d have significant fever and is requiring increased FiO2. Nursing and respiratory are reporting significant secretions, but believe this is improving. Objective Data Objective Data Vital Signs: Vital Signs Temp Pulse Resp BP Pulse Ox 37.8 C H 54 L 24 H 110/61 91 06/08/21 07:00 06/08/21 07:00 06/08/21 07:00 06/08/21 07:00 06/08/21 07:00 Oxygen Flow Rate (L/min) 60 Oxygen Delivery Method Mechanical Ventilator Weight: 96.3 kg Body Mass Index (BMI) 34.0 Intake & Output: Intake and Output for Last 24 Hours 06/06/21 06/07/21 06/08/21 23:59 23:59 23:59 Intake Total 3615.19 / 3732.11 4048.01 / 4680.11 2066.93 / 2066.93 Output Total 3000 / 4250 3350 / 4750 1700 / 1700 Balance 615.19 / -517.89 698.01 / -69.89 366.93 / 366.93 Lab / Micro Data Result Diagrams: 06/08/21 04:10 06/08/21 04:10 Labs: Laboratory Results - last 24 hr 06/07/21 04:04: Diff Path Review Reviewed 06/08/21 04:10: WBC 14.1 H, RBC 3.73 L, Hgb 10.4 L, Hct 33.3 L, MCV 89.3, MCH 27.9, MCHC 31.2 L, RDW Std Deviation 46.5 H, RDW Coeff of Chari 14.3, Plt Count 276, MPV 12.2 H, Immature Gran % (Auto) 3.000 H, Neut % (Auto) 83.8 H, Lymph % (Auto) 7.0 L, [place] % (Auto) 4.8, Eos % (Auto) 1.0, Baso % (Auto) 0.4, Absolute Neuts (auto) 11.8 H, Absolute Lymphs (auto) 0.99, Nucleated RBC % 0 06/08/21 04:10: Sodium 145, Potassium 3.2 L, Chloride 106, Carbon Dioxide 33.0 H , Anion Gap 6, BUN 39 H, Creatinine 0.73, Estim Creat Clear Calc 41.99, Est GFR (MDRD) Af Amer 101, Est GFR (MDRD) Non-Af 84, BUN/Creatinine Ratio 53.2 H, Glucose 179 H, Calcium 7.7 L, Total Bilirubin 0.30, AST 26, ALT 31, Alkaline Phosphatase 80, Total Protein 5.9 L, Albumin 1.5 L, Globulin 4.4 H, Albumin/Globulin Ratio 0.3 L Micro: Microbiology 06/06/21 16:50 Sputum, Induced/Lukens Gram Stain - Final 06/06/21 16:50 Sputum, Induced/Lukens Respiratory Culture - Preliminary Staphylococcus aureus 05/28/21 15:29 Blood Culture (Wb) - Anticubital Left Blood Culture - Final No growth in 5 days. 05/28/21 15:39 Blood Culture (Wb) - Anticubital Right Blood Culture - Final No growth in 5 days. 05/30/21 12:38 Sputum, Induced/Lukens Gram Stain - Final 05/30/21 12:38 Sputum, Induced/Lukens Respiratory Culture - Final Haemophilus influenzae 05/28/21 15:46 Nasal Secretion SARS-CoV-2 Antigen (Rapid) - Final SARS-CoV-2 (COVID 19) 05/29/21 02:00 Urine, Clean Catch Streptococcus pneumoniae Antigen (M - Final 05/29/21 02:00 Urine, Clean Catch Legionella Antigen - Final 05/28/21 20:00 Mucosa - Nasopharyngeal Respiratory Panel (PCR) - Final Rhythm Strip Rhythm Strip: Sinus Rhythm Rate: 85 Ectopy: None Physical Exam Const no apparent distress Constitutional Narrative: Better vent synchrony. General Appearance: intubated Nutritional Appearance: obese HEENT normocephalic and head/scalp atraumatic Mouth: endotracheal tube in place and OG tube in place Eyes PERRL, EOMs intact bilaterally and conjunctivae normal Neck supple General: trachea midline Chest inspection of chest normal Chest: symmetrical chest wall rise; Negative for crepitus Resp Auscultation: rhonchi throughout and diminished lung sounds; Negative for rales or wheezes Cardio regular rate, regular rhythm, S1 normal heart sound and S2 normal heart sound GI normal to inspection, nondistended, normoactive bowel sounds Extremity no clubbing, cyanosis or edema Skin no rashes or lesions noted Neuro Sensorium / Orientation: sedated on vent Charges/Coding Procedures Hospitalists Procedures: [id number] Critial Care 1st Hr
[2021-06-08] MEDS: Vital AF 1.2 Cal Liquid 1,000 ML 60 ML GT (08:09)
[2021-06-08] MEDS: Menthol/Lanolin/Calamine/Znox 113 GM Tube 1 APPLIC TOPICAL ×2 (10:48→21:22)
[2021-06-08] MEDS: Alteplase 2 MG/2 ML Vial IV (10:48)
[2021-06-08] MEDS: Enoxaparin 40 MG/0.4 ML Syringe SC ×2 (10:49→21:21)
[2021-06-08] MEDS: Chlorhexidine 15 ML PO ×2 (10:49→21:22)
[2021-06-08] MEDS: Escitalopram Oxalate 20 MG Tablet GT (10:49)
[2021-06-08] MEDS: Metoclopramide 10 MG/2 ML Vial 5 MG IV ×2 (10:50→21:22)
[2021-06-08] MEDS: Polyethylene Glycol 3350 17 GM PACKET GT (10:50)
[2021-06-08] MEDS: Senna/Docusate Sodium 1 Tablet 2 TABLET GT ×2 (10:50→21:22)
--- NOTE | 2021-06-08 13:40 | PCM.PN.ID ---
Physical Exam Narrative On vent, still fever Const no apparent distress Resp Auscultation: diminished lung sounds Cardio regular rate and regular rhythm GI soft to palpation, non-tender and non-distended Skin no rashes or lesions noted ID ID: Route of nutrition/ use of supplements: [] Nutritional Intake: [] IV Site: [] Wyatt Catheter: [] Assessment & Plan Assessment/Plan (1) Pneumonia due to COVID-19 virus: PLAN: On baricitinib, cefepime, completed dex. Sputum with h. flu, now sputum with mssa and GNR. Will stop vanc. May need to change cefepime to meropenem depending on further results. Will follow (2) Acute respiratory failure with hypoxia:
--- NOTE | 2021-06-08 17:38 | PCM.PN.HOSP ---
Subjective Subjective Patient remains intubated and sedated. Currently on 100% FiO2 with a PEEP of 16 and an SPO2 of 90 to 92%. Patient is unfortunately now growing out MRSA in her sputum. Day 10 of intubation. Family meeting set for tomorrow at 2 PM. Objective Data Objective Data Vital Signs: Vital Signs Temp Pulse Resp BP Pulse Ox 98.0 F 50 L 21 H 113/63 88 06/08/21 15:00 06/08/21 16:00 06/08/21 15:28 06/08/21 15:00 06/08/21 15:28 Oxygen Flow Rate (L/min) 60 Oxygen Delivery Method Mechanical Ventilator Weight: 96.3 kg Body Mass Index (BMI) 34.0 Intake & Output: Intake and Output for Last 24 Hours 06/06/21 06/07/21 06/08/21 23:59 23:59 23:59 Intake Total 3615.19 / 3732.11 4048.01 / 4680.11 3454.59 / 3454.59 Output Total 3000 / 4250 3350 / 4750 2350 / 2350 Balance 615.19 / -517.89 698.01 / -69.89 1104.59 / 1104.59 Lab / Micro Data Result Diagrams: 06/08/21 04:10 06/08/21 04:10 Labs: Laboratory Results - last 24 hr 06/08/21 04:10: WBC 14.1 H, RBC 3.73 L, Hgb 10.4 L, Hct 33.3 L, MCV 89.3, MCH 27.9, MCHC 31.2 L, RDW Std Deviation 46.5 H, RDW Coeff of Chari 14.3, Plt Count 276, MPV 12.2 H, Immature Gran % (Auto) 3.000 H, Neut % (Auto) 83.8 H, Lymph % (Auto) 7.0 L, [place] % (Auto) 4.8, Eos % (Auto) 1.0, Baso % (Auto) 0.4, Absolute Neuts (auto) 11.8 H, Absolute Lymphs (auto) 0.99, Nucleated RBC % 0 06/08/21 04:10: Sodium 145, Potassium 3.2 L, Chloride 106, Carbon Dioxide 33.0 H, Anion Gap 6, BUN 39 H, Creatinine 0.73, Estim Creat Clear Calc 41.99, Est GFR (MDRD) Af Amer 101, Est GFR (MDRD) Non-Af 84, BUN/Creatinine Ratio 53.2 H, Glucose 179 H, Calcium 7.7 L, Total Bilirubin 0.30, AST 26, ALT 31, Alkaline Phosphatase 80, Total Protein 5.9 L, Albumin 1.5 L, Globulin 4.4 H, Albumin/Globulin Ratio 0.3 L Micro: Microbiology 06/06/21 16:50 Sputum, Induced/Lukens Gram Stain - Final 06/06/21 16:50 Sputum, Induced/Lukens Respiratory Culture - Preliminary Staphylococcus aureus Gram negative damien 05/28/21 15:29 Blood Culture (Wb) - Anticubital Left Blood Culture - Final No growth in 5 days. 05/28/21 15:39 Blood Culture (Wb) - Anticubital Right Blood Culture - Final No growth in 5 days. 05/30/21 12:38 Sputum, Induced/Lukens Gram Stain - Final 05/30/21 12:38 Sputum, Induced/Lukens Respiratory Culture - Final Haemophilus influenzae 05/28/21 15:46 Nasal Secretion SARS-CoV-2 Antigen (Rapid) - Final SARS-CoV-2 (COVID 19) 05/29/21 02:00 Urine, Clean Catch Streptococcus pneumoniae Antigen (M - Final 05/29/21 02:00 Urine, Clean Catch Legionella Antigen - Final 05/28/21 20:00 Mucosa - Nasopharyngeal Respiratory Panel (PCR) - Final Rhythm Strip Rhythm Strip: Sinus Rhythm Rate: 85 Ectopy: None Physical Exam Const no apparent distress Constitutional Narrative: Obese older white female lying in bed intubated and sedated Nutritional Appearance: obese HEENT head/scalp atraumatic HEENT Narrative: ET tube in place Head and Scalp: normocephalic Resp normal respiratory effort, no retractions, no use of accessory muscles and clear to auscultation bilaterally Resp Narrative: Markedly diminished diffusely Auscultation: Negative for crackles, rales, rhonchi or wheezes Cardio regular rate, regular rhythm, S1 normal heart sound, S2 normal heart sound, no murmurs, no rub, no gallops, no clicks and no JVD GI normal to inspection, nondistended, normoactive bowel sounds, soft to palpation, non-tender and non-distended Extremity Extremity Narrative: No cyanosis or clubbing, trace bilateral lower and upper extremity edema noted Peripheral Pulses: Yes pulses 2+ throughout Skin Skin Narrative: Right upper extremity PICC is clean and dry with dressing intact Assessment & Plan Assessment/Plan (1) Acute respiratory failure with hypoxia: (2) Pneumonia due to COVID-19 virus: (3) Normocytic anemia: (4) Hypokalemia: (5) Hyperglycemia: (6) MRSA pneumonia: (7) MSSA (methicillin susceptible Staphylococcus aureus) pneumonia: PLAN: Acute hypoxic respiratory failure secondary to COVID-19 pneumonia/Haemophilus influenza pneumonia/MSSA pneumonia -Symptom onset was 05/23/2021 and patient will need isolation until 06/12/2021 -Patient has completed remdesivir and Decadron -Intubated on 05/30/2021 -Completed antimicrobials for Haemophilus influenza pneumonia -Meropenem initiated to address MSSA pneumonia -Could consider narrowing as this appears to be a fairly sensitive organism -Patient remains on 100% FiO2 with 16 of PEEP and borderline oxygen saturations -Patient remains on baricitinib through 06/12/2021 -Continue to monitor renal function -Continue Lasix 40 mg every 8 hours -Appreciate pulmonary input -Family meeting tomorrow CELI -Resolved Hypokalemia -Potassium replacement -Recheck in a.m. -If remains low check magnesium level Normocytic anemia -It appears that this is an acute issue however her hemoglobins have been stable throughout her hospitalization -Suspect it is related to acute infection and critical illness -Continue to monitor Hyperglycemia -Overall has been fairly stable -Fasting elevation at 179 today -If remains elevated may need to add sliding scale and Accu-Cheks Hypertension -Continue to hold home antihypertensives and monitor blood pressure Depression/anxiety -Continue to hold home Lexapro and Wellbutrin Possible COPD -If patient survives would recommend outpatient pulmonary function test when clinically stable DVT prophylaxis/prophylaxis -Continue subq. Lovenox -Continue PPI CODE STATUS -Full code Charges/Coding Visit Charges Inpatient E&M: 55800 Subs Hosp L2
[2021-06-09] VITALS (38 sets, daily range): BP systolic 107–175; BP diastolic 68–92; PULSE 54–87; RESP 18–28; TEMP 37.4–38.6; O2SAT 88–96
[2021-06-09] MEDS: Vital AF 1.2 Cal Liquid 1,000 ML 60 ML GT ×2 (00:37→15:50)
[2021-06-09 03:44] LABS: Absolute Lymphocyte Count 1.16 X10^3/uL (0.83-4.51); Absolute Neutrophil Count 9.2 X10^3/uL (2.0-7.7); Basophil# 0.04 X10^3/uL; Basophil% 0.3 % (0-1); Eosinophil# 0.16 X10^3/uL; Eosinophils% 1.4 % (0-5); Hematocrit 32.4 % (37-47); Hemoglobin 10.1 g/dL (12.0-15.0); Lymphocyte # 1.16 X10^3/ul (0.83-4.51); Mean Corp Hgb Conc 31.2 g/dL (32-36); Mean Corpuscular Hgb 27.7 pg (27.0-32.0); Mean Corpuscular Volume 88.8 fL (81-99); Mean Platelet Vol. 11.7 fl (6.2-12.0); Monocyte# 0.81 X10^3/uL; NRBC Flagged by Analyzer 0 % (0-5); Neutrophil # 9.22 X10^3/uL (2.7-7.7); Neutrophil % 79.2 % (47-70); Platelet Count 307 K/mm3 (150-450); RBC Distribution Width CV 14.3 % (11.6-14.6); RBC Distribution Width SD 46.5 fl (35.1-43.9); Red Blood Count 3.65 M/mm3 (4.2-5.4); White Blood Count 11.6 K/mm3 (4.4-11.0)
[2021-06-09 03:57] LABS: Anion Gap 4 (5-15); BUN 42 mg/dL (7-18); BUN/Creat Ratio 63.3 RATIO (10-20); Calcium,Total 8.1 mg/dL (8.5-10.1); Chloride 106 mmol/L (98-107); Creatinine, Serum 0.66 mg/dL (0.55-1.02); EST Glomerular Filtration Rate 94 mL/min (>60); Est Glom Filt Rate - Afr Amer 114 mL/min (>60); Estimated Creatinine Clearance 41.99 ml/min; Glucose 120 mg/dL (74-106); Potassium 4.1 mmol/L (3.5-5.1); Sodium Level 145 mmol/L (136-145)
[2021-06-09] MEDS: Dexmedetomidine 1,000 mcg in 0.9% NS 240 mL 35.4 MCG CONT INF (04:00)
[2021-06-09] MEDS: Furosemide 40 MG/4 ML Vial IV ×3 (06:18→21:17)
[2021-06-09] MEDS: TITRATION PARAMETER CHANGE 1 EACH IV (06:39)
[2021-06-09] MEDS: LORazepam 2 MG/ML Syringe IV (07:05)
[2021-06-09] MEDS: Menthol/Lanolin/Calamine/Znox 113 GM Tube 1 APPLIC TOPICAL ×2 (08:19→21:17)
[2021-06-09] MEDS: Enoxaparin 40 MG/0.4 ML Syringe SC ×2 (08:20→21:16)
[2021-06-09] MEDS: Senna/Docusate Sodium 1 Tablet 2 TABLET GT ×2 (08:20→21:16)
[2021-06-09] MEDS: Polyethylene Glycol 3350 17 GM PACKET GT (08:20)
[2021-06-09] MEDS: Escitalopram Oxalate 20 MG Tablet GT (08:20)
[2021-06-09] MEDS: Metoclopramide 10 MG/2 ML Vial 5 MG IV ×2 (08:21→21:17)
[2021-06-09] MEDS: CHLORHEXIDINE GLUC 2% CLOTH 1 EACH TOWELETTE TOPICAL (08:21)
[2021-06-09] MEDS: Chlorhexidine 15 ML PO ×2 (08:21→21:23)
--- NOTE | 2021-06-09 10:20 | PN.CC_ITS ---
Assessment & Plan Assessment/Plan (1) Pneumonia due to COVID-19 virus: (2) Acute respiratory failure with hypoxia: PLAN: RECOMMENDATIONS: 1. Continue patient on assist control mode of mechanical ventilation and wean FiO2 for saturations greater than 90%. 2. Continue baricitinib (06/12/2021) and completed Decadron 3. Continue Lovenox as ordered. 4. Changed to meropenem yesterday. Course per infectious disease. 5. Continue appropriate GI prophylaxis. 6. Continue tube feeds as tolerated. Continue Reglan 7. Continue diuretics as tolerated by hemodynamics and renal function. IMPRESSIONS: 1. Acute hypoxemic respiratory failure secondary to COVID-19/Haemophilus influenza/staph aureus/Bordetella pneumonias The patient was initially admitted to the hospital on May 28 after presenting with worsening dyspnea. Symptom onset was sometime around May 23. The patient is unvaccinated. The patient's hospital course was complicated by worsening respiratory status, ultimately requiring transfer to the ICU and subsequent intubation on May 30. The patient will be continued on baricitinib as ordered. She has completed her treatment courses of Decadron and remdesivir. In addition, the patient sputum culture was positive for Haemophilus influenza. Therefore, the patient will be continued on antimicr obials to complete 7 days of therapy. While on antimicrobials, patient does now growing MSSA and Bordetella. CTA chest was negative for PE. Accordingly, it is reasonable to continue Lovenox as ordered. Continue tube feeds as tolerated. Unfortunately, patient had to be transitioned from propofol to Versed secondary to hypertriglyceridemia. Patient with improved vent synchrony at this time. We will add Ativan as needed. Family meeting today to discuss willingness for tracheostomy 2. Distributive shock Resolved. Likely secondary to underlying sepsis coupled with the hemodynamic effects of sedative medication use. Vasopressor support is currently on hold. The patient remains hemodynamically stable. 3. Acute kidney injury Resolved. Likely secondary to ATN in the setting of #1. Continue to monitor urine output for now. No current indication for renal replacement therapy. 4. Questionable history of COPD/hypertension/depression/anxiety Complicates care, management, recovery and prognosis. Continue tube feeds as tolerated. Poor overall prognosis TIME: 40 minutes of critical care time, independent of procedures, was spent addressing the patient's acute hypoxemic respiratory failure secondary to COVID- 19 pneumonia, distributive shock, acute kidney injury, review of all data and collaboration with the care team. Subjective Subjective Patient did okay overnight. Patient continues to have intermittent dyssynchrony, but overall is improved. Patient did have fevers overnight. Family meeting scheduled for 2:00 today for an update on patient situation. Patient has been intubated for 11 days. Objective Data Objective Data Vital Signs: Vital Signs Temp Pulse Resp BP Pulse Ox 38.2 C H 71 22 H 126/89 H 91 06/09/21 08:00 06/09/21 09:00 06/09/21 09:00 06/09/21 09:00 06/09/21 09:00 Oxygen Flow Rate (L/min) 60 Oxygen Delivery Method Mechanical Ventilator Weight: 97.3 kg Body Mass Index (BMI) 34.0 Intake & Output: Intake and Output for Last 24 Hours 06/07/21 06/08/21 06/09/21 23:59 23:59 23:59 Intake Total 4048.01 / 4680.11 4749.03 / 5080.43 2133.52 / 2133.52 Output Total 3350 / 4750 3280 / 3680 1810 / 1810 Balance 698.01 / -69.89 1469.03 / 1400.43 323.52 / 323.52 Lab / Micro Data Result Diagrams: 06/09/21 03:30 06/09/21 03:30 Labs: Laboratory Results - last 24 hr 06/09/21 03:30: WBC 11.6 H, RBC 3.65 L, Hgb 10.1 L, Hct 32.4 L, MCV 88.8, MCH 27.7, MCHC 31.2 L, RDW Std Deviation 46.5 H, RDW Coeff of Chari 14.3, Plt Count 307, MPV 11.7, Immature Gran % (Auto) 2.100 H, Neut % (Auto) 79.2 H, Lymph % (Auto) 10.0 L, Callaway % (Auto) 7.0, Eos % (Auto) 1.4, Baso % (Auto) 0.3, Absolute Neuts (auto) 9.2 H, Absolute Lymphs (auto) 1.16, Nucleated RBC % 0 06/09/21 03:30: Sodium 145, Potassium 4.1, Chloride 106, Carbon Dioxide 35.0 H, Anion Gap 4 L, BUN 42 H, Creatinine 0.66, Estim Creat Clear Calc 41.99, Est GFR (MDRD) Af Amer 114, Est GFR (MDRD) Non-Af 94, BUN/Creatinine Ratio 63.3 H, Gluc ose 120 H, Calcium 8.1 L Micro: Microbiology 06/06/21 16:45 Blood Culture (Wb) - Anticubital Left Blood Culture - Preliminary No growth in 48 hours. 06/06/21 16:25 Blood Culture (Wb) - Pic Blood Culture - Preliminary No growth in 48 hours. 06/06/21 16:50 Sputum, Induced/Lukens Gram Stain - Final 06/06/21 16:50 Sputum, Induced/Lukens Respiratory Culture - Final Staphylococcus aureus Bordetella bronchiseptica 05/28/21 15:29 Blood Culture (Wb) - Anticubital Left Blood Culture - Final No growth in 5 days. 05/28/21 15:39 Blood Culture (Wb) - Anticubital Right Blood Culture - Final No growth in 5 days. 05/30/21 12:38 Sputum, Induced/Lukens Gram Stain - Final 05/30/21 12:38 Sputum, Induced/Lukens Respiratory Culture - Final Haemophilus influenzae 05/28/21 15:46 Nasal Secretion SARS-CoV-2 Antigen (Rapid) - Final SARS-CoV-2 (COVID 19) 05/29/21 02:00 Urine, Clean Catch Streptococcus pneumoniae Antigen (M - Final 05/29/21 02:00 Urine, Clean Catch Legionella Antigen - Final 05/28/21 20:00 Mucosa - Nasopharyngeal Respiratory Panel (PCR) - Final Rhythm Strip Rhythm Strip: Sinus Rhythm Rate: 85 Ectopy: None Physical Exam Const no apparent distress Constitutional Narrative: Better vent synchrony. General Appearance: intubated Nutritional Appearance: obese HEENT normocephalic and head/scalp atraumatic Mouth: endotracheal tube in place and OG tube in place Eyes PERRL, EOMs intact bilaterally and conjunctivae normal Neck supple General: trachea midline Chest inspection of chest normal Chest: symmetrical chest wall rise; Negative for crepitus Resp Auscultation: rhonchi throughout and diminished lung sounds; Negative for rales or wheezes Cardio regular rate, regular rhythm, S1 normal heart sound and S2 normal heart sound GI normal to inspection, nondistended, normoactive bowel sounds Extremity no clubbing, cyanosis or edema Skin no rashes or lesions noted Neuro Sensorium / Orientation: sedated on vent Charges/Coding Procedures Hospitalists Procedures: 70954 Critial Care 1st Hr
[2021-06-09] MEDS: Dexmedetomidine 1,000 mcg in 0.9% NS 240 mL 36.5 MCG CONT INF ×2 (11:00→18:20)
[2021-06-09] MEDS: 0.9% Saline Lock 10 ML Syringe IV ×2 (13:04→13:09)
--- NOTE | 2021-06-09 13:42 | PN.HOSP_ITS ---
Subjective Subjective Patient remains intubated and on ventilator. FiO2 has been able to read been reduced to 75% from 100% yesterday. PEEP remains at 16. Patient remains sedated. Family meeting today at 2 PM. Objective Data Objective Data Vital Signs: Vital Signs Temp Pulse Resp BP Pulse Ox 100.8 F H 57 L 20 H 116/74 94 06/09/21 10:00 06/09/21 13:00 06/09/21 13:00 06/09/21 13:00 06/09/21 13:00 Oxygen Flow Rate (L/min) 60 Oxygen Delivery Method Mechanical Ventilator Weight: 97.3 kg Body Mass Index (BMI) 34.0 Intake & Output: Intake and Output for Last 24 Hours 06/07/21 06/08/21 06/09/21 23:59 23:59 23:59 Intake Total 4048.01 / 4680.11 4749.03 / 5080.43 2776.49 / 2776.49 Output Total 3350 / 4750 3280 / 3680 2710 / 2710 Balance 698.01 / -69.89 1469.03 / 1400.43 66.49 / 66.49 Lab / Micro Data Result Diagrams: 06/09/21 03:30 06/09/21 03:30 Labs: Laboratory Results - last 24 hr 06/09/21 03:30: WBC 11.6 H, RBC 3.65 L, Hgb 10.1 L, Hct 32.4 L, MCV 88.8, MCH 27.7, MCHC 31.2 L, RDW Std Deviation 46.5 H, RDW Coeff of Chari 14.3, Plt Count 307, MPV 11.7, Immature Gran % (Auto) 2.100 H, Neut % (Auto) 79.2 H, Lymph % (Auto) 10.0 L, Mccormick % (Auto) 7.0, Eos % (Auto) 1.4, Baso % (Auto) 0.3, Absolute Neuts (auto) 9.2 H, Absolute Lymphs (auto) 1.16, Nucleated RBC % 0 06/09/21 03:30: Sodium 145, Potassium 4.1, Chloride 106, Carbon Dioxide 35.0 H, Anion Gap 4 L, BUN 42 H, Creatinine 0.66, Estim Creat Clear Calc 41.99, Est GFR (MDRD) Af Amer 114, Est GFR (MDRD) Non-Af 94, BUN/Creatinine Ratio 63.3 H, Glucose 120 H, Calcium 8.1 L Micro: Microbiology 06/06/21 16:45 Blood Culture (Wb) - Anticubital Left Blood Culture - Preliminary No growth in 48 hours. 06/06/21 16:25 Blood Culture (Wb) - Pic Blood Culture - Preliminary No growth in 48 hours. 06/06/21 16:50 Sputum, Induced/Lukens Gram Stain - Final 06/06/21 16:50 Sputum, Induced/Lukens Respiratory Culture - Final Staphylococcus aureus Bordetella bronchiseptica 05/28/21 15:29 Blood Culture (Wb) - Anticubital Left Blood Culture - Final No growth in 5 days. 05/28/21 15:39 Blood Culture (Wb) - Anticubital Right Blood Culture - Final No growth in 5 days. 05/30/21 12:38 Sputum, Induced/Lukens Gram Stain - Final 05/30/21 12:38 Sputum, Induced/Lukens Respiratory Culture - Final Haemophilus influenzae 05/28/21 15:46 Nasal Secretion SARS-CoV-2 Antigen (Rapid) - Final SARS-CoV-2 (COVID 19) 05/29/21 02:00 Urine, Clean Catch Streptococcus pneumoniae Antigen (M - Final 05/29/21 02:00 Urine, Clean Catch Legionella Antigen - Final 05/28/21 20:00 Mucosa - Nasopharyngeal Respiratory Panel (PCR) - Final Rhythm Strip Rhythm Strip: Sinus Rhythm Rate: 85 Ectopy: None Physical Exam Const alert and no apparent distress Constitutional Narrative: Obese older white female lying in bed intubated and sedated General Appearance: cooperative Nutritional Appearance: obese HEENT normocephalic and head/scalp atraumatic HEENT Narrative: ET tube in place Head and Scalp: normocephalic Resp normal respiratory effort, no retractions, no use of accessory muscles and clear to auscultation bilaterally Resp Narrative: Markedly diminished diffusely Auscultation: Negative for crackles, rales, rhonchi or wheezes Cardio regular rate, regular rhythm, S1 normal heart sound, S2 normal heart sound, no murmurs, no rub, no gallops, no clicks and no JVD GI normal to inspection, nondistended, normoactive bowel sounds, soft to palpation, non-tender and non-distended Extremity normal to inspection and no clubbing, cyanosis or edema Extremity Narrative: No cyanosis or clubbing, trace bilateral lower and upper extremity edema noted Skin Skin Narrative: Right upper extremity double-lumen PICC is clean and dry with dressing intact Assessment & Plan Assessment/Plan (1) Acute respiratory failure with hypoxia: (2) Pneumonia due to COVID-19 virus: (3) Normocytic anemia: (4) Hypokalemia: (5) Hyperglycemia: (6) MRSA pneumonia: (7) MSSA (methicillin susceptible Staphylococcus aureus) pneumonia: PLAN: Acute hypoxic respiratory failure secondary to COVID-19 pneumonia/Haemophilus influenza pneumonia/MSSA/Bordetella pneumonia -Symptom onset was 05/23/2021 and patient will need isolation until 06/12/2021 -Patient has completed remdesivir and Decadron -Intubated on 05/30/2021 -Completed antimicrobials for Haemophilus influenza pneumonia -Most recent cultures are growing MSSA and Bordetella -Cont Meropenem -Patient remains on 75% FiO2 with 16 of PEEP -Patient remains on baricitinib through 06/12/2021 -Continue to monitor renal function -Continue Lasix 40 mg every 8 hours -Appreciate pulmonary input -Family meeting today CELI -Resolved -Monitor closely for elevated serum creatinine with aggressive diuresis Hypokalemia -Potassium replacement -Recheck in a.m. -If remains low check magnesium level Normocytic anemia -It appears that this is an acute issue however her hemoglobins have been stable throughout her hospitalization -Suspect it is related to acute infection and critical illness -Continue to monitor Hyperglycemia -Overall has been fairly stable -Fasting elevation at 120 today Hypertension -Continue to hold home antihypertensives and monitor blood pressure Depression/anxiety -Continue to hold home Lexapro and Wellbutrin Possible COPD -If patient survives would recommend outpatient pulmonary function test when clinically stable DVT prophylaxis/prophylaxis -Continue subq. Lovenox -Continue PPI CODE STATUS -Full code Charges/Coding Visit Charges Inpatient E&M: 32742 Subs Hosp L2
--- NOTE | 2021-06-09 15:57 | CHAPLAIN ---
Type of Pastoral Visit ___ Initial Visit ___ Follow-up Visit ___ On-call Visit ___ General Patient Visit ___ Spiritual Assessment _x__ Family Conference ___ Bereavement ___ Rapid Response ___ Code Blue ___ Other (describe below) Pastoral Care Referral From ___ Patient ___ Family _x__ Nurse ___ Physician ___ Land Leasing Examiner ___ Hop Separator ___ Other (describe below) Sacrament/Intervention _x__ Active listening ___ Anointing ___ Hoahaoism ___ Bereavement ___ Communion _x__ Nay exploration ___ ___ Life review _x__ Prayer ___ Reconciliation ___ Sacrament of Sick _x__ Supportive presence ___ Wedding ___ Other (describe below) Pastoral Comments family conference was requested by medical team; DR and RN were present as well as this mail officer; spouse of 52 years and three children were present with another daughter on the phone who is traveling from out of state to be here; family was given status update and the opportunity to see the patient; escorted family to and from the room; offered support before and after the visit; family is handling the situation appropriately as observed and stated by them; patient is not an active member of a restorationism group but the spouse did request prayers for patient which was completed with the family in the waiting room
[2021-06-10] VITALS (34 sets, daily range): BP systolic 107–173; BP diastolic 67–95; PULSE 56–96; RESP 18–32; TEMP 37.5–38; O2SAT 89–94
[2021-06-10] MEDS: Dexmedetomidine 1,000 mcg in 0.9% NS 240 mL 36.5 MCG CONT INF (02:00)
[2021-06-10 04:06] LABS: Absolute Lymphocyte Count 1.49 X10^3/uL (0.83-4.51); Absolute Neutrophil Count 8.9 X10^3/uL (2.0-7.7); Basophil# 0.04 X10^3/uL; Basophil% 0.3 % (0-1); Eosinophil# 0.18 X10^3/uL; Eosinophils% 1.5 % (0-5); Hematocrit 32.3 % (37-47); Hemoglobin 10.1 g/dL (12.0-15.0); Lymphocyte # 1.49 X10^3/ul (0.83-4.51); Lymphocyte % 12.6 % (19-41); Mean Corp Hgb Conc 31.3 g/dL (32-36); Mean Corpuscular Hgb 27.7 pg (27.0-32.0); Mean Corpuscular Volume 88.5 fL (81-99); Mean Platelet Vol. 11.8 fl (6.2-12.0); Monocyte% 7.6 % (0-10); NRBC Flagged by Analyzer 0 % (0-5); Neutrophil # 8.94 X10^3/uL (2.7-7.7); Platelet Count 374 K/mm3 (150-450); RBC Distribution Width CV 14.5 % (11.6-14.6); RBC Distribution Width SD 46.4 fl (35.1-43.9); Red Blood Count 3.65 M/mm3 (4.2-5.4); White Blood Count 11.8 K/mm3 (4.4-11.0)
[2021-06-10 04:18] LABS: AST(SGOT) 40 U/L (15-37); Alanine Aminotransfer ALT/SGPT 46 U/L (13-56); Albumin, Serum 1.4 g/dL (3.2-5.0); Alkaline Phosphatase 94 U/L (45-117); Anion Gap 6 (5-15); BUN 41 mg/dL (7-18); BUN/Creat Ratio 57.5 RATIO (10-20); Bilirubin, Direct 0.11 mg/dL (0.00-0.30); Calcium,Total 8.4 mg/dL (8.5-10.1); Chloride 104 mmol/L (98-107); Creatinine, Serum 0.71 mg/dL (0.55-1.02); EST Glomerular Filtration Rate 86 mL/min (>60); Est Glom Filt Rate - Afr Amer 104 mL/min (>60); Estimated Creatinine Clearance 41.99 ml/min; Globulin 4.8 g/dL (2.2-4.2); Glucose 138 mg/dL (74-106); Potassium 3.8 mmol/L (3.5-5.1); Protein, Total 6.2 g/dL (6.4-8.2); Sodium Level 145 mmol/L (136-145)
[2021-06-10] MEDS: 0.9% Saline Lock 10 ML Syringe IV ×2 (05:23→05:50)
[2021-06-10] MEDS: TITRATION PARAMETER CHANGE 1 EACH IV (05:35)
[2021-06-10] MEDS: Furosemide 40 MG/4 ML Vial IV ×3 (05:50→22:11)
--- NOTE | 2021-06-10 07:00 | PN.CC_ITS ---
Assessment & Plan Assessment/Plan (1) Pneumonia due to COVID-19 virus: (2) Acute respiratory failure with hypoxia: PLAN: RECOMMENDATIONS: 1. Continue patient on assist control mode of mechanical ventilation and wean FiO2 for saturations greater than 90%. 2. Continue baricitinib (06/12/2021) and completed Decadron 3. Continue Lovenox as ordered. 4. Continue meropenem to complete at least 7 days. ID following 5. Continue appropriate GI prophylaxis. 6. Continue tube feeds as tolerated. Continue Reglan 7. Continue diuretics as tolerated by hemodynamics and renal function. IMPRESSIONS: 1. Acute hypoxemic respiratory failure secondary to COVID-19/Haemophilus influenza/staph aureus/Bordetella pneumonias The patient was initially admitted to the hospital on May 28 after presenting with worsening dyspnea. Symptom onset was sometime around May 23. The patient is unvaccinated. The patient's hospital course was complicated by worsening respiratory status, ultimately requiring transfer to the ICU and s ubsequent intubation on May 30. The patient will be continued on baricitinib as ordered. She has completed her treatment courses of Decadron and remdesivir. The patient was on antimicrobials to complete 7 days of therapy for H. influenzae initially. While on antimicrobials, patientnow growing MSSA and Bordetella. Patient was broadened to meropenem. CTA chest was negative for PE. Accordingly, it is reasonable to continue Lovenox as ordered. Continue tube feeds as tolerated. Unfortunately, patient had to be transitioned from propofol to Versed secondary to hypertriglyceridemia. Patient with improved vent synchrony at this time. We will minimize Ativan as needed. Anticipate trach and PEG in the future once more medically stable 2. Distributive shock Resolved. Likely secondary to underlying sepsis coupled with the hemodynamic effects of sedative medication use. Vasopressor support is currently on hold. The patient remains hemodynamically stable. 3. Acute kidney injury Resolved. Likely secondary to ATN in the setting of #1. Continue to monitor urine output for now. No current indication for renal replacement therapy. 4. Questionable history of COPD/hypertension/depression/anxiety Complicates care, management, recovery and prognosis. Continue tube feeds as tolerated. Poor overall prognosis TIME: 32 minutes of critical care time, independent of procedures, was spent addressing the patient's acute hypoxemic respiratory failure secondary to COVID- 19 pneumonia, distributive shock, acute kidney injury, review of all data and collaboration with the care team. Subjective Subjective Patient did okay overnight. No acute issues were reported. Patient is tolerating tube feeds and did have a bowel movement overnight. Patient did have a fever, but has remained hemodynamically stable. There has been some improvement in FiO2, but still on 16 of PEEP. Family meeting yesterday. Anticipate family will be aggressive moving forward including trach and PEG if patient can be optimized. They are aware that at the high levels of PEEP at this point time, proceeding with procedures is limited. Objective Data Objective Data Vital Signs: Vital Signs Temp Pulse Resp BP Pulse Ox 37.6 C H 70 23 H 168/82 H 91 06/10/21 06:00 06/10/21 06:00 06/10/21 06:00 06/10/21 06:00 06/10/21 06:00 Oxygen Flow Rate (L/min) 60 Oxygen Delivery Method Mechanical Ventilator Weight: 95.2 kg Body Mass Index (BMI) 34.0 Intake & Output: Intake and Output for Last 24 Hours 06/08/21 06/09/21 06/10/21 23:59 23:59 23:59 Intake Total 4749.03 / 5080.43 4232.16 / 4278.66 1085.00 / 1085.00 Output Total 3280 / 3680 4210 / 4210 610 / 610 Balance 1469.03 / 1400.43 22.16 / 68.66 475.00 / 475.00 Lab / Micro Data Result Diagrams: 06/10/21 03:50 06/10/21 03:50 Labs: Laboratory Results - last 24 hr 06/10/21 03:50: Sodium 145, Potassium 3.8, Chloride 104, Carbon Dioxide 35.0 H, Anion Gap 6, BUN 41 H, Creatinine 0.71, Estim Creat Clear Calc 41.99, Est GFR (MDRD) Af Amer 104, Est GFR (MDRD) Non-Af 86, BUN/Creatinine Ratio 57.5 H, Glucose 138 H, Calcium 8.4 L, Total Bilirubin 0.30, Direct Bilirubin 0.11, AST 40 H, ALT 46, Alkaline Phosphatase 94, Total Protein 6.2 L, Albumin 1.4 L, Globulin 4.8 H 06/10/21 03:50: WBC 11.8 H, RBC 3.65 L, Hgb 10.1 L, Hct 32.3 L, MCV 88.5, MCH 27.7, MCHC 31.3 L, RDW Std Deviation 46.4 H, RDW Coeff of Chari 14.5, Plt Count 374, MPV 11.8, Immature Gran % (Auto) 2.000 H, Neut % (Auto) 76.0 H, Lymph % (Auto) 12.6 L, Mcculloch % (Auto) 7.6, Eos % (Auto) 1.5, Baso % (Auto) 0.3, Absolute Neuts (auto) 8.9 H, Absolute Lymphs (auto) 1.49, Nucleated RBC % 0 Micro: Microbiology 06/06/21 16:45 Blood Culture (Wb) - Anticubital Left Blood Culture - Preliminary No growth in 48 hours. 06/06/21 16:25 Blood Culture (Wb) - Pic Blood Culture - Preliminary No growth in 48 hours. 06/06/21 16:50 Sputum, Induced/Lukens Gram Stain - Final 06/06/21 16:50 Sputum, Induced/Lukens Respiratory Culture - Final Staphylococcus aureus Bordetella bronchiseptica 05/28/21 15:29 Blood Culture (Wb) - Anticubital Left Blood Culture - Final No growth in 5 days. 05/28/21 15:39 Blood Culture (Wb) - Anticubital Right Blood Culture - Final No growth in 5 days. 05/30/21 12:38 Sputum, Induced/Lukens Gram Stain - Final 05/30/21 12:38 Sputum, Induced/Lukens Respiratory Culture - Final Haemophilus influenzae 05/28/21 15:46 Nasal Secretion SARS-CoV-2 Antigen (Rapid) - Final SARS-CoV-2 (COVID 19) 05/29/21 02:00 Urine, Clean Catch Streptococcus pneumoniae Antigen (M - Final 05/29/21 02:00 Urine, Clean Catch Legionella Antigen - Final 05/28/21 20:00 Mucosa - Nasopharyngeal Respiratory Panel (PCR) - Final Rhythm Strip Rhythm Strip: Sinus Rhythm Rate: 85 Ectopy: None Physical Exam Const no apparent distress Constitutional Narrative: Good vent synchrony. General Appearance: intubated Nutritional Appearance: obese HEENT normocephalic and head/scalp atraumatic Mouth: endotracheal tube in place and OG tube in place Eyes PERRL, EOMs intact bilaterally and conjunctivae normal Neck supple General: trachea midline Chest inspection of chest normal Chest: symmetrical chest wall rise; Negative for crepitus Resp Auscultation: rhonchi throughout and diminished lung sounds; Negative for rales or wheezes Cardio regular rate, regular rhythm, S1 normal heart sound and S2 normal heart sound GI normal to inspection, nondistended, normoactive bowel sounds Extremity no clubbing, cyanosis or edema Skin no rashes or lesions noted Neuro Sensorium / Orientation: sedated on vent Charges/Coding Procedures Hospitalists Procedures: 98606 Critial Care 1st Hr
[2021-06-10] MEDS: Chlorhexidine 15 ML PO ×2 (08:05→22:12)
[2021-06-10] MEDS: Polyethylene Glycol 3350 17 GM PACKET GT (08:06)
[2021-06-10] MEDS: Menthol/Lanolin/Calamine/Znox 113 GM Tube 1 APPLIC TOPICAL ×2 (08:06→22:11)
[2021-06-10] MEDS: Enoxaparin 40 MG/0.4 ML Syringe SC ×2 (08:07→22:11)
[2021-06-10] MEDS: Escitalopram Oxalate 20 MG Tablet GT (08:07)
[2021-06-10] MEDS: Metoclopramide 10 MG/2 ML Vial 5 MG IV ×2 (08:08→22:11)
[2021-06-10] MEDS: Senna/Docusate Sodium 1 Tablet 2 TABLET GT ×2 (08:08→22:05)
[2021-06-10] MEDS: Dexmedetomidine 1,000 mcg in 0.9% NS 240 mL 35.7 MCG CONT INF ×2 (08:56→16:35)
[2021-06-10] MEDS: Vital AF 1.2 Cal Liquid 1,000 ML 60 ML GT (10:28)
[2021-06-10] MEDS: CHLORHEXIDINE GLUC 2% CLOTH 1 EACH TOWELETTE TOPICAL (11:04)
[2021-06-10] MEDS: amLODIPine 5 MG Tablet PO (11:35)
--- NOTE | 2021-06-10 12:37 | PCM.PN.ID ---
Physical Exam Narrative On vent, fever better Const no apparent distress Resp Effort and Inspection: mechanically ventilated Auscultation: diminished lung sounds Cardio regular rate and regular rhythm GI soft to palpation, non-tender and non-distended Skin no rashes or lesions noted ID ID: Route of nutrition/ use of supplements: [] Nutritional Intake: [] IV Site: [] Wyatt Catheter: [] Assessment & Plan Assessment/Plan (1) Pneumonia due to COVID-19 virus: PLAN: On baricitinib, completed dex. Sputum with h. flu, now sputum with mssa and bordatella. Good response since changing to meropenem. Will follow (2) Acute respiratory failure with hypoxia:
--- NOTE | 2021-06-10 16:47 | PN.HOSP_ITS ---
Subjective Subjective Patient remains intubated and sedated on the ventilator. Respiration appears a bit more labored however sedation is being weaned. Family meeting held yesterday and family would like to pursue aggressive care including trach and PEG if become needed. Objective Data Objective Data Vital Signs: Vital Signs Temp Pulse Resp BP Pulse Ox 99.9 F H 70 31 H 145/72 H 90 06/10/21 16:00 06/10/21 16:19 06/10/21 16:19 06/10/21 16:00 06/10/21 16:19 Oxygen Flow Rate (L/min) 60 Oxygen Delivery Method Mechanical Ventilator Weight: 95.2 kg Body Mass Index (BMI) 34.0 Intake & Output: Intake and Output for Last 24 Hours 06/08/21 06/09/21 06/10/21 23:59 23:59 23:59 Intake Total 4749.03 / 5080.43 4232.16 / 4278.66 1938.00 / 1938.00 Output Total 3280 / 3680 4210 / 4210 2360 / 2360 Balance 1469.03 / 1400.43 22.16 / 68.66 -422.00 / -422.00 Lab / Micro Data Result Diagrams: 06/10/21 03:50 06/10/21 03:50 Labs: Laboratory Results - last 24 hr 06/10/21 03:50: Sodium 145, Potassium 3.8, Chloride 104, Carbon Dioxide 35.0 H, Anion Gap 6, BUN 41 H, Creatinine 0.71, Estim Creat Clear Calc 41.99, Est GFR (MDRD) Af Amer 104, Est GFR (MDRD) Non-Af 86, BUN/Creatinine Ratio 57.5 H, Glucose 138 H, Calcium 8.4 L, Total Bilirubin 0.30, Direct Bilirubin 0.11, AST 40 H, ALT 46, Alkaline Phosphatase 94, Total Protein 6.2 L, Albumin 1.4 L, Globulin 4.8 H 06/10/21 03:50: WBC 11.8 H, RBC 3.65 L, Hgb 10.1 L, Hct 32.3 L, MCV 88.5, MCH 27.7, MCHC 31.3 L, RDW Std Deviation 46.4 H, RDW Coeff of Chari 14.5, Plt Count 374, MPV 11.8, Immature Gran % (Auto) 2.000 H, Neut % (Auto) 76.0 H, Lymph % (Auto) 12.6 L, [place] % (Auto) 7.6, Eos % (Auto) 1.5, Baso % (Auto) 0.3, Absolute Neuts (auto) 8.9 H, Absolute Lymphs (auto) 1.49, Nucleated RBC % 0 Micro: Microbiology 06/06/21 16:45 Blood Culture (Wb) - Anticubital Left Blood Culture - Preliminary No growth in 48 hours. 06/06/21 16:25 Blood Culture (Wb) - Pic Blood Culture - Preliminary No growth in 48 hours. 06/06/21 16:50 Sputum, Induced/Lukens Gram Stain - Final 06/06/21 16:50 Sputum, Induced/Lukens Respiratory Culture - Final Staphylococcus aureus Bordetella bronchiseptica 05/28/21 15:29 Blood Culture (Wb) - Anticubital Left Blood Culture - Final No growth in 5 days. 05/28/21 15:39 Blood Culture (Wb) - Anticubital Right Blood Culture - Final No growth in 5 days. 05/30/21 12:38 Sputum, Induced/Lukens Gram Stain - Final 05/30/21 12:38 Sputum, Induced/Lukens Respiratory Culture - Final Haemophilus influenzae 05/28/21 15:46 Nasal Secretion SARS-CoV-2 Antigen (Rapid) - Final SARS-CoV-2 (COVID 19) 05/29/21 02:00 Urine, Clean Catch Streptococcus pneumoniae Antigen (M - Final 05/29/21 02:00 Urine, Clean Catch Legionella Antigen - Final 05/28/21 20:00 Mucosa - Nasopharyngeal Respiratory Panel (PCR) - Final Rhythm Strip Rhythm Strip: Sinus Rhythm Rate: 85 Ectopy: None Physical Exam Const alert and no apparent distress Constitutional Narrative: Obese older white female lying in bed intubated and sedated General Appearance: cooperative Nutritional Appearance: obese HEENT normocephalic and head/scalp atraumatic Head and Scalp: normocephalic Resp normal respiratory effort, no retractions, no use of accessory muscles and clear to auscultation bilaterally Resp Narrative: Markedly diminished diffusely, respirations appear a bit labored but sedation is on wean Auscultation: Negative for crackles, rales, rhonchi or wheezes Cardio regular rate, regular rhythm, S1 normal heart sound, S2 normal heart sound, no murmurs, no rub, no gallops, no clicks and no JVD GI normal to inspection, nondistended, normoactive bowel sounds, soft to palpation, non-tender and non-distended Extremity normal to inspection and no clubbing, cyanosis or edema Extremity Narrative: No cyanosis or clubbing, trace bilateral lower and upper extremity edema noted Peripheral Pulses: Yes pulses 2+ throughout Skin Skin Narrative: Right upper extremity double-lumen PICC is clean and dry with dressing intact Neuro Neuro Narrative: Intubated and sedated on ventilator, though spontaneously move extremities periodically Psych Psych Narrative: flat affect Assessment & Plan Assessment/Plan (1) Acute respiratory failure with hypoxia: (2) Pneumonia due to COVID-19 virus: (3) Normocytic anemia: (4) Hypokalemia: (5) Hyperglycemia: (6) MRSA pneumonia: (7) MSSA (methicillin susceptible Staphylococcus aureus) pneumonia: PLAN: Acute hypoxic respiratory failure secondary to COVID-19 pneumonia/Haemophilus influenza pneumonia/MSSA/Bordetella pneumonia -Symptom onset was 05/23/2021 and patient will need isolation until 06/12/2021 -Patient has completed remdesivir and Decadron -Intubated on 05/30/2021 -Completed antimicrobials for Haemophilus influenza pneumonia -Most recent cultures are growing MSSA and Bordetella -Cont Meropenem -FiO2 has been weaned to 55% however PEEP remains at 16 with oxygen saturations at 89 to 93% -Patient remains on baricitinib through 06/12/2021 -Continue to monitor renal function -Continue Lasix 40 mg every 8 hours -May need to consider backing off soon as patient is developing contraction alkalosis and a rising BUN -Continue to closely watch renal function -Appreciate pulmonary input -Family would like to proceed with trach and PEG if needed CELI -Resolved -Monitor closely for elevated serum creatinine with aggressive diuresis Hypokalemia -Resolved Normocytic anemia -It appears that this is an acute issue however her hemoglobins have been stable throughout her hospitalization -Suspect it is related to acute infection and critical illness -Continue to monitor Hyperglycemia -Overall has been fairly stable -Fasting elevation at 1138 today Hypertension -Continue to hold home antihypertensives and monitor blood pressure Depression/anxiety -Continue home Lexapro -Hold Wellbutrin Possible COPD -If patient survives would recommend outpatient pulmonary function test when clinically stable DVT prophylaxis/prophylaxis -Continue subq. Lovenox -Continue PPI CODE STATUS -Full code Charges/Coding Visit Charges Inpatient E&M: 98071 Subs Hosp L2
[2021-06-10] MEDS: Acetaminophen 650 MG/20 ML UDC PO (22:04)
[2021-06-11] VITALS (35 sets, daily range): BP systolic 85–188; BP diastolic 58–97; PULSE 56–97; RESP 18–33; TEMP 37.3–37.9; O2SAT 88–97
[2021-06-11] MEDS: Dexmedetomidine 1,000 mcg in 0.9% NS 240 mL 35.7 MCG CONT INF ×4 (01:31→23:15)
[2021-06-11 04:10] LABS: Absolute Lymphocyte Count 1.84 X10^3/uL (0.83-4.51); Basophil# 0.02 X10^3/uL; Basophil% 0.2 % (0-1); Eosinophil# 0.17 X10^3/uL; Eosinophils% 1.5 % (0-5); Hematocrit 31.7 % (37-47); Hemoglobin 10.1 g/dL (12.0-15.0); Lymphocyte # 1.84 X10^3/ul (0.83-4.51); Lymphocyte % 16.6 % (19-41); Mean Corp Hgb Conc 31.9 g/dL (32-36); Mean Corpuscular Hgb 28.2 pg (27.0-32.0); Mean Corpuscular Volume 88.5 fL (81-99); Mean Platelet Vol. 11.6 fl (6.2-12.0); Monocyte# 0.89 X10^3/uL; NRBC Flagged by Analyzer 0 % (0-5); Neutrophil % 72.3 % (47-70); Platelet Count 434 K/mm3 (150-450); RBC Distribution Width CV 14.4 % (11.6-14.6); RBC Distribution Width SD 46.8 fl (35.1-43.9); Red Blood Count 3.58 M/mm3 (4.2-5.4); White Blood Count 11.1 K/mm3 (4.4-11.0)
[2021-06-11] MEDS: Vital AF 1.2 Cal Liquid 1,000 ML 60 ML GT (04:15)
[2021-06-11 04:26] LABS: Anion Gap 4 (5-15); BUN 45 mg/dL (7-18); BUN/Creat Ratio 52.6 RATIO (10-20); Calcium,Total 8.6 mg/dL (8.5-10.1); Chloride 101 mmol/L (98-107); Creatinine, Serum 0.86 mg/dL (0.55-1.02); EST Glomerular Filtration Rate 70 mL/min (>60); Est Glom Filt Rate - Afr Amer 85 mL/min (>60); Estimated Creatinine Clearance 48.83 ml/min; Glucose 133 mg/dL (74-106); Potassium 3.6 mmol/L (3.5-5.1); Sodium Level 147 mmol/L (136-145)
[2021-06-11] MEDS: Furosemide 40 MG/4 ML Vial IV (06:15)
--- NOTE | 2021-06-11 07:11 | PN.CC_ITS ---
Assessment & Plan Assessment/Plan (1) Pneumonia due to COVID-19 virus: (2) Acute respiratory failure with hypoxia: PLAN: RECOMMENDATIONS: 1. Continue patient on assist control mode of mechanical ventilation and wean FiO2 for saturations greater than 90%. 2. Continue baricitinib (06/12/2021) and completed Decadron 3. Continue Lovenox as ordered. 4. Continue meropenem to complete at least 7 days. ID following 5. Continue appropriate GI prophylaxis. 6. Continue tube feeds as tolerated. Continue Reglan 7. Continue diuretics as tolerated by hemodynamics and renal function. IMPRESSIONS: 1. Acute hypoxemic respiratory failure secondary to COVID-19/Haemophilus influenza/staph aureus/Bordetella pneumonias The patient was initially admitted to the hospital on May 28 after presenting with worsening dyspnea. Symptom onset was sometime around May 23. The patient is unvaccinated. The patient's hospital course was complicated by worsening respiratory status, ultimately requiring transfer to the ICU and s ubsequent intubation on May 30. The patient will be continued on baricitinib as ordered. She has completed her treatment courses of Decadron and remdesivir. The patient was on antimicrobials to complete 7 days of therapy for H. influenzae initially. While on antimicrobials, patientnow growing MSSA and Bordetella. Patient was broadened to meropenem. CTA chest was negative for PE. Accordingly, it is reasonable to continue Lovenox as ordered. Continue tube feeds as tolerated. Unfortunately, patient had to be transitioned from propofol to Versed secondary to hypertriglyceridemia. Patient with improved vent synchrony at this time. Patient appears to be improving over the last 24 to 48 hours, likely secondary to treatment of the bacterial component. Anticipate trach and PEG in the future once more medically stable. 2. Distributive shock Resolved. Likely secondary to underlying sepsis coupled with the hemodynamic effects of sedative medication use. Vasopressor support is currently on hold. The patient remains hemodynamically stable. 3. Acute kidney injury Resolved. Likely secondary to ATN in the setting of #1. Continue to monitor urine output for now. No current indication for renal replacement therapy. 4. Questionable history of COPD/hypertension/depression/anxiety Complicates care, management, recovery and prognosis. Continue tube feeds as tolerated. Poor overall prognosis, but family continues to wish for aggressive measures TIME: 36 minutes of critical care time, independent of procedures, was spent addressing the patient's acute hypoxemic respiratory failure secondary to COVID- 19 pneumonia, distributive shock, acute kidney injury, review of all data and collaboration with the care team. Subjective Subjective Patient did okay overnight. Oxygenation continues to slowly improve, along with fever curve. Patient is still having some secretions reported. Patient has had multiple bowel movements overnight but to worsen oxygenation slightly with manipulation. Objective Data Objective Data Vital Signs: Vital Signs Temp Pulse Resp BP Pulse Ox 37.4 C H 88 22 H 168/91 H 94 06/11/21 06:00 06/11/21 06:00 06/11/21 06:00 06/11/21 06:00 06/11/21 06:00 Oxygen Flow Rate (L/min) 60 Oxygen Delivery Method Mechanical Ventilator Weight: 89.9 kg Body Mass Index (BMI) 34.0 Intake & Output: Intake and Output for Last 24 Hours 06/09/21 06/10/21 06/11/21 23:59 23:59 23:59 Intake Total 4232.16 / 4278.66 3688.08 / 3789.00 651.74 / 651.74 Output Total 4210 / 4210 4810 / 5110 1300 / 1300 Balance 22.16 / 68.66 -1121.92 / -1321.00 -648.26 / -648.26 Lab / Micro Data Result Diagrams: 06/11/21 03:45 06/11/21 03:45 Labs: Laboratory Results - last 24 hr 06/11/21 03:45: Sodium 147 H, Potassium 3.6, Chloride 101, Carbon Dioxide 42.0 H , Anion Gap 4 L, BUN 45 H, Creatinine 0.86, Estim Creat Clear Calc 48.83, Est GFR (MDRD) Af Amer 85, Est GFR (MDRD) Non-Af 70, BUN/Creatinine Ratio 52.6 H, Glucose 133 H, Calcium 8.6 06/11/21 03:45: WBC 11.1 H, RBC 3.58 L, Hgb 10.1 L, Hct 31.7 L, MCV 88.5, MCH 28.2, MCHC 31.9 L, RDW Std Deviation 46.8 H, RDW Coeff of Chari 14.4, Plt Count 434, MPV 11.6, Immature Gran % (Auto) 1.400 H, Neut % (Auto) 72.3 H, Lymph % (Auto) 16.6 L, [place] % (Auto) 8.0, Eos % (Auto) 1.5, Baso % (Auto) 0.2, Absolute Neuts (auto) 8.0 H, Absolute Lymphs (auto) 1.84, Nucleated RBC % 0 Micro: Microbiology 06/06/21 16:45 Blood Culture (Wb) - Anticubital Left Blood Culture - Preliminary No growth in 48 hours. 06/06/21 16:25 Blood Culture (Wb) - Pic Blood Culture - Preliminary No growth in 48 hours. 06/06/21 16:50 Sputum, Induced/Lukens Gram Stain - Final 06/06/21 16:50 Sputum, Induced/Lukens Respiratory Culture - Final Staphylococcus aureus Bordetella bronchiseptica 05/28/21 15:29 Blood Culture (Wb) - Anticubital Left Blood Culture - Final No growth in 5 days. 05/28/21 15:39 Blood Culture (Wb) - Anticubital Right Blood Culture - Final No growth in 5 days. 05/30/21 12:38 Sputum, Induced/Lukens Gram Stain - Final 05/30/21 12:38 Sputum, Induced/Lukens Respiratory Culture - Final Haemophilus influenzae 05/28/21 15:46 Nasal Secretion SARS-CoV-2 Antigen (Rapid) - Final SARS-CoV-2 (COVID 19) 05/29/21 02:00 Urine, Clean Catch Streptococcus pneumoniae Antigen (M - Final 05/29/21 02:00 Urine, Clean Catch Legionella Antigen - Final 05/28/21 20:00 Mucosa - Nasopharyngeal Respiratory Panel (PCR) - Final Rhythm Strip Rhythm Strip: Sinus Rhythm Rate: 85 Ectopy: None Physical Exam Const no apparent distress Constitutional Narrative: Good vent synchrony. General Appearance: intubated Nutritional Appearance: obese HEENT normocephalic and head/scalp atraumatic Mouth: endotracheal tube in place and OG tube in place Eyes PERRL, EOMs intact bilaterally and conjunctivae normal Neck supple General: trachea midline Chest inspection of chest normal Chest: symmetrical chest wall rise; Negative for crepitus Resp Auscultation: rhonchi throughout and diminished lung sounds; Negative for rales or wheezes Cardio regular rate, regular rhythm, S1 normal heart sound and S2 normal heart sound GI normal to inspection, nondistended, normoactive bowel sounds Extremity General Extremity: edema; Negative for clubbing or cyanosis Skin no rashes or lesions noted Neuro Sensorium / Orientation: sedated on vent Charges/Coding Procedures Hospitalists Procedures: 04771 Critial Care 1st Hr
[2021-06-11] MEDS: amLODIPine 5 MG Tablet PO (08:05)
[2021-06-11] MEDS: Enoxaparin 40 MG/0.4 ML Syringe SC ×2 (08:05→20:54)
[2021-06-11] MEDS: 0.9% Saline Lock 10 ML Syringe IV ×2 (08:05→11:59)
[2021-06-11] MEDS: Chlorhexidine 15 ML PO ×2 (08:06→20:44)
[2021-06-11] MEDS: Metoclopramide 10 MG/2 ML Vial 5 MG IV ×2 (08:06→20:53)
[2021-06-11] MEDS: Escitalopram Oxalate 20 MG Tablet GT (08:06)
[2021-06-11] MEDS: CHLORHEXIDINE GLUC 2% CLOTH 1 EACH TOWELETTE TOPICAL (08:06)
[2021-06-11] MEDS: Menthol/Lanolin/Calamine/Znox 113 GM Tube 1 APPLIC TOPICAL ×2 (08:06→20:45)
[2021-06-11] MEDS: Potassium Chloride Oral Soln 20 MEQ/15 ML UDC 40 MEQ GT (09:38)
[2021-06-11] MEDS: LORazepam 2 MG/ML Syringe IV ×2 (11:59→20:53)
--- NOTE | 2021-06-11 16:25 | PN.HOSP_ITS ---
Subjective Subjective Patient is clinically about the same. Remains intubated and sedated. PEEP remains at 16. FiO2 has been able to be weaned to 50%. Objective Data Objective Data Vital Signs: Vital Signs Temp Pulse Resp BP Pulse Ox 99.4 F H 57 L 20 H 94/66 96 06/11/21 12:00 06/11/21 14:25 06/11/21 14:25 06/11/21 13:00 06/11/21 14:25 Oxygen Flow Rate (L/min) 60 Oxygen Delivery Method Mechanical Ventilator Weight: 89.9 kg Body Mass Index (BMI) 34.0 Intake & Output: Intake and Output for Last 24 Hours 06/09/21 06/10/21 06/11/21 23:59 23:59 23:59 Intake Total 4232.16 / 4278.66 3688.08 / 3789.00 2325.32 / 2325.32 Output Total 4210 / 4210 4810 / 5110 2300 / 2300 Balance 22.16 / 68.66 -1121.92 / -1321.00 25.32 / 25.32 Lab / Micro Data Result Diagrams: 06/11/21 03:45 06/11/21 03:45 Labs: Laboratory Results - last 24 hr 06/11/21 03:45: Sodium 147 H, Potassium 3.6, Chloride 101, Carbon Dioxide 42.0 H , Anion Gap 4 L, BUN 45 H, Creatinine 0.86, Estim Creat Clear Calc 48.83, Est GFR (MDRD) Af Amer 85, Est GFR (MDRD) Non-Af 70, BUN/Creatinine Ratio 52.6 H, Glucose 133 H, Calcium 8.6 06/11/21 03:45: WBC 11.1 H, RBC 3.58 L, Hgb 10.1 L, Hct 31.7 L, MCV 88.5, MCH 28 .2, MCHC 31.9 L, RDW Std Deviation 46.8 H, RDW Coeff of Chari 14.4, Plt Count 434, MPV 11.6, Immature Gran % (Auto) 1.400 H, Neut % (Auto) 72.3 H, Lymph % (Auto) 16.6 L, [place] % (Auto) 8.0, Eos % (Auto) 1.5, Baso % (Auto) 0.2, Absolute Neuts (auto) 8.0 H, Absolute Lymphs (auto) 1.84, Nucleated RBC % 0 Micro: Microbiology 06/06/21 16:45 Blood Culture (Wb) - Anticubital Left Blood Culture - Prel iminary No growth in 48 hours. 06/06/21 16:25 Blood Culture (Wb) - Pic Blood Culture - Preliminary No growth in 48 hours. 06/06/21 16:50 Sputum, Induced/Lukens Gram Stain - Final 06/06/21 16:50 Sputum, Induced/Lukens Respiratory Culture - Final Staphylococcus aureus Bordetella bronchiseptica 05/28/21 15:29 Blood Culture (Wb) - Anticubital Left Blood Culture - Final No growth in 5 days. 05/28/21 15:39 Blood Culture (Wb) - Anticubital Right Blood Culture - Final No growth in 5 days. 05/30/21 12:38 Sputum, Induced/Lukens Gram Stain - Final 05/30/21 12:38 Sputum, Induced/Lukens Respiratory Culture - Final Haemophilus influenzae 05/28/21 15:46 Nasal Secretion SARS-CoV-2 Antigen (Rapid) - Final SARS-CoV-2 (COVID 19) 05/29/21 02:00 Urine, Clean Catch Streptococcus pneumoniae Antigen (M - Final 05/29/21 02:00 Urine, Clean Catch Legionella Antigen - Final 05/28/21 20:00 Mucosa - Nasopharyngeal Respiratory Panel (PCR) - Final Rhythm Strip Rhythm Strip: Sinus Rhythm Rate: 85 Ectopy: None Physical Exam Const alert and no apparent distress Constitutional Narrative: Obese older white female lying in bed intubated and sedated General Appearance: cooperative Nutritional Appearance: obese HEENT normocephalic and head/scalp atraumatic HEENT Narrative: ET tube in place Head and Scalp: normocephalic Resp normal respiratory effort, no retractions and no use of accessory muscles Resp Narrative: Few crackles at bases bilaterally, diffusely diminished Auscultation: crackles; Negative for rales, rhonchi or wheezes Cardio regular rhythm, S1 normal heart sound, S2 normal heart sound, no murmurs, no rub, no gallops, no clicks and no JVD Cardio Narrative: Mild bradycardia GI normal to inspection, nondistended, normoactive bowel sounds, soft to palpation, non-tender and non-distended Extremity normal to inspection Extremity Narrative: No cyanosis or clubbing, trace bilateral lower and upper extremity edema noted Peripheral Pulses: Yes pulses 2+ throughout Skin Skin Narrative: Right upper extremity double-lumen PICC is clean and dry with dressing intact Neuro Neuro Narrative: Intubated and sedated on ventilator Assessment & Plan Assessment/Plan (1) Acute respiratory failure with hypoxia: (2) Pneumonia due to COVID-19 virus: (3) Normocytic anemia: (4) Hypokalemia: (5) Hyperglycemia: (6) MSSA (methicillin susceptible Staphylococcus aureus) pneumonia: PLAN: Acute hypoxic respiratory failure secondary to COVID-19 pneumonia/Haemophilus influenza pneumonia/MSSA/Bordetella pneumonia -Symptom onset was 05/23/2021 and patient will need isolation until 06/12/2021 -Patient has completed remdesivir and Decadron -Intubated on 05/30/2021 -Completed antimicrobials for Haemophilus influenza pneumonia -Most recent cultures are growing MSSA and Bordetella -Cont Meropenem -FiO2 has been weaned to 50% however PEEP remains at 16 with oxygen saturations at 91 to 96% -Patient remains on baricitinib through 06/12/2021 -Continue to monitor renal function -Sodium chloride and BUN are trending up--> will hold diuresis for today and recheck lab in a.m. -Appreciate pulmonary input -Family would like to proceed with trach and PEG if needed CELI -Resolved -Monitor closely for elevated serum creatinine with aggressive diuresis Hypokalemia -Resolved Normocytic anemia -It appears that this is an acute issue however her hemoglobins have been stable throughout her hospitalization -Suspect it is related to acute infection and critical illness -Continue to monitor Hyperglycemia -Overall has been fairly stable -Fasting elevation at 133 today Hypertension -We will restart home amlodipine at half dose today 10 mg -Continue to hold home losartan of 20 mg daily Depression/anxiety -Continue home Lexapro -Hold Wellbutrin Possible COPD -If patient survives would recommend outpatient pulmonary function test when clinically stable DVT prophylaxis/prophylaxis -Continue subq. Lovenox -Continue PPI CODE STATUS -Full code Charges/Coding Visit Charges Inpatient E&M: 33328 Subs Hosp L2
[2021-06-11] MEDS: Acetaminophen 650 MG/20 ML UDC PO (20:52)
[2021-06-11] MEDS: Senna/Docusate Sodium 1 Tablet 2 TABLET GT (20:53)
[2021-06-12] VITALS (34 sets, daily range): BP systolic 93–170; BP diastolic 46–100; PULSE 57–89; RESP 18–33; TEMP 37.2–38.1; O2SAT 88–97
[2021-06-12] MEDS: LORazepam 2 MG/ML Syringe IV (01:41)
[2021-06-12 04:12] LABS: Absolute Lymphocyte Count 2.17 X10^3/uL (0.83-4.51); Absolute Neutrophil Count 7.8 X10^3/uL (2.0-7.7); Basophil# 0.04 X10^3/uL; Basophil% 0.4 % (0-1); Eosinophil# 0.15 X10^3/uL; Eosinophils% 1.3 % (0-5); Hematocrit 31.5 % (37-47); Hemoglobin 9.7 g/dL (12.0-15.0); Lymphocyte # 2.17 X10^3/ul (0.83-4.51); Lymphocyte % 19.3 % (19-41); Mean Corp Hgb Conc 30.8 g/dL (32-36); Mean Corpuscular Hgb 27.6 pg (27.0-32.0); Mean Corpuscular Volume 89.7 fL (81-99); Mean Platelet Vol. 11.2 fl (6.2-12.0); Monocyte# 0.92 X10^3/uL; Monocyte% 8.2 % (0-10); NRBC Flagged by Analyzer 0 % (0-5); Neutrophil % 69.1 % (47-70); Platelet Count 444 K/mm3 (150-450); RBC Distribution Width CV 14.3 % (11.6-14.6); RBC Distribution Width SD 46.3 fl (35.1-43.9); Red Blood Count 3.51 M/mm3 (4.2-5.4); White Blood Count 11.3 K/mm3 (4.4-11.0)
[2021-06-12 04:25] LABS: Anion Gap 4 (5-15); BUN 45 mg/dL (7-18); Calcium,Total 8.4 mg/dL (8.5-10.1); Chloride 107 mmol/L (98-107); Creatinine, Serum 0.74 mg/dL (0.55-1.02); EST Glomerular Filtration Rate 83 mL/min (>60); Est Glom Filt Rate - Afr Amer 100 mL/min (>60); Estimated Creatinine Clearance 41.99 ml/min; Glucose 119 mg/dL (74-106); Potassium 3.8 mmol/L (3.5-5.1); Sodium Level 149 mmol/L (136-145)
[2021-06-12] MEDS: Dexmedetomidine 1,000 mcg in 0.9% NS 240 mL 35.7 MCG CONT INF ×3 (06:39→21:15)
--- NOTE | 2021-06-12 07:54 | PN.CC_ITS ---
Assessment & Plan Assessment/Plan (1) Pneumonia due to COVID-19 virus: (2) Acute respiratory failure with hypoxia: PLAN: RECOMMENDATIONS: 1. Continue patient on assist control mode of mechanical ventilation and wean PEEP/FiO2 for saturations greater than 90%. 2. Continue baricitinib (06/12/2021) and completed Decadron 3. Continue Lovenox as ordered. 4. Continue meropenem to complete at least 7 days. ID following 5. Continue appropriate GI prophylaxis. 6. Continue tube feeds as tolerated. Continue Reglan 7. Continue diuretics as tolerated by hemodynamics and renal function. Challenge today IMPRESSIONS: 1. Acute hypoxemic respiratory failure secondary to COVID-19/Haemophilus influenza/staph aureus/Bordetella pneumonias The patient was initially admitted to the hospital on May 28 after presenting with worsening dyspnea. Symptom onset was sometime around May 23. The patient is unvaccinated. The patient's hospital course was complicated by worsening respiratory status, ultimately requiring transfer to the ICU and subsequent intubation on May 30. The patient will be continued on baricit inib as ordered. She has completed her treatment courses of Decadron and remdesivir. The patient was on antimicrobials to complete 7 days of therapy for H. influenzae initially. While on antimicrobials, patientnow growing MSSA and Bordetella. Patient was broadened to meropenem. CTA chest was negative for PE. Accordingly, it is reasonable to continue Lovenox as ordered. Continue tube feeds as tolerated. Unfortunately, patient had to be transitioned from propofol to Versed secondary to hypertriglyceridemia. Patient with improved vent synchrony at this time. Patient appears to be improving over the last 24 to 48 hours, likely secondary to treatment of the bacterial component. Anticipate trach and PEG in the future once more medically stable. We will challenge with Lasix therapy today 2. Distributive shock Resolved. Likely secondary to underlying sepsis coupled with the hemodynamic effects of sedative medication use. Vasopressor support is curre ntly on hold. The patient remains hemodynamically stable. 3. Acute kidney injury Resolved. Likely secondary to ATN in the setting of #1. Continue to monitor urine output for now. No current indication for renal replacement therapy. 4. Questionable history of COPD/hypertension/depression/anxiety Complicates care, management, recovery and prognosis. Continue tube feeds as tolerated. Poor overall prognosis, but family continues to wish for aggressive measures TIME: 32 minutes of critical care time, independent of procedures, was spent addressing the patient's acute hypoxemic respiratory failure secondary to COVID- 19 pneumonia, distributive shock, acute kidney injury, review of all data and collaboration with the care team. Subjective Subjective Patient did okay overnight. Patient continues to have significant rhonchi and secretions per nursing. Patient did have a bowel movement overnight. Oxygen requirements have significantly improved, but still requiring high PEEP. Objective Data Objective Data Vital Signs: Vital Signs Temp Pulse Resp BP Pulse Ox 37.6 C H 89 32 H 168/86 H 92 06/12/21 04:00 06/12/21 07:48 06/12/21 07:15 06/12/21 07:00 06/12/21 07:15 Oxygen Flow Rate (L/min) 60 Oxygen Delivery Method Mechanical Ventilator Weight: 90.4 kg Body Mass Index (BMI) 34.0 Intake & Output: Intake and Output for Last 24 Hours 06/10/21 06/11/21 06/12/21 23:59 23:59 23:59 Intake Total 3688.08 / 3789.00 3266.49 / 3423.27 822.50 / 822.50 Output Total 4810 / 5110 2700 / 2850 1150 / 1150 Balance -1121.92 / -1321.00 566.49 / 573.27 -327.50 / -327.50 Lab / Micro Data Result Diagrams: 06/12/21 04:00 06/12/21 04:00 Labs: Laboratory Results - last 24 hr 06/12/21 04:00: Sodium 149 H, Potassium 3.8, Chloride 107, Carbon Dioxide 38.0 H , Anion Gap 4 L, BUN 45 H, Creatinine 0.74, Estim Creat Clear Calc 41.99, Est GFR (MDRD) Af Amer 100, Est GFR (MDRD) Non-Af 83, BUN/Creatinine Ratio 61.0 H, Glucose 119 H, Calcium 8.4 L 06/12/21 04:00: WBC 11.3 H, RBC 3.51 L, Hgb 9.7 L, Hct 31.5 L, MCV 89.7, MCH 27.6, MCHC 30.8 L, RDW Std Deviation 46.3 H, RDW Coeff of Chari 14.3, Plt Count 444, MPV 11.2, Immature Gran % (Auto) 1.700 H, Neut % (Auto) 69.1, Lymph % (Auto) 19.3, [place] % (Auto) 8.2, Eos % (Auto) 1.3, Baso % (Auto) 0.4, Absolute Neuts (auto) 7.8 H, Absolute Lymphs (auto) 2.17, Nucleated RBC % 0 Micro: Microbiology 06/06/21 16:45 Blood Culture (Wb) - Anticubital Left Blood Culture - Final No growth in 5 days. 06/06/21 16:25 Blood Culture (Wb) - Pic Blood Culture - Final No growth in 5 days. 06/06/21 16:50 Sputum, Induced/Lukens Gram Stain - Final 06/06/21 16:50 Sputum, Induced/Lukens Respiratory Culture - Final Staphylococcus aureus Bordetella bronchiseptica 05/28/21 15:29 Blood Culture (Wb) - Anticubital Left Blood Culture - Final No growth in 5 days. 05/28/21 15:39 Blood Culture (Wb) - Anticubital Right Blood Culture - Final No growth in 5 days. 05/30/21 12:38 Sputum, Induced/Lukens Gram Stain - Final 05/30/21 12:38 Sputum, Induced/Lukens Respiratory Culture - Final Haemophilus influenzae 05/28/21 15:46 Nasal Secretion SARS-CoV-2 Antigen (Rapid) - Final SARS-CoV-2 (COVID 19) 05/29/21 02:00 Urine, Clean Catch Streptococcus pneumoniae Antigen (M - Final 05/29/21 02:00 Urine, Clean Catch Legionella Antigen - Final 05/28/21 20:00 Mucosa - Nasopharyngeal Respiratory Panel (PCR) - Final Rhythm Strip Rhythm Strip: Sinus Rhythm Rate: 85 Ectopy: None Physical Exam Const no apparent distress Constitutional Narrative: Good vent synchrony. General Appearance: intubated Nutritional Appearance: obese HEENT normocephalic and head/scalp atraumatic Mouth: endotracheal tube in place and OG tube in place Eyes PERRL, EOMs intact bilaterally and conjunctivae normal Neck supple General: trachea midline Chest inspection of chest normal Chest: symmetrical chest wall rise; Negative for crepitus Resp Auscultation: rhonchi throughout and diminished lung sounds; Negative for rales or wheezes Cardio regular rate, regular rhythm, S1 normal heart sound and S2 normal heart sound GI normal to inspection, nondistended, normoactive bowel sounds Extremity General Extremity: edema; Negative for clubbing or cyanosis Skin no rashes or lesions noted Neuro Sensorium / Orientation: sedated on vent Charges/Coding Procedures Hospitalists Procedures: 81221 Critial Care 1st Hr
[2021-06-12] MEDS: Chlorhexidine 15 ML PO ×2 (07:58→21:04)
[2021-06-12] MEDS: CHLORHEXIDINE GLUC 2% CLOTH 1 EACH TOWELETTE TOPICAL (07:59)
[2021-06-12] MEDS: Potassium Chloride Oral Soln 20 MEQ/15 ML UDC 40 MEQ PO (09:27)
[2021-06-12] MEDS: Furosemide 40 MG/4 ML Vial IV ×2 (09:30→16:57)
[2021-06-12] MEDS: Enoxaparin 40 MG/0.4 ML Syringe SC ×2 (09:31→21:04)
[2021-06-12] MEDS: Escitalopram Oxalate 20 MG Tablet GT (09:32)
[2021-06-12] MEDS: amLODIPine 5 MG Tablet PO (09:33)
[2021-06-12] MEDS: Menthol/Lanolin/Calamine/Znox 113 GM Tube 1 APPLIC TOPICAL ×2 (09:38→21:04)
[2021-06-12] MEDS: Metoclopramide 10 MG/2 ML Vial 5 MG IV ×2 (09:51→21:05)
[2021-06-12] MEDS: QUEtiapine 25 MG Tablet 50 MG PO ×2 (09:56→21:05)
[2021-06-12] MEDS: Vital AF 1.2 Cal Liquid 1,000 ML 60 ML GT (12:48)
--- NOTE | 2021-06-12 15:32 | PCM.PN.HOSP ---
Subjective Subjective Patient remains intubated and sedated. Currently on FiO2 of 50% and PEEP has been able to be weaned to 14 with an oxygen saturation of 92% at this time. No issues overnight. Objective Data Objective Data Vital Signs: Vital Signs Temp Pulse Resp BP Pulse Ox 100.2 F H 82 27 H 169/74 H 92 06/12/21 13:00 06/12/21 13:00 06/12/21 13:00 06/12/21 13:00 06/12/21 13:00 Oxygen Flow Rate (L/min) 60 Oxygen Delivery Method Mechanical Ventilator Weight: 90.4 kg Body Mass Index (BMI) 34.0 Intake & Output: Intake and Output for Last 24 Hours 06/10/21 06/11/21 06/12/21 23:59 23:59 23:59 Intake Total 3688.08 / 3789.00 3266.49 / 3423.27 1977.83 / 1976.83 Output Total 4810 / 5110 2700 / 2850 3650 / 3650 Balance -1121.92 / -1321.00 566.49 / 573.27 -1672.17 / -1672.17 Lab / Micro Data Result Diagrams: 06/12/21 04:00 06/12/21 04:00 Labs: Laboratory Results - last 24 hr 06/12/21 04:00: Sodium 149 H, Potassium 3.8, Chloride 107, Carbon Dioxide 38.0 H, Anion Gap 4 L, BUN 45 H, Creatinine 0.74, Estim Creat Clear Calc 41.99, Est GFR (MDRD) Af Amer 100, Est GFR (MDRD) Non-Af 83, BUN/Creatinine Ratio 61.0 H, Glucose 119 H, Calcium 8.4 L 06/12/21 04:00: WBC 11.3 H, RBC 3.51 L, Hgb 9.7 L, Hct 31.5 L, MCV 89.7, MCH 27.6, MCHC 30.8 L, RDW Std Deviation 46.3 H, RDW Coeff of Chari 14.3, Plt Count 444, MPV 11.2, Immature Gran % (Auto) 1.700 H, Neut % (Auto) 69.1, Lymph % (Auto) 19.3, [place] % (Auto) 8.2, Eos % (Auto) 1.3, Baso % (Auto) 0.4, Absolute Neuts (auto) 7.8 H, Absolute Lymphs (auto) 2.17, Nucleated RBC % 0 Micro: Microbiology 06/06/21 16:45 Blood Culture (Wb) - Anticubital Left Blood Culture - Final No growth in 5 days. 06/06/21 16:25 Blood Culture (Wb) - Pic Blood Culture - Final No growth in 5 days. 06/06/21 16:50 Sputum, Induced/Lukens Gram Stain - Final 06/06/21 16:50 Sputum, Induced/Lukens Respiratory Culture - Final Staphylococcus aureus Bordetella bronchiseptica 05/28/21 15:29 Blood Culture (Wb) - Anticubital Left Blood Culture - Final No growth in 5 days. 05/28/21 15:39 Blood Culture (Wb) - Anticubital Right Blood Culture - Final No growth in 5 days. 05/30/21 12:38 Sputum, Induced/Lukens Gram Stain - Final 05/30/21 12:38 Sputum, Induced/Lukens Respiratory Culture - Final Haemophilus influenzae 05/28/21 15:46 Nasal Secretion SARS-CoV-2 Antigen (Rapid) - Final SARS-CoV-2 (COVID 19) 05/29/21 02:00 Urine, Clean Catch Streptococcus pneumoniae Antigen (M - Final 05/29/21 02:00 Urine, Clean Catch Legionella Antigen - Final 05/28/21 20:00 Mucosa - Nasopharyngeal Respiratory Panel (PCR) - Final Rhythm Strip Rhythm Strip: Sinus Rhythm Rate: 85 Ectopy: None Physical Exam Const alert and no apparent distress Constitutional Narrative: Obese older white female lying in bed intubated and sedated General Appearance: cooperative Nutritional Appearance: obese HEENT normocephalic and head/scalp atraumatic HEENT Narrative: ET tube in place Head and Scalp: normocephalic Resp normal respiratory effort, no retractions and no use of accessory muscles Resp Narrative: Few crackles at bases bilaterally, diffusely diminished Auscultation: crackles; Negative for rales, rhonchi or wheezes Cardio regular rate, regular rhythm, S1 normal heart sound, S2 normal heart sound, no murmurs, no rub, no gallops, no clicks and no JVD GI normal to inspection, nondistended, normoactive bowel sounds, soft to palpation, non-tender and non-distended Extremity normal to inspection Extremity Narrative: No cyanosis or clubbing, trace bilateral lower and upper extremity edema noted Skin Skin Narrative: Right upper extremity double-lumen PICC is clean and dry with dressing intact Neuro Neuro Narrative: Intubated and sedated on ventilator Psych Psych Narrative: flat affect Assessment & Plan Assessment/Plan (1) Acute respiratory failure with hypoxia: (2) Pneumonia due to COVID-19 virus: (3) Normocytic anemia: (4) Hypokalemia: (5) Hyperglycemia: (6) MSSA (methicillin susceptible Staphylococcus aureus) pneumonia: PLAN: Acute hypoxic respiratory failure secondary to COVID-19 pneumonia/Haemophilus influenza pneumonia/MSSA/Bordetella pneumonia -Symptom onset was 05/23/2021 and patient will need isolation until 06/12/2021 -Patient has completed remdesivir and Decadron and baricitinib -Intubated on 05/30/2021 -Completed antimicrobials for Haemophilus influenza pneumonia -Most recent cultures are growing MSSA and Bordetella -Cont Meropenem for total 7 days course--> stop date 06/17/2021 -FiO2 has been weaned to 50% and PEEP down to 14 16 with oxygen saturations at 91 to 92% -Diuresis reinitiated by pulmonary -Will need to watch closely as sodium is upward trending -Appreciate pulmonary input -Family would like to proceed with trach and PEG if needed CELI -Resolved -Monitor closely for elevated serum creatinine with aggressive diuresis Hypernatremia -Lasix held yesterday but restarted by pulmonary today -Need to watch closely as sodium chloride is uptrending and now 149 -Repeat BMP in a.m. Hypokalemia -Resolved Normocytic anemia -It appears that this is an acute issue however her hemoglobins have been stable throughout her hospitalization -Suspect it is related to acute infection and critical illness -Continue to monitor Hyperglycemia -Overall has been fairly stable -Fasting elevation at 119 today Hypertension -Increase Norvasc to home dose of 10 mg -Continue to hold home losartan of 20 mg daily Depression/anxiety -Continue home Lexapro -Hold Wellbutrin Possible COPD -If patient survives would recommend outpatient pulmonary function test when clinically stable DVT prophylaxis/prophylaxis -Continue subq. Lovenox -Continue PPI CODE STATUS -Full code
[2021-06-12] MEDS: Acetaminophen 650 MG/20 ML UDC PO (21:05)
[2021-06-13] VITALS (35 sets, daily range): BP systolic 95–184; BP diastolic 58–97; PULSE 53–94; RESP 18–31; TEMP 37.7–38.3; O2SAT 90–94
[2021-06-13 03:42] LABS: Basophil# 0.05 X10^3/uL; Basophil% 0.5 % (0-1); Eosinophil# 0.17 X10^3/uL; Eosinophils% 1.7 % (0-5); Lymphocyte % 25.5 % (19-41); Mean Corp Hgb Conc 31.3 g/dL (32-36); Mean Corpuscular Hgb 27.8 pg (27.0-32.0); Mean Corpuscular Volume 88.9 fL (81-99); Mean Platelet Vol. 11.1 fl (6.2-12.0); Monocyte# 0.89 X10^3/uL; Monocyte% 9.1 % (0-10); NRBC Flagged by Analyzer 0 % (0-5); Neutrophil % 61.1 % (47-70); Platelet Count 476 K/mm3 (150-450); RBC Distribution Width CV 14.3 % (11.6-14.6); RBC Distribution Width SD 46.4 fl (35.1-43.9); White Blood Count 9.8 K/mm3 (4.4-11.0)
[2021-06-13 04:02] LABS: Anion Gap 4 (5-15); BUN 45 mg/dL (7-18); BUN/Creat Ratio 56.6 RATIO (10-20); Calcium,Total 8.6 mg/dL (8.5-10.1); Chloride 107 mmol/L (98-107); EST Glomerular Filtration Rate 76 mL/min (>60); Est Glom Filt Rate - Afr Amer 92 mL/min (>60); Estimated Creatinine Clearance 52.49 ml/min; Glucose 125 mg/dL (74-106); Potassium 4.2 mmol/L (3.5-5.1); Sodium Level 148 mmol/L (136-145)
[2021-06-13] MEDS: Dexmedetomidine 1,000 mcg in 0.9% NS 240 mL 35.7 MCG CONT INF (04:27)
--- NOTE | 2021-06-13 05:45 | PCM.PN.INT ---
Assessment & Plan Assessment/Plan (1) Pneumonia due to COVID-19 virus: (2) Acute respiratory failure with hypoxia: PLAN: RECOMMENDATIONS: 1. Continue assist control mode mechanical ventilation. Wean FiO2/PEEP for saturations greater than 90%. 2. Continue antimicrobials to complete 7 days of therapy. 3. Continue Lovenox as ordered. 4. Continue appropriate GI prophylaxis. 5. Continue tube feeds as tolerated. 6. Diuresis as tolerated by hemodynamics and renal function. 7. Continue tube feeds as tolerated. 8. Consultation to ENT and general surgery for tracheostomy and PEG tube placement. IMPRESSIONS: 1. Acute hypoxemic respiratory failure secondary to COVID-19/Haemophilus influenza/staph aureus/Bordetella pneumonias The patient was initially admitted to the hospital on May 28 after presenting with worsening dyspnea. Symptom onset was sometime around May 23. The patient is unvaccinated. The patient's hospital course was complicated by worsening respiratory status, ultimately requiring transfer to the ICU and subsequent intubation on May 30. The patient has since completed treatment courses of remdesivir, baricitinib and Decadron. She remains on antimicrobials due to secondary bacterial pneumonia. CTA chest was negative for PE. Accordingly, it is reasonable to continue Lovenox as ordered. Continue tube feeds as tolerated. Plan to proceed with tracheostomy and PEG tube placement. 2. Distributive shock Resolved. Likely secondary to underlying sepsis coupled with the hemodynamic effects of sedative medication use. Vasopressor support is currently on hold. The patient remains hemodynamically stable. 3. Acute kidney injury Resolved. Likely secondary to ATN in the setting of #1. Continue to monitor urine output for now. No current indication for renal replacement therapy. 4. Questionable history of COPD/hypertension/depression/anxiety Complicates care, management, recovery and prognosis. Continue tube feeds as tolerated. Poor overall prognosis, but family continues to wish for aggressive measures. TIME: 34 minutes of critical care time, independent of procedures, was spent addressing the patient's acute hypoxemic respiratory failure secondary to COVID-19 and secondary bacterial pneumonia, distributive shock, acute kidney injury, review of all data and collaboration with the care team. Subjective Subjective The patient was seen and examined at the bedside this morning. Events from the last 24 hours have been reviewed. Today is vent day #15. The patient remains on assist control mode mechanical ventilation with an FiO2 requirement of 50% and PEEP of 12. She remains sedated on a combination of Precedex, fentanyl, Versed and Seroquel. Nursing staff did report endotracheal tube secretion production overnight. She has been tolerant of tube feeds. The patient is currently documented to be overall net +9.5 L for the hospitalization. She remains on antimicrobials and prophylactic Lovenox. Objective Data Objective Data The patient's most recent lab work, culture data and imaging studies have all been personally reviewed. Rapid coronavirus antigen testing was positive on May 28. Strep and urine Legionella antigens were negative. Sputum culture was positive for Haemophilus influenza. Repeat sputum culture dated June 06 was positive for MSSA and Bordetella. Vital Signs: Vital Signs Temp Pulse Resp BP Pulse Ox 100 F H 62 23 H 130/77 H 90 06/13/21 04:00 06/13/21 05:00 06/13/21 05:00 06/13/21 05:00 06/13/21 05:00 Oxygen Flow Rate (L/min) 60 Oxygen Delivery Method Mechanical Ventilator Weight: 90.4 kg Body Mass Index (BMI) 34.0 Intake & Output: Intake and Output for Last 24 Hours 06/11/21 06/12/21 06/13/21 23:59 23:59 23:59 Intake Total 3266.49 / 3423.27 3406.89 / 3622.59 646.82 / 646.82 Output Total 2700 / 2850 5450 / 5950 500 / 500 Balance 566.49 / 573.27 -2043.11 / -2327.41 146.82 / 146.82 Lab / Micro Data Attestation: I reviewed the patient's lab results. Result Diagrams: 06/13/21 03:33 06/13/21 03:33 Labs: Laboratory Results - last 24 hr 06/13/21 03:33: Sodium 148 H, Potassium 4.2, Chloride 107, Carbon Dioxide 37.0 H, Anion Gap 4 L, BUN 45 H, Creatinine 0.80, Estim Creat Clear Calc 52.49, Est GFR (MDRD) Af Amer 92, Est GFR (MDRD) Non-Af 76, BUN/Creatinine Ratio 56.6 H, Glucose 125 H, Calcium 8.6 06/13/21 03:33: WBC 9.8, RBC 3.60 L, Hgb 10.0 L, Hct 32.0 L, MCV 88.9, MCH 27.8, MCHC 31.3 L, RDW Std Deviation 46.4 H, RDW Coeff of Chari 14.3, Plt Count 476 H, MPV 11.1, Immature Gran % (Auto) 2.100 H, Neut % (Auto) 61.1, Lymph % (Auto) 25.5, [place] % (Auto) 9.1, Eos % (Auto) 1.7, Baso % (Auto) 0.5, Absolute Neuts (auto) 6.0, Absolute Lymphs (auto) 2.50, Nucleated RBC % 0 Micro: Microbiology 06/06/21 16:45 Blood Culture (Wb) - Anticubital Left Blood Culture - Final No growth in 5 days. 06/06/21 16:25 Blood Culture (Wb) - Pic Blood Culture - Final No growth in 5 days. 06/06/21 16:50 Sputum, Induced/Lukens Gram Stain - Final 06/06/21 16:50 Sputum, Induced/Lukens Respiratory Culture - Final Staphylococcus aureus Bordetella bronchiseptica 05/28/21 15:29 Blood Culture (Wb) - Anticubital Left Blood Culture - Final No growth in 5 days. 05/28/21 15:39 Blood Culture (Wb) - Anticubital Right Blood Culture - Final No growth in 5 days. 05/30/21 12:38 Sputum, Induced/Lukens Gram Stain - Final 05/30/21 12:38 Sputum, Induced/Lukens Respiratory Culture - Final Haemophilus influenzae 05/28/21 15:46 Nasal Secretion SARS-CoV-2 Antigen (Rapid) - Final SARS-CoV-2 (COVID 19) 05/29/21 02:00 Urine, Clean Catch Streptococcus pneumoniae Antigen (M - Final 05/29/21 02:00 Urine, Clean Catch Legionella Antigen - Final 05/28/21 20:00 Mucosa - Nasopharyngeal Respiratory Panel (PCR) - Final Rhythm Strip Rhythm Strip: Sinus Rhythm Rate: 85 Ectopy: None Physical Exam Const no apparent distress General Appearance: intubated and patient mechanically ventilated Nutritional Appearance: obese HEENT normocephalic and head/scalp atraumatic Mouth: endotracheal tube in place and OG tube in place Eyes PERRL, EOMs intact bilaterally and conjunctivae normal Neck supple General: trachea midline Chest inspection of chest normal Chest: symmetrical chest wall rise; Negative for crepitus Resp Auscultation: rhonchi throughout and diminished lung sounds; Negative for rales or wheezes Cardio regular rate, regular rhythm, S1 normal heart sound and S2 normal heart sound GI normal to inspection, nondistended, normoactive bowel sounds Extremity General Extremity: edema; Negative for clubbing or cyanosis Skin no rashes or lesions noted Neuro Sensorium / Orientation: sedated on vent Charges/Coding Procedures Hospitalists Procedures: [id number] Critial Care 1st Hr
[2021-06-13] MEDS: TITRATION PARAMETER CHANGE 1 EACH IV (06:55)
[2021-06-13] MEDS: 0.9% Saline Lock 10 ML Syringe IV ×3 (07:57→21:43)
[2021-06-13] MEDS: LORazepam 2 MG/ML Syringe IV ×3 (07:57→21:43)
[2021-06-13] MEDS: Vital AF 1.2 Cal Liquid 1,000 ML 60 ML GT (09:13)
[2021-06-13] MEDS: Menthol/Lanolin/Calamine/Znox 113 GM Tube 1 APPLIC TOPICAL ×2 (09:43→21:43)
[2021-06-13] MEDS: CHLORHEXIDINE GLUC 2% CLOTH 1 EACH TOWELETTE TOPICAL (09:43)
[2021-06-13] MEDS: Chlorhexidine 15 ML PO ×2 (09:44→21:42)
[2021-06-13] MEDS: Enoxaparin 40 MG/0.4 ML Syringe SC ×2 (09:44→21:43)
[2021-06-13] MEDS: QUEtiapine 25 MG Tablet 50 MG PO (09:45)
[2021-06-13] MEDS: Metoclopramide 10 MG/2 ML Vial 5 MG IV ×2 (09:46→21:43)
[2021-06-13] MEDS: Escitalopram Oxalate 20 MG Tablet GT (09:46)
--- NOTE | 2021-06-13 10:31 | PN.HOSP_ITS ---
Subjective Subjective Patient seen and examined. She remains intubated and sedated. Unable to do review of systems. She has a mild temperature 100.5 ?F and she remains tachypneic. She is mildly bradycardic with heart rate of 57. She is in cumulative positive balance by 9.97 L since admission. Sodium is up to 148 today. Objective Data Objective Data Vital Signs: Vital Signs Temp Pulse Resp BP Pulse Ox 100.5 F H 57 L 23 H 106/65 93 06/13/21 10:00 06/13/21 10:00 06/13/21 10:00 06/13/21 10:00 06/13/21 10:00 Oxygen Flow Rate (L/min) 60 Oxygen Delivery Method Mechanical Ventilator Weight: 194 lb 10.691 oz Body Mass Index (BMI) 34.0 Intake & Output: Intake and Output for Last 24 Hours 06/11/21 06/12/21 06/13/21 23:59 23:59 23:59 Intake Total 3266.49 / 3423.27 3406.89 / 3622.59 1291.57 / 1291.57 Output Total 2700 / 2850 5450 / 5950 950 / 950 Balance 566.49 / 573.27 -2043.11 / -2327.41 341.57 / 341.57 Lab / Micro Data Result Diagrams: 06/13/21 03:33 06/13/21 03:33 Labs: Laboratory Results - last 24 hr 06/13/21 03:33: Sodium 148 H, Potassium 4.2, Chloride 107, Carbon Dioxide 37.0 H , Anion Gap 4 L, BUN 45 H, Creatinine 0.80, Estim Creat Clear Calc 52.49, Est GFR (MDRD) Af Amer 92, Est GFR (MDRD) Non-Af 76, BUN/Creatinine Ratio 56.6 H, Glucose 125 H, Calcium 8.6 06/13/21 03:33: WBC 9.8, RBC 3.60 L, Hgb 10.0 L, Hct 32.0 L, MCV 88.9, MCH 27.8, MCHC 31.3 L, RDW Std Deviation 46.4 H, RDW Coeff of Chari 14.3, Plt Count 476 H, MPV 11.1, Immature Gran % (Auto) 2.100 H, Neut % (Auto) 61.1, Lymph % (Auto) 25.5, [place] % (Auto) 9.1, Eos % (Auto) 1.7, Baso % (Auto) 0.5, Absolute Neuts (auto) 6.0, Absolute Lymphs (auto) 2.50, Nucleated RBC % 0 Micro: Microbiology 06/06/21 16:45 Blood Culture (Wb) - Anticubital Left Blood Culture - Final No growth in 5 days. 06/06/21 16:25 Blood Culture (Wb) - Pic Blood Culture - Final No growth in 5 days. 06/06/21 16:50 Sputum, Induced/Lukens Gram Stain - Final 06/06/21 16:50 Sputum, Induced/Lukens Respiratory Culture - Final Staphylococcus aureus Bordetella bronchiseptica 05/28/21 15:29 Blood Culture (Wb) - Anticubital Left Blood Culture - Final No growth in 5 days. 05/28/21 15:39 Blood Culture (Wb) - Anticubital Right Blood Culture - Final No growth in 5 days. 05/30/21 12:38 Sputum, Induced/Lukens Gram Stain - Final 05/30/21 12:38 Sputum, Induced/Lukens Respiratory Culture - Final Haemophilus influenzae 05/28/21 15:46 Nasal Secretion SARS-CoV-2 Antigen (Rapid) - Final SARS-CoV-2 (COVID 19) 05/29/21 02:00 Urine, Clean Catch Streptococcus pneumoniae Antigen (M - Final 05/29/21 02:00 Urine, Clean Catch Legionella Antigen - Final 05/28/21 20:00 Mucosa - Nasopharyngeal Respiratory Panel (PCR) - Final Rhythm Strip Rhythm Strip: Sinus Rhythm Rate: 85 Ectopy: None Physical Exam Const Constitutional Narrative: intubated, sedated, RASS score is -4 Exam Limitations: altered mental status HEENT head/scalp atraumatic Head and Scalp: normocephalic Mouth: dry mucous membranes Eyes PERRL Neck no lymphadenopathy and no JVD Resp Resp Narrative: intubated, sedated, diminished breath sounds bibasally, no wh eezes or crackles. tachypneic Cardio S1 normal heart sound and S2 normal heart sound Cardio Narrative: mild bradycardia, no murmurs GI normal to inspection, nondistended, normoactive bowel sounds, soft to palpation, non-tender and non-distended Extremity normal to inspection and no clubbing, cyanosis or edema Peripheral Pulses: Yes pulses 2+ throughout Skin no rashes or lesions noted Neuro Neuro Narrative: intubated, sedated, RASS score is -4 Assessment & Plan Assessment/Plan (1) MSSA (methicillin susceptible Staphylococcus aureus) pneumonia: (2) Acute respiratory failure with hypoxia: (3) Pneumonia due to COVID-19 virus: PLAN: #Acute hypoxic respiratory failure due to covid pneumoonia and bacterial pneumonia * cultures grew MSSA, H. infeluenza and Bordetella pneumonia * now out of isolation; symptoms started 05/30/2021 * remains intubated and sedated. on FiO2 of 50% * completed a course of remdesivir, decadron and baricitinib; also completed a course of antimicrobials for H. influenzae pneumonia * now o IV meropenem, to stop on 06/17/2021. * diurese as needed to maintain euvolemic status * critical care on board * family opted for trach and peg. * #Hypernatremia * Na is 148 today. On IV lasix * if sodium trends further upwards, will benefit from D5W to bring sodium down. * #Hyperglycemia: stable #Hypertension: on norvasc 10mg daily. Losartan on hold. #Probable COPD: to follow up with pulmonology on outpatient basis for further workup with PFTs. #Depression and anxiety: on lexapro #Normocytic anemia: Hb is 10, which is around where her baseline has been since admission. #Nutrition: on tube feeding. #GI prophylaxis: on pantoprazole 40mg bid IV. DVT prophylaxis: lovenox 40mg bid. Charges/Coding Visit Charges Inpatient E&M: 08854 Subs Hosp L3
[2021-06-13] MEDS: Dexmedetomidine 1,000 mcg in 0.9% NS 240 mL 33.1 MCG CONT INF ×2 (11:35→18:36)
[2021-06-13] MEDS: amLODIPine 10 MG Tablet PO (11:35)
--- NOTE | 2021-06-13 12:18 | PCM.RX.CS ---
Consult Pharmacy has been consulted to manage selected antiobiotic: Vancomycin Type of Consult: Follow-up Prior Doses of Antibiotics Received/Current Regimen: 06/12/21 @ 0930 06/12/21 @6627 Labs: Sodium 148 mmol/L (136-145) H 06/13/21 03:33 Potassium 4.2 mmol/L (3.5-5.1) 06/13/21 03:33 Chloride 107 mmol/L (98-107) 06/13/21 03:33 Carbon Dioxide 37.0 mmol/L (21.0-32.0) H 06/13/21 03:33 Anion Gap 4 (5-15) L 06/13/21 03:33 BUN 45 mg/dL (7-18) H 06/13/21 03:33 Creatinine 0.80 mg/dL (0.55-1.02) 06/13/21 03:33 Est GFR (MDRD) Af Amer 92 mL/min (>60) 06/13/21 03:33 Est GFR (MDRD) Non-Af 76 mL/min (>60) 06/13/21 03:33 BUN/Creatinine Ratio 56.6 RATIO (10-20) H 06/13/21 03:33 Glucose 125 mg/dL (74-106) H 06/13/21 03:33 Vancomycin Trough 10.0 ug/mL (5.0-15.0) 06/01/21 04:30 Microbiology: Microbiology 06/06/21 16:45 Blood Culture (Wb) - Anticubital Left Blood Culture - Final No growth in 5 days. 06/06/21 16:25 Blood Culture (Wb) - Pic Blood Culture - Final No growth in 5 days. 06/06/21 16:50 Sputum, Induced/Lukens Gram Stain - Final 06/06/21 16:50 Sputum, Induced/Lukens Respiratory Culture - Final Staphylococcus aureus Bordetella bronchiseptica 05/28/21 15:29 Blood Culture (Wb) - Anticubital Left Blood Culture - Final No growth in 5 days. 05/28/21 15:39 Blood Culture (Wb) - Anticubital Right Blood Culture - Final No growth in 5 days. 05/30/21 12:38 Sputum, Induced/Lukens Gram Stain - Final 05/30/21 12:38 Sputum, Induced/Lukens Respiratory Culture - Final Haemophilus influenzae 05/28/21 15:46 Nasal Secretion SARS-CoV-2 Antigen (Rapid) - Final SARS-CoV-2 (COVID 19) 05/29/21 02:00 Urine, Clean Catch Streptococcus pneumoniae Antigen (M - Final 05/29/21 02:00 Urine, Clean Catch Legionella Antigen - Final 05/28/21 20:00 Mucosa - Nasopharyngeal Respiratory Panel (PCR) - Final Weight used for dosin.5 kg Estimated Creatinine Clearance: 45 Goal Trough: 15-20 mcg/mL Pharmacy Plan for Drug Dosing: Hold Vancomycin due to trough level of 41.2 06/13/21. Random level ordered for 06/14/21 @ 0600 Pharmacy Service will continue to monitor and adjust dosing as required.
--- NOTE | 2021-06-13 12:41 | PCM.PN.BLA ---
Progress Note Asked to see the patient at the request of Dr. Coley for tracheotomy placement. HPI:71 year old with COVID 19 began having symptoms 05/23/21. She presented to the hospital on 05/28/21 with worsening dyspnea. She was intubated 05/30/21 and has been intubated since. Today is day number 15 of intubation. Weaning has been unsuccessful. PFSH: COPD (chronic obstructive pulmonary disease) Depression HTN (hypertension) Home Medications amlodipine 10 mg PO QHS 09/28/14 [History Last Taken 12/29/17] bupropion HCl 300 mg PO DAILY 12/31/17 [History Last Taken 12/29/17] escitalopram oxalate 20 mg PO DAILY 12/31/17 [History Last Taken 12/29/17] lisinopril 20 mg PO DAILY 12/31/17 [History Last Taken 12/29/17] Allergy/AdvReac Type Severity Reaction Status Date / Time levofloxacin [From Levaquin] AdvReac MUSCLE Verified 08/29/18 16:50 WEAKNESS IN ARMS Social History Smoking Status: Former smoker ROS ROS Unable to be obtained. PE: intubated sedated 7.[address] short neck. No masses or adenopathy A: Respiratory failure COVID 19 P: I will be placing her on the schedule for tracheotomy soon.
[2021-06-13] MEDS: Acetaminophen 650 MG/20 ML UDC PO ×2 (14:06→21:43)
[2021-06-13] MEDS: Senna/Docusate Sodium 1 Tablet 2 TABLET GT (22:35)
[2021-06-13] MEDS: QUEtiapine 100 MG Tablet PO (22:35)
[2021-06-14] VITALS (36 sets, daily range): BP systolic 102–164; BP diastolic 61–80; PULSE 53–90; RESP 18–30; TEMP 37.9–38.3; O2SAT 89–96
[2021-06-14] MEDS: Dexmedetomidine 1,000 mcg in 0.9% NS 240 mL 33.1 MCG CONT INF (02:32)
[2021-06-14] MEDS: LORazepam 2 MG/ML Syringe IV ×4 (03:37→20:53)
[2021-06-14] MEDS: 0.9% Saline Lock 10 ML Syringe IV ×2 (03:37→20:52)
[2021-06-14 03:52] LABS: Absolute Neutrophil Count 5.9 X10^3/uL (2.0-7.7); Basophil# 0.05 X10^3/uL; Basophil% 0.6 % (0-1); Eosinophil# 0.19 X10^3/uL; Eosinophils% 2.1 % (0-5); Hematocrit 31.9 % (37-47); Hemoglobin 9.8 g/dL (12.0-15.0); Mean Corp Hgb Conc 30.7 g/dL (32-36); Mean Corpuscular Hgb 27.7 pg (27.0-32.0); Mean Corpuscular Volume 90.1 fL (81-99); Monocyte# 0.89 X10^3/uL; NRBC Flagged by Analyzer 0 % (0-5); Neutrophil # 5.94 X10^3/uL (2.7-7.7); Neutrophil % 66.7 % (47-70); Platelet Count 450 K/mm3 (150-450); RBC Distribution Width CV 14.5 % (11.6-14.6); RBC Distribution Width SD 47.9 fl (35.1-43.9); Red Blood Count 3.54 M/mm3 (4.2-5.4); White Blood Count 8.9 K/mm3 (4.4-11.0)
[2021-06-14 04:38] LABS: Vancomycin, Random Level < 0.8 ug/mL (0.0-15.0)
[2021-06-14 04:39] LABS: Anion Gap 5 (5-15); BUN 41 mg/dL (7-18); BUN/Creat Ratio 56.9 RATIO (10-20); Calcium,Total 8.3 mg/dL (8.5-10.1); Chloride 110 mmol/L (98-107); Creatinine, Serum 0.72 mg/dL (0.55-1.02); EST Glomerular Filtration Rate 85 mL/min (>60); Est Glom Filt Rate - Afr Amer 103 mL/min (>60); Estimated Creatinine Clearance 41.99 ml/min; Glucose 127 mg/dL (74-106); Potassium 4.3 mmol/L (3.5-5.1); Sodium Level 147 mmol/L (136-145)
--- NOTE | 2021-06-14 05:37 | PN.CC_ITS ---
Assessment & Plan Assessment/Plan (1) Pneumonia due to COVID-19 virus: (2) Acute respiratory failure with hypoxia: PLAN: RECOMMENDATIONS: 1. Continue assist control mode mechanical ventilation. Wean FiO2/PEEP for saturations greater than 90%. 2. Continue antimicrobials to complete 7 days of therapy. 3. Hold Lovenox for upcoming PEG. 4. Continue appropriate GI prophylaxis. 5. Hold tube feeds for now. 6. Diuresis as tolerated by hemodynamics and renal function. IMPRESSIONS: 1. Acute hypoxemic respiratory failure secondary to COVID-19/Haemophilus influenza/staph aureus/Bordetella pneumonias The patient was initially admitted to the hospital on May 28 after presenting with worsening dyspnea. Symptom onset was sometime around May 23. The patient is unvaccinated. The patient's hospital course was complicated by worsening respiratory status, ultimately requiring transfer to the ICU and subsequent intubation on May 30. The patient has since completed treatment courses of remdesivir, baricitinib and Decadron. She remains on antimicrobials due to secondary bacterial pneumonia. CTA chest was negative for PE. Accordingly, it is reasonable to continue Lovenox as ordered. Continue tube feeds as tolerated. Plan to proceed with tracheostomy and PEG tube placement. 2. Distributive shock Resolved. Likely secondary to underlying sepsis coupled with the hemodynamic effects of sedative medication use. Vasopressor support is currently on hold. The patient remains hemodynamically stable. 3. Acute kidney injury Resolved. Likely secondary to ATN in the setting of #1. Continue to monitor urine output for now. No current indication for renal replacement therapy. 4. Questionable history of COPD/hypertension/depression/anxiety Complicates care, management, recovery and prognosis. Continue tube feeds as tolerated. Poor overall prognosis, but family continues to wish for aggressive measures. TIME: 32 minutes of critical care time, independent of procedures, was spent addressing the patient's acute hypoxemic respiratory failure secondary to COVID- 19 and secondary bacterial pneumonia, distributive shock, acute kidney injury, review of all data and collaboration with the care team. Subjective Subjective The patient was seen and examined at the bedside this morning. Events from the last 24 hours have been reviewed. Today is vent day #16. The patient remains on assist control mode mechanical ventilation with an FiO2 requirement of 45% and PEEP of 12. She remains sedated on a combination of Precedex, fentanyl and Seroquel. The patient's Versed infusion is currently on hold. The patient is currently documented to be overall net +12.1 L for the hospitalization. She remains on antimicrobials and prophylactic Lovenox. Objective Data Objective Data The patient's most recent lab work, culture data and imaging studies have all been personally reviewed. Rapid coronavirus antigen testing was positive on May 28. Strep and urine Legionella antigens were negative. Sputum culture was positive for Haemophilus influenza. Repeat sputum culture dated June 06 was positive for MSSA and Bordetella. Vital Signs: Vital Signs Temp Pulse Resp BP Pulse Ox 100.6 F H 55 L 22 H 121/75 H 93 06/14/21 04:00 06/14/21 05:00 06/14/21 05:00 06/14/21 05:00 06/14/21 05:00 Oxygen Flow Rate (L/min) 60 Oxygen Delivery Method Mechanical Ventilator Weight: 90.8 kg Body Mass Index (BMI) 34.0 Intake & Output: Intake and Output for Last 24 Hours 06/12/21 06/13/21 06/14/21 23:59 23:59 23:59 Intake Total 3406.89 / 3622.59 4134.64 / 4347.74 606.84 / 606.84 Output Total 5450 / 5950 1650 / 2250 600 / 600 Balance -2043.11 / -2327.41 2484.64 / 2097.74 6.84 / 6.84 Lab / Micro Data Attestation: I reviewed the patient's lab results. Result Diagrams: 06/14/21 03:40 06/14/21 03:40 Labs: Laboratory Results - last 24 hr 06/14/21 03:40: WBC 8.9, RBC 3.54 L, Hgb 9.8 L, Hct 31.9 L, MCV 90.1, MCH 27.7, MCHC 30.7 L, RDW Std Deviation 47.9 H, RDW Coeff of Chari 14.5, Plt Count 450, MPV 11.0, Immature Gran % (Auto) 2.600 H, Neut % (Auto) 66.7, Lymph % (Auto) 18.0 L, [place] % (Auto) 10.0, Eos % (Auto) 2.1, Baso % (Auto) 0.6, Absolute Neuts (auto) 5.9, Absolute Lymphs (auto) 1.60, Nucleated RBC % 0 06/14/21 03:40: Sodium 147 H, Potassium 4.3, Chloride 110 H, Carbon Dioxide 32.0, Anion Gap 5, BUN 41 H, Creatinine 0.72, Estim Creat Clear Calc 41.99, Est GFR (MDRD) Af Amer 103, Est GFR (MDRD) Non-Af 85, BUN/Creatinine Ratio 56.9 H, Glucose 127 H, Calcium 8.3 L 06/14/21 03:40: Random Vancomycin < 0.8 Micro: Microbiology 06/06/21 16:45 Blood Culture (Wb) - Anticubital Left Blood Culture - Final No growth in 5 days. 06/06/21 16:25 Blood Culture (Wb) - Pic Blood Culture - Final No growth in 5 days. 06/06/21 16:50 Sputum, Induced/Lukens Gram Stain - Final 06/06/21 16:50 Sputum, Induced/Lukens Respiratory Culture - Final Staphylococcus aureus Bordetella bronchiseptica 05/28/21 15:29 Blood Culture (Wb) - Anticubital Left Blood Culture - Final No growth in 5 days. 05/28/21 15:39 Blood Culture (Wb) - Anticubital Right Blood Culture - Final No growth in 5 days. 05/30/21 12:38 Sputum, Induced/Lukens Gram Stain - Final 05/30/21 12:38 Sputum, Induced/Lukens Respiratory Culture - Final Haemophilus influenzae 05/28/21 15:46 Nasal Secretion SARS-CoV-2 Antigen (Rapid) - Final SARS-CoV-2 (COVID 19) 05/29/21 02:00 Urine, Clean Catch Streptococcus pneumoniae Antigen (M - Final 05/29/21 02:00 Urine, Clean Catch Legionella Antigen - Final 05/28/21 20:00 Mucosa - Nasopharyngeal Respiratory Panel (PCR) - Final Rhythm Strip Rhythm Strip: Sinus Rhythm Rate: 85 Ectopy: None Physical Exam Const no apparent distress General Appearance: intubated and patient mechanically ventilated Nutritional Appearance: obese HEENT normocephalic and head/scalp atraumatic Mouth: endotracheal tube in place and OG tube in place Eyes PERRL, EOMs intact bilaterally and conjunctivae normal Neck supple General: trachea midline Chest inspection of chest normal Chest: symmetrical chest wall rise; Negative for crepitus Resp Auscultation: rhonchi throughout and diminished lung sounds; Negative for rales or wheezes Cardio regular rate, regular rhythm, S1 normal heart sound and S2 normal heart sound GI normal to inspection, nondistended, normoactive bowel sounds Extremity General Extremity: edema; Negative for clubbing or cyanosis Skin no rashes or lesions noted Neuro Sensorium / Orientation: sedated on vent Charges/Coding Procedures Hospitalists Procedures: 52905 Critial Care 1st Hr
[2021-06-14] MEDS: TITRATION PARAMETER CHANGE 1 EACH IV (05:43)
[2021-06-14] MEDS: Etomidate 20 MG/10 ML Vial IV (08:51)
[2021-06-14] MEDS: CHLORHEXIDINE GLUC 2% CLOTH 1 EACH TOWELETTE TOPICAL (08:52)
--- NOTE | 2021-06-14 09:17 | OP.CCLET_ITS ---
06/14/2021 Gerardo Catherine [address] [place] [address] Re : Upper GI endoscopy procedure for Gail Shelby Dear Dr. Catherine This procedure was performed on Monday, June 14, 2021. My impressions and recommendations are as follows: Impressions : - Normal esophagus. - Normal stomach. - Normal duodenal bulb. - An externally removable PEG placement was successfully completed. - No specimens collected. Recommendations : - Return patient to ICU for ongoing care. - Resume previous diet. - Continue present medications. - Resume Lovenox (enoxaparin) at prior dose tomorrow. - Observe patient's clinical course. My findings are described in the full procedure note, which is enclosed. If I can be of further assistance, please feel free to contact me at Doctor phone number(s): , Work: . Sincerely, MD Patrice Morales MD 06/14/2021 9:17:01 AM This report has been signed electronically.
--- NOTE | 2021-06-14 09:17 | OP.EGD_ITS ---
Patient Name: Gail Shelby Procedure Date: 06/14/2021 8:43 AM Date of : 1950 Age: 71 Procedure: Upper GI endoscopy Indications: Place PEG, Failure to respond to medical treatment, Abnormal chest x-ray Providers: Patrice Armstrong MD Medicines: See the Anesthesia note for documentation of the administered medications Patient Profile: This is a 71 year old female. Refer to note in patient chart for documentation of history and physical. Complications: No immediate complications. Estimated blood loss: Minimal. Procedure: Pre-Anesthesia Assessment: - Prior to the procedure, a History and Physical was performed, and patient medications and allergies were reviewed. The patient's tolerance of previous anesthesia was also reviewed. The risks and benefits of the procedure and the sedation options and risks were discussed with the patient. All questions were answered, and informed consent was obtained. Prior Anticoagulants: The patient has taken Lovenox (enoxaparin), last dose was 1 day prior to procedure. ASA Grade Assessment: IV - A patient with severe systemic disease that is a constant threat to life. After reviewing the risks and benefits, the patient was deemed in satisfactory condition to undergo the procedure. After obtaining informed consent, the endoscope was passed under direct vision. Throughout the procedure, the patient's blood pressure, pulse, and oxygen saturations were monitored continuously. The Endoscope was introduced through the mouth, and advanced to the duodenal bulb. The upper GI endoscopy was accomplished without difficulty. The patient tolerated the procedure well. Scope In: 8:50:50 AM Scope Out: 8:58:47 AM Total Procedure Duration Time 0 hours 7 minutes 57 seconds Findings: The examined esophagus was normal. The entire examined stomach was normal. Placement of an externally removable PEG with no T-fasteners was successfully completed. The external bumper was at the 3.0 cm marking on the tube. The duodenal bulb was normal. Impression: - Normal esophagus. - Normal stomach. - Normal duodenal bulb. - An externally removable PEG placement was successfully completed. - No specimens collected. Recommendation: - Return patient to ICU for ongoing care. - Resume previous diet. - Continue present medications. - Resume Lovenox (enoxaparin) at prior dose tomorrow. - Observe patient's clinical course. Procedure Code(s): --- Professional --- 75429, Esophagogastroduodenoscopy, flexible, transoral; with directed placement of percutaneous gastrostomy tube Diagnosis Code(s): --- Professional --- Z43.1, Encounter for attention to gastrostomy R93.8, Abnormal findings on diagnostic imaging of other specified body structures CPT copyright 2017 [employer]. All rights reserved. The codes documented in this report are preliminary and upon aircraft cabin cleaner review may be revised to meet current compliance requirements. MD Patrice Morales MD 06/14/2021 9:17:01 AM This report has been signed electronically. Number of Addenda: 0 Note Initiated On: 06/14/2021 8:43 AM
[2021-06-14] MEDS: Dexmedetomidine 1,000 mcg in 0.9% NS 240 mL 34.1 MCG CONT INF ×3 (09:31→23:50)
[2021-06-14] MEDS: amLODIPine 10 MG Tablet PO (09:31)
[2021-06-14] MEDS: Escitalopram Oxalate 20 MG Tablet GT (09:32)
[2021-06-14] MEDS: QUEtiapine 100 MG Tablet PO ×2 (09:32→20:52)
[2021-06-14] MEDS: Metoclopramide 10 MG/2 ML Vial 5 MG IV ×2 (09:32→20:52)
[2021-06-14] MEDS: Chlorhexidine 15 ML PO ×2 (09:33→20:51)
[2021-06-14] MEDS: Menthol/Lanolin/Calamine/Znox 113 GM Tube 1 APPLIC TOPICAL ×2 (09:33→20:51)
[2021-06-14] MEDS: Acetaminophen 650 MG/20 ML UDC PO ×2 (13:25→20:52)
--- NOTE | 2021-06-14 14:43 | PN.HOSP_ITS ---
Subjective Subjective Patient seen and examined. She remains intubated and sedated. She has a fever 100.9 Fahrenheit today and pulse is 57 with respiratory rate of 19. Sodium is 147. Objective Data Objective Data Vital Signs: Vital Signs Temp Pulse Resp BP Pulse Ox 100.9 F H 57 L 19 H 125/70 H 92 06/14/21 14:00 06/14/21 14:00 06/14/21 14:00 06/14/21 14:00 06/14/21 14:00 Oxygen Flow Rate (L/min) 60 Oxygen Delivery Method Mechanical Ventilator Weight: 200 lb 2.876 oz Body Mass Index (BMI) 34.0 Intake & Output: Intake and Output for Last 24 Hours 06/12/21 06/13/21 06/14/21 23:59 23:59 23:59 Intake Total 3406.89 / 3622.59 4134.64 / 4347.74 1315.41 / 1315.41 Output Total 5450 / 5950 1650 / 2250 1800 / 1800 Balance -2043.11 / -2327.41 2484.64 / 2097.74 -484.59 / -484.59 Lab / Micro Data Result Diagrams: 06/14/21 03:40 06/14/21 03:40 Labs: Laboratory Results - last 24 hr 06/14/21 03:40: WBC 8.9, RBC 3.54 L, Hgb 9.8 L, Hct 31.9 L, MCV 90.1, MCH 27.7, MCHC 30.7 L, RDW Std Deviation 47.9 H, RDW Coeff of Chari 14.5, Plt Count 450, MPV 11.0, Immature Gran % (Auto) 2.600 H, Neut % (Auto) 66.7, Lymph % (Auto) 18.0 L, [place] % (Auto) 10.0, Eos % (Auto) 2.1, Baso % (Auto) 0.6, Absolute Neuts (auto) 5.9, Absolute Lymphs (auto) 1.60, Nucleated RBC % 0 06/14/21 03:40: Sodium 147 H, Potassium 4.3, Chloride 110 H, Carbon Dioxide 32.0, Anion Gap 5, BUN 41 H, Creatinine 0.72, Estim Creat Clear Calc 41.99, Est GFR (MDRD) Af Amer 103, Est GFR (MDRD) Non-Af 85, BUN/Creatinine Ratio 56.9 H, Glucose 127 H, Calcium 8.3 L 06/14/21 03:40: Random Vancomycin < 0.8 Micro: Microbiology 06/06/21 16:45 Blood Culture (Wb) - Anticubital Left Blood Culture - Final No growth in 5 days. 06/06/21 16:25 Blood Culture (Wb) - Pic Blood Culture - Final No growth in 5 days. 06/06/21 16:50 Sputum, Induced/Lukens Gram Stain - Final 06/06/21 16:50 Sputum, Induced/Lukens Respiratory Culture - Final Staphylococcus aureus Bordetella bronchiseptica 05/28/21 15:29 Blood Culture (Wb) - Anticubital Left Blood Culture - Final No growth in 5 days. 05/28/21 15:39 Blood Culture (Wb) - Anticubital Right Blood Culture - Final No growth in 5 days. 05/30/21 12:38 Sputum, Induced/Lukens Gram Stain - Final 05/30/21 12:38 Sputum, Induced/Lukens Respiratory Culture - Final Haemophilus influenzae 05/28/21 15:46 Nasal Secretion SARS-CoV-2 Antigen (Rapid) - Final SARS-CoV-2 (COVID 19) 05/29/21 02:00 Urine, Clean Catch Streptococcus pneumoniae Antigen (M - Final 05/29/21 02:00 Urine, Clean Catch Legionella Antigen - Final 05/28/21 20:00 Mucosa - Nasopharyngeal Respiratory Panel (PCR) - Final Rhythm Strip Rhythm Strip: Sinus Rhythm Rate: 85 Ectopy: None Physical Exam Const Constitutional Narrative: intubated, sedated, RASS score is -4 General Appearance: cooperative Exam Limitations: altered mental status Nutritional Appearance: obese HEENT normocephalic and head/scalp atraumatic Eyes PERRL Neck no lymphadenopathy and no JVD Resp normal respiratory effort, no retractions and no use of accessory muscles Resp Narrative: intubated, sedated, diminished breath sounds bibasally, no wheezes or crackles. tachypneic Auscultation: crackles; Negative for rales, rhonchi or wheezes Cardio S1 normal heart sound and S2 normal heart sound Cardio Narrative: mild bradycardia, no murmurs GI normal to inspection, nondistended, normoactive bowel sounds, soft to palpation, non-tender and non-distended Extremity normal to inspection and no clubbing, cyanosis or edema Peripheral Pulses: Yes pulses 2+ throughout Skin no rashes or lesions noted Neuro Neuro Narrative: intubated, sedated, RASS score is -4 Assessment & Plan Assessment/Plan (1) MSSA (methicillin susceptible Staphylococcus aureus) pneumonia: (2) Acute respiratory failure with hypoxia: (3) Pneumonia due to COVID-19 virus: PLAN: #Acute hypoxic respiratory failure due to covid pneumoonia and bacterial pneumonia * cultures grew MSSA, H. infeluenza and Bordetella pneumonia * now out of isolation; symptoms started 05/30/2021 * remains intubated and sedated. on FiO2 of 45% today * completed a course of remdesivir, decadron and baricitinib; also completed a course of antimicrobials for H. influenzae pneumonia * now o IV meropenem, to stop on 06/17/2021. * diurese as needed to maintain euvolemic status * critical care on board * family opted for trach and peg. * #Hypernatremia * Na is 147 today. On IV lasix * if sodium trends further upwards, will benefit from D5W to bring sodium down. * #Hyperglycemia: stable #Hypertension: on norvasc 10mg daily. Losartan on hold. #Probable COPD: to follow up with pulmonology on outpatient basis for further workup with PFTs. #Depression and anxiety: on lexapro #Normocytic anemia: Hb is 9.8 today, which is around where her baseline has been since admission. #Nutrition: on tube feeding. #GI prophylaxis: on pantoprazole 40mg bid IV. DVT prophylaxis: lovenox 40mg bid. Charges/Coding Visit Charges Inpatient E&M: 08579 Subs Hosp L3
--- NOTE | 2021-06-14 15:29 | CASEMGMT ---
Social Work Phone call placed to pt spouse Boom. Dgt Pierre answered phone and states Boom is unavailable. SW offered support to Pierre and informed if she or Boom need support, SW is available and can be reached at [facility]. Pierre understanding and appreciative of phone call. NEEL Neal
[2021-06-15] VITALS (32 sets, daily range): BP systolic 93–174; BP diastolic 60–88; PULSE 50–80; RESP 16–30; TEMP 37.9–38.7; O2SAT 88–98
[2021-06-15 03:57] LABS: Absolute Lymphocyte Count 1.76 X10^3/uL (0.83-4.51); Basophil# 0.06 X10^3/uL; Basophil% 0.6 % (0-1); Eosinophil# 0.18 X10^3/uL; Eosinophils% 1.8 % (0-5); Hematocrit 33.1 % (37-47); Hemoglobin 10.2 g/dL (12.0-15.0); Lymphocyte # 1.76 X10^3/ul (0.83-4.51); Lymphocyte % 17.3 % (19-41); Mean Corp Hgb Conc 30.8 g/dL (32-36); Mean Corpuscular Hgb 27.4 pg (27.0-32.0); Mean Platelet Vol. 11.5 fl (6.2-12.0); Monocyte# 0.91 X10^3/uL; Monocyte% 8.9 % (0-10); NRBC Flagged by Analyzer 0 % (0-5); Neutrophil # 7.03 X10^3/uL (2.7-7.7); Platelet Count 473 K/mm3 (150-450); RBC Distribution Width CV 14.2 % (11.6-14.6); RBC Distribution Width SD 46.3 fl (35.1-43.9); Red Blood Count 3.72 M/mm3 (4.2-5.4); White Blood Count 10.2 K/mm3 (4.4-11.0)
[2021-06-15 04:22] LABS: Anion Gap 5 (5-15); BUN 32 mg/dL (7-18); BUN/Creat Ratio 46.1 RATIO (10-20); Calcium,Total 8.6 mg/dL (8.5-10.1); Chloride 108 mmol/L (98-107); Creatinine, Serum 0.69 mg/dL (0.55-1.02); EST Glomerular Filtration Rate 89 mL/min (>60); Est Glom Filt Rate - Afr Amer 108 mL/min (>60); Estimated Creatinine Clearance 41.99 ml/min; Glucose 122 mg/dL (74-106); Potassium 4.5 mmol/L (3.5-5.1); Sodium Level 146 mmol/L (136-145)
--- NOTE | 2021-06-15 06:38 | PCM.PN.INT ---
Assessment & Plan Assessment/Plan (1) Pneumonia due to COVID-19 virus: (2) Acute respiratory failure with hypoxia: PLAN: RECOMMENDATIONS: 1. Continue assist control mode mechanical ventilation. Wean FiO2/PEEP for saturations greater than 90%. 2. Restart tube feeds today. 3. Continue appropriate GI prophylaxis. 4. Diuresis as tolerated by hemodynamics and renal function. 5. Tracheostomy planned for Sunday. Hold Lovenox prior to procedure. IMPRESSIONS: 1. Acute hypoxemic respiratory failure secondary to COVID-19/Haemophilus influenza/staph aureus/Bordetella pneumonias The patient was initially admitted to the hospital on May 28 after presenting with worsening dyspnea. Symptom onset was sometime around May 23. The patient is unvaccinated. The patient's hospital course was complicated by worsening respiratory status, ultimately requiring transfer to the ICU and subsequent intubation on May 30. The patient has since completed treatment courses of remdesivir, baricitinib and Decadron. She remains on antimicrobials due to secondary bacterial pneumonia. CTA chest was negative for PE. Accordingly, it is reasonable to continue Lovenox as ordered. Continue tube feeds as tolerated. Tracheostomy placement is scheduled for Sunday. 2. Distributive shock Resolved. Likely secondary to underlying sepsis coupled with the hemodynamic effects of sedative medication use. Vasopressor support is currently on hold. The patient remains hemodynamically stable. 3. Acute kidney injury Resolved. Likely secondary to ATN in the setting of #1. Continue to monitor urine output for now. No current indication for renal replacement therapy. 4. Questionable history of COPD/hypertension/depression/anxiety Complicates care, management, recovery and prognosis. Continue tube feeds as tolerated. Poor overall prognosis, but family continues to wish for aggressive measures. TIME: 31 minutes of critical care time, independent of procedures, was spent addressing the patient's acute hypoxemic respiratory failure secondary to COVID-19 and secondary bacterial pneumonia, distributive shock, acute kidney injury, review of all data and collaboration with the care team. Subjective Subjective The patient was seen and examined at the bedside this morning. Events from the last 24 hours have been reviewed. Today is vent day #17. The patient remains on assist control mode mechanical ventilation with an FiO2 requirement of 65% and PEEP of 5. She remains sedated on a combination of Precedex, fentanyl and Seroquel. The patient underwent successful PEG tube placement yesterday and is currently scheduled to undergo tracheostomy this Sunday. She is currently documented to be overall net +11.5 L for the hospitalization. Objective Data Objective Data The patient's most recent lab work, culture data and imaging studies have all been personally reviewed. Rapid coronavirus antigen testing was positive on May 28. Strep and urine Legionella antigens were negative. Sputum culture was positive for Haemophilus influenza. Repeat sputum culture dated June 06 was positive for MSSA and Bordetella. Vital Signs: Vital Signs Temp Pulse Resp BP Pulse Ox 100.5 F H 58 L 18 120/67 96 06/15/21 04:00 06/15/21 06:00 06/15/21 06:00 06/15/21 06:00 06/15/21 06:00 Oxygen Flow Rate (L/min) 60 Oxygen Delivery Method Mechanical Ventilator Weight: 91.6 kg Body Mass Index (BMI) 34.0 Intake & Output: Intake and Output for Last 24 Hours 06/13/21 06/14/21 06/15/21 23:59 23:59 23:59 Intake Total 4134.64 / 4347.74 2150.99 / 2226.67 563.61 / 563.61 Output Total 1650 / 2250 2350 / 2750 900 / 900 Balance 2484.64 / 2097.74 -199.01 / -523.33 -336.39 / -336.39 Lab / Micro Data Attestation: I reviewed the patient's lab results. Result Diagrams: 06/15/21 03:15 06/15/21 03:15 Labs: Laboratory Results - last 24 hr 06/15/21 03:15: WBC 10.2, RBC 3.72 L, Hgb 10.2 L, Hct 33.1 L, MCV 89.0, MCH 27.4, MCHC 30.8 L, RDW Std Deviation 46.3 H, RDW Coeff of Chari 14.2, Plt Count 473 H, MPV 11.5, Immature Gran % (Auto) 2.400 H, Neut % (Auto) 69.0, Lymph % (Auto) 17.3 L, [place] % (Auto) 8.9, Eos % (Auto) 1.8, Baso % (Auto) 0.6, Absolute Neuts (auto) 7.0, Absolute Lymphs (auto) 1.76, Nucleated RBC % 0 01/12/22 03:15: Sodium 146 H, Potassium 4.5, Chloride 108 H, Carbon Dioxide 33.0 H, Anion Gap 5, BUN 32 H, Creatinine 0.69, Estim Creat Clear Calc 41.99, Est GFR (MDRD) Af Amer 108, Est GFR (MDRD) Non-Af 89, BUN/Creatinine Ratio 46.1 H, Glucose 122 H, Calcium 8.6 Micro: Microbiology 06/06/21 16:45 Blood Culture (Wb) - Anticubital Left Blood Culture - Final No growth in 5 days. 06/06/21 16:25 Blood Culture (Wb) - Pic Blood Culture - Final No growth in 5 days. 06/06/21 16:50 Sputum, Induced/Lukens Gram Stain - Final 06/06/21 16:50 Sputum, Induced/Lukens Respiratory Culture - Final Staphylococcus aureus Bordetella bronchiseptica 05/28/21 15:29 Blood Culture (Wb) - Anticubital Left Blood Culture - Final No growth in 5 days. 05/28/21 15:39 Blood Culture (Wb) - Anticubital Right Blood Culture - Final No growth in 5 days. 05/30/21 12:38 Sputum, Induced/Lukens Gram Stain - Final 05/30/21 12:38 Sputum, Induced/Lukens Respiratory Culture - Final Haemophilus influenzae 05/28/21 15:46 Nasal Secretion SARS-CoV-2 Antigen (Rapid) - Final SARS-CoV-2 (COVID 19) 05/29/21 02:00 Urine, Clean Catch Streptococcus pneumoniae Antigen (M - Final 05/29/21 02:00 Urine, Clean Catch Legionella Antigen - Final 05/28/21 20:00 Mucosa - Nasopharyngeal Respiratory Panel (PCR) - Final Rhythm Strip Rhythm Strip: Sinus Rhythm Rate: 85 Ectopy: None Physical Exam Const no apparent distress General Appearance: intubated and patient mechanically ventilated Nutritional Appearance: obese HEENT normocephalic and head/scalp atraumatic Mouth: endotracheal tube in place and OG tube in place Eyes PERRL, EOMs intact bilaterally and conjunctivae normal Neck supple General: trachea midline Chest inspection of chest normal Chest: symmetrical chest wall rise; Negative for crepitus Resp Effort and Inspection: tachypneic Auscultation: diminished lung sounds; Negative for rales, rhonchi or wheezes Cardio S1 normal heart sound and S2 normal heart sound Rate: bradycardia GI normal to inspection, nondistended, normoactive bowel sounds Extremity General Extremity: edema; Negative for clubbing or cyanosis Skin no rashes or lesions noted Neuro Sensorium / Orientation: sedated on vent Charges/Coding Procedures Hospitalists Procedures: [id number] Critial Care 1st Hr
[2021-06-15] MEDS: Dexmedetomidine 1,000 mcg in 0.9% NS 240 mL 34.1 MCG CONT INF (06:47)
[2021-06-15] MEDS: TITRATION PARAMETER CHANGE 1 EACH IV (06:48)
[2021-06-15] MEDS: LORazepam 2 MG/ML Syringe IV ×3 (07:29→18:04)
[2021-06-15] MEDS: 0.9% Saline Lock 10 ML Syringe IV ×3 (07:30→15:51)
[2021-06-15] MEDS: Menthol/Lanolin/Calamine/Znox 113 GM Tube 1 APPLIC TOPICAL ×2 (09:08→21:29)
[2021-06-15] MEDS: Metoclopramide 10 MG/2 ML Vial 5 MG IV ×2 (09:09→21:30)
[2021-06-15] MEDS: Escitalopram Oxalate 20 MG Tablet GT (09:09)
[2021-06-15] MEDS: Senna/Docusate Sodium 1 Tablet 2 TABLET GT ×2 (09:09→21:30)
[2021-06-15] MEDS: amLODIPine 10 MG Tablet PO (09:09)
[2021-06-15] MEDS: QUEtiapine 100 MG Tablet PO ×2 (09:10→21:30)
[2021-06-15] MEDS: Chlorhexidine 15 ML PO ×2 (09:10→22:00)
[2021-06-15] MEDS: Enoxaparin 40 MG/0.4 ML Syringe SC ×2 (09:10→21:29)
[2021-06-15] MEDS: CHLORHEXIDINE GLUC 2% CLOTH 1 EACH TOWELETTE TOPICAL (09:10)
[2021-06-15] MEDS: Vital AF 1.2 Cal Liquid 1,000 ML 30 ML GT (09:11)
[2021-06-15] MEDS: Acetaminophen 650 MG/20 ML UDC PO ×2 (09:14→21:49)
--- NOTE | 2021-06-15 13:32 | PN.HOSP_ITS ---
Subjective Subjective Patient seen and examined. She remains intubated and sedated. She has a fever today of 101.1 Fahrenheit. Sodium is 146. Objective Data Objective Data Vital Signs: Vital Signs Temp Pulse Resp BP Pulse Ox 101.1 F H 55 L 18 105/66 96 06/15/21 12:00 06/15/21 12:00 06/15/21 12:00 06/15/21 12:00 06/15/21 12:00 Oxygen Flow Rate (L/min) 60 Oxygen Delivery Method Mechanical Ventilator Weight: 201 lb 15.095 oz Body Mass Index (BMI) 34.0 Intake & Output: Intake and Output for Last 24 Hours 06/13/21 06/14/21 06/15/21 23:59 23:59 23:59 Intake Total 4134.64 / 4347.74 2150.99 / 2226.67 888.78 / 888.78 Output Total 1650 / 2250 2350 / 2750 1250 / 1250 Balance 2484.64 / 2097.74 -199.01 / -523.33 -361.22 / -361.22 Lab / Micro Data Result Diagrams: 06/15/21 03:15 06/15/21 03:15 Labs: Laboratory Results - last 24 hr 06/15/21 03:15: WBC 10.2, RBC 3.72 L, Hgb 10.2 L, Hct 33.1 L, MCV 89.0, MCH 27.4, MCHC 30.8 L, RDW Std Deviation 46.3 H, RDW Coeff of Chari 14.2, Plt Count 473 H, MPV 11.5, Immature Gran % (Auto) 2.400 H, Neut % (Auto) 69.0, Lymph % (Auto) 17.3 L, [place] % (Auto) 8.9, Eos % (Auto) 1.8, Baso % (Auto) 0.6, Absolute Neuts (auto) 7.0, Absolute Lymphs (auto) 1.76, Nucleated RBC % 0 06/15/21 03:15: Sodium 146 H, Potassium 4.5, Chloride 108 H, Carbon Dioxide 33.0 H, Anion Gap 5, BUN 32 H, Creatinine 0.69, Estim Creat Clear Calc 41.99, Est GFR (MDRD) Af Amer 108, Est GFR (MDRD) Non-Af 89, BUN/Creatinine Ratio 46.1 H, Glucose 122 H, Calcium 8.6 Micro: Microbiology 06/06/21 16:45 Blood Culture (Wb) - Anticubital Left Blood Culture - Final No growth in 5 days. 06/06/21 16:25 Blood Culture (Wb) - Pic Blood Culture - Final No growth in 5 days. 06/06/21 16:50 Sputum, Induced/Lukens Gram Stain - Final 06/06/21 16:50 Sputum, Induced/Lukens Respiratory Culture - Final Staphylococcus aureus Bordetella bronchiseptica 05/28/21 15:29 Blood Culture (Wb) - Anticubital Left Blood Culture - Final No growth in 5 days. 05/28/21 15:39 Blood Culture (Wb) - Anticubital Right Blood Culture - Final No growth in 5 days. 05/30/21 12:38 Sputum, Induced/Lukens Gram Stain - Final 05/30/21 12:38 Sputum, Induced/Lukens Respiratory Culture - Final Haemophilus influenzae 05/28/21 15:46 Nasal Secretion SARS-CoV-2 Antigen (Rapid) - Final SARS-CoV-2 (COVID 19) 05/29/21 02:00 Urine, Clean Catch Streptococcus pneumoniae Antigen (M - Final 05/29/21 02:00 Urine, Clean Catch Legionella Antigen - Final 05/28/21 20:00 Mucosa - Nasopharyngeal Respiratory Panel (PCR) - Final Rhythm Strip Rhythm Strip: Sinus Rhythm Rate: 85 Ectopy: None Physical Exam Const Constitutional Narrative: intubated, sedated, RASS score is -4 General Appearance: cooperative Exam Limitations: altered mental status Nutritional Appearance: obese HEENT normocephalic and head/scalp atraumatic Head and Scalp: normocephalic Eyes PERRL Neck no lymphadenopathy and no JVD Resp normal respiratory effort, no retractions and no use of accessory muscles Resp Narrative: intubated, sedated, diminished breath sounds bibasally, no wheezes or crackles. Auscultation: crackles; Negative for rales, rhonchi or wheezes Cardio S1 normal heart sound and S2 normal heart sound Cardio Narrative: mild bradycardia, no murmurs GI normal to inspection, nondistended, normoactive bowel sounds, soft to palpation, non-tender and non-distended Extremity normal to inspection and no clubbing, cyanosis or edema Skin no rashes or lesions noted Neuro Neuro Narrative: intubated, sedated, RASS score is -4 Psych Psych Narrative: flat affect Assessment & Plan Assessment/Plan (1) MSSA (methicillin susceptible Staphylococcus aureus) pneumonia: (2) Acute respiratory failure with hypoxia: (3) Pneumonia due to COVID-19 virus: PLAN: #Acute hypoxic respiratory failure due to covid pneumoonia and bacterial pneumonia * cultures grew MSSA, H. influenza and Bordetella pneumonia * now out of isolation; symptoms started 05/30/2021 * remains intubated and sedated. on FiO2 of 45% today * completed a course of remdesivir, decadron and baricitinib; also completed a course of antimicrobials for H. influenzae pneumonia * on IV meropenem, to stop on 06/17/2021. * diurese as needed to maintain euvolemic status * critical care on board * family opted for trach and peg; Trach to be inserted on Sunday * #Hypernatremia * Na is 146 today. On IV lasix * if sodium trends further upwards, will benefit from D5W to bring sodium down. * #Hyperglycemia: stable #Hypertension: on norvasc 10mg daily. Losartan on hold. #Probable COPD: to follow up with pulmonology on outpatient basis for further workup with PFTs. #Depression and anxiety: on lexapro #Normocytic anemia: Hb is 10.2 today, which is around where her baseline has been since admission. #Nutrition: on tube feeding. #GI prophylaxis: on pantoprazole 40mg bid IV. DVT prophylaxis: lovenox 40mg bid. Charges/Coding Visit Charges Inpatient E&M: 12248 Subs Hosp L3
--- NOTE | 2021-06-15 13:45 | PCM.PN.ID ---
Physical Exam Narrative On vent, o2 improved, low grade temps Const no apparent distress Resp Effort and Inspection: mechanically ventilated Auscultation: diminished lung sounds Cardio regular rate and regular rhythm GI soft to palpation, non-tender and non-distended Skin no rashes or lesions noted ID ID: Route of nutrition/ use of supplements: [] Nutritional Intake: [] IV Site: [] Wyatt Catheter: [] Assessment & Plan Assessment/Plan (1) Pneumonia due to COVID-19 virus: PLAN: On baricitinib, completed dex. Sputum with h. flu, now sputum with mssa and bordatella. Good response since changing to meropenem 06/08. Plan on stop date 06/16/21. Will follow (2) Acute respiratory failure with hypoxia:
[2021-06-15] MEDS: Dexmedetomidine 1,000 mcg in 0.9% NS 240 mL 34.4 MCG CONT INF ×2 (14:29→21:49)
--- NOTE | 2021-06-15 15:56 | CASEMGMT ---
CECILIO BLANCO NOTE: Pt will need to go to LTAC @ d/c. Attempted to contact pt's , Boom, to discuss LTAC's and to review locations to get his preferences of facility. Called both cell phone # and home #. No answer. Call also placed to pt's daughter, Pierre, who lives w/them. No answer. CECILIO BLANCO to f/u with on . Call was placed to Scherri @ [facility] in [place]. Currently they have no beds available, but they may have a bed available by this weekend. Call also placed to Rhonda @ [facility] in [place]. They currently do not have beds available at this time, either. Roxann MEYERS RN, CM
[2021-06-16] VITALS (35 sets, daily range): BP systolic 96–170; BP diastolic 57–91; PULSE 52–115; RESP 16–31; TEMP 37.4–38.1; O2SAT 84–97
[2021-06-16 03:19] LABS: Absolute Lymphocyte Count 1.78 X10^3/uL (0.83-4.51); Absolute Neutrophil Count 7.4 X10^3/uL (2.0-7.7); Basophil# 0.05 X10^3/uL; Basophil% 0.5 % (0-1); Eosinophil# 0.24 X10^3/uL; Eosinophils% 2.3 % (0-5); Hematocrit 30.9 % (37-47); Hemoglobin 9.5 g/dL (12.0-15.0); Lymphocyte # 1.78 X10^3/ul (0.83-4.51); Mean Corp Hgb Conc 30.7 g/dL (32-36); Mean Corpuscular Hgb 27.7 pg (27.0-32.0); Mean Corpuscular Volume 90.1 fL (81-99); Mean Platelet Vol. 10.9 fl (6.2-12.0); Monocyte# 0.79 X10^3/uL; Monocyte% 7.5 % (0-10); NRBC Flagged by Analyzer 0 % (0-5); Neutrophil # 7.44 X10^3/uL (2.7-7.7); Neutrophil % 70.8 % (47-70); Platelet Count 419 K/mm3 (150-450); RBC Distribution Width CV 14.2 % (11.6-14.6); RBC Distribution Width SD 46.4 fl (35.1-43.9); Red Blood Count 3.43 M/mm3 (4.2-5.4); White Blood Count 10.5 K/mm3 (4.4-11.0)
[2021-06-16 03:32] LABS: Anion Gap 6 (5-15); BUN 32 mg/dL (7-18); BUN/Creat Ratio 47.4 RATIO (10-20); Chloride 111 mmol/L (98-107); Creatinine, Serum 0.68 mg/dL (0.55-1.02); EST Glomerular Filtration Rate 92 mL/min (>60); Est Glom Filt Rate - Afr Amer 111 mL/min (>60); Estimated Creatinine Clearance 41.99 ml/min; Glucose 157 mg/dL (74-106); Potassium 3.5 mmol/L (3.5-5.1); Sodium Level 145 mmol/L (136-145)
[2021-06-16] MEDS: CHLORHEXIDINE GLUC 2% CLOTH 1 EACH TOWELETTE TOPICAL (05:39)
[2021-06-16] MEDS: Dexmedetomidine 1,000 mcg in 0.9% NS 240 mL 34.4 MCG CONT INF (05:40)
[2021-06-16] MEDS: LORazepam 2 MG/ML Syringe IV ×6 (05:43→20:40)
--- NOTE | 2021-06-16 06:33 | PCM.PN.INT ---
Assessment & Plan Assessment/Plan (1) Pneumonia due to COVID-19 virus: (2) Acute respiratory failure with hypoxia: PLAN: RECOMMENDATIONS: 1. Continue assist control mode mechanical ventilation. Wean FiO2/PEEP for saturations greater than 90%. 2. Continue tube feeds as tolerated. 3. Continue appropriate GI prophylaxis. 4. Diuresis as tolerated by hemodynamics and renal function. 5. Tracheostomy planned for tomorrow. Hold Lovenox accordingly. 6. LTACH disposition planning. IMPRESSIONS: 1. Acute hypoxemic respiratory failure secondary to COVID-19/Haemophilus influenza/staph aureus/Bordetella pneumonias The patient was initially admitted to the hospital on May 28 after presenting with worsening dyspnea. Symptom onset was sometime around May 23. The patient is unvaccinated. The patient's hospital course was complicated by worsening respiratory status, ultimately requiring transfer to the ICU and subsequent intubation on May 30. The patient has since completed treatment courses of remdesivir, baricitinib and Decadron. She also completed an antibiotic treatment course due to secondary bacterial pneumonia. CTA chest was negative for PE. Accordingly, it is reasonable to continue Lovenox as ordered. Continue tube feeds as tolerated. Tracheostomy placement is scheduled for tomorrow. 2. Distributive shock Resolved. Likely secondary to underlying sepsis coupled with the hemodynamic effects of sedative medication use. Vasopressor support is currently on hold. The patient remains hemodynamically stable. 3. Acute kidney injury Resolved. Likely secondary to ATN in the setting of #1. Continue to monitor urine output for now. No current indication for renal replacement therapy. 4. Questionable history of COPD/hypertension/depression/anxiety Complicates care, management, recovery and prognosis. Continue tube feeds as tolerated. TIME: 32 minutes of critical care time, independent of procedures, was spent addressing the patient's acute hypoxemic respiratory failure secondary to COVID-19 and secondary bacterial pneumonia, distributive shock, acute kidney injury, review of all data and collaboration with the care team. Subjective Subjective The patient was seen and examined at the bedside this morning. Events from the last 24 hours have been reviewed. Today is vent day #18. The patient remains on assist control mode mechanical ventilation with an FiO2 requirement of 45% and PEEP of 5. She remains sedated on a combination of Precedex, fentanyl and Seroquel. Patient did fail a spontaneous breathing trial this morning. No overnight issues were identified by the nursing staff. She is currently documented to be overall net +13.5 L for the hospitalization. The patient is to undergo tracheostomy placement tomorrow. Objective Data Objective Data The patient's most recent lab work, culture data and imaging studies have all been personally reviewed. Rapid coronavirus antigen testing was positive on May 28. Strep and urine Legionella antigens were negative. Sputum culture was positive for Haemophilus influenza. Repeat sputum culture dated June 06 was positive for MSSA and Bordetella. Vital Signs: Vital Signs Temp Pulse Resp BP Pulse Ox 99.6 F H 79 22 H 163/91 H 91 06/16/21 04:00 06/16/21 04:39 06/16/21 04:39 06/16/21 04:00 06/16/21 04:39 Oxygen Flow Rate (L/min) 60 Oxygen Delivery Method Mechanical Ventilator Weight: 91.9 kg Body Mass Index (BMI) 34.0 Intake & Output: Intake and Output for Last 24 Hours 06/14/21 06/15/21 06/16/21 23:59 23:59 23:59 Intake Total 2150.99 / 2226.67 2771.20 / 2915.63 860.90 / 860.90 Output Total 2350 / 2750 1775 / 1775 225 / 225 Balance -199.01 / -523.33 996.20 / 1140.63 635.90 / 635.90 Lab / Micro Data Result Diagrams: 06/16/21 03:10 06/16/21 03:10 Labs: Laboratory Results - last 24 hr 06/16/21 03:10: WBC 10.5, RBC 3.43 L, Hgb 9.5 L, Hct 30.9 L, MCV 90.1, MCH 27.7, MCHC 30.7 L, RDW Std Deviation 46.4 H, RDW Coeff of Chari 14.2, Plt Count 419, MPV 10.9, Immature Gran % (Auto) 1.900 H, Neut % (Auto) 70.8 H, Lymph % (Auto) 17.0 L, [place] % (Auto) 7.5, Eos % (Auto) 2.3, Baso % (Auto) 0.5, Absolute Neuts (auto) 7.4, Absolute Lymphs (auto) 1.78, Nucleated RBC % 0 06/16/21 03:10: Sodium 145, Potassium 3.5, Chloride 111 H, Carbon Dioxide 28.0, Anion Gap 6, BUN 32 H, Creatinine 0.68, Estim Creat Clear Calc 41.99, Est GFR (MDRD) Af Amer 111, Est GFR (MDRD) Non-Af 92, BUN/Creatinine Ratio 47.4 H, Glucose 157 H, Calcium 8.0 L Micro: Microbiology 06/06/21 16:45 Blood Culture (Wb) - Anticubital Left Blood Culture - Final No growth in 5 days. 06/06/21 16:25 Blood Culture (Wb) - Pic Blood Culture - Final No growth in 5 days. 06/06/21 16:50 Sputum, Induced/Lukens Gram Stain - Final 06/06/21 16:50 Sputum, Induced/Lukens Respiratory Culture - Final Staphylococcus aureus Bordetella bronchiseptica 05/28/21 15:29 Blood Culture (Wb) - Anticubital Left Blood Culture - Final No growth in 5 days. 05/28/21 15:39 Blood Culture (Wb) - Anticubital Right Blood Culture - Final No growth in 5 days. 05/30/21 12:38 Sputum, Induced/Lukens Gram Stain - Final 05/30/21 12:38 Sputum, Induced/Lukens Respiratory Culture - Final Haemophilus influenzae 05/28/21 15:46 Nasal Secretion SARS-CoV-2 Antigen (Rapid) - Final SARS-CoV-2 (COVID 19) 05/29/21 02:00 Urine, Clean Catch Streptococcus pneumoniae Antigen (M - Final 05/29/21 02:00 Urine, Clean Catch Legionella Antigen - Final 05/28/21 20:00 Mucosa - Nasopharyngeal Respiratory Panel (PCR) - Final Rhythm Strip Rhythm Strip: Sinus Rhythm Rate: 85 Ectopy: None Physical Exam Const no apparent distress Constitutional Narrative: No ventilator to synchrony. General Appearance: intubated and patient mechanically ventilated Nutritional Appearance: obese HEENT normocephalic and head/scalp atraumatic Mouth: endotracheal tube in place and OG tube in place Eyes PERRL, EOMs intact bilaterally and conjunctivae normal Neck supple General: trachea midline Chest inspection of chest normal Chest: symmetrical chest wall rise; Negative for crepitus Resp Effort and Inspection: tachypneic Auscultation: diminished lung sounds; Negative for rales, rhonchi or wheezes Cardio S1 normal heart sound, S2 normal heart sound and no murmurs Rate: tachycardic GI normal to inspection, nondistended, normoactive bowel sounds Extremity General Extremity: edema; Negative for clubbing or cyanosis Skin no rashes or lesions noted Neuro Sensorium / Orientation: sedated on vent Charges/Coding Procedures Hospitalists Procedures: [id number] Critial Care 1st Hr
[2021-06-16] MEDS: TITRATION PARAMETER CHANGE 1 EACH IV (07:04)
[2021-06-16] MEDS: Chlorhexidine 15 ML PO ×2 (09:33→21:58)
[2021-06-16] MEDS: Menthol/Lanolin/Calamine/Znox 113 GM Tube 1 APPLIC TOPICAL ×2 (09:36→21:59)
[2021-06-16] MEDS: Senna/Docusate Sodium 1 Tablet 2 TABLET GT ×2 (09:43→22:00)
[2021-06-16] MEDS: QUEtiapine 100 MG Tablet PO ×2 (09:43→22:00)
[2021-06-16] MEDS: Polyethylene Glycol 3350 17 GM PACKET GT (09:43)
[2021-06-16] MEDS: Escitalopram Oxalate 20 MG Tablet GT (09:43)
[2021-06-16] MEDS: amLODIPine 10 MG Tablet PO (09:44)
[2021-06-16] MEDS: Metoclopramide 10 MG/2 ML Vial 5 MG IV ×2 (09:47→21:59)
[2021-06-16] MEDS: Vital AF 1.2 Cal Liquid 1,000 ML 60 ML GT (09:56)
--- NOTE | 2021-06-16 10:50 | PN.HOSP_ITS ---
Subjective Subjective Patient seen and examined. She remains intubated and sedated. No active events overnight. Objective Data Objective Data Vital Signs: Vital Signs Temp Pulse Resp BP Pulse Ox 100.1 F H 71 23 H 155/87 H 93 06/16/21 10:00 06/16/21 10:42 06/16/21 10:42 06/16/21 10:00 06/16/21 10:42 Oxygen Flow Rate (L/min) 60 Oxygen Delivery Method Mechanical Ventilator Weight: 202 lb 9.677 oz Body Mass Index (BMI) 34.0 Intake & Output: Intake and Output for Last 24 Hours 06/14/21 06/15/21 06/16/21 23:59 23:59 23:59 Intake Total 2150.99 / 2226.67 2771.20 / 2915.63 1556.37 / 1556.37 Output Total 2350 / 2750 1775 / 1775 225 / 225 Balance -199.01 / -523.33 996.20 / 1140.63 1331.37 / 1331.37 Lab / Micro Data Result Diagrams: 06/16/21 03:10 06/16/21 03:10 Labs: Laboratory Results - last 24 hr 06/16/21 03:10: WBC 10.5, RBC 3.43 L, Hgb 9.5 L, Hct 30.9 L, MCV 90.1, MCH 27.7, MCHC 30.7 L, RDW Std Deviation 46.4 H, RDW Coeff of Chari 14.2, Plt Count 419, MPV 10.9, Immature Gran % (Auto) 1.900 H, Neut % (Auto) 70.8 H, Lymph % (Auto) 17.0 L, [place] % (Auto) 7.5, Eos % (Auto) 2.3, Baso % (Auto) 0.5, Absolute Neuts (auto) 7.4, Absolute Lymphs (auto) 1.78, Nucleated RBC % 0 06/16/21 03:10: Sodium 145, Potassium 3.5, Chloride 111 H, Carbon Dioxide 28.0, Anion Gap 6, BUN 32 H, Creatinine 0.68, Estim Creat Clear Calc 41.99, Est GFR (MDRD) Af Amer 111, Est GFR (MDRD) Non-Af 92, BUN/Creatinine Ratio 47.4 H, Glucose 157 H, Calcium 8.0 L Micro: Microbiology 06/06/21 16:45 Blood Culture (Wb) - Anticubital Left Blood Culture - Final No growth in 5 days. 06/06/21 16:25 Blood Culture (Wb) - Pic Blood Culture - Final No growth in 5 days. 06/06/21 16:50 Sputum, Induced/Lukens Gram Stain - Final 06/06/21 16:50 Sputum, Induced/Lukens Respiratory Culture - Final Staphylococcus aureus Bordetella bronchiseptica 05/28/21 15:29 Blood Culture (Wb) - Anticubital Left Blood Culture - Final No growth in 5 days. 05/28/21 15:39 Blood Culture (Wb) - Anticubital Right Blood Culture - Final No growth in 5 days. 05/30/21 12:38 Sputum, Induced/Lukens Gram Stain - Final 05/30/21 12:38 Sputum, Induced/Lukens Respiratory Culture - Final Haemophilus influenzae 05/28/21 15:46 Nasal Secretion SARS-CoV-2 Antigen (Rapid) - Final SARS-CoV-2 (COVID 19) 05/29/21 02:00 Urine, Clean Catch Streptococcus pneumoniae Antigen (M - Final 05/29/21 02:00 Urine, Clean Catch Legionella Antigen - Final 05/28/21 20:00 Mucosa - Nasopharyngeal Respiratory Panel (PCR) - Final Rhythm Strip Rhythm Strip: Sinus Rhythm Rate: 85 Ectopy: None Physical Exam Const Constitutional Narrative: intubated, sedated, RASS score is -4 General Appearance: cooperative Exam Limitations: altered mental status Nutritional Appearance: obese HEENT normocephalic and head/scalp atraumatic Eyes PERRL Neck no lymphadenopathy and no JVD Resp Resp Narrative: intubated, sedated, diminished breath sounds bibasally, no wheezes or crackles. Auscultation: Negative for rales, rhonchi or wheezes Cardio regular rate, regular rhythm, S1 normal heart sound, S2 normal heart sound and no murmurs GI normal to inspection, nondistended, normoactive bowel sounds, soft to palpation, non-tender and non-distended Extremity normal to inspection and no clubbing, cyanosis or edema Peripheral Pulses: Yes pulses 2+ throughout Skin no rashes or lesions noted Neuro Neuro Narrative: intubated, sedated, RASS score is -4 Assessment & Plan Assessment/Plan (1) MSSA (methicillin susceptible Staphylococcus aureus) pneumonia: (2) Acute respiratory failure with hypoxia: (3) Pneumonia due to COVID-19 virus: PLAN: #Acute hypoxic respiratory failure due to covid pneumoonia and bacterial pneumonia * cultures grew MSSA, H. influenza and Bordetella pneumonia * now out of isolation; symptoms started 05/30/2021 * remains intubated and sedated. on FiO2 of 45% today * completed a course of remdesivir, decadron and baricitinib; also completed a course of antimicrobials for H. influenzae pneumonia * on IV meropenem, to stop on 06/17/2021. * diurese as needed to maintain euvolemic status * critical care on board * family opted for trach and peg; Trach to be inserted on Sunday * #Hypernatremia * Na is 145 today. On IV lasix * #Hyperglycemia: stable #Hypertension: on norvasc 10mg daily. Losartan on hold. #Probable COPD: to follow up with pulmonology on outpatient basis for further workup with PFTs. #Depression and anxiety: on lexapro #Normocytic anemia: Hb is 9.5 today, which is around where her baseline has been since admission. #Nutrition: on tube feeding. #GI prophylaxis: on pantoprazole 40mg bid IV. DVT prophylaxis: lovenox 40mg bid. Charges/Coding Visit Charges Inpatient E&M: 33445 Subs Hosp L3
[2021-06-16] MEDS: 0.9% Saline Lock 10 ML Syringe IV ×2 (12:26→21:59)
[2021-06-16] MEDS: Furosemide 40 MG/4 ML Vial IV (12:30)
--- NOTE | 2021-06-16 12:45 | CASEMGMT ---
CECILIO BLANCO NOTE: Trach placement is scheduled for tomorrow @ 1030. Call placed to pt's , Boom. Discussed LTAC w/him and he is agreeable. Reviewed list of the closest LTAC's to [place], which include [facility] in [place]. He states is agreeable to [facility]. Referral packet has been faxed to [facility]. Call placed to Hectori @ [facility] re: referral. She was informed trach scheduled to be placed tomorrow morning @ 1030. She states they still do not have any beds available, but once a bed becomes available, they would be able to accept pt and the earliest pt could transfer to [facility] is Sunday. She requests updated clinicals be faxed tomorrow, once trach is placed, along w/any updated vent settings and vitals. Roxann MEYERS RN CM
[2021-06-16] MEDS: Dexmedetomidine 1,000 mcg in 0.9% NS 240 mL 34.5 MCG CONT INF (13:21)
[2021-06-16] MEDS: Dexmedetomidine 1,000 mcg in 0.9% NS 240 mL 29.9 MCG CONT INF (21:24)
[2021-06-17] VITALS (36 sets, daily range): BP systolic 87–167; BP diastolic 56–83; PULSE 20–104; RESP 16–33; TEMP 37.3–37.7; O2SAT 90–98
--- NOTE | 2021-06-17 00:10 | NURSING ---
Pt's tube feed placed on hold d/t having tracheostomy done in the morning.
[2021-06-17] MEDS: LORazepam 2 MG/ML Syringe IV ×2 (01:40→19:30)
[2021-06-17] MEDS: CHLORHEXIDINE GLUC 2% CLOTH 1 EACH TOWELETTE TOPICAL ×3 (02:59→21:20)
[2021-06-17] MEDS: 0.9% Saline Lock 10 ML Syringe IV (02:59)
[2021-06-17 03:18] LABS: Absolute Lymphocyte Count 1.49 X10^3/uL (0.83-4.51); Absolute Neutrophil Count 4.6 X10^3/uL (2.0-7.7); Basophil# 0.03 X10^3/uL; Basophil% 0.4 % (0-1); Eosinophil# 0.22 X10^3/uL; Eosinophils% 3.2 % (0-5); Hematocrit 26.4 % (37-47); Hemoglobin 8.2 g/dL (12.0-15.0); Lymphocyte # 1.49 X10^3/ul (0.83-4.51); Lymphocyte % 21.5 % (19-41); Mean Corp Hgb Conc 31.1 g/dL (32-36); Mean Corpuscular Hgb 27.2 pg (27.0-32.0); Mean Corpuscular Volume 87.7 fL (81-99); Mean Platelet Vol. 11.2 fl (6.2-12.0); Monocyte# 0.52 X10^3/uL; Monocyte% 7.5 % (0-10); NRBC Flagged by Analyzer 0 % (0-5); Neutrophil # 4.56 X10^3/uL (2.7-7.7); Platelet Count 312 K/mm3 (150-450); RBC Distribution Width SD 44.9 fl (35.1-43.9); Red Blood Count 3.01 M/mm3 (4.2-5.4); White Blood Count 6.9 K/mm3 (4.4-11.0)
[2021-06-17 03:47] LABS: Anion Gap 4 (5-15); BUN 29 mg/dL (7-18); BUN/Creat Ratio 52.9 RATIO (10-20); Calcium,Total 7.9 mg/dL (8.5-10.1); Chloride 110 mmol/L (98-107); Creatinine, Serum 0.55 mg/dL (0.55-1.02); EST Glomerular Filtration Rate 117 mL/min (>60); Est Glom Filt Rate - Afr Amer 141 mL/min (>60); Estimated Creatinine Clearance 41.99 ml/min; Glucose 110 mg/dL (74-106); Potassium 3.4 mmol/L (3.5-5.1); Sodium Level 144 mmol/L (136-145)
[2021-06-17] MEDS: TITRATION PARAMETER CHANGE 1 EACH IV (05:36)
--- NOTE | 2021-06-17 06:19 | PN.CC_ITS ---
Assessment & Plan Assessment/Plan (1) Pneumonia due to COVID-19 virus: (2) Acute respiratory failure with hypoxia: PLAN: RECOMMENDATIONS: 1. Continue assist control mode mechanical ventilation. Wean FiO2/PEEP for saturations greater than 90%. 2. Resume tube feeds once tracheostomy is completed. 3. Continue appropriate GI prophylaxis. 4. Diuresis as tolerated by hemodynamics and renal function. 5. Tracheostomy planned for today. Resume Lovenox tomorrow. 6. LTACH disposition planning. IMPRESSIONS: 1. Acute hypoxemic respiratory failure secondary to COVID-19/Haemophilus influenza/staph aureus/Bordetella pneumonias The patient was initially admitted to the hospital on May 28 after presenting with worsening dyspnea. Symptom onset was sometime around May 23. The patient is unvaccinated. The patient's hospital course was complicated by worsening respiratory status, ultimately requiring transfer to the ICU and subsequent intubation on May 30. The patient has since completed treatment courses of remdesivir, baricitinib and Decadron. She also completed an antibiotic treatment course due to secondary bacterial pneumonia. CTA chest was negative for PE. Accordingly, it is reasonable to continue Lovenox as ordered. Proceed with tracheostomy placement today. 2. Distributive shock Resolved. Likely secondary to underlying sepsis coupled with the hemodynamic effects of sedative medication use. Vasopressor support is currently on hold. The patient remains hemodynamically stable. 3. Acute kidney injury Resolved. Likely secondary to ATN in the setting of #1. Continue to monitor urine output for now. No current indication for renal replacement therapy. 4. Questionable history of COPD/hypertension/depression/anxiety Complicates care, management, recovery and prognosis. Continue tube feeds as tolerated. TIME: 31 minutes of critical care time, independent of procedures, was spent addressing the patient's acute hypoxemic respiratory failure secondary to COVID- 19 and secondary bacterial pneumonia, distributive shock, acute kidney injury, review of all data and collaboration with the care team. Subjective Subjective The patient was seen and examined at the bedside this morning. Events from the last 24 hours have been reviewed. Today is vent day #19. The patient remains on assist control mode mechanical ventilation with an FiO2 requirement of 45% and PEEP of 5. She remains sedated on a combination of Precedex, fentanyl and Seroquel. No overnight issues were identified by the nursing staff. She is currently documented to be overall net +14.5 L for the hospitalization. The patient is to undergo tracheostomy placement this morning. The patient's Lovenox and tube feeds are on hold. Potassium is low this morning at 3.4. Objective Data Objective Data The patient's most recent lab work, culture data and imaging studies have all been personally reviewed. Rapid coronavirus antigen testing was positive on May 28. Strep and urine Legionella antigens were negative. Sputum culture was positive for Haemophilus influenza. Repeat sputum culture dated June 06 was positive for MSSA and Bordetella. Vital Signs: Vital Signs Temp Pulse Resp BP Pulse Ox 99.6 F H 53 L 22 H 127/74 H 96 06/17/21 05:00 06/17/21 06:00 06/17/21 06:00 06/17/21 06:00 06/17/21 06:00 Oxygen Flow Rate (L/min) 60 Oxygen Delivery Method Mechanical Ventilator Weight: 92.1 kg Body Mass Index (BMI) 34.0 Intake & Output: Intake and Output for Last 24 Hours 06/15/21 06/16/21 06/17/21 23:59 23:59 23:59 Intake Total 2771.20 / 2915.63 3379.74 / 3725.64 842.08 / 842.08 Output Total 1775 / 1775 2175 / 2325 375 / 375 Balance 996.20 / 1140.63 1204.74 / 1400.64 467.08 / 467.08 Lab / Micro Data Attestation: I reviewed the patient's lab results. Result Diagrams: 06/17/21 03:00 06/17/21 03:00 Labs: Laboratory Results - last 24 hr 06/17/21 03:00: WBC 6.9, RBC 3.01 L, Hgb 8.2 L, Hct 26.4 L, MCV 87.7, MCH 27.2, MCHC 31.1 L, RDW Std Deviation 44.9 H, RDW Coeff of Chari 14.0, Plt Count 312, MPV 11.2, Immature Gran % (Auto) 1.400 H, Neut % (Auto) 66.0, Lymph % (Auto) 21.5, [place] % (Auto) 7.5, Eos % (Auto) 3.2, Baso % (Auto) 0.4, Absolute Neuts (auto) 4.6, Absolute Lymphs (auto) 1.49, Nucleated RBC % 0 06/17/21 03:00: Sodium 144, Potassium 3.4 L, Chloride 110 H, Carbon Dioxide 30.0, Anion Gap 4 L, BUN 29 H, Creatinine 0.55, Estim Creat Clear Calc 41.99, Est GFR (MDRD) Af Amer 141, Est GFR (MDRD) Non-Af 117, BUN/Creatinine Ratio 52.9 H, Glucose 110 H, Calcium 7.9 L Micro: Microbiology 06/06/21 16:45 Blood Culture (Wb) - Anticubital Left Blood Culture - Final No growth in 5 days. 06/06/21 16:25 Blood Culture (Wb) - Pic Blood Culture - Final No growth in 5 days. 06/06/21 16:50 Sputum, Induced/Lukens Gram Stain - Final 06/06/21 16:50 Sputum, Induced/Lukens Respiratory Culture - Final Staphylococcus aureus Bordetella bronchiseptica 05/28/21 15:29 Blood Culture (Wb) - Anticubital Left Blood Culture - Final No growth in 5 days. 05/28/21 15:39 Blood Culture (Wb) - Anticubital Right Blood Culture - Final No growth in 5 days. 05/30/21 12:38 Sputum, Induced/Lukens Gram Stain - Final 05/30/21 12:38 Sputum, Induced/Lukens Respiratory Culture - Final Haemophilus influenzae 05/28/21 15:46 Nasal Secretion SARS-CoV-2 Antigen (Rapid) - Final SARS-CoV-2 (COVID 19) 05/29/21 02:00 Urine, Clean Catch Streptococcus pneumoniae Antigen (M - Final 05/29/21 02:00 Urine, Clean Catch Legionella Antigen - Final 05/28/21 20:00 Mucosa - Nasopharyngeal Respiratory Panel (PCR) - Final Rhythm Strip Rhythm Strip: Sinus Rhythm Rate: 85 Ectopy: None Physical Exam Const no apparent distress Constitutional Narrative: No ventilator to synchrony. General Appearance: intubated and patient mechanically ventilated Nutritional Appearance: obese HEENT normocephalic and head/scalp atraumatic Mouth: endotracheal tube in place and OG tube in place Eyes PERRL, EOMs intact bilaterally and conjunctivae normal Neck supple General: trachea midline Chest inspection of chest normal Chest: symmetrical chest wall rise; Negative for crepitus Resp Effort and Inspection: tachypneic Auscultation: diminished lung sounds; Negative for rales, rhonchi or wheezes Cardio S1 normal heart sound and S2 normal heart sound Rate: bradycardia GI normal to inspection, nondistended, normoactive bowel sounds Extremity General Extremity: edema; Negative for clubbing or cyanosis Skin no rashes or lesions noted Neuro Sensorium / Orientation: sedated on vent Charges/Coding Procedures Hospitalists Procedures: 10147 Critial Care 1st Hr
[2021-06-17] MEDS: Dexmedetomidine 1,000 mcg in 0.9% NS 240 mL 29.9 MCG CONT INF (06:20)
[2021-06-17] MEDS: Potassium Chloride 20mEq/100mL 20 MEQ/100 ML IV.SOLN. 50 MEQ IV BOLUS ×2 (08:28→09:32)
[2021-06-17] MEDS: Menthol/Lanolin/Calamine/Znox 113 GM Tube 1 APPLIC TOPICAL ×2 (08:30→21:28)
[2021-06-17] MEDS: Escitalopram Oxalate 20 MG Tablet GT (08:30)
[2021-06-17] MEDS: amLODIPine 10 MG Tablet PO (08:30)
[2021-06-17] MEDS: QUEtiapine 100 MG Tablet PO ×2 (08:31→21:28)
[2021-06-17] MEDS: Metoclopramide 10 MG/2 ML Vial 5 MG IV ×2 (08:31→21:28)
[2021-06-17] MEDS: Senna/Docusate Sodium 1 Tablet 2 TABLET GT (08:31)
[2021-06-17] MEDS: Chlorhexidine 15 ML PO ×2 (08:33→21:30)
[2021-06-17] MEDS: Polyethylene Glycol 3350 17 GM PACKET GT (08:34)
--- NOTE | 2021-06-17 09:50 | PN.HOSP_ITS ---
Subjective Subjective Patient seen and tracheostomy today. She remains intubated and sedated. She has had a PEG tube placed and is for tracheostomy today. Objective Data Objective Data Vital Signs: Vital Signs Temp Pulse Resp BP Pulse Ox 99.6 F H 51 L 19 H 127/71 H 92 06/17/21 05:00 06/17/21 07:11 06/17/21 07:11 06/17/21 07:00 06/17/21 07:11 Oxygen Flow Rate (L/min) 60 Oxygen Delivery Method Mechanical Ventilator Weight: 203 lb 0.732 oz Body Mass Index (BMI) 34.0 Intake & Output: Intake and Output for Last 24 Hours 06/15/21 06/16/21 06/17/21 23:59 23:59 23:59 Intake Total 2771.20 / 2915.63 3379.74 / 3725.64 990.21 / 990.21 Output Total 1775 / 1775 2175 / 2325 475 / 475 Balance 996.20 / 1140.63 1204.74 / 1400.64 515.21 / 515.21 Lab / Micro Data Result Diagrams: 06/17/21 03:00 06/17/21 03:00 Labs: Laboratory Results - last 24 hr 06/17/21 03:00: WBC 6.9, RBC 3.01 L, Hgb 8.2 L, Hct 26.4 L, MCV 87.7, MCH 27.2, MCHC 31.1 L, RDW Std Deviation 44.9 H, RDW Coeff of Chari 14.0, Plt Count 312, MPV 11.2, Immature Gran % (Auto) 1.400 H, Neut % (Auto) 66.0, Lymph % (Auto) 21.5, Cecil % (Auto) 7.5, Eos % (Auto) 3.2, Baso % (Auto) 0.4, Absolute Neuts (auto) 4.6, Absolute Lymphs (auto) 1.49, Nucleated RBC % 0 06/17/21 03:00: Sodium 144, Potassium 3.4 L, Chloride 110 H, Carbon Dioxide 30.0, Anion Gap 4 L, BUN 29 H, Creatinine 0.55, Estim Creat Clear Calc 41.99, Est GFR (MDRD) Af Amer 141, Est GFR (MDRD) Non-Af 117, BUN/Creatinine Ratio 52.9 H, Glucose 110 H, Calcium 7.9 L Micro: Microbiology 06/06/21 16:45 Blood Culture (Wb) - Anticubital Left Blood Culture - Final No growth in 5 days. 06/06/21 16:25 Blood Culture (Wb) - Pic Blood Culture - Final No growth in 5 days. 06/06/21 16:50 Sputum, Induced/Lukens Gram Stain - Final 06/06/21 16:50 Sputum, Induced/Lukens Respiratory Culture - Final Staphylococcus aureus Bordetella bronchiseptica 05/28/21 15:29 Blood Culture (Wb) - Anticubital Left Blood Culture - Final No growth in 5 days. 05/28/21 15:39 Blood Culture (Wb) - Anticubital Right Blood Culture - Final No growth in 5 days. 05/30/21 12:38 Sputum, Induced/Lukens Gram Stain - Final 05/30/21 12:38 Sputum, Induced/Lukens Respiratory Culture - Final Haemophilus influenzae 05/28/21 15:46 Nasal Secretion SARS-CoV-2 Antigen (Rapid) - Final SARS-CoV-2 (COVID 19) 05/29/21 02:00 Urine, Clean Catch Streptococcus pneumoniae Antigen (M - Final 05/29/21 02:00 Urine, Clean Catch Legionella Antigen - Final 05/28/21 20:00 Mucosa - Nasopharyngeal Respiratory Panel (PCR) - Final Rhythm Strip Rhythm Strip: Sinus Rhythm Rate: 85 Ectopy: None Physical Exam Const Constitutional Narrative: intubated, sedated, RASS score is -4 General Appearance: cooperative Exam Limitations: altered mental status Nutritional Appearance: obese HEENT normocephalic and head/scalp atraumatic Head and Scalp: normocephalic Eyes PERRL Neck no lymphadenopathy and no JVD Resp normal respiratory effort, no retractions and no use of accessory muscles Resp Narrative: intubated, sedated, diminished breath sounds bibasally, no wheezes or crackles. Auscultation: Negative for rales, rhonchi or wheezes Cardio regular rate, regular rhythm, S1 normal heart sound, S2 normal heart sound and no murmurs Cardio Narrative: mild bradycardia, no murmurs GI normal to inspection, nondistended, normoactive bowel sounds, soft to palpation, non-tender and non-distended GI Narrative: PEG tube in place Extremity normal to inspection and no clubbing, cyanosis or edema Skin no rashes or lesions noted Skin Narrative: PICC line in RUE Neuro Neuro Narrative: intubated, sedated, RASS score is -4 Assessment & Plan Assessment/Plan (1) MSSA (methicillin susceptible Staphylococcus aureus) pneumonia: (2) Acute respiratory failure with hypoxia: (3) Pneumonia due to COVID-19 virus: PLAN: #Acute hypoxic respiratory failure due to covid pneumoonia and bacterial pneumonia * cultures grew MSSA, H. influenza and Bordetella pneumonia * now out of isolation; symptoms started 05/30/2021 * remains intubated and sedated. * completed a course of remdesivir, decadron and baricitinib; also completed a course of antimicrobials for H. influenzae pneumonia * on IV meropenem, to stop today. * diurese as needed to maintain euvolemic status * critical care on board * family opted for trach and peg; Trach to be inserted today. PEG Tube inserted on 06/14/2021. * #Hypernatremia * resolved. On IV lasix * #Hyperglycemia: stable #Hypokalemia: K is 3.4 today. Will replace adn trend. #Hypertension: on norvasc 10mg daily. Losartan on hold. #Probable COPD: to follow up with pulmonology on outpatient basis for further workup with PFTs. #Depression and anxiety: on lexapro #Normocytic anemia: Hb is 9.5 today, which is around where her baseline has been since admission. #Nutrition: on tube feeding. #GI prophylaxis: on pantoprazole 40mg bid IV. DVT prophylaxis: lovenox 40mg bid. Charges/Coding Visit Charges Inpatient E&M: 64908 Subs Hosp L3
[2021-06-17] MEDS: Lidocaine 1% /Epi 1:100 (50ml) 50 ML VIAL (11:00)
--- NOTE | 2021-06-17 11:56 | OP.PCM_ITS ---
Report of Operation Date of Procedure: 06/17/21 Pre-Operative Diagnosis: Respiratory failure Post-Operative Diagnosis: same Surgery/Procedure Performed:: Tracheotomy Surgeon: Brock Wu Type of Anesthesia: General Anesthesiologist: Albert Franklin Estimated Blood Loss (mL): minimal Description of Procedure: The patient was taken to the operating room 06/17/21. SHe was placed in supine position on the operating room table. She was given sufficient general anesthesia. The neck was prepped and draped sterilely. 1% lidocaine with epinephrine injected into the skin overlying the intended surgical incision site. An incision was made with 15 blade. This was carried down through to the subcutaneous tissue. Subcutaneous lipectomy was then performed using Bovie cautery. A large vein was clamp cut and ligated with 3-0 silk. The midline raphae was identified. The strap muscles were lateralized with Allis clamps. The cricoid cartilage was identified. A cricoid hook was used to the superiorize the trachea. The thyroid isthmus was clamp cut and ligated with 2-0 chromic. I moved the thyroid isthmus inferiorly with dental rolls. I elected to remove the second tracheal ring. Incisions were made in the trachea with a 15 blade and the anterior aspect of the tracheal ring was removed with Carbajal scissors. The third tracheal ring was split with carbajal scissors. A trach meter installer was used. A #6 Shiley cuffed tracheotomy tube was inserted into the trachea (#6LPC). The inner cannula was placed and the cuff was inflated. The anesthesia circuit was hooked to the tracheotomy tube and immediate visualization of CO2 was seen. There was some bleeding around the thyroid that was cauterized with Bovie cautery. I then placed some Lanny into the wound. The tracheotomy was sewn to the skin with 2-0 silk. Trach ties were placed around the patient's neck and the tracheotomy was tied as well. He was removed from the care unit in stable condition. Blood loss minimal, replacement none. Sponge, needle and instrument count were correct at the end of the procedure.
[2021-06-17] MEDS: Furosemide 40 MG/4 ML Vial IV ×2 (12:28→16:50)
[2021-06-17] MEDS: Vital AF 1.2 Cal Liquid 1,000 ML 60 ML GT (12:30)
--- NOTE | 2021-06-17 13:23 | RAD_ITS ---
STUDY: X-RAY CHEST REASON FOR EXAM: Female, 71 years old. s/p tracheotomy. Evaluate for pneumothorax. TECHNIQUE: Single AP portable view of the chest. COMPARISON: Comparison is made with prior study dated 06/06/2019. FINDINGS: The patient is status post tracheostomy. The tip of the tracheostomy tube is at 4.7 sinus proximal to the penelpoe. EKG electrodes are seen. 1 scan, there is bilateral pulmonary infiltrates in a preferential peripheral distribution. There has been mild improvement as compared to prior study. There is no evidence of pneumothorax. Normal size heart. Normal mediastinum and chapincito. Normal visualized pulmonary arteries. There is atherosclerotic tortuosity of the aortic arch and descending thoracic aorta. There are diffuse degenerative changes of the visualized thoracic spine. Normal visualized ribs, clavicles, and shoulders. There is no demonstrated abnormality of the visualized soft tissue structures of the upper abdomen. RAD/Chest 1 View (Portable) IMPRESSION: Status post tracheostomy placement with the tip at 4.7 cm proximal to the penelope. There is no evidence of pneumothorax. Persistent bilateral pulmonary infiltrates in a preferential peripheral distribution. Electronically Signed: Binh Almaguer MD at 13:42 EST , Service support ,
--- NOTE | 2021-06-17 14:12 | CASEMGMT ---
CECILIO BLANCO called and updated Latrice at [facility] regarding trach being placed. Latrice states that there should be a bed available tomorrow for patient. Updated clinical information faxed to [facility]. Latrice states that she will call the ICU to notify of bed availability. Green sheet placed on chart. CECILIO BLANCO updated patient's Boom regarding possible discharge over the weekend to LTACH. Boom voiced understanding and had no further questions or concerns at this time.
[2021-06-17] MEDS: Dexmedetomidine 1,000 mcg in 0.9% NS 240 mL 32.2 MCG CONT INF (14:18)
[2021-06-17] MEDS: Dexmedetomidine 1,000 mcg in 0.9% NS 240 mL 23 MCG CONT INF (23:21)
[2021-06-18] VITALS (23 sets, daily range): BP systolic 78–179; BP diastolic 55–103; PULSE 58–119; RESP 18–36; TEMP 37.2–37.7; O2SAT 88–100
[2021-06-18] MEDS: LORazepam 2 MG/ML Syringe IV ×3 (01:15→07:04)
[2021-06-18 03:49] LABS: Absolute Neutrophil Count 5.2 X10^3/uL (2.0-7.7); Basophil# 0.03 X10^3/uL; Basophil% 0.4 % (0-1); Eosinophils% 2.8 % (0-5); Hematocrit 26.8 % (37-47); Hemoglobin 8.5 g/dL (12.0-15.0); Lymphocyte % 16.6 % (19-41); Mean Corp Hgb Conc 31.7 g/dL (32-36); Mean Corpuscular Hgb 27.6 pg (27.0-32.0); Mean Platelet Vol. 10.9 fl (6.2-12.0); Monocyte# 0.52 X10^3/uL; Monocyte% 7.2 % (0-10); NRBC Flagged by Analyzer 0 % (0-5); Neutrophil % 71.8 % (47-70); Platelet Count 314 K/mm3 (150-450); RBC Distribution Width CV 14.1 % (11.6-14.6); RBC Distribution Width SD 45.1 fl (35.1-43.9); Red Blood Count 3.08 M/mm3 (4.2-5.4); White Blood Count 7.2 K/mm3 (4.4-11.0)
[2021-06-18 04:05] LABS: Anion Gap 4 (5-15); BUN 26 mg/dL (7-18); Chloride 109 mmol/L (98-107); Creatinine, Serum 0.67 mg/dL (0.55-1.02); EST Glomerular Filtration Rate 93 mL/min (>60); Est Glom Filt Rate - Afr Amer 113 mL/min (>60); Estimated Creatinine Clearance 41.99 ml/min; Glucose 122 mg/dL (74-106); Potassium 3.4 mmol/L (3.5-5.1); Sodium Level 145 mmol/L (136-145)
[2021-06-18] MEDS: TITRATION PARAMETER CHANGE 1 EACH IV (06:02)
--- NOTE | 2021-06-18 06:13 | PCM.PN.INT ---
Assessment & Plan Assessment/Plan (1) Pneumonia due to COVID-19 virus: (2) Acute respiratory failure with hypoxia: PLAN: RECOMMENDATIONS: 1. Continue assist control mode mechanical ventilation. Wean FiO2/PEEP for saturations greater than 90%. 2. Continue tube feeds as tolerated. 3. Continue appropriate GI prophylaxis. 4. Diuresis as tolerated by hemodynamics and renal function. 5. Resume Lovenox. 6. LTACH disposition planning. IMPRESSIONS: 1. Acute hypoxemic respiratory failure secondary to COVID-19/Haemophilus influenza/staph aureus/Bordetella pneumonias The patient was initially admitted to the hospital on May 28 after presenting with worsening dyspnea. Symptom onset was sometime around May 23. The patient is unvaccinated. The patient's hospital course was complicated by worsening respiratory status, ultimately requiring transfer to the ICU and subsequent intubation on May 30. The patient has since completed treatment courses of remdesivir, baricitinib and Decadron. She also completed an antibiotic treatment course due to secondary bacterial pneumonia. CTA chest was negative for PE. Given her inability to be weaned from invasive mechanical ventilatory support, the patient is now status post tracheostomy and PEG tube placement. Okay from my perspective to resume Lovenox. LTACH planning is underway. 2. Distributive shock Resolved. Likely secondary to underlying sepsis coupled with the hemodynamic effects of sedative medication use. Vasopressor support is currently on hold. The patient remains hemodynamically stable. 3. Acute kidney injury Resolved. Likely secondary to ATN in the setting of #1. Continue to monitor urine output for now. No current indication for renal replacement therapy. 4. Hypokalemia Electrolyte repletion as ordered. Recheck levels in the morning. 5. Questionable history of COPD/hypertension/depression/anxiety Complicates care, management, recovery and prognosis. Continue tube feeds as tolerated. TIME: 32 minutes of critical care time, independent of procedures, was spent addressing the patient's acute hypoxemic respiratory failure secondary to COVID-19 and secondary bacterial pneumonia, distributive shock, acute kidney injury, review of all data and collaboration with the care team. Subjective Subjective The patient was seen and examined at the bedside this morning. Events from the last 24 hours have been reviewed. Today is day #20. The patient underwent successful tracheostomy placement yesterday. She remains on assist control mode mechanical ventilation with an FiO2 requirement of 45% and PEEP of 5. The patient remains sedated on Precedex and fentanyl. She did receive as needed Ativan overnight. She has been tolerant of tube feeds. She is currently documented to be overall net +13.9 L for the hospitalization. Potassium is low this morning at 3.4. Renal function is stable. From my conversation with case management yesterday, [facility] Objective Data Objective Data The patient's most recent lab work, culture data and imaging studies have all been personally reviewed. Rapid coronavirus antigen testing was positive on May 28. Strep and urine Legionella antigens were negative. Sputum culture was positive for Haemophilus influenza. Repeat sputum culture dated June 06 was positive for MSSA and Bordetella. Vital Signs: Vital Signs Temp Pulse Resp BP Pulse Ox 100 F H 68 18 117/75 96 06/18/21 04:00 06/18/21 06:00 06/18/21 06:00 06/18/21 06:00 06/18/21 06:00 Oxygen Flow Rate (L/min) 60 Oxygen Delivery Method Mechanical Ventilator Weight: 89.6 kg Body Mass Index (BMI) 34.0 Intake & Output: Intake and Output for Last 24 Hours 06/16/21 06/17/21 06/18/21 23:59 23:59 23:59 Intake Total 3379.74 / 3725.64 2629.89 / 2977.84 928.25 / 928.25 Output Total 2175 / 2325 2875 / 3050 865 / 865 Balance 1204.74 / 1400.64 -245.11 / -72.16 63.25 / 63.25 Lab / Micro Data Attestation: I reviewed the patient's lab results. Result Diagrams: 06/18/21 03:35 06/18/21 03:35 Labs: Laboratory Results - last 24 hr 06/18/21 03:35: WBC 7.2, RBC 3.08 L, Hgb 8.5 L, Hct 26.8 L, MCV 87.0, MCH 27.6, MCHC 31.7 L, RDW Std Deviation 45.1 H, RDW Coeff of Chari 14.1, Plt Count 314, MPV 10.9, Immature Gran % (Auto) 1.200 H, Neut % (Auto) 71.8 H, Lymph % (Auto) 16.6 L, [place]ahan % (Auto) 7.2, Eos % (Auto) 2.8, Baso % (Auto) 0.4, Absolute Neuts (auto) 5.2, Absolute Lymphs (auto) 1.20, Nucleated RBC % 0 06/18/21 03:35: Sodium 145, Potassium 3.4 L, Chloride 109 H, Carbon Dioxide 32.0, Anion Gap 4 L, BUN 26 H, Creatinine 0.67, Estim Creat Clear Calc 41.99, Est GFR (MDRD) Af Amer 113, Est GFR (MDRD) Non-Af 93, BUN/Creatinine Ratio 39.0 H, Glucose 122 H, Calcium 8.0 L Micro: Microbiology 06/06/21 16:45 Blood Culture (Wb) - Anticubital Left Blood Culture - Final No growth in 5 days. 06/06/21 16:25 Blood Culture (Wb) - Pic Blood Culture - Final No growth in 5 days. 06/06/21 16:50 Sputum, Induced/Lukens Gram Stain - Final 06/06/21 16:50 Sputum, Induced/Lukens Respiratory Culture - Final Staphylococcus aureus Bordetella bronchiseptica 05/28/21 15:29 Blood Culture (Wb) - Anticubital Left Blood Culture - Final No growth in 5 days. 05/28/21 15:39 Blood Culture (Wb) - Anticubital Right Blood Culture - Final No growth in 5 days. 05/30/21 12:38 Sputum, Induced/Lukens Gram Stain - Final 05/30/21 12:38 Sputum, Induced/Lukens Respiratory Culture - Final Haemophilus influenzae 05/28/21 15:46 Nasal Secretion SARS-CoV-2 Antigen (Rapid) - Final SARS-CoV-2 (COVID 19) 05/29/21 02:00 Urine, Clean Catch Streptococcus pneumoniae Antigen (M - Final 05/29/21 02:00 Urine, Clean Catch Legionella Antigen - Final 05/28/21 20:00 Mucosa - Nasopharyngeal Respiratory Panel (PCR) - Final Radiography Diagnostic Testing: Radiology Impression Chest X-Ray 06/17/21 13:23 IMPRESSION: Status post tracheostomy placement with the tip at 4.7 cm proximal to the penelope. There is no evidence of pneumothorax. Persistent bilateral pulmonary infiltrates in a preferential peripheral distribution. Electronically Signed: Binh Almaguer MD at 13:42 EST , Service support , Rhythm Strip Rhythm Strip: Sinus Rhythm Rate: 85 Ectopy: None Physical Exam Const no apparent distress Constitutional Narrative: No ventilator to synchrony. General Appearance: patient mechanically ventilated Nutritional Appearance: obese HEENT normocephalic, head/scalp atraumatic and moist oral mucous membranes Eyes PERRL, EOMs intact bilaterally and conjunctivae normal Neck supple Neck Narrative: Tracheostomy site C/D/I General: trachea midline Chest inspection of chest normal Chest: symmetrical chest wall rise; Negative for crepitus Resp Auscultation: diminished lung sounds; Negative for rales, rhonchi or wheezes Cardio regular rate, regular rhythm, S1 normal heart sound and S2 normal heart sound GI normal to inspection, nondistended, normoactive bowel sounds Inspection: GI tube present Extremity General Extremity: edema; Negative for clubbing or cyanosis Skin no rashes or lesions noted Neuro Sensorium / Orientation: sedated on vent Charges/Coding Procedures Hospitalists Procedures: 74954 Critial Care 1st Hr
[2021-06-18] MEDS: Potassium Chloride 10mEq/100mL 10 MEQ/100 ML IV.SOLN. 100 MEQ IV BOLUS ×4 (06:57→11:39)
[2021-06-18] MEDS: 0.9% Saline Lock 10 ML Syringe IV ×2 (07:05→10:03)
[2021-06-18] MEDS: Dexmedetomidine 1,000 mcg in 0.9% NS 240 mL 26.9 MCG CONT INF (08:41)
[2021-06-18] MEDS: Chlorhexidine 15 ML PO (09:03)
[2021-06-18] MEDS: Menthol/Lanolin/Calamine/Znox 113 GM Tube 1 APPLIC TOPICAL (09:44)
[2021-06-18] MEDS: amLODIPine 10 MG Tablet PO (09:45)
[2021-06-18] MEDS: Escitalopram Oxalate 20 MG Tablet GT (09:45)
[2021-06-18] MEDS: QUEtiapine 100 MG Tablet PO (09:45)
[2021-06-18] MEDS: Furosemide 40 MG/4 ML Vial IV (09:45)
--- NOTE | 2021-06-18 09:57 | DS.PCM_ITS ---
Providers Date of Admission: 05/28/21 Primary Care Physician: Dr. Gerardo Catherine MD Consultations 05/29/21 11:15 Consult: Infectious Disease Routine Consulting Provider: Abran Kumar Reason for Consult: COVID 19 with respiratory failure EMERGENT Consult: No Notified: Yes Date Notified: 05/30/21 Time Notified: 08:38 Method of Notification: Text 05/30/21 11:33 Consult: Knife Operator / Pulmonary Medicine Routine Consulting Provider: [facility] [place] [place] Reason for Consult: covid EMERGENT Consult: No Notified: Yes Date Notified: 05/30/21 Time Notified: 11:34 Method of Notification: Verbal 06/13/21 07:53 Consult: ENT Routine Consulting Provider: Brock Wu Reason for Consult: Trach placement EMERGENT Consult: No Notified: No Date Notified: 06/13/21 Time Notified: 07:53 06/13/21 08:48 Consult: General Surgery Routine Consulting Provider: Patrice Armstrong Reason for Consult: PEG placement EMERGENT Consult: No Notified: Yes Date Notified: 06/13/21 Time Notified: 08:48 Method of Notification: Verbal Reason For Visit: COVID-19 Diagnosis Discharge Diagnosis (1) Pneumonia due to COVID-19 virus: Status: Acute Code(s): U07.1 - COVID-19; J12.82 - Pneumonia due to coronavirus disease 2019 (2) Acute respiratory failure with hypoxia: Status: Acute Code(s): J96.01 - Acute respiratory failure with hypoxia Medications at Discharge Home Medications amlodipine 10 mg PO DAILY 09/28/14 bupropion HCl 300 mg PO DAILY 12/31/17 escitalopram oxalate 20 mg PO DAILY 12/31/17 lisinopril 20 mg PO DAILY 12/31/17 albuterol sulfate 1 puff INHALATION Q6H PRN PRN 05/28/21 budesonide-formoterol [Symbicort] 1 puff INHALATION Q6H PRN PRN 05/28/21 potassium chloride 40 meq PO DAILY 05/28/21 Hospital Course Operations None Procedures Peg tube placement and - (tracheostomy) Summary of Care Provided Minutes Spent on Discharge: 45 Hospital Course: Patient is a 71 y/o female with a PMH as outlined who was admitted via the ED on 122/ with a complaint of shortness of breath. her symptoms started on 06/23/2020 and her shortness of breath gradually worsened. She was saturating in the 80s in the ED, and this worsened with ambulation. She was therefore admitted and managed for acute hypoxic respiratory failure due to covid 19 pneumonia. She did test positive for COVID and was unvaccinated. She was started on remdesivir and decadron.Hospital course was Complicated by worsening respiratory status requiring her being transferred to the ICU and intubated on 05/30/2021. She completed a course of remdesivir, baricitinib and Decadron. She also required a course of antimicrobials for secondary bacterial pneumonia. CT of the chest done was negative for PE. Patient eventually had a tracheostomy and PEG tube placement per family request. Hospital course was further complicated by distributive shock and CELI which resolved. She had PEG tube and tracheostomy done and she was accepted to an LTAC. She was discharged to the LTAC on 06/18/2021. Patient seen and examined prior to discharge. She remained on the vent but this time to the tracheostomy. Unable to do review of systems. Home medication reviewed and reconciled. Physical Exam Const Constitutional Narrative: intubated, sedated, RASS score is -4, on the vent via the tracheostomy Exam Limitations: altered mental status Nutritional Appearance: obese HEENT normocephalic and head/scalp atraumatic Eyes PERRL Neck no lymphadenopathy and no JVD Neck Narrative: tracheostomy in place Resp Resp Narrative: intubated, sedated, diminished breath sounds bibasally, no whee zes or crackles. Auscultation: Negative for rales, rhonchi or wheezes Cardio regular rate, regular rhythm, S1 normal heart sound, S2 normal heart sound and no murmurs GI normal to inspection, nondistended, normoactive bowel sounds, soft to palpation, non-tender and non-distended GI Narrative: PEG tube in place Extremity normal to inspection and no clubbing, cyanosis or edema Skin no rashes or lesions noted Neuro Neuro Narrative: intubated, sedated, RASS score is -4 Weight / BMI Weight Weight: 197 lb 8.547 oz Body Mass Index (BMI) 34.0 ABG / Lab / Microbiology Data Result Diagrams: 06/18/21 03:35 06/18/21 03:35 Laboratory: Laboratory Results - last 24 hr 06/18/21 03:35: WBC 7.2, RBC 3.08 L, Hgb 8.5 L, Hct 26.8 L, MCV 87.0, MCH 27.6, MCHC 31.7 L, RDW Std Deviation 45.1 H, RDW Coeff of Chari 14.1, Plt Count 314, MPV 10.9, Immature Gran % (Auto) 1.200 H, Neut % (Auto) 71.8 H, Lymph % (Auto) 16.6 L, [place] % (Auto) 7.2, Eos % (Auto) 2.8, Baso % (Auto) 0.4, Absolute Neuts (auto) 5.2, Absolute Lymphs (auto) 1.20, Nucleated RBC % 0 06/18/21 03:35: Sodium 145, Potassium 3.4 L, Chloride 109 H, Carbon Dioxide 32.0, Anion Gap 4 L, BUN 26 H, Creatinine 0.67, Estim Creat Clear Calc 41.99, Est GFR (MDRD) Af Amer 113, Est GFR (MDRD) Non-Af 93, BUN/Creatinine Ratio 39.0 H, Glucose 122 H, Calcium 8.0 L Microbiology: Microbiology 06/06/21 16:45 Blood Culture (Wb) - Anticubital Left Blood Culture - Final No growth in 5 days. 06/06/21 16:25 Blood Culture (Wb) - Pic Blood Culture - Final No growth in 5 days. 06/06/21 16:50 Sputum, Induced/Lukens Gram Stain - Final 06/06/21 16:50 Sputum, Induced/Lukens Respiratory Culture - Final Staphylococcus aureus Bordetella bronchiseptica 05/28/21 15:29 Blood Culture (Wb) - Anticubital Left Blood Culture - Final No growth in 5 days. 05/28/21 15:39 Blood Culture (Wb) - Anticubital Right Blood Culture - Final No growth in 5 days. 05/30/21 12:38 Sputum, Induced/Lukens Gram Stain - Final 05/30/21 12:38 Sputum, Induced/Lukens Respiratory Culture - Final Haemophilus influenzae 05/28/21 15:46 Nasal Secretion SARS-CoV-2 Antigen (Rapid) - Final SARS-CoV-2 (COVID 19) 05/29/21 02:00 Urine, Clean Catch Streptococcus pneumoniae Antigen (M - Final 05/29/21 02:00 Urine, Clean Catch Legionella Antigen - Final 05/28/21 20:00 Mucosa - Nasopharyngeal Respiratory Panel (PCR) - Final Radiography Diagnostic Testing: Radiology Impression Chest X-Ray 06/17/21 13:23 IMPRESSION: Status post tracheostomy placement with the tip at 4.7 cm proximal to the penelope. There is no evidence of pneumothorax. Persistent bilateral pulmonary infiltrates in a preferential peripheral distribution. Electronically Signed: Binh Almaguer MD at 13:42 EST , Service support , D/C Instructions Discharge Diet: Low fat / Low cholesterol Meaningful Use Info Meaningful Use Diagnoses (Choose all that apply): None applicable Discharge Plan Admission Admit Date/Time: 05/28/21 18:29 Primary Reason for Your Visit: acute hypoxic respiratory failure due to covid Attending Provider: Jazmyn Tuttle Primary Care Provider: Gerardo Catherine Consulting Providers: Abran Kumar ; Byron Manzanares ; Cory Coley ; Marybeth Velazquez NP ; Patrice Armstrong Discharge Orders/Prescriptions Prescriptions: Continued amlodipine 10 MG tablet 10 mg PO DAILY RF: 0 lisinopril 20 tablet 20 mg PO DAILY RF: 0 escitalopram oxalate 20 MG tablet 20 mg PO DAILY RF: 0 bupropion HCl 300 MG tablet extended release 24 hr 300 mg PO DAILY RF: 0 potassium chloride 20 mEq tablet,ER particles/crystals 40 meq PO DAILY RF: 0 albuterol sulfate 90 mcg/actuation HFA aerosol inhaler 1 puff INHALATION Q6H PRN PRN (Reason: copd) RF: 0 budesonide-formoterol [Symbicort] 160-4.5 mcg/actuation HFA aerosol inhaler 1 puff INHALATION Q6H PRN PRN (Reason: copd) RF: 0 Referrals / Follow Up: Gerardo Catherine MD [Primary Care Provider] - Within 2 Weeks Disposition Disposition (needs filled in before D/C Order can be placed): [facility] Acute [facility] Charges/Coding Visit Charges Inpatient E&M: 42068 Disch Hosp
--- NOTE | 2021-06-18 10:37 | CASEMGMT ---
Per Latrice at [facility], they do have a bed available today and would like transport set up for 1400 or after as they need to get room cleaned. Dr. Coley and ICU staff aware. Mari RN CM
== END 2021-06-18 16:25 | DRG 4 ==
LOC: ED 18:08 → MS3 18:12 → ICU 06-01 07:21 → MS3 06-02 13:18 → ICU 06-02 13:18
PROVIDERS: Internal Medicine; Internal Medicine Critical Care Medicine; Otolaryngology; Surgery; Emergency Provider Emergency Medicine; PCP Family Medicine; Visit Provider Student in an Organized Health Care Education/Training Program
PROC: 0DJ08ZZ Inspection of Upper Intestinal Tract, Via Natural or Artificial Opening Endoscopic (ICD-10-PCS; CPT 43235; principal; 2021-06-14 08:55)
PROC: 0B110F4 Bypass Trachea to Cutaneous with Tracheostomy Device, Open Approach (ICD-10-PCS; principal; 2021-06-17 10:15)
DX: U07.1 COVID-19 (principal); N17.0 Acute kidney failure with tubular necrosis; J12.82 Pneumonia due to coronavirus disease 2019; J15.212 Pneumonia due to Methicillin resistant Staphylococcus aureus; J96.01 Acute respiratory failure with hypoxia; R57.8 Other shock; J15.211 Pneumonia due to Methicillin susceptible Staphylococcus aureus; J44.0 Chronic obstructive pulmonary disease with (acute) lower respiratory infection; E87.0 Hyperosmolality and hypernatremia; D64.9 Anemia, unspecified; E87.6 Hypokalemia; F41.8 Other specified anxiety disorders; I10 Essential (primary) hypertension; B96.3 Hemophilus influenzae [H. influenzae] as the cause of diseases classified elsewhere; Z87.891 Personal history of nicotine dependence; R73.9 Hyperglycemia, unspecified; Z23 Encounter for immunization; Z79.899 Other long term (current) drug therapy
CPT/HCPCS: 31500; 31720; 36415; 36569; 36600; 71045; 71275; 80048; 80053; 80076; 80202; 82550; 82803; 83605; 84145; 84478; 84484; 85025; 85379; 85384; 86140; 87040; 87070; 87077; 87186; 87205; 87426; 87449; 87633; 93005; 94002; 94003; 94660; 94667; 94668; 94762; 97110; 97162; 97166; 97530; 97802; 97803; 99251; 99285; G0008; J2185; J2997; J7030; J7040; J7050; Q9967; 90686; A4216; G0463; J0248; J0330; J1940; J2405; J3010

== ENCOUNTER → 2021-07-25 | Outpatient (REF) | payer SELFPAY ==
[2021-07-25 09:07] LABS: Absolute Lymphocyte Count 2.28 X10^3/uL (0.83-4.51); Absolute Neutrophil Count 2.7 X10^3/uL (2.0-7.7); Basophil# 0.05 X10^3/uL; Basophil% 0.8 % (0-1); Eosinophil# 0.32 X10^3/uL; Eosinophils% 5.4 % (0-5); Hematocrit 33.2 % (37-47); Hemoglobin 10.7 g/dL (12.0-15.0); Lymphocyte # 2.28 X10^3/ul (0.83-4.51); Lymphocyte % 38.5 % (19-41); Mean Corp Hgb Conc 32.2 g/dL (32-36); Mean Corpuscular Hgb 27.4 pg (27.0-32.0); Mean Corpuscular Volume 85.1 fL (81-99); Mean Platelet Vol. 10.2 fl (6.2-12.0); Monocyte# 0.42 X10^3/uL; Monocyte% 7.1 % (0-10); NRBC Flagged by Analyzer 0 % (0-5); Neutrophil # 2.73 X10^3/uL (2.7-7.7); Neutrophil % 46.2 % (47-70); Platelet Count 231 K/mm3 (150-450); RBC Distribution Width CV 18.6 % (11.6-14.6); RBC Distribution Width SD 57.4 fl (35.1-43.9); White Blood Count 5.9 K/mm3 (4.4-11.0)
[2021-07-25 09:15] LABS: Anion Gap 6 (5-15); BUN 7 mg/dL (7-18); BUN/Creat Ratio 14.1 RATIO (10-20); Calcium,Total 8.8 mg/dL (8.5-10.1); Chloride 108 mmol/L (98-107); EST Glomerular Filtration Rate 131 mL/min (>60); Est Glom Filt Rate - Afr Amer 159 mL/min (>60); Glucose 78 mg/dL (74-106); Magnesium 1.8 mg/dL (1.6-2.6); Potassium 3.4 mmol/L (3.5-5.1); Sodium Level 142 mmol/L (136-145)
[2021-07-25 10:55] LABS: Hemoglobin A1c 6.3 % (3.8-5.6)
== END | disposition home or self-care (01) ==
LOC: OLS.SW300 04:00
PROVIDERS: PCP Family Medicine; Referring Provider Internal Medicine; Visit Provider Internal Medicine
DX: J44.9 Chronic obstructive pulmonary disease, unspecified (principal); S37.009D Unspecified injury of unspecified kidney, subsequent encounter
CPT/HCPCS: 36415; 80048; 83036; 83735; 85025

== ENCOUNTER → 2021-07-26 | Outpatient (REF) | payer SELFPAY ==
[2021-07-26 07:47] LABS: Absolute Lymphocyte Count 2.01 X10^3/uL (0.83-4.51); Basophil# 0.05 X10^3/uL; Basophil% 0.8 % (0-1); Eosinophil# 0.34 X10^3/uL; Eosinophils% 5.8 % (0-5); Hematocrit 31.6 % (37-47); Hemoglobin 10.3 g/dL (12.0-15.0); Lymphocyte # 2.01 X10^3/ul (0.83-4.51); Mean Corp Hgb Conc 32.6 g/dL (32-36); Mean Corpuscular Hgb 27.5 pg (27.0-32.0); Mean Corpuscular Volume 84.5 fL (81-99); Mean Platelet Vol. 10.3 fl (6.2-12.0); Monocyte# 0.44 X10^3/uL; Monocyte% 7.4 % (0-10); NRBC Flagged by Analyzer 0 % (0-5); Neutrophil # 2.95 X10^3/uL (2.7-7.7); Platelet Count 253 K/mm3 (150-450); RBC Distribution Width CV 18.8 % (11.6-14.6); RBC Distribution Width SD 57.1 fl (35.1-43.9); Red Blood Count 3.74 M/mm3 (4.2-5.4); White Blood Count 5.9 K/mm3 (4.4-11.0)
[2021-07-26 08:14] LABS: Anion Gap 10 (5-15); BUN 7 mg/dL (7-18); BUN/Creat Ratio 16.1 RATIO (10-20); Calcium,Total 8.8 mg/dL (8.5-10.1); Chloride 104 mmol/L (98-107); Creatinine, Serum 0.43 mg/dL (0.55-1.02); EST Glomerular Filtration Rate 153 mL/min (>60); Est Glom Filt Rate - Afr Amer 185 mL/min (>60); Glucose 92 mg/dL (74-106); Magnesium 1.9 mg/dL (1.6-2.6); Potassium 3.2 mmol/L (3.5-5.1); Sodium Level 139 mmol/L (136-145)
[2021-07-26 08:57] LABS: Hemoglobin A1c 6.3 % (3.8-5.6)
== END | disposition home or self-care (01) ==
LOC: OLS.SW300 05:00
PROVIDERS: PCP Family Medicine; Visit Provider Internal Medicine
DX: I10 Essential (primary) hypertension (principal); E11.9 Type 2 diabetes mellitus without complications
CPT/HCPCS: 36415; 80048; 83036; 83735; 85025

== ENCOUNTER → 2021-08-01 | Outpatient (REF) | payer SELFPAY ==
[2021-08-01 08:00] LABS: Absolute Neutrophil Count 3.4 X10^3/uL (2.0-7.7); Basophil# 0.08 X10^3/uL; Basophil% 1.3 % (0-1); Eosinophil# 0.44 X10^3/uL; Eosinophils% 7.1 % (0-5); Hematocrit 35.1 % (37-47); Hemoglobin 11.4 g/dL (12.0-15.0); Lymphocyte % 24.3 % (19-41); Mean Corp Hgb Conc 32.5 g/dL (32-36); Mean Corpuscular Hgb 27.3 pg (27.0-32.0); Mean Corpuscular Volume 84.2 fL (81-99); Monocyte# 0.64 X10^3/uL; Monocyte% 10.4 % (0-10); NRBC Flagged by Analyzer 0 % (0-5); Neutrophil # 3.38 X10^3/uL (2.7-7.7); Neutrophil % 54.6 % (47-70); Platelet Count 370 K/mm3 (150-450); RBC Distribution Width CV 18.6 % (11.6-14.6); RBC Distribution Width SD 56.9 fl (35.1-43.9); Red Blood Count 4.17 M/mm3 (4.2-5.4); White Blood Count 6.2 K/mm3 (4.4-11.0)
[2021-08-01 08:15] LABS: Anion Gap 7 (5-15); BUN 6 mg/dL (7-18); BUN/Creat Ratio 12.2 RATIO (10-20); Calcium,Total 9.2 mg/dL (8.5-10.1); Chloride 109 mmol/L (98-107); Creatinine, Serum 0.49 mg/dL (0.55-1.02); EST Glomerular Filtration Rate 132 mL/min (>60); Est Glom Filt Rate - Afr Amer 160 mL/min (>60); Glucose 94 mg/dL (74-106); Potassium 3.2 mmol/L (3.5-5.1); Sodium Level 140 mmol/L (136-145)
[2021-08-01 08:21] LABS: Hemoglobin A1c 5.9 % (3.8-5.6)
== END | disposition home or self-care (01) ==
LOC: OLS.SW300 04:00
PROVIDERS: PCP Family Medicine; Referring Provider Internal Medicine; Visit Provider Internal Medicine
DX: I10 Essential (primary) hypertension (principal); E11.9 Type 2 diabetes mellitus without complications
CPT/HCPCS: 36415; 80048; 83036; 83735; 85025

== ENCOUNTER 2021-08-15 12:51 | Outpatient (CLI) | payer MEDICARE, OTHER, SELFPAY ==
[2021-08-15 15:43] LABS: Absolute Lymphocyte Count 2.44 X10^3/uL (0.83-4.51); Absolute Neutrophil Count 7.8 X10^3/uL (2.0-7.7); Basophil# 0.18 X10^3/uL; Basophil% 1.5 % (0-1); Eosinophil# 0.44 X10^3/uL; Eosinophils% 3.7 % (0-5); Hematocrit 40.6 % (37-47); Lymphocyte # 2.44 X10^3/ul (0.83-4.51); Lymphocyte % 20.3 % (19-41); Mean Corpuscular Hgb 27.3 pg (27.0-32.0); Mean Corpuscular Volume 85.1 fL (81-99); Mean Platelet Vol. 11.2 fl (6.2-12.0); Monocyte# 1.05 X10^3/uL; Monocyte% 8.8 % (0-10); NRBC Flagged by Analyzer 0 % (0-5); Neutrophil # 7.76 X10^3/uL (2.7-7.7); Neutrophil % 64.6 % (47-70); Platelet Count 423 K/mm3 (150-450); RBC Distribution Width CV 17.6 % (11.6-14.6); RET-HE 29.9 pg (30-35); Red Blood Count 4.77 M/mm3 (4.2-5.4); Reticulocyte Count 2.31 % (0.5-1.5)
[2021-08-15 16:08] LABS: BNP,B-Type NATRIURETIC PEPTIDE 23.8 pg/mL (0-100)
[2021-08-15 16:09] LABS: Vitamin D,25 Hydroxy 16.8 ng/mL
[2021-08-15 16:15] LABS: ALB/GLOB Ratio 0.9 RATIO (0.9-2.4); AST(SGOT) 50 U/L (15-37); Alanine Aminotransfer ALT/SGPT 48 U/L (13-56); Albumin, Serum 3.7 g/dL (3.2-5.0); Alkaline Phosphatase 108 U/L (45-117); Anion Gap 12 (5-15); BUN 8 mg/dL (7-18); BUN/Creat Ratio 10.5 RATIO (10-20); Calcium,Total 9.3 mg/dL (8.5-10.1); Chloride 107 mmol/L (98-107); Creatinine, Serum 0.76 mg/dL (0.55-1.02); EST Glomerular Filtration Rate 80 mL/min (>60); Est Glom Filt Rate - Afr Amer 96 mL/min (>60); Ferritin 596 ng/mL (8-252); Globulin 3.9 g/dL (2.2-4.2); Glucose 96 mg/dL (74-106); Iron 50 ug/dL (50-170); Iron Binding Capacity,Total 367 ug/dL (250-450); PERCENT IRON SATURATION 13.6 % (15.0-55.0); Potassium 3.2 mmol/L (3.5-5.1); Protein, Total 7.6 g/dL (6.4-8.2); Sodium Level 140 mmol/L (136-145); Thyroid Stim Hormone (TSH) 1.73 uIU/mL (0.358-3.74)
== END 2021-08-15 23:59 | disposition home or self-care (01) ==
LOC: MTLAB 12:56
PROVIDERS: PCP Family Medicine; Visit Provider Family Medicine
DX: R53.83 Other fatigue (principal); D64.9 Anemia, unspecified; R06.00 Dyspnea, unspecified; I10 Essential (primary) hypertension
CPT/HCPCS: 36415; 80053; 82306; 82728; 83540; 83550; 83880; 84443; 85025; 85045

== ENCOUNTER 2021-11-09 14:48 | Outpatient (CLI) | payer MEDICARE, OTHER, SELFPAY ==
--- NOTE | 2021-11-09 14:51 | RAD_ITS ---
STUDY: X-RAY CHEST REASON FOR EXAM: Female, 71 years old. Technologist Notes covid in May, cough and sob since then COUGH TECHNIQUE: XR Chest 2 Views COMPARISON: Jun 17 2021 1:15pm FINDINGS: Lower bullae in the right upper lobe. There are bilateral infiltrates which may relate to residual pneumonia or scarring. Normal size heart. Normal mediastinum and [place]. Normal visualized pulmonary arteries. There is atherosclerotic calcification of the aortic arch with tortuosity. There are diffuse degenerative changes of the visualized thoracic spine. There is degenerative osteoarthritis of the bilateral shoulders. There is no demonstrated abnormality of the visualized soft tissue structures of the upper abdomen. RAD/Chest PA and Lateral IMPRESSION: Lower bullae in the right upper lobe. There are bilateral infiltrates which may relate to residual pneumonia or scarring. Overall findings are significantly improved since prior study. Electronically Signed: Terrence Dougherty MD at 15:10 EDT ,
[2021-11-09 17:53] LABS: Absolute Lymphocyte Count 2.65 X10^3/uL (0.83-4.51); Absolute Neutrophil Count 7.2 X10^3/uL (2.0-7.7); Basophil% 0.9 % (0-1); Eosinophil# 0.26 X10^3/uL; Eosinophils% 2.3 % (0-5); Hematocrit 44.7 % (37-47); Hemoglobin 14.2 g/dL (12.0-15.0); Lymphocyte # 2.65 X10^3/ul (0.83-4.51); Lymphocyte % 23.8 % (19-41); Mean Corp Hgb Conc 31.8 g/dL (32-36); Mean Corpuscular Hgb 26.2 pg (27.0-32.0); Mean Corpuscular Volume 82.6 fL (81-99); Mean Platelet Vol. 11.6 fl (6.2-12.0); Monocyte# 0.85 X10^3/uL; Monocyte% 7.6 % (0-10); NRBC Flagged by Analyzer 0 % (0-5); Neutrophil # 7.24 X10^3/uL (2.7-7.7); Platelet Count 327 K/mm3 (150-450); RBC Distribution Width CV 14.6 % (11.6-14.6); RBC Distribution Width SD 44.7 fl (35.1-43.9); Red Blood Count 5.41 M/mm3 (4.2-5.4); White Blood Count 11.2 K/mm3 (4.4-11.0)
[2021-11-09 18:07] LABS: BNP,B-Type NATRIURETIC PEPTIDE 17.9 pg/mL (0-100)
[2021-11-09 18:28] LABS: ALB/GLOB Ratio 0.9 RATIO (0.9-2.4); AST(SGOT) 18 U/L (15-37); Alanine Aminotransfer ALT/SGPT 22 U/L (13-56); Albumin, Serum 3.6 g/dL (3.2-5.0); Alkaline Phosphatase 109 U/L (45-117); Anion Gap 9 (5-15); BUN 18 mg/dL (7-18); BUN/Creat Ratio 19.1 RATIO (10-20); Calcium,Total 9.3 mg/dL (8.5-10.1); Chloride 103 mmol/L (98-107); Creatinine, Serum 0.94 mg/dL (0.55-1.02); EST Glomerular Filtration Rate 62 mL/min (>60); Est Glom Filt Rate - Afr Amer 76 mL/min (>60); Globulin 3.9 g/dL (2.2-4.2); Glucose 98 mg/dL (74-106); Potassium 3.9 mmol/L (3.5-5.1); Protein, Total 7.5 g/dL (6.4-8.2); Sodium Level 139 mmol/L (136-145); Thyroid Stim Hormone (TSH) 1.55 uIU/mL (0.358-3.74)
== END 2021-11-09 23:59 | disposition home or self-care (01) ==
PROVIDERS: PCP Family Medicine; Referring Provider Family Medicine; Visit Provider Family Medicine
DX: R05.9 Cough, unspecified (principal); R53.83 Other fatigue; R06.00 Dyspnea, unspecified; E55.9 Vitamin D deficiency, unspecified
CPT/HCPCS: 36415; 71046; 80053; 82306; 83880; 84443; 85025

== ENCOUNTER → 2022-01-09 | Outpatient (CLI) | payer MEDICARE, OTHER, SELFPAY ==
--- NOTE | 2022-01-09 15:55 | RAD_ITS ---
STUDY: X-RAY CHEST REASON FOR EXAM: Female, 72 years old. Chest pain and cough TECHNIQUE: PA and lateral views of the chest. COMPARISON: 06/17/2021 FINDINGS: Tracheostomy tube no longer identified. The lungs are clear and expanded. There is no demonstrated pleural abnormality. Normal size heart. Normal mediastinum and [place]ito. Normal visualized pulmonary arteries. Normal visualized aortic arch and descending thoracic aorta. Normal visualized thoracic spine. Normal visualized ribs, clavicles, and shoulders. There is no demonstrated abnormality of the visualized soft tissue structures of the upper abdomen. RAD/Chest PA and Lateral IMPRESSION: No acute pulmonary process Electronically Signed: Benjie Schroeder MD at 9:33 EDT ,
== END | disposition home or self-care (01) ==
LOC: MTRAD 15:09
PROVIDERS: PCP Family Medicine; Referring Provider Family Medicine; Visit Provider Family Medicine
DX: R06.02 Shortness of breath (principal)
CPT/HCPCS: 71046

== ENCOUNTER → 2022-05-02 | Outpatient (CLI) | payer MEDICARE, OTHER, SELFPAY ==
--- NOTE | 2022-05-02 12:35 | BI_ITS ---
MAMMOGRAPHY - BILATERAL SCREENING REASON FOR EXAM: Female, 72 years old. Routine annual screening examination. PERTINENT HISTORY: Non-contributory. TECHNIQUE: Digital bilateral breast caesar (3D mammographic acquisition) in the CC and MLO projections. 2-D mediolateral oblique (MLO) and craniocaudad (CC) views of both breasts were obtained. CAD: Full Field Digital Mammography with Computer Added Detection was performed. COMPARISON: Comparison is made with prior study of 08/11/2019 and 08/08/2018. FINDINGS: Breast Composition: There are scattered areas of fibroglandular density. There are no dominant masses or suspicious calcifications. Stable 3.5 mm well-defined nodule in the upper lateral anterior aspect of the right breast. This was demonstrated to be a small cyst on prior sonogram. No other significant abnormalities are identified. There has been no significant change since the prior study. BI/SCRN MAMM (CAD)W/CAESAR BILAT IMPRESSION: Stable bilateral screening mammogram. Yearly follow-up mammogram recommended. (A) ASSESSMENT CATEGORY: BIRADS Category 2: Benign. A letter regarding these results will be sent to the patient by the facility within 30 days. Approximately 10% of breast cancers are not detected by mammography. A normal mammogram should not delay biopsy of a clinically suspicious abnormality. [id number] Electronically Signed: Binh Almaguer MD at 14:14 EST ,
--- NOTE | 2022-05-02 12:46 | BD_ITS ---
STUDY: DUAL ENERGY X-RAY ABSORPTIOMETRY / DXA REASON FOR EXAM: Female, 72 years old. [id number] TECHNIQUE: Bone Mineral Density (BMD) measurements of lumbar spine and bilateral hips were obtained. COMPARISON: Comparison is made with prior study dated 08/08/2018. FINDINGS: Lumbar Spine (L1-L4): g/cm2 (0.909) / T-score (-1.1) / Z-score (1.0) Findings are suggestive of osteopenia with a low fracture risk. Left Femur Total: g/cm2 (0.833) / T-score (-0.9) / Z-score (0.6) Left Femoral Neck: g/cm2 (0.600) / T-score (-2.2) / Z-score (-0.4) Right Femur Total: g/cm2 (0.820) / T-score (-1.0) / Z-score (0.5) Right Femoral Neck: g/cm2 (0.543) / T-score (-2.8) / Z-score (-0.9) The T-Scores on the most recent prior examination were: Lumbar Spine (L1-L4): There has been worsening of bone density since the previous examination. Left Femur Total: which represents a worsening of 3%. Right Femur Total: which represents a worsening of 9.8%. BD/Dexa Bone Density Study IMPRESSION: The patient is considered osteoporotic as outlined below according to World Jj Organization (WHO) criteria with a high fracture risk. There has been worsening of bone density since the previous examination. Reference Information: The T-score is the number of standard deviations above or below the standard which is normal for young adults at their peak bone mineral density. The World Health Organization (WHO) interprets the T-scores as follows: Above -1 Normal bone density Between -1 and -2.5 Osteopenia Equal to / or below -2.5 Osteoporosis As a practical clinical guideline, osteopenia may be graded as follows: Mild -1 through -1.5 Moderate -1.6 through -2.0 Severe -2.1 through -2.4 The Z-score is the number of standard deviations above or below age-matched controls. A Z-score of less than -1.5 would be considered abnormal. References: 1. NIH Osteoporosis and Related Bone Diseases www osteo.org 2. International Society for Clinical Densitometry www iscd.org 3. National Osteoporosis Foundation www nof.org Electronically Signed: Binh Almaguer MD at 15:33 EST ,
== END | disposition home or self-care (01) ==
LOC: OPBD 12:33
PROVIDERS: PCP Family Medicine; Visit Provider Family Medicine
DX: Z12.31 Encounter for screening mammogram for malignant neoplasm of breast (principal); Z78.0 Asymptomatic menopausal state
CPT/HCPCS: 77063; 77067; 77080

== ENCOUNTER → 2022-05-08 | Outpatient (CLI) | payer MEDICARE, OTHER, SELFPAY ==
[2022-05-08 13:02] LABS: PTHIN 60.3 pg/mL (18.4-80.1)
[2022-05-08 13:11] LABS: Anion Gap 7 (5-15); BUN 13 mg/dL (7-18); BUN/Creat Ratio 16.2 RATIO (10-20); Calcium,Total 9.4 mg/dL (8.5-10.1); Chloride 107 mmol/L (98-107); EST Glomerular Filtration Rate 75 mL/min (>60); Est Glom Filt Rate - Afr Amer 91 mL/min (>60); Glucose 109 mg/dL (74-106); Magnesium 2.2 mg/dL (1.6-2.6); Phosphorus 3.6 mg/dL (2.5-4.9); Potassium 3.8 mmol/L (3.5-5.1); Sodium Level 142 mmol/L (136-145)
[2022-05-08 13:34] LABS: Vitamin D,25 Hydroxy 50.8 ng/mL
== END | disposition home or self-care (01) ==
LOC: MFPLAB 11:29
PROVIDERS: PCP Family Medicine; Visit Provider Family Medicine
DX: M81.0 Age-related osteoporosis without current pathological fracture (principal)
CPT/HCPCS: 36415; 80048; 82306; 82330; 83735; 83970; 84100

== ENCOUNTER → 2022-06-21 | Outpatient (CLI) | payer MEDICARE, OTHER, SELFPAY ==
[2022-06-21 18:49] LABS: Anion Gap 15 (5-15); BUN 20 mg/dL (7-18); Calcium,Total 9.7 mg/dL (8.5-10.1); Chloride 101 mmol/L (98-107); EST Glomerular Filtration Rate 75 mL/min (>60); Est Glom Filt Rate - Afr Amer 91 mL/min (>60); Glucose 67 mg/dL (74-106); Potassium 4.4 mmol/L (3.5-5.1); Sodium Level 139 mmol/L (136-145)
== END | disposition home or self-care (01) ==
LOC: MFPLAB 14:30
PROVIDERS: PCP Family Medicine; Visit Provider Family Medicine
DX: I10 Essential (primary) hypertension (principal)
CPT/HCPCS: 36415; 80048

== ENCOUNTER → 2023-06-18 | Outpatient (CLI) | payer MEDICARE, OTHER, SELFPAY ==
--- NOTE | 2023-06-18 15:10 | RAD_ITS ---
STUDY: X-RAY - PARANASAL SINUSES REASON FOR EXAM: Female, 73 years old. dizziness, sinus pain TECHNIQUE: 3 view(s) of the paranasal sinuses were obtained. COMPARISON: None. FINDINGS: Normal visualized frontal, maxillary, ethmoidal and sphenoid sinuses. Normal visualized facial bones. The soft tissue structures are unremarkable. RAD/Sinuses min 3 Views IMPRESSION: No evidence of acute paranasal sinus disease. If clinical suspicion of chronic or acute symptomology consider cross-sectional CT facial imaging for more definitive characterization. Electronically Signed: Christian Duran DO at 16:28 EST ,
[2023-06-18 17:39] LABS: Absolute Neutrophil Count 6.5 X10^3/uL (2.0-7.7); Basophil# 0.08 X10^3/uL; Basophil% 0.8 % (0-1); Eosinophil# 0.23 X10^3/uL; Eosinophils% 2.3 % (0-5); Hemoglobin 14.4 g/dL (12.0-15.0); Lymphocyte % 26.5 % (19-41); Mean Corp Hgb Conc 32.7 g/dL (32-36); Mean Corpuscular Hgb 27.6 pg (27.0-32.0); Mean Corpuscular Volume 84.5 fL (81-99); Mean Platelet Vol. 11.1 fl (6.2-12.0); Monocyte# 0.64 X10^3/uL; Monocyte% 6.3 % (0-10); NRBC Flagged by Analyzer 0 % (0-5); Neutrophil # 6.51 X10^3/uL (2.7-7.7); Neutrophil % 63.8 % (47-70); Platelet Count 279 K/mm3 (150-450); RBC Distribution Width CV 13.9 % (11.6-14.6); RBC Distribution Width SD 42.7 fl (35.1-43.9); Red Blood Count 5.21 M/mm3 (4.2-5.4); White Blood Count 10.2 K/mm3 (4.4-11.0)
[2023-06-18 18:04] LABS: Vitamin D,25 Hydroxy 23.8 ng/mL
[2023-06-18 18:28] LABS: AST(SGOT) 23 U/L (15-37); Alanine Aminotransfer ALT/SGPT 25 U/L (13-56); Albumin, Serum 3.7 g/dL (3.2-5.0); Alkaline Phosphatase 103 U/L (45-117); Anion Gap 8 (5-15); BUN 17 mg/dL (7-18); BUN/Creat Ratio 16.8 RATIO (10-20); Calcium,Total 9.1 mg/dL (8.5-10.1); Chloride 109 mmol/L (98-107); Cholesterol 255 mg/dL (200); Creatinine, Serum 1.01 mg/dL (0.55-1.02); EST Glomerular Filtration Rate 57 mL/min (>60); Est Glom Filt Rate - Afr Amer 69 mL/min (>60); Globulin 3.6 g/dL (2.2-4.2); Glucose 106 mg/dL (74-106); High Density Lipoprotein 51 mg/dL; Potassium 3.7 mmol/L (3.5-5.1); Protein, Total 7.3 g/dL (6.4-8.2); Sodium Level 142 mmol/L (136-145); Thyroid Stim Hormone (TSH) 1.36 uIU/mL (0.358-3.74); Triglycerides 325 mg/dL; Very Low Density Lipoprotein 65 mg/dL (5-40)
== END | disposition home or self-care (01) ==
PROVIDERS: PCP Family Medicine; Referring Provider Family Medicine; Visit Provider Family Medicine
DX: R42 Dizziness and giddiness (principal); R73.01 Impaired fasting glucose; M81.0 Age-related osteoporosis without current pathological fracture
CPT/HCPCS: 36415; 70220; 80053; 80061; 82306; 84443; 85025

== ENCOUNTER 2024-08-09 11:21 | Inpatient (IN) | payer MEDICARE, OTHER, SELFPAY ==
[2024-08-09] VITALS (19 sets, daily range): BP systolic 105–134; BP diastolic 60–87; PULSE 68–110; RESP 12–31; TEMP 36.6–37.1; O2SAT 91–99; BMI 31.6
--- NOTE | 2024-08-09 11:35 | EKG12_ITS ---
Test Reason : SOB Blood Pressure : */* mmHG Vent. Rate : 97 BPM Atrial Rate : 97 BPM P-R Int : 124 ms QRS Dur : 78 ms QT Int : 370 ms P-R-T Axes : 56 26 53 degrees QTcB Int : 469 ms Sinus rhythm with Premature atrial complexes Inferior-posterior infarct (cited on or before 29-Aug-2018) Abnormal ECG Confirmed by Salinas Cobos ([id number]), visual effects editor JHONNY GUADALUPE ([id number]) on 08/11/2024 10:54:55 AM Referred By: Confirmed By: Salinas Cobos
--- NOTE | 2024-08-09 11:36 | EDS_ITS ---
HPI History of Present Illness Chief Complaint: Fever Detail of Chief Complaint: Fever and cough and shortness of breath Informant: patient Narrative Narrative: Patient presents to the emergency department complaint of fever and cough and s hortness of breath that started 2 weeks ago. Patient coughing up green phlegm. Has been currently hospitalized and admitted to the ICU with influenza A and pneumonia. Patient has history of asthma. She has been using her inhaler. She denies significant chest pain. She complains of exertional dyspnea. She went to urgent care today where fever was 101.2. [facility] Medical History COPD (chronic obstructive pulmonary disease) Depression Former smoker HTN (hypertension) Home Medications ?Medication ?Instructions ?Recorded ?Last Taken ?Type amlodipine 10 mg tablet 10 mg PO DAILY blood pressur e 09/28/14 05/26/21 History bupropion HCl 300 mg 24 hr tablet, 300 mg PO DAILY DEP RESSION 12/31/17 05/26/21 History extended release escitalopram oxalate 20 mg tablet 20 mg PO DAILY depre ssion 12/31/17 05/26/21 History albuterol sulfate 90 mcg/actuation 1 puff inhalation Q 6H PRN copd 05/28/21 Unknown History aerosol inhaler potassium chloride 20 mEq 40 meq PO DAILY supplement 1 07/29/20 05/26/21 History tablet,extended release(part/cryst) omeprazole 40 mg capsule,delayed 40 mg PO DAILY Unknown History release triamterene 37.5 1 tab PO DAILY 08/09/24 Unkn own History mg-hydrochlorothiazide 25 mg tablet Allergy/AdvReac Type Severity Reaction Status Date / Time levofloxacin (From Levaquin) AdvReac MUSCLE Verified 08/09/24 11:24 WEAKNESS IN ARMS Social History Smoking Status: Former smoker ROS ROS ED Review of Systems ROS Unobtainable: other Constitutional Constitutional ED: Reports lethargy; Denies chills, fever(s), sweats or weight loss Eyes Eyes: Denies blurry vision, change in vision or diplopia ENT ENT ED: Denies rhinorrhea or sore throat Cardiovascular Cardiovascular: Denies chest pain, orthopnea or racing heartbeat Respiratory/Chest Respiratory/Chest: Reports cough, dyspnea and dyspnea on exertion; Denies orthopnea or sputum Gastrointestinal Gastrointestinal: Denies abdominal pain, diarrhea, nausea or vomiting Genitourinary Genitourinary ED: Denies dysuria, hematuria or urinary frequency Musculoskeletal Musculoskeletal: Denies arthralgias, back pain, myalgias or neck pain Integumentary Denies abscess, Abrasions or rash Neurologic Neurologic: Denies headache(s) or weakness Psychiatric Psychiatric: Denies anxiety, depression or suicidal thoughts Endocrine Endocrinology: Denies polydipsia, polyphagia or polyuria Hematologic/Lymphatic Hematologic/Lymphatic: Denies easy bleeding, easy bruising or lymphadenopathy Allergic/Immunologic Allergic/Immunologic ED: Denies mouth swelling, tongue swelling or urticaria EXAM Physical Exam Const Vital Signs: 08/09/24 11:21 08/09/24 11:46 08/09/24 12:06 Temperature 97.8 F Temperature Source Temporal Pulse Rate 110 H 88 Respiratory Rate 24 H 20 H Respiratory Effort Respiratory Pattern Tachypnea Blood Pressure 115/83 H Blood Pressure Mean 93 Pulse Ox 94 91 Oxygen Delivery Method Room Air Room Air 08/09/24 12:06 Temperature Temperature Source Pulse Rate Respiratory Rate Respiratory Effort Short of Breath Respiratory Pattern Tachypnea Blood Pressure Blood Pressure Mean Pulse Ox Oxygen Delivery Method Positive well nourished and well developed General Appearance ED: well developed and NAD HEENT Reports TM's clear and moist mucous membranes normocephalic and atraumatic; Negative for trauma or tenderness Tympanic Membrane ED: Yes TM's clear Eyes PERRL and EOMs intact bilaterally General Eye ED: Negative for pale conjunctiva or scleral icterus Neck no lymphadenopathy, supple and no JVD General: Negative for tenderness Chest Wall inspection of chest normal and palpation of chest normal Chest: Negative for tenderness Resp normal respiratory effort and No clear to auscultation bilaterally Resp Narrative: Patient with some mild tachypnea. She got coarse rhonchi bilaterally with some faint expiratory wheezes noted bilaterally. No accessory muscle use or retractions. Effort and Inspection: Negative for respiratory distress or pain with movement Auscultation: Negative for rhonchi or diminished lung sounds Cardio regular rate, regular rhythm, S1 normal heart sound, S2 normal heart sound and no murmurs Peripheral Pulses: pulses 2+ throughout GI normal to inspection, nondistended, normoactive bowel sounds, soft to palpation, non-tender, non-distended and no masses Back/Spine no CVA tenderness and no thoracic nor lumbar tenderness Extremity normal to inspection General Extremety ED: Negative for edema General Extremity: Negative for edema Neuro oriented x3, CN's II-XII intact bilaterally, no sensory deficits noted and gait normal Sensorium / Orientation: awake, alert, oriented to person, oriented to place and oriented to time Motor Exam: strength 5/5 throughout and strength abnormal Psych mental status grossly normal Skin no rashes or lesions noted and no wounds MDM MDM MDM Narrative Medical decision making narrative: Patient presents with fever and cough and exertional dyspnea. She has history of asthma as well. She was tachypneic on arrival. Wheezing throughout. In the differential would be a viral infection versus pneumonia. Patient was given a DuoNeb aerosol and was started on Solu-Medrol. Blood cultures ordered. CBC with differential obtained showed a white count 26.7 with hemoglobin 12.9 and platelet count of 393. Chemistries unremarkable other than a depressed potassium at 2.8 for which I ordered 40 mEq of potassium chloride. Lactate was normal at 1.7. 1 view chest x-ray obtained showed bilateral infiltrates. At rest she still somewhat tachypneic and O2 sat right around 91%. Will order to have patient ambulated with pulse ox. Patient was started on Rocephin and Zithromax IV. Case will be discussed with hospitalist to evaluate patient for admission for pneumonia with dyspnea. Lab Data Labs: Laboratory Results - last 24 hr 08/09/24 11:45 WBC 26.7 H RBC 4.56 Hgb 12.9 Hct 37.4 MCV 82.0 MCH 28.3 MCHC 34.5 RDW Std Deviation 41.2 RDW Coeff of Chari 13.9 Plt Count 393 MPV 10.7 Immature Gran % (Auto) 0.800 Neut % (Auto) 88.7 H Lymph % (Auto) 4.2 L Alfalfa % (Auto) 5.8 Eos % (Auto) 0.2 Baso % (Auto) 0.3 Absolute Neuts (auto) 23.7 H Absolute Lymphs (auto) 1.12 Nucleated RBC % 0 [address] Path Review May foll Sodium 138 Potassium 2.8 L Chloride 100 Carbon Dioxide 20.6 L Anion Gap 18 H BUN 13 Creatinine 0.93 Estim Creat Clear Calc 53.04 Est GFR (MDRD) Non-Af 65 BUN/Creatinine Ratio 13.7 Glucose 123 H Lactic Acid 1.7 Calcium 9.2 Radiography Diagnostic Testing: Clinical Impression(s) from Imaging Studies Chest X-Ray 08/09/24 11:59 IMPRESSION: Stable bilateral mild pulmonary infiltrates, which may be secondary to residual pneumonia or scarring. No pleural effusion or pneumothorax. Reading Location: [facility] 1 view chest x-ray obtained interpreted by myself as bilateral infiltrates. EKG Initial EKG: Attestation: I personally reviewed and interpreted this EKG as follows: Comments: Sinus rhythm with rate 97 bpm with no acute ST segment change Discharge Plan Dx/Rx/DC Orders Clinical Impression: Pneumonia, Exertional dyspnea, Reactive airway disease, Acute hypokalemia Disposition Disposition: Acute Care Hospital [facility]
[2024-08-09] MEDS: Ipratropium/Albuterol Sulfate 3 ML AMPUL.NEB INHALATION ×3 (11:45→23:35)
[2024-08-09 11:52] LABS: Absolute Lymphocyte Count 1.12 X10^3/uL (0.83-4.51); Absolute Neutrophil Count 23.7 X10^3/uL (2.0-7.7); Basophil# 0.09 X10^3/uL; Basophil% 0.3 % (0-1); Eosinophil# 0.06 X10^3/uL; Eosinophils% 0.2 % (0-5); Hematocrit 37.4 % (37-47); Hemoglobin 12.9 g/dL (12.0-15.0); Lymphocyte # 1.12 X10^3/ul (0.83-4.51); Lymphocyte % 4.2 % (19-41); Mean Corp Hgb Conc 34.5 g/dL (32-36); Mean Corpuscular Hgb 28.3 pg (27.0-32.0); Mean Platelet Vol. 10.7 fl (6.2-12.0); Monocyte# 1.56 X10^3/uL; Monocyte% 5.8 % (0-10); NRBC Flagged by Analyzer 0 % (0-5); Neutrophil % 88.7 % (47-70); POSITIVE DIFFERENTIAL YES; Platelet Count 393 K/mm3 (150-450); RBC Distribution Width CV 13.9 % (11.6-14.6); RBC Distribution Width SD 41.2 fl (35.1-43.9); Red Blood Count 4.56 M/mm3 (4.2-5.4); White Blood Count 26.7 K/mm3 (4.4-11.0)
[2024-08-09 11:53] LABS: Differential Indicated SCAN CRITERIA MET
--- NOTE | 2024-08-09 11:59 | RAD_ITS ---
PROCEDURE: CHEST 1 VIEW (PORTABLE) REASON FOR EXAM: 74-year-old female, shortness of breath and cough. TECHNIQUE: Frontal view of the chest. COMPARISON: Chest radiograph 01/09/2022. FINDINGS: The heart size is normal. Grossly stable bilateral mild pulmonary infiltrates, greatest within the lower lungs. No pleural effusion or pneumothorax. Degenerative changes are identified within the thoracic spine. RAD/Chest 1 View (Portable) IMPRESSION: Stable bilateral mild pulmonary infiltrates, which may be secondary to residual pneumonia or scarring. No pleural effusion or pneumothorax. Reading Location: [id number]
[2024-08-09] MEDS: MethylPREDNISolone 125 MG/2 ML Vial IV (12:04)
[2024-08-09 12:17] LABS: Anion Gap 18 (5-15); BUN 13 mg/dL (4-19); BUN/Creat Ratio 13.7 RATIO (10-20); Calcium,Total 9.2 mg/dL (7.6-11.0); Carbon Dioxide 20.6 mmol/L (21.0-32.0); Chloride 100 mmol/L (98-108); Creatinine, Serum 0.93 mg/dL (0.70-1.20); EST Glomerular Filtration Rate 65 (>60); Estimated Creatinine Clearance 53.04 ml/min (50-250); Glucose 123 mg/dL (70-99); Potassium 2.8 mmol/L (3.3-5.1); Sodium Level 138 mmol/L (133-145)
[2024-08-09 12:18] LABS: Lactic Acid 1.7 mmol/L (0.0-2.0)
[2024-08-09] MEDS: Ceftriaxone 1 GM/50 ML BAG IV (12:29)
[2024-08-09 12:32] LABS: Pathologist Review May foll
--- NOTE | 2024-08-09 13:14 | PCM.HP.STD ---
HPI - General General Date of Admission: 08/09/24 Date of Service: 08/09/24 Chief Complaint: Fever, shortness of breath cough with thick greenish yellowish sputum for 2 weeks HPI Narrative ISHMAEL ZHU, is a 74 F with history of asthma/reactive airway disease came to ED for fever with diaphoresis, shortness of breath, conversational dyspnea, productive cough for 2 weeks. She states her cough and shortness of breath is getting worse and she has dyspnea even at rest. She went to urgent care and gave ibuprofen for fever and was sent here. In ED, she had fever 101.6 Fahrenheit, tachycardia and tachypnea and 24 bpm but no hypoxia but has labored breathing. Her is also sick in the ICU here with flu She does not wear any home oxygen or any NIPPV at home. In the ED, initial workup was done which shows bilateral infiltrate on the chest x-ray suggestive of pneumonia and started on IV ceftriaxone and azithromycin. Further admitted. [facility] Medical History MSSA (methicillin susceptible Staphylococcus aureus) pneumonia Former smoker Acute respiratory failure with hypoxia COPD (chronic obstructive pulmonary disease) Pneumonia due to COVID-19 virus Hypoxia HTN (hypertension) Depression Home Medications ?Medication ?Instructions ?Recorded ?Last Taken ?Type amlodipine 10 mg tablet 10 mg PO DAILY blood pressure 09/28/14 05/26/21 History bupropion HCl 300 mg 24 hr tablet, 300 mg PO DAILY DEPRESSION 12/31/17 05/26/21 History extended release escitalopram oxalate 20 mg tablet 20 mg PO DAILY depression 12/31/17 05/26/21 History albuterol sulfate 90 mcg/actuation 1 puff inhalation Q6H PRN copd 05/28/21 Unknown History aerosol inhaler potassium chloride 20 mEq 40 meq PO DAILY supplement 05/28/21 05/26/21 History tablet,extended release(part/cryst) omeprazole 40 mg capsule,delayed 40 mg PO DAILY 08/09/24 Unknown History release triamterene 37.5 1 tab PO DAILY 08/09/24 Unknown History mg-hydrochlorothiazide 25 mg tablet Allergy/AdvReac Type Severity Reaction Status Date / Time levofloxacin (From Levaquin) AdvReac MUSCLE Verified 08/09/24 11:24 WEAKNESS IN ARMS Social History Smoking Status: Former smoker ROS ROS Narrative Constitutional: Reports fatigue and an acute onset of weakness. Fever as described in HPI HEENT: Reports systems reviewed and no addt'l complaints, except as documented Respiratory/Chest: As described in HPI CVS: Denies chest pain. Gastrointestinal: Nausea.Diarrhea got better for last 3 days. Denies coffee ground emesis, hematemesis or vomiting Genitourinary: Denies burning urination or new urinary tract symptoms Musculoskeletal: Denies acute joint pain or limited range of motion. No acute injury Neurologic: Denies seizure-like symptoms. skin: No ulcer. No rash Endocrinology: Reports systems reviewed and no addt'l complaints, except as documented Hematologic/Lymphatic: Reports systems reviewed and no addt'l complaints, except as documented Rest 14 ROS are negative except as mentioned in HPI Vital Signs Vital Signs Vital Signs: 08/09/24 11:21 08/09/24 11:46 08/09/24 12:06 Temperature 97.8 F Temperature Source Temporal Pulse Rate 110 H 88 Respiratory Rate 24 H 20 H Respiratory Effort Respiratory Pattern Tachypnea Blood Pressure 115/83 H Blood Pressure Mean 93 Pulse Ox 94 91 Oxygen Delivery Method Room Air Room Air 08/09/24 12:06 Temperature Temperature Source Pulse Rate Respiratory Rate Respiratory Effort Short of Breath Respiratory Pattern Tachypnea Blood Pressure Blood Pressure Mean Pulse Ox Oxygen Delivery Method Weight Weight: 173 lb Body Mass Index (BMI) 31.6 Physical Exam Narrative General: Alert, Oriented x3, Cooperative. Fatigue, dyspneic HEENT: Atraumatic, PERRLA, EOMI, Normocephalic Oral: Oral mucosa dry. No Gingival or Mucosal Lesions/ Ulcerations Neck: Supple, No JVD, Negative Carotid Bruits Chest wall/Lungs: Dyspnea at rest. Air entry diminished in all lung thomas. Bilateral expiratory wheezing and coarse crepitations predominantly in the lower lungs. Cardiovascular: Sinus tachycardia, Normal S1, Normal S2, No M/G/R Abdomen: Bowel Sounds Present, Soft, Non Tender, Non-Distended : No dysuria. No renal angle tenderness. No suprapubic tenderness. Extremities: No edema, Capillary Refill Less than 3 Seconds Skin: No rashes, No breakdown Musculoskeletal: No Tenderness to Palpation of Joints or Extremities Neurological: Cranial nerves II-XII grossly intact, DTR 2+/4. No acute focal neurological deficit. Psych/Mental Status: Flat affect. Results Lab / Micro Data 08/09/24 11:45 08/09/24 11:45 Labs: Laboratory Results - last 24 hr 08/09/24 11:45: WBC 26.7 H, RBC 4.56, Hgb 12.9, Hct 37.4, MCV 82.0, MCH 28.3, MCHC 34.5, RDW Std Deviation 41.2, RDW Coeff of Chari 13.9, Plt Count 393, MPV 10.7, Immature Gran % (Auto) 0.800, Neut % (Auto) 88.7 H, Lymph % (Auto) 4.2 L, [place] % (Auto) 5.8, Eos % (Auto) 0.2, Baso % (Auto) 0.3, Absolute Neuts (auto) 23.7 H, Absolute Lymphs (auto) 1.12, Nucleated RBC % 0, Diff Path Review May foll, Sodium 138, Potassium 2.8 L, Chloride 100, Carbon Dioxide 20.6 L, Anion Gap 18 H, BUN 13, Creatinine 0.93, Estim Creat Clear Calc 53.04, Est GFR (MDRD) Non-Af 65, BUN/Creatinine Ratio 13.7, Glucose 123 H, Lactic Acid 1.7, Calcium 9.2 Micro: Microbiology 08/09/24 11:40 Mucosa - Nose SARS-CoV-2, Influenza & RSV (PCR) - Final Imaging Radiology Impression Chest X-Ray 08/09/24 11:59 IMPRESSION: Stable bilateral mild pulmonary infiltrates, which may be secondary to residual pneumonia or scarring. No pleural effusion or pneumothorax. Reading Location: [facility] Assessment & Plan Assessment/Plan (1) Pneumonia: (2) Reactive airway disease: PLAN: Plan This is an 82-year-old female being admitted for shortness of breath/dyspnea at rest due to bilateral pneumonia 1. Acute asthma exacerbation secondary to bilateral pneumonia with dyspnea at rest: Patient is being admitted MedSurg floor. Patient has labored breathing therefore BiPAP ordered for short time to relieve dyspnea. Chest x-ray initially reviewed and shows bilateral lower lobes infiltrates. Twelve-lead EKG shows sinus rhythm at PAC at 97 bpm, QTc 469 ms. Patient is being managed on scheduled bronchodilator, IV Solu-Medrol, Mucinex, incentive spirometry and Pep. Triple PCR for SARS-CoV-2, flu and RSV are negative. Started on IV ceftriaxone and azithromycin first dose given in the ER. 2. 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 Tracheostomy closed. 3. 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 On albuterol inhaler. 4. Hypertension: On triamterene hydrochlorothiazide and amlodipine. BP 115/84, therefore hold it. 5. Mild hypokalemia: Potassium is getting replaced. Serum magnesium ordered 6. Mild anxiety and depression: Patient on escitalopram and bupropion: Resumed. Xanax low-dose as needed Living will/advanced directive/end of life care: Patient does not have living will or advanced directive. She does not have regular power of cutting room supervisor for health but her and her kids are next to kin. After discussion of benefits/risks procedures involved with full code, DNR CC arrest and DNR CC, the patient opted for full code. Patient does want artificial life support including intubation, tube feed, ventilator and/chest compression, central venous catheter, vasopressor and DC shock if needed Total time spent in [id number] encounter in discussion of advanced directive 17 minutes. Microbiology Past 72 Hours 08/09/24 11:40 Mucosa - Nose SARS-CoV-2, Influenza & RSV (PCR) - Final Laboratory Results 08/09/24 11:45: WBC 26.7 H, RBC 4.56, Hgb 12.9, Hct 37.4, MCV 82.0, MCH 28.3, MCHC 34.5, RDW Std Deviation 41.2, RDW Coeff of Chari 13.9, Plt Count 393, MPV 10.7, Immature Gran % (Auto) 0.800, Neut % (Auto) 88.7 H, Lymph % (Auto) 4.2 L, [place] % (Auto) 5.8, Eos % (Auto) 0.2, Baso % (Auto) 0.3, Absolute Neuts (auto) 23.7 H, Absolute Lymphs (auto) 1.12, Nucleated RBC % 0, Diff Path Review October, Sodium 138, Potassium 2.8 L, Chloride 100, Carbon Dioxide 20.6 L, Anion Gap 18 H, BUN 13, Creatinine 0.93, Estim Creat Clear Calc 53.04, Est GFR (MDRD) Non-Af 65, BUN/Creatinine Ratio 13.7, Glucose 123 H, Lactic Acid 1.7, Calcium 9.2 Charges/Coding Visit Charges Inpatient E&M: 95148 Init Hosp L3 Procedures Hospitalists Procedures: 00166 Advncd Care Plan 30 Min
[2024-08-09] MEDS: Azithromycin 500 MG in 0.9% Normal Saline (250mL Bag) 250 ML 255 MG IV (13:20)
[2024-08-09] MEDS: Potassium Chloride Oral Tablet 20 MEQ 40 MEQ PO (13:25)
--- NOTE | 2024-08-09 13:45 | CPS ---
Attempted to put BIPAP on pt d/t increased WOB and pt couldn't tolerate the mask, became severely claustrophobic, RT will go get an Airvo and try it.
[2024-08-09 14:25] LABS: Magnesium 1.8 mg/dL (1.5-2.2)
[2024-08-09] MEDS: 0.9% Normal Saline (1000mL) 1,000 ML 75 ML IV (16:45)
--- NOTE | 2024-08-09 16:48 | NURSING ---
unable to pull lovenox or K+ from [facility]
[2024-08-09] MEDS: Senna/Docusate Sodium 1 Tablet 2 TABLET PO (21:48)
[2024-08-09] MEDS: Enoxaparin 40 MG/0.4 ML Syringe SC (21:48)
[2024-08-09] MEDS: Methylprednisolone Sod Succ 40 MG/ML VIAL IV (21:48)
[2024-08-10] VITALS (13 sets, daily range): BP systolic 120–148; BP diastolic 63–82; PULSE 71–102; RESP 17–22; TEMP 36.2–37; O2SAT 93–98; BMI 32.5
[2024-08-10] MEDS: Ipratropium/Albuterol Sulfate 3 ML AMPUL.NEB INHALATION ×5 (03:58→19:43)
[2024-08-10 05:17] LABS: Basophil# 0.01 X10^3/uL; Basophil% 0.1 % (0-1); Hematocrit 35.7 % (37-47); Hemoglobin 12.2 g/dL (12.0-15.0); Lymphocyte % 9.9 % (19-41); Mean Corp Hgb Conc 34.2 g/dL (32-36); Mean Corpuscular Hgb 28.2 pg (27.0-32.0); Mean Corpuscular Volume 82.6 fL (81-99); Mean Platelet Vol. 10.9 fl (6.2-12.0); Monocyte# 0.23 X10^3/uL; Monocyte% 1.4 % (0-10); NRBC Flagged by Analyzer 0 % (0-5); Neutrophil # 14.02 X10^3/uL (2.7-7.7); Neutrophil % 87.1 % (47-70); Platelet Count 368 K/mm3 (150-450); RBC Distribution Width CV 13.9 % (11.6-14.6); Red Blood Count 4.32 M/mm3 (4.2-5.4); White Blood Count 16.1 K/mm3 (4.4-11.0)
[2024-08-10] MEDS: Methylprednisolone Sod Succ 40 MG/ML VIAL IV ×3 (05:54→21:41)
[2024-08-10 05:58] LABS: Anion Gap 16 (5-15); BUN 18 mg/dL (4-19); BUN/Creat Ratio 21.2 RATIO (10-20); Calcium,Total 9.2 mg/dL (7.6-11.0); Carbon Dioxide 20.1 mmol/L (21.0-32.0); Chloride 99 mmol/L (98-108); Creatinine, Serum 0.85 mg/dL (0.70-1.20); EST Glomerular Filtration Rate 72 (>60); Estimated Creatinine Clearance 58.73 ml/min (50-250); Glucose 192 mg/dL (70-99); Potassium 3.3 mmol/L (3.3-5.1); Sodium Level 136 mmol/L (133-145)
--- NOTE | 2024-08-10 07:26 | CPS ---
Took pt off Airvo, placed on 4lpm via NC, SpO2=95%
[2024-08-10] MEDS: Senna/Docusate Sodium 1 Tablet 2 TABLET PO ×2 (08:29→21:40)
[2024-08-10] MEDS: Escitalopram Oxalate 20 MG Tablet PO (08:29)
[2024-08-10] MEDS: Enoxaparin 40 MG/0.4 ML Syringe SC (08:29)
[2024-08-10] MEDS: Pantoprazole Sodium 40 MG Tablet PO (08:29)
[2024-08-10] MEDS: buPROPion (XL) 300 MG TABLET.XL PO (08:29)
[2024-08-10] MEDS: 0.9% Saline Lock 10 ML Syringe IV ×3 (11:04→21:41)
[2024-08-10] MEDS: Ceftriaxone 2 GM in 0.9% Normal Saline (50mL MB+) 50 ML IV (11:05)
[2024-08-10] MEDS: 0.9% Normal Saline (100mL Bag) 100 ML 15 ML IV (11:05)
[2024-08-10] MEDS: Azithromycin 500 MG in 0.9% Normal Saline (250mL Bag) 250 ML 255 MG IV (11:52)
--- NOTE | 2024-08-10 15:13 | PN.HOSP_ITS ---
Reason for Visit Reason for Visit: Diagnoses Pneumonia, unspecified organism (08/09/24) Unspecified asthma, uncomplicated (08/09/24) Objective Data Objective Data Vital Signs: Vital Signs Temp Pulse Resp BP Pulse Ox O2 Del Method O2 Flow Rate 97.5 F L 84 20 H 120/82 H 95 Nasal Cannula 1 08/10/24 14:15 08/10/24 14:16 08/10/24 14:16 08/10/24 14:15 08/10/24 14:19 08/10/24 14:19 08/10/24 14:19 FiO2 25 08/10/24 07:12 Oxygen Flow Rate (L/min) 1 Oxygen Delivery Method Nasal Cannula Weight: 177 lb 0.499 oz Body Mass Index (BMI) 32.5 Intake & Output: Intake and Output for Last 24 Hours 08/08/24 08/09/24 08/11/24 23:59 23:59 00:59 Intake Total 816 / 1066 1783.25 / 1783.25 Output Total 500 / 500 Balance 816 / 1066 1283.25 / 1283.25 Lab / Micro Data 08/10/24 04:55 08/10/24 04:55 Labs: Laboratory Results - last 24 hr 08/09/24 11:46: Magnesium 1.8 08/10/24 04:55: WBC 16.1 H, RBC 4.32, Hgb 12.2, Hct 35.7 L, MCV 82.6, MCH 28.2, MCHC 34.2, RDW Std Deviation 42.0, RDW Coeff of Chari 13.9, Plt Count 368, MPV 10.9, Immature Gran % (Auto) 1.500 H, Neut % (Auto) 87.1 H, Lymph % (Auto) 9.9 L , [place] % (Auto) 1.4, Eos % (Auto) 0.0, Baso % (Auto) 0.1, Absolute Neuts (auto) 14.0 H, Absolute Lymphs (auto) 1.60, Nucleated RBC % 0, Sodium 136, Potassium 3.3, Chloride 99, Carbon Dioxide 20.1 L, Anion Gap 16 H, BUN 18, Creatinine 0.85, Estim Creat Clear Calc 58.73, Est GFR (MDRD) Non-Af 72, BUN/Creatinine Ratio 21.2 H, Glucose 192 H, Calcium 9.2 Micro: Microbiology 08/10/24 05:58 Urine, Clean Catch Legionella Antigen - Final 08/10/24 05:58 Urine, Clean Catch Streptococcus pneumoniae Antigen (M - Final 08/09/24 15:36 Mucosa - Nose Respiratory Panel (PCR) - Final 08/09/24 11:40 Mucosa - Nose SARS-CoV-2, Influenza & RSV (PCR) - Final Physical Exam Narrative Seen and examined. No fever. Labored breathing of yesterday has resolved. On 1 L of oxygen. No dyspnea at rest. No chest pain. Physical exam: General: Alert, Oriented x3, Cooperative. Fatigue, dyspneic HEENT: Atraumatic, PERRLA, EOMI, Normocephalic Oral: Oral mucosa moist. No Gingival or Mucosal Lesions/ Ulcerations Neck: Supple, No JVD, Negative Carotid Bruits Chest wall/Lungs: Air entry diminished in all lung thomas. Mild bilateral expiratory rhonchi and wheezing. Cardiovascular: Sinus tachycardia, Normal S1, Normal S2, No M/G/R Abdomen: Bowel Sounds Present, Soft, Non Tender, Non-Distended : No dysuria. No renal angle tenderness. No suprapubic tenderness. Extremities: No edema, Capillary Refill Less than 3 Seconds Skin: No rashes, No breakdown Musculoskeletal: No Tenderness to Palpation of Joints or Extremities Neurological: Cranial nerves II-XII grossly intact, DTR 2+/4. No acute focal neurological deficit. Psych/Mental Status: Flat affect. Assessment & Plan Assessment/Plan (1) Pneumonia: (2) Reactive airway disease: PLAN: Plan This is an 82-year-old female being admitted for shortness of breath/dyspnea at rest due to bilateral pneumonia 1. Acute asthma exacerbation secondary to bilateral pneumonia with dyspnea at rest: Patient is being admitted MedSurg floor. Patient has labored breathing therefore BiPAP ordered for short time to relieve dyspnea. Chest x-ray initially reviewed and shows bilateral lower lobes infiltrates. Twelve-lead EKG shows sinus rhythm at PAC at 97 bpm, QTc 469 ms. Patient is being managed on scheduled bronchodilator, IV Solu-Medrol, Mucinex, incentive spirometry and Pep. Triple PCR for SARS-CoV-2, flu and RSV are negative. Started on IV ceftriaxone and azithromycin first dose given in the ER. 08/10: Continued IV antibiotic. Urinary antigens, respiratory panel are negative. Dyspnea at rest got resolved. Still has mild exertional dyspnea. Anticipate discharge tomorrow. 2. 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 Tracheostomy closed. 3. Asthma exacerbation as mentioned above: Patient follows Dr. Rafaela Coley [facility] cardiopulmonary supervisor as an outpatient. On albuterol inhaler. 4. Hypertension: On triamterene hydrochlorothiazide and amlodipine. BP 115/84, therefore hold it. 08/10 blood pressure systolic 120. Continue holding it and can resume low-dose amlodipine 5. Mild hypokalemia: Potassium is getting replaced. Serum magnesium ordered 6. Mild anxiety and depression: Patient on escitalopram and bupropion: Resumed. Xanax low-dose as needed Living will/advanced directive/end of life care: Patient does not have living will or advanced directive. She does not have regular power of defense attorney for health but her and her kids are next to kin. After discussion of benefits/risks procedures involved with full code, DNR CC arrest and DNR CC, the patient opted for full code. Patient does want artificial life support including intubation, tube feed, ventilator and/chest compression, central venous catheter, vasopressor and DC shock if needed Total time spent in [id number] encounter in discussion of advanced directive 17 minutes. Microbiology Past 72 Hours 08/10/24 05:58 Urine, Clean Catch Legionella Antigen - Final 08/10/24 05:58 Urine, Clean Catch Streptococcus pneumoniae Antigen (M - Final 08/09/24 15:36 Mucosa - Nose Respiratory Panel (PCR) - Final 08/09/24 11:40 Mucosa - Nose SARS-CoV-2, Influenza & RSV (PCR) - Final Laboratory Results 08/09/24 11:46: Magnesium 1.8 08/10/24 04:55: WBC 16.1 H, RBC 4.32, Hgb 12.2, Hct 35.7 L, MCV 82.6, MCH 28.2, MCHC 34.2, RDW Std Deviation 42.0, RDW Coeff of Chari 13.9, Plt Count 368, MPV 10.9, Immature Gran % (Auto) 1.500 H, Neut % (Auto) 87.1 H, Lymph % (Auto) 9.9 L , [place] % (Auto) 1.4, Eos % (Auto) 0.0, Baso % (Auto) 0.1, Absolute Neuts (auto) 14.0 H, Absolute Lymphs (auto) 1.60, Nucleated RBC % 0, Sodium 136, Potassium 3.3, Chloride 99, Carbon Dioxide 20.1 L, Anion Gap 16 H, BUN 18, Creatinine 0.85, Estim Creat Clear Calc 58.73, Est GFR (MDRD) Non-Af 72, BUN/Creatinine Ratio 21.2 H, Glucose 192 H, Calcium 9.2 Charges/Coding Visit Charges Inpatient E&M: 73383 Subs Hosp L2
[2024-08-10] MEDS: Potassium Chloride Oral Tablet 20 MEQ 40 MEQ PO (16:32)
[2024-08-11 05:05] VITALS: BMI 32.5
[2024-08-11 05:35] VITALS: BP 144/68; PULSE 56; RESP 18; TEMP 36.5; O2SAT 94
[2024-08-11] MEDS: Methylprednisolone Sod Succ 40 MG/ML VIAL IV (05:38)
[2024-08-11] MEDS: 0.9% Saline Lock 10 ML Syringe IV ×2 (05:38→08:55)
[2024-08-11 07:11] VITALS: PULSE 93; RESP 22; O2SAT 98
[2024-08-11] MEDS: Ipratropium/Albuterol Sulfate 3 ML AMPUL.NEB INHALATION ×2 (07:11→10:19)
[2024-08-11 07:48] VITALS: BP 127/66; PULSE 66; RESP 16; TEMP 36.9; O2SAT 92
[2024-08-11 08:12] VITALS: BP 108/83; PULSE 71; RESP 20; TEMP 36.4
[2024-08-11 08:43] LABS: Anion Gap 15 (5-15); BUN 19 mg/dL (4-19); Calcium,Total 9.4 mg/dL (7.6-11.0); Carbon Dioxide 19.9 mmol/L (21.0-32.0); Chloride 105 mmol/L (98-108); Creatinine, Serum 0.81 mg/dL (0.70-1.20); EST Glomerular Filtration Rate 77 (>60); Estimated Creatinine Clearance 61.67 ml/min (50-250); Glucose 127 mg/dL (70-99); Potassium 4.1 mmol/L (3.3-5.1); Sodium Level 140 mmol/L (133-145)
[2024-08-11] MEDS: Ceftriaxone 2 GM in 0.9% Normal Saline (50mL MB+) 50 ML IV (08:57)
[2024-08-11] MEDS: Potassium Chloride Oral Tablet 20 MEQ 40 MEQ PO (09:03)
[2024-08-11] MEDS: Escitalopram Oxalate 20 MG Tablet PO (09:03)
[2024-08-11] MEDS: Enoxaparin 40 MG/0.4 ML Syringe SC (09:03)
[2024-08-11] MEDS: Pantoprazole Sodium 40 MG Tablet PO (09:03)
[2024-08-11] MEDS: Senna/Docusate Sodium 1 Tablet 2 TABLET PO (09:03)
[2024-08-11] MEDS: buPROPion (XL) 300 MG TABLET.XL PO (09:03)
[2024-08-11] MEDS: amLODIPine 5 MG Tablet PO (09:07)
[2024-08-11 09:42] VITALS: O2SAT 93
[2024-08-11] MEDS: Azithromycin 500 MG in 0.9% Normal Saline (250mL Bag) 250 ML 255 MG IV (09:52)
[2024-08-11 10:20] VITALS: PULSE 90; RESP 18
--- NOTE | 2024-08-11 10:45 | CASEMGMT ---
CECILIO BLANCO Assessment: Face to Face with pt for initial transition planning/care coordination assessment. CECILIO BLANCO introduced self and role at [facility], pt voices understanding and consents to assessment. Pt is A&O x4 and answers all questions appropriately at this time. Pt sitting up in bed on RA with dtr at bedside. Pt agreeable to assessment with dtr present. Care providers, pharmacy, and demographics verified/updated. Admitting Dx: bilateral pna Strata Score: 2 PCP:Dorene Specialists:Denies Preferred [facility]acy:[facility] Insurance: [employer] Prescription Benefit: yes LNOK: Boom Shelby, ; Stanley Shelby, granddtr Living Arrangements: Pt lives with , dtr and great grandson in a single story home with 2 steps to enter with a rail. Pt reports she is I in ADL/IADLs and denies concerns at home. Transportation: Pt drives self and denies concerns with transportation. DME:[facility]- doesn't use HHC/SNF: Denies HHC but has been to [facility] in the past. Pt states no concerns with going home at time of dc. Pt states she feels great. She reports she has been off of oxygen since yesterday. Should pt need oxygen at home, pt states she would want to use [employer] as her has used them in the past. Provided a verbal list of other options as well. Pt denies any need for PT at home, no OT recommended. Pt states no further concerns/needs. CM to follow. Advised pt to ask CM if any further questions/concerns/needs arise, voices understanding. Pt Goal: Home Plan: Home [facility] HERNANDES CM
--- NOTE | 2024-08-11 13:26 | PCM.DC ---
Discharge Instructions Diet Discharge Diet: - (DASH diet) DC O2, CPAP, BIPAP needs Home O2 Discharge instructions: No Dressing / Incision Discharge Activity: - (Increase activity as tolerated) Follow Up Care Test Results: Test results from this visit will be discussed in further detail at your follow-up appointment, if applicable. Discharge Plan Admission Admit Date/Time: 08/09/24 13:08 Primary Reason for Your Visit: Shortness of breath Attending Provider: Yarelis Webber Primary Care Provider: Ronak Catherine Consulting Providers: Lazaro Lind Instructions Patient Instructions: Pneumonia Additional Instructions / Restrictions: DISCHARGE INSTRUCTIONS PLEASE READ *Please take this with you to your next doctors appointment* -Your triamterene?hydrochlorothiazide and potassium has been held, recommend following up with your primary care physician discussed optimal timing to resume this -Would recommend lab work ( BMP) to check your potassium and kidney function in 2 to 3 days through your primary care physician's office. Please call their office upon discharge to obtain order for lab work. - You will be discharged on additional 5 days of Augmentin and 1 day of azithromycin for your pneumonia - you will be discharged on additional 5 days of prednisone - recommend following up with Dr. Rafaela Coley, your supervisor microwave, upon discharge -Please call your primary care provider's office upon discharge to schedule a hospital follow up within 1 week. -For any concerning signs or symptoms please call 911 or proceed to the nearest emergency department Discharge Orders/Prescriptions Prescriptions: New amoxicillin-pot clavulanate 875-125 mg tablet 1 tab PO BID 5 Days Qty: 10 0RF azithromycin 500 mg tablet 500 mg PO DAILY Qty: 1 0RF prednisone 20 mg tablet 40 mg PO DAILY 5 Days Qty: 10 0RF Continued amlodipine 10 MG tablet 10 mg PO DAILY escitalopram oxalate 20 MG tablet 20 mg PO DAILY bupropion HCl 300 MG tablet extended release 24 hr 300 mg PO DAILY albuterol sulfate 90 mcg/actuation HFA aerosol inhaler 1 puff INHALATION Q6H PRN (Reason: copd) omeprazole 40 mg capsule,delayed release(DR/EC) 40 mg PO DAILY Discontinued potassium chloride 20 mEq tablet,ER particles/crystals 40 meq PO DAILY triamterene-hydrochlorothiazid 37.5-25 mg tablet 1 tab PO DAILY Referrals / Follow Up: Ronak Catherine MD [Primary Care Provider] - Within 1 Week Disposition Disposition (needs filled in before D/C Order can be placed): Home, Self Care
--- NOTE | 2024-08-11 13:33 | DS.PCM_ITS ---
Providers Date of Admission: 08/09/24 Date of Discharge: 08/11/24 Primary Care Physician: Dr. Ronak Catherine MD Reason For Visit: BILATERAL PNEUMONIA Diagnosis Discharge Diagnosis (1) Pneumonia: Status: Acute Code(s): J18.9 - Pneumonia, unspecified organism (2) Reactive airway disease: Status: Acute Code(s): J45.909 - Unspecified asthma, uncomplicated Plan # Acute asthma exacerbation secondary to bilateral pneumonia # Hypertension # Hypokalemia # Mild anxiety and depression Medications at Discharge Home Medications amlodipine 10 mg tablet 10 mg PO DAILY blood pressure 09/28/14 bupropion HCl 300 mg 24 hr tablet, extended release 300 mg PO DAILY DEPRESSION 12/31/17 escitalopram oxalate 20 mg tablet 20 mg PO DAILY depression 12/31/17 albuterol sulfate 90 mcg/actuation aerosol inhaler 1 puff inhalation Q6H PRN copd 05/28/21 omeprazole 40 mg capsule,delayed release 40 mg PO DAILY 08/09/24 amoxicillin 875 mg-potassium clavulanate 125 mg tablet 1 tab PO BID 5 days #10 tabs 08/11/24 azithromycin 500 mg tablet 500 mg PO DAILY #1 TAB 08/11/24 prednisone 20 mg tablet 40 mg (2 x 20 mg) PO DAILY 5 days #10 tabs 08/11/24 Hospital Course Summary of Care Provided Minutes Spent on Discharge: 28 Hospital Course: # Acute asthma exacerbation secondary to bilateral pneumonia # Hypertension # Hypokalemia # Mild anxiety and depression 74-year-old female with history as above presented [facility] [place] ED 08/11/2024 with fever, shortness of breath, cough with thick green and yellow sputum for 2 weeks. Chest x-ray was suggestive of bilateral pneumonia and patient started on Rocephin and azithromycin, did improve significantly with antibiotics and on day of discharge was in stable condition reports breathing much better and she has no new or acute complaints, cough also improving. Discharge instructions as followed: -Your triamterene?hydrochlorothiazide and potassium has been held, recommend following up with your primary care physician discussed optimal timing to resume this -Would recommend lab work ( BMP) to check your potassium and kidney function in 2 to 3 days through your primary care physician's office. Please call their office upon discharge to obtain order for lab work. - You will be discharged on additional 5 days of Augmentin and 1 day of azithromycin for your pneumonia - you will be discharged on additional 5 days of prednisone - recommend following up with Dr. Rafaela Coley, your healthcare educator, upon discharge -Please call your primary care provider's office upon discharge to schedule a hospital follow up within 1 week. -For any concerning signs or symptoms please call 911 or proceed to the nearest emergency department Physical Exam Narrative General: Alert, oriented, no apparent distress HEENT: Atraumatic, normocephalic Eyes: Anicteric, normal conjunctiva, extraocular movements grossly intact Neck: Supple Respiratory: No significant wheezes or rhonchi Cardiovascular: Regular rate and rhythm GI: Soft, nontender, nondistended Extremities: No edema Musculoskeletal: Moving all extremities Neuro: No overt focal neurological deficits Skin: No rashes appreciated Psych: Cooperative Weight / BMI Weight Weight: 80.4 kg Body Mass Index (BMI) 32.5 ABG / Lab / Microbiology Data 08/10/24 04:55 08/11/24 06:05 Laboratory: Laboratory Results - last 24 hr 08/11/24 06:05: Sodium 140, Potassium 4.1, Chloride 105, Carbon Dioxide 19.9 L, Anion Gap 15, BUN 19, Creatinine 0.81, Estim Creat Clear Calc 61.67, Est GFR (MDRD) Non-Af 77, BUN/Creatinine Ratio 23.0 H, Glucose 127 H, Calcium 9.4 Microbiology: Microbiology 08/09/24 12:27 Blood Culture (Wb) - Anticubital Left Blood Culture - Preliminary No growth in 48 hours. 08/09/24 11:45 Blood Culture (Wb) - Anticubital Left Blood Culture - Preliminary No growth in 48 hours. 08/09/24 14:20 Sputum, Expectorated/Coughed Gram Stain - Final 08/09/24 14:20 Sputum, Expectorated/Coughed Respiratory Culture - Preliminary Appears to be normal respiratory katrina. Further studies to follow. 08/10/24 20:25 Nasal Secretion MRSA (PCR) - Final 08/10/24 05:58 Urine, Clean Catch Legionella Antigen - Final 08/10/24 05:58 Urine, Clean Catch Streptococcus pneumoniae Antigen (M - Final 08/09/24 15:36 Mucosa - Nose Respiratory Panel (PCR) - Final 08/09/24 11:40 Mucosa - Nose SARS-CoV-2, Influenza & RSV (PCR) - Final D/C Instructions Discharge Diet: - (DASH diet) DC O2, CPAP, BIPAP Needs PSN CPAP & BiPAP: BiPAP & CPAP Settings per PSN Mode AIRVO 08/10/24 07:12 Bipap Delivery Device Nasal Pillows 08/10/24 07:12 Fraction of Inspired Oxygen ( 08/10/24 07:12 FIO2) Total Flow Rate 08/10/24 07:12 Home O2 Discharge instructions: No Meaningful Use Info Meaningful Use Meaningful Use Diagnoses (Choose all that apply): None applicable Ischemic Stroke Statin Dosing Therapy Reference: STATIN DOSE THERAPY REFERENCE: * Patients > 75 years receive moderate or high dose statin therapy. * Patients 75 years or YOUNGER should receive HIGH intensity statin dose unless contraindicated. You will be required to document reason for non-treatment if statin daily dose does not meet guidelines. HIGH DOSE STATIN THERAPY DAILY Atorvastatin > than or = to 40 mg Rosuvastatin > than or = to 20 mg Amlodipine + Atorvastatin > than or = to 2.5/40 mg Ezetimibe + Simvastatin 10/80 mg Simvastatin 80mg Discharge Plan Admission Admit Date/Time: 08/09/24 13:08 Primary Reason for Your Visit: Shortness of breath Attending Provider: Yarelis Webber Primary Care Provider: Ronak Catherine Consulting Providers: Lazaro Lind Instructions Patient Instructions: Pneumonia Additional Instructions / Restrictions: DISCHARGE INSTRUCTIONS PLEASE READ *Please take this with you to your next doctors appointment* -Your triamterene?hydrochlorothiazide and potassium has been held, recommend following up with your primary care physician discussed optimal timing to resume this -Would recommend lab work ( BMP) to check your potassium and kidney function in 2 to 3 days through your primary care physician's office. Please call their office upon discharge to obtain order for lab work. - You will be discharged on additional 5 days of Augmentin and 1 day of azithromycin for your pneumonia - you will be discharged on additional 5 days of prednisone - recommend following up with Dr. Rafaela Coley, your healthcare educator, upon discharge -Please call your primary care provider's office upon discharge to schedule a hospital follow up within 1 week. -For any concerning signs or symptoms please call 911 or proceed to the nearest emergency department Discharge Orders/Prescriptions Prescriptions: New amoxicillin-pot clavulanate 875-125 mg tablet 1 tab PO BID 5 Days Qty: 10 0RF azithromycin 500 mg tablet 500 mg PO DAILY Qty: 1 0RF prednisone 20 mg tablet 40 mg PO DAILY 5 Days Qty: 10 0RF Continued amlodipine 10 MG tablet 10 mg PO DAILY escitalopram oxalate 20 MG tablet 20 mg PO DAILY bupropion HCl 300 MG tablet extended release 24 hr 300 mg PO DAILY albuterol sulfate 90 mcg/actuation HFA aerosol inhaler 1 puff INHALATION Q6H PRN (Reason: copd) omeprazole 40 mg capsule,delayed release(DR/EC) 40 mg PO DAILY Discontinued potassium chloride 20 mEq tablet,ER particles/crystals 40 meq PO DAILY triamterene-hydrochlorothiazid 37.5-25 mg tablet 1 tab PO DAILY Referrals / Follow Up: Ronak Catherine MD [Primary Care Provider] - Within 1 Week Disposition Disposition (needs filled in before D/C Order can be placed): Home, Self Care Charges/Coding Visit Charges Inpatient E&M: 80361 Disch Hosp
== END 2024-08-11 14:31 | disposition home or self-care (01) | DRG 190 ==
LOC: ED 13:18 → MS3 13:33
PROVIDERS: Admitting Provider Internal Medicine; Emergency Provider Emergency Medicine; PCP Family Medicine; Visit Provider Internal Medicine
DX: J44.0 Chronic obstructive pulmonary disease with (acute) lower respiratory infection (principal); J18.9 Pneumonia, unspecified organism; J45.901 Unspecified asthma with (acute) exacerbation; I10 Essential (primary) hypertension; F32.A Depression, unspecified; E87.6 Hypokalemia; F41.9 Anxiety disorder, unspecified; Z11.52 Encounter for screening for COVID-19; Z79.899 Other long term (current) drug therapy; Z87.891 Personal history of nicotine dependence
CPT/HCPCS: 36415; 71045; 80048; 83605; 83735; 85025; 87040; 87070; 87205; 87449; 87631; 87633; 87641; 93005; 94640; 94660; 94668; 94762; 97110; 97116; 97161; 97166; 97530; 99252; 99284; A4216; G0463; J0696

== ENCOUNTER → 2025-01-27 | Outpatient (CLI) | payer MEDICARE, OTHER, SELFPAY ==
--- NOTE | 2025-01-27 15:10 | BD_ITS ---
PROCEDURE: DEXA BONE DENSITY STUDY 01/27/2025 REASON FOR EXAM: F, age 75 y/o . Postmenopausal. TECHNIQUE: DEXA BONE DENSITY STUDY COMPARISON: May 02 2022. FINDINGS: BMD and T-SCORES Lumbar spine: 0.974 g/cm2, T-score -0.5 Levels: L1 through L4 Change from prior: Improvement of 7.1%. Left femoral neck: 0.605 g/cm2, T-score -2.2 Femoral neck comparison data not recommended for monitoring change. Left total hip: 0.838 g/cm2, T-score -0.9 Change from prior: Improvement of 0.6%. Right femoral neck: 0.661 g/cm2, T-score -1.7 Femoral neck comparison data not recommended for monitoring change. Right total hip: 0.829 g/cm2, T-score -0.9 Change from prior: Improvement of 1%. The World Health Organization has defined the following categories based on bone density: Normal bone density: T-score equal to or greater than -1.0 Osteopenia: T-score between -1.0 and -2.5 Osteoporosis: T-score equal to or less than -2.5 FRAX (or Comparable) Fracture Risk Assessment: 10 Year Probability of Fracture: Major Osteoporotic Fracture: 19% Hip Fracture: 5.2% (Note: FRAX is not to be reported in setting of normal range bone density, osteoporosis on DEXA, known history of osteoporosis, prior osteoporotic hip or vertebral fracture, or for any patient undergoing pharmacological treatment for bone loss.) The National Osteoporosis Foundation (NOF) recommends pharmacological treatment for patients with a FRAX 10-year risk of 3% or higher for a hip fracture, or 20% or higher for a major osteoporotic fracture, to prevent osteoporosis and reduce fracture risk. The patient does meet the pharmacological treatment recommendations for prevention of osteoporosis. BD/Dexa Bone Density Study IMPRESSION: OSTEOPENIA. Recommend follow-up as clinically warranted. Reading Location: [facility]
--- NOTE | 2025-01-27 15:10 | BI_ITS ---
EXAM: SCRN MAMM (CAD)W/CAESAR BILAT DATE: 01/27/2025 CLINICAL HISTORY: F, Age 75 y/o , MEDICARE SCREEN TECHNIQUE: SCRN MAMM (CAD)W/CAESAR BILAT COMPARISON: Prior exam(s) were compared FINDINGS: TISSUE DENSITY: There are scattered areas of fibroglandular density. Bilateral Breast Mammographic Findings: Right breast: There is an asymmetry in the lower right breast posterior depth. Recommend additional diagnostic imaging with spot compression views and possible limited ultrasound scanning of the lower right breast. Left breast: No suspicious masses, calcifications or other abnormalities are identified. BI/SCRN MAMM (CAD)W/CAESAR BILAT IMPRESSION: Incomplete evaluation. Additional imaging is recommended of the right breast a s detailed above. OVERALL FINAL ASSESSMENT BI-RADS 0: INCOMPLETE - NEED ADDITIONAL IMAGING EVALUATION. RECOMMENDATION: Additional Views obtained/call backs A letter with findings and recommendations will be mailed to the patient. Reading Location: [id number]
== END | disposition home or self-care (01) ==
LOC: OPBD 15:09
PROVIDERS: PCP Family Medicine; Referring Provider Family Medicine; Visit Provider Family Medicine
DX: Z00.00 Encounter for general adult medical examination without abnormal findings (principal); Z12.31 Encounter for screening mammogram for malignant neoplasm of breast; Z78.0 Asymptomatic menopausal state
CPT/HCPCS: 77063; 77067; 77080

== ENCOUNTER → 2025-01-29 | Outpatient (CLI) | payer MEDICARE, OTHER, SELFPAY ==
--- NOTE | 2025-01-29 13:03 | BI_ITS ---
EXAM: DIAG MAMM W/CAD, UNILAT 01/29/2025 CLINICAL HISTORY: F, Age 75 y/o , ABN MAMM TECHNIQUE: DIAG MAMM W/CAD, UNILAT. Compression spot views of the right breast in the mediolateral oblique and craniocaudad projections were obtained. COMPARISON: Prior exam(s) dated January 27, 2025.. FINDINGS: TISSUE DENSITY: There are scattered areas of fibroglandular density. Bilateral Breast Mammographic Findings: No significant masses, calcifications or other abnormalities are identified. BI/DIAG MAMM W/CAD, UNILAT IMPRESSION: No significant abnormality is seen. OVERALL FINAL ASSESSMENT BI-RADS 0: INCOMPLETE - NEED ADDITIONAL IMAGING EVALUATION. RECOMMENDATION: Ultrasound Recommended A letter with findings and recommendations will be mailed to the patient. Reading Location: [id number]
--- NOTE | 2025-01-29 13:03 | US_ITS ---
PROCEDURE: BREAST LIMITED UNILATERAL 01/29/2025 REASON FOR EXAM: F, Age 75 y/o , ABN MAMM Abnormal right mammogram. COMPARISON: . TECHNIQUE: BREAST LIMITED UNILATERAL. The lateral inferior aspect of the right breast was examined with ultrasound. FINDINGS: There is a 1.9 cm x 1 cm x 0.6 cm benign-appearing lymph node with a fatty hilum. US/Breast Limited Unilateral IMPRESSION: Findings suggestive of a benign 1.9 cm 1 cm 0.6 cm lymph node with a fatty hilu m. BI-RADS 2: BENIGN RECOMMENDATION: Routine annual follow-up in 1 Year Reading Location: [id number]
== END | disposition home or self-care (01) ==
LOC: OPBI 13:00
PROVIDERS: PCP Family Medicine; Referring Provider Family Medicine; Visit Provider Family Medicine
DX: R92.8 Other abnormal and inconclusive findings on diagnostic imaging of breast (principal)
CPT/HCPCS: 76642; 77061; 77065; G0279